=== PATIENT | male | born 1995 | race Caucasian/White ===

== ENCOUNTER → 2016-04-07 | Outpatient (CLI) | payer OTHER ==
[~2016-04-07] MED LIST: AZAT50TA17 PO; CRFL PO; FERR1TAB23 PO; MULT-506 PO; PRED10TA PO; VLC450 PO
[2016-04-07 17:40] LABS: BASO % 0.2 %; BASO ABS # 0.01 K/uL (0-0.2); EOS % 0.8 %; HEMATOCRIT 34.7 % (42-52); IG% 0.2 %; LYMPH ABS # 1.71 K/uL (1.2-3.4); MEAN CELL VOLUME 84.2 fL (80-100); MEAN CORPUSCULAR HEMOGLOBIN 25.5 pg (25-34); MEAN CORPUSCULAR HGB CONC 30.3 g/dl (32-36); MEAN PLATELET VOLUME 8.4 fL (7.4-10.4); MONO % 9.3 %; NEUT % 53.5 %; PLATELET COUNT 276 K/uL (130-400); RED BLOOD COUNT 4.12 M/uL (4.7-6.1); RETHE 24.8 PG (28.2-36.6); WHITE BLOOD COUNT 4.75 K/uL (4.8-10.8)
[2016-04-07 18:04] LABS: C-REACTIVE PROTEIN < 0.29 mg/dl (0-0.29); FERRITIN 5.8 ng/ml (8.0-388.0); TOTAL IRON BINDING CAPACITY 382 mcg/dl (250-450)
[2016-04-07 18:48] LABS: ANISOCYTOSIS PRESENT
[2016-04-08 23:05] LABS: COMPLETE YES
[2016-04-10 14:33] LABS: CMV DNA PCR QUANT SOURCE Whole Blood; CMV DNA QN REAL TIME PCR <200 IU/mL (<200)
== END | disposition home or self-care (01) ==
LOC: C.LABPVFM 15:41
PROVIDERS: ATTEND Hospitalist
DX: D50.9 Iron deficiency anemia, unspecified (principal)

== ENCOUNTER → 2017-03-09 | Outpatient (CLI) | payer OTHER ==
[~2017-03-09] MED LIST changes: -CRFL PO; -FERR1TAB23 PO; -MULT-506 PO; -PRED10TA PO; +RMCI IV; -VLC450 PO
== END | disposition home or self-care (01) ==
LOC: C.LAB 13:02
PROVIDERS: ATTEND Internal Medicine Gastroenterology
DX: K50.90 Crohn's disease, unspecified, without complications (principal)

== ENCOUNTER 2018-06-27 17:17 | Inpatient (IN) ==
[2018-06-27] MEDS ORDERED: LORazepam 2 MG/ML VIAL (IM USE) ONE (17:27)
[2018-06-27] MEDS ORDERED: LORazepam 2 MG/ML VIAL (IM USE) IM STA (17:28)
[2018-06-27] MEDS: HALOPERIDOL LACTATE 5 MG/ML 1 ML VIAL IM STA ×2 (17:29→17:43)
[2018-06-27] MEDS: HALOPERIDOL LACTATE 5 MG/ML 1 ML VIAL ONE ×2 (17:29→17:54)
[2018-06-27 18:57] LABS: Basophils # (auto) 0.02 K/uL (0-0.2); Basophils % (auto) 0.2 %; Eosinophils # (auto) 0.39 K/uL (0-0.5); Eosinophils % (auto) 3.9 %; Hematocrit (blood only) 48.1 % (42-52); Hemoglobin 17.6 g/dL (14.0-18.0); Immature Granulocytes # (auto) 0.02 K/uL (0.00-0.02); Immature Granulocytes % (auto) 0.2 %; Lymphocytes # (auto) 1.91 K/uL (1.2-3.4); Lymphocytes % (auto) 19.2 %; Mean Corpuscular Hemoglobin 31.6 pg (25-34); Mean Corpuscular Hgb Conc 36.6 g/dL (32-36); Mean Corpuscular Volume 86.4 fL (80-100); Mean Platelet Volume 10.5 fL (7.4-10.4); Monocytes # (auto) 0.87 K/uL (0.11-0.59); Monocytes % (auto) 8.7 %; Neutrophils # (auto) 6.76 K/uL (1.4-6.5); Neutrophils % (auto) 67.8 %; Platelet Count 190 K/uL (130-400); RDW Coefficient of Variation 12.4 % (11.5-14.5); RDW Standard Deviation 39.4 fL (36.4-46.3); Red Blood Count 5.57 M/uL (4.7-6.1); White Blood Count 9.97 K/uL (4.8-10.8)
[2018-06-27 19:19] LABS: Alanine Aminotransferase 59 U/L (12-78); Albumin Level 4.1 gm/dl (3.4-5.0); Aspartate Aminotransferase 39 U/L (15-37); BUN Creatinine Ratio 10.6 (10-20); Blood Urea Nitrogen 15 mg/dl (7-18); Carbon Dioxide 19 mmol/L (21-32); Chloride 108 mmol/L (98-107); Est GFR (African American) 80.7; Est GFR (Non-African American) 69.6; Glucose 104 mg/dl (70-99); Potassium 3.5 mmol/L (3.5-5.1); Sodium 140 mmol/L (136-145)
[2018-06-27 19:21] LABS: Acetaminophen < 2 ug/ml (10-30); Salicylate < 1.7 mg/dl (2.8-20)
[2018-06-27 19:27] LABS: Albumin Globulin Ratio 1.1 (0.9-2); Alkaline Phosphatase 82 U/L (45-117); Bilirubin,Total 1.3 mg/dl (0.2-1); Globulin 3.6 gm/dl (2.5-4.0); Thyroid Stimulating Hormone 0.816 uIu/ml (0.300-4.500); Total Protein 7.7 gm/dl (6.4-8.2)
--- OUTSIDE RECORDS SUMMARY | 2018-06-27 22:06 | External Medical Summary | Continuity of Care Document ---
:1995 Author Name Julius Correa, Provider Address Unavailable Unavailable , Care Team Providers Name Role Phone RikNPG Sunny, Provider Unavailable [email or web address] PA-C, [email or web address] FATOU Correa, JOSS Kelly Unavailable Unavailable Unavailable Unavailable Unavailable Problems Neutropenia (288.00) (D70.9) Leukopenia (288.50) (D72.819) Contact dermatitis (692.9) (L25.9) Pica (307.52) (F50.89) Abnormal weight gain (783.1) (R63.5) Arthritis (716.90) (M19.90) Crohn disease (555.9) (K50.90) Crohn's disease (555.9) (K50.90) Colitis, CMV (078.5) (A08.39) Iron deficiency anemia (280.9) (D50.9) Colitis (558.9) (K52.9) Anemia due to blood loss (280.0) (D50.0) Diarrhea (787.91) (R19.7) Attention disturbance (799.51) (R41.840) Asperger's disorder (299.80) (F84.5) Striae (701.3) (L90.6) Tobacco use (305.1) (Z72.0) Anemia (285.9) (D64.9) Nausea (787.02) (R11.0) Allergies and Adverse Reactions mesalamine (Allergy) Ondansetron HCl TABS (Allergy) Remicade (Allergy) No Known Food Allergies (Allergy) Medications Vitamin D TABS Refills: 0 Multivitamins TABS Refills: 0 Bactrim DS TABS Refills: 0 Remicade 100 MG Intravenous Solution Rec onstituted; Started during [facility] [place]. Repeat Remicade dosing on 03/08/2016 and then every 4 weeks thereafter. Refills: 0 Sucralfate 1 GM Oral Tablet; TAKE 1 TABL ET 4 TIMES DAILY, BEFORE MEALS AND AT BEDTIME. Refills: 0 Ergocalciferol 02011 UNIT Oral Capsule; TAKE 1 CAPSULE Weekl y Refills: 0 valGANciclovir HCl - 450 MG Oral Tablet; TAKE 900 MG Twice daily Take BID until CMV PCR labs negative x 2. Then take 1 per day for 1 to 3 months. Refills: 0 Juice Plus Fibre LIQD Refills: 0 predniSONE 10 MG Oral Tablet; TAKE 20 MG Twice daily until f/u with GI on 03/15/2016 Refills: 0 azaTHIOprine 50 MG Oral Tablet; TAKE 2 TABLETS DAILY. ZULEMA Stewart Start: 11-Feb-2009 Quantity: 60 Refills: 0 Ferrous Sulfate 325 (65 Fe) MG Oral Tablet; TAKE 1 TAB LET TWICE DAILY. ZULEMA Thomas Start: 13-Jan-2016 Quantity: 60 Refills: 0 Procedures Procedures not documented Immunizations Hepatitis B On: 1996 Hepatitis B On: 1996 IPV On: 1996 HIB On: 1996 DTaP On: 1996 IPV On: 1996 HIB On: 1996 DTaP On: 1996 Hepatitis B On: 1996 HIB On: 1996 DTaP On: 1996 HIB On: 12-Aug-1997 Varicella On: 12-Aug-1997 MMR On: 12-Aug-1997 IPV On: 31-Dec-1997 DTaP On: 31-Dec-1997 IPV On: 18-May-2001 DTaP On: 18-May-2001 MMR On: 18-May-2001 Tdap On: 26-Jun-2006 Varicella On: 29-Nov-2006 Influenza On: 29-Nov-2006 FluMist LIQD On: 26-Jan-2008 Meningo (Menactra) On: 26-Jun-2008 FluMist LIQD On: 11-Dec-2008 15:05 Lot #: [id number], [employer] Fluzone INJ On: 28-Dec-2010 Hepatitis A On: 13-Apr-2011 12:40 Lot #: [id number], [employer] HPV (Gardasil) On: 13-Apr-2011 12:40 Lot #: [id number], [employer] HPV (Gardasil) On: 09-Jun-2011 16:15 Lot #: [id number], [employer] Hepatitis A On: 11-Nov-2011 16:17 Lot #: [id number], [employer] HPV (Gardasil) On: 11-Nov-2011 16:17 Lot #: [id number], [employer] Influenza On: 11-Nov-2011 16:18 Lot #: [id number], [employer] PPD On: 21-Apr-2012 16:50 Lot #: [id number], [employer] Prevnar 13 Intramuscular Suspension On: 21-Apr-2012 16:50 Lot #: [id number], [employer] Influenza (Nasal) On: 21-Nov-2012 8:36 Lot #: [id number], [employer] Menactra Intramuscular Injectable On: 25-May-2013 10:06 Lot #: [id number], [employer] Pneumococcal polysaccharide vaccine, 23 valent On: 26-May-19 14 10:06 Lot #: [id number], [employer] Fluzone INJ On: 17-Jan-2014 16:43 Lot #: [id number], [employer] Fluzone INJ On: 09-Dec-2014 17:33 Lot #: [id number], [employer] Fluzone SUSP On: 06-Jan-2016 17:24 Lot #: [id number], [employer] Social History - Smoking Status Never smoker Plan of Treatment Planned Observations Planned Goals not documented Results No Known Results Results not documented
[2018-06-27 22:14] LABS: Appearance Urine Clear (Clear); Bilirubin Urine Negative (Negative); Blood Urine Negative (Negative); Color Urine Yellow; Glucose Urine UA Negative (Negative); Ketones Urine Negative (Negative); Leukocyte Esterase Urine Negative (Negative); Nitrite Urine Negative (Negative); Protein Urine Negative (Negative); Urobilinogen Urine Negative (Negative)
[2018-06-27 22:27] LABS: Amphetamines+Metham, Urine Neg (Neg); Barbiturates, Urine Neg (Neg); Benzodiazepine, Urine Neg (Neg); Cocaine, Urine Neg (Neg); MDMA (Ecstacy), Urine Neg (Neg); Methadone, Urine Neg (Neg); Opiate, Urine Neg (Neg); Phencyclidine, Urine Neg (Neg)
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
[2018-06-28 00:18] LABS: iSTAT Hemoglobin 14.6 g/dl (14.0-18.0); iSTAT Ionized Calcium 1.2 mmol/l (1.12-1.32); iSTAT Potassium 3.7 mEq/L (3.3-5.0)
[2018-06-28] MEDS ORDERED: MAGNESIUM HYDROXIDE SUSP 30 ML UDC PO PRN (04:05)
[2018-06-28] MEDS ORDERED: BISMUTH SUBSALICYLATE PER ML OMNICELL CHARGE PO PRN (04:05)
[2018-06-28] MEDS ORDERED: SODIUM CHLORIDE 0.65% NA SOLN 45 ML (OCEAN) PRN (04:05)
[2018-06-28] MEDS ORDERED: ACETAMINOPHEN 325 MG TAB PO PRN (04:05)
[2018-06-28] MEDS ORDERED: ALUMINUM/MAGNESIUM SUSP 30 ML UDC PO PRN (04:05)
[2018-06-28] MEDS ORDERED: HALOPERIDOL 5 MG TAB PO PRN (05:18)
[2018-06-28] MEDS ORDERED: HALOPERIDOL LACTATE 5 MG/ML 1 ML VIAL IM PRN (05:18)
[2018-06-28] MEDS ORDERED: LORazepam 1 MG TAB PO PRN (05:25)
[2018-06-28] MEDS ORDERED: LORazepam 2 MG/ML VIAL (IM USE) IM PRN (05:27)
--- NOTE | 2018-06-28 05:35 | Emergency Department Note ---
ED Visit Note ED Physician Sign Out Note: 23 yr old male with acute suicidal/homicidal ideation initially evaluated, medically cleared and chemically sedated by Dr Toro. 302 paperwork already signed. He is stable, discussing inpatient treatment with mental health. He was signed out to me pending disposition. Accepted to [address] [place] [address] and transferred there without issue. Chris Stapleton MD
--- NOTE | 2018-06-28 08:20 | History & Physical ---
Date of Service June 28, 2018 Impression / Recommendations (1) Homicidal ideation: 06/28 -patient admitted on a 302 involuntary commitment. Continue suicide and homicide checks. Gather information to help determine the need for continued treatment. -Patient admits to threatening to kill his mother and her dog after they had an argument 2 days ago. He denies intent to act on these thoughts currently. He does not endorse any symptoms consistent with a mental illness, and is not psychotic, manic, or depressed, but reports he was angry at his mother for refusing to hire an bankruptcy attorney to fight his criminal charges for selling drugs. -Reviewed recommendations with him, including that he participate in groups and programming, work on healthy ways to cope with anger, and have a meeting with his mother. He is refusing, and states he will not return to stay with his mother. -Mother is the petitioner, so will ask staff to contact her for collateral information. -Patient has been informed that threatening or aggressive behavior will not be tolerated here, and police will be contacted and charges can be processed if he engages in such behavior. He expressed understanding. Present on Admission?: Yes (2) Suicidal ideation: 06/28 -continue suicide checks. Patient reports feeling suicidal only when he is feeling upset about his criminal charges. It does not appear that this is related to a primary mood, thought, or anxiety disorder. Present on Admission?: Yes Risk Factors Assessment Male: Yes : Yes Do You Have Access To A Gun?: No Health Problems: Yes Mental Health Diagnoses: No Substance Use Disorders: Yes Previous Attempt: No Family History of Suicide: No Previous Psychiatric Hospitalization: No Hopelessness: No Smoker: No Protective Factors Assessment Denominational Beliefs: No : No Responsible for Young Children: No Employed: Yes Stable Relationships: No Good Rapport with Provider: No Psychiatric History Identifying Data SAI RYAN is a 23-year-old M who currently lives in [facility] with his mother, has a history of Crohn's disease and Asperger's, and was admitted on 06/28/18 04:05 on a 302 involuntary commitment for threats to kill his mother and her dog. Chief Complaint "I don't even know where I'm at... My mother called 302 because we got into a fight about the fact my one case got dropped". History of Present Illness Information obtained from the patient and the medical record. He was brought into the ER by police 06/27/2018 on a 302 warrant, after mother completed a petitioning statement: They had an argument on 06/26/2018, and then the patient threatened to kill her and her dog, and to chop his mother up into little pieces. He also stated he wished his mother's cancer would return and that she would have a slow and painful . He said he was not afraid to and could run his car into something. She said he had a machete and a hatchet in his car, and that he had been missing since the morning of 06/26/2018 and had blocked family members on his phone so no one could reach him. The police who brought him and confirmed that he had a machete in his car. He was uncooperative and agitated in the ER, attempted to leave, and pushed security, resulting in a code frankle. He received 5 mg Haldol and 2 mg Ativan IM, and was placed in restraints. He was also found to be smoking marijuana in the ER. He was tearful when evaluated by the physician, and stated he had a fight with his mother the day prior, and then left the house and blocked her on his phone. He was going to stay in his car until he had to go to work, but got a call from police stating they need to speak with him, who then brought him to the hospital. He did not want to come in the hospital, and said he did not need treatment. He expressed anger at the police, stating they arrested him after he was found to have 1/2 pound of marijuana, and said they lied to him and treated him unfairly. He said that he had 6 months of house arrest and is on probation. After he calmed down, he told ER staff that he was not going to kill his mother, and was "just really mad." He said he "might" harm his mother's dog. His drug screen was positive for marijuana, creatinine was slightly elevated at 1.42, anion gap increased to 13, total bilirubin increased 1.3, AST elevated at 39, and TSH was normal. On my assessment, the patient states he was brought into the hospital by police because he was angry at his mother for refusing to hire an bankruptcy attorney to continue to fight drug charges he received. He talks angrily and at length about being arrested by police with a large amount of marijuana and al, and says they confiscated his money, which he believes he should get back. He admits that he was selling drugs, but does not believe the police had the right to search him, saying everyone believes the police and no one believes him, and they called him a liar". He says his redevelopment manager "screwed me," and his mother did nothing about it, so he got mad at her. He freely admits to making all of the threats detailed in the petitioning statement, including threatening to kill his mother and his mother's dog, and saying he did not care if he . He states that he has had thoughts about being better off whenever he gets upset about his criminal charges, because "who would want to live in a world like that?" He admits to having weapons in his car (machete and hatchet) which he said were there "for self-defense." He denies intent to harm anyone else currently, and also denies thoughts to harm himself, depressed mood, changes in appetite and sleep, problems with energy, anhedonia, guilty feelings, and psychomotor retardation. He states that his mood was "fine" before the fight with his mother, and now is angry, as he does not want to be in the hospital. He denies any history of symptoms consistent with uli, psychosis, or anxiety. He is refusing to have a meeting with his mother, stating he does not want to talk to her, and when asked where he will go at discharge, says "wherever I want, may be in my car, may be somewhere else." He plans to return to work when discharged, and says he wants to leave now. When encouraged to take this opportunity to address the issues with his mother and try to come up with a good discharge plan, he refuses, stating he does not need to be here and just wants to leave. He says he is aware that it is a crime to threaten to harm others, and was informed that he is expected to be in behavioral control here, and that threats and aggression t owards others will not be tolerated. Past Psychiatric History Previous Psych History: Per records he has a history of Asperger's Outpatient Services: None Previous Psych Admissions: Denies Do You Have Access To A Gun?: No History of Previous Suicide Attempt: No Allergies Allergy/AdvReac Type Severity Reaction Status Date / Time infliximab [From Remicade] Allergy Intermediate THROAT Verified 06/27/18 18:04 SHERI GONZALEZ PRETREATED WITH ANTIHISTAMINES Home Medications Home Medications Medication Instructions Recorded Confirmed Type Medical Marijuana 1 dose INHALATION DIRECTED 06/27/18 06/27/18 History azathioprine [Imuran] 100 mg PO DAILY 06/27/18 06/27/18 History infliximab [Remicade] 1 dose IV [id number] 06/27/18 06/27/18 History multivitamin 1 tab PO DAILY 06/27/18 06/27/18 History Family History Family History of: Bipolar Family Mental Health History Comment: Aunt: Bipolar Alcohol History Hx of Alcohol Use Over the Past 12 Months: No AUDIT Total Score: 0 Smoking Use Have You Smoked or Used Tobacco Products in the Last 30 Days: No Smoking Status: Never smoker Substance History Hx of Prescription Med Misuse Over the Past 12 Months: No Hx of Over the Counter Med Misuse Over the Past 12 Months: No Hx of Inhalent Misuse Over the Past 12 Months: No Hx of Organic Substance Use Over the Past 12 Months: Yes ("Liquid marijuana daily") Hx of Illegal Substances/Street Drug Use Over Past 12 Months: No Problems as a Result of Past Substance Use: Arrested Problems as a Result of Past Substance Use Comments: "Arrested with 1/2 pound of marijuana" and a large amount of al Personal History Living Arrangements: Home Living Arrangements Comments: With mother in [place] 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) Marital Status: Single Beliefs That Will Affect Care: None Hx Legal Problems: Yes Patient History Medical History Anemia (Resolved) Crohn's colitis (Resolved) Headache (Resolved) Orthostasis (Resolved) Orthostatic hypotension (Acute) Surgical History No pertinent past surgical history Family History Other Family history non-contributory Social History Preferred Language: Bulgarian Communication Ability: Effective Integrated Circuits Inspector Required: No Beliefs That Will Affect Care: None Feels Safe at Home: Yes Smoking Status: Never smoker Review of Systems Review of Systems: All systems reviewed & are unremarkable except as noted in HPI & below Physical Exam Psychiatric: Orientation: alert; + uncooperative Apperance: + disheveled; + inappropriately groomed Extremely malodorous and unkempt. Eye Contact: + poor eye contact Motor Behavior: no abnormal motor movements Loud at times, angry tone. Affect: + irritable affect, + angry affect and + constricted affect Mood: + angry mood Thought Process: + perseveration (On anger about his criminal charges.) Thought Content: + cognitive distortions (Blaming others) Suicidal Thoughts: denies suicidal thoughts Homicidal Thoughts: denies homicidal thoughts Hallucinations: no auditory hallucinations and no visual hallucinations Cognition: recent memory grossly intact and language grossly intact Insight: + limited insight Judgement: + limited judgement Vital Signs (Past 24 Hours): Last Vital Signs Temp 36.8 C 06/28/18 06:22 Pulse 72 06/28/18 06:22 Resp 18 06/28/18 06:22 BP 112/62 06/28/18 06:22 Pulse Ox 98 06/28/18 05:03 Exam Statement: A physical exam was performed in the ER prior to admission to the unit by Dr. Tuttle. I accept that physical as correct/medical clearance for the inpatient physical exam. Results & Data Laboratory Results Laboratory Results - last 24 hr 06/27/18 06/27/18 06/27/18 18:21 18:21 18:21 WBC 9.97 RBC 5.57 Hgb 17.6 POC Hgb Hct 48.1 POC Hct MCV 86.4 MCH 31.6 MCHC 36.6 H RDW Std Deviation 39.4 RDW Coeff of Miguel 12.4 Plt Count 190 MPV 10.5 H Immature Gran % (Auto) 0.2 Neut % (Auto) 67.8 Lymph % (Auto) 19.2 Harding % (Auto) 8.7 Eos % (Auto) 3.9 Baso % (Auto) 0.2 Immature Gran # (Auto) 0.02 Neut # (Auto) 6.76 H Lymph # (Auto) 1.91 Harding # (Auto) 0.87 H Eos # (Auto) 0.39 Baso # (Auto) 0.02 POC Sodium Sodium 140 POC Potassium Potassium 3.5 POC Chloride Chloride 108 H Carbon Dioxide 19 L POC Total CO2 Anion Gap 13.0 H POC Anion Gap POC BUN BUN 15 Creatinine 1.42 H POC Creatinine Est Cr Clr Drug Dosing Not Reportable Est GFR ( Amer) 80.7 Est GFR (Non-Af Amer) 69.6 BUN/Creatinine Ratio 10.6 Glucose 104 H POC Glucose (other) Calcium 9.0 POC Ioniz Calcium Angélica Total Bilirubin 1.3 H AST 39 H ALT 59 Alkaline Phosphatase 82 Total Protein 7.7 Albumin 4.1 Globulin 3.6 Albumin/Globulin Ratio 1.1 TSH 0.816 Urine Color Urine Appearance Urine pH Ur Specific Murphy Urine Protein Urine Glucose (UA) Urine Ketones Urine Blood Urine Nitrite Urine Bilirubin Urine Urobilinogen Ur Leukocyte Esterase Salicylates < 1.7 L Urine Opiates Screen Ur Methadone, Qual Acetaminophen < 2 L Urine Barbiturates Ur Phencyclidine (PCP) U Amphetamin/Meth Scrn MDMA (Ecstasy) Screen U Benzodiazepines Scrn Ur Cocaine Metabolite U Marijuana (THC) Screen Ethyl Alcohol mg/dL 06/27/18 06/27/18 06/27/18 18:21 21:31 21:31 WBC RBC Hgb POC Hgb Hct POC Hct MCV MCH MCHC RDW Std Deviation RDW Coeff of Miguel Plt Count MPV Immature Gran % (Auto) Neut % (Auto) Lymph % (Auto) Harding % (Auto) Eos % (Auto) Baso % (Auto) Immature Gran # (Auto) Neut # (Auto) Lymph # (Auto) Harding # (Auto) Eos # (Auto) Baso # (Auto) POC Sodium Sodium POC Potassium Potassium POC Chloride Chloride Carbon Dioxide POC Total CO2 Anion Gap POC Anion Gap POC BUN BUN Creatinine POC Creatinine Est Cr Clr Drug Dosing Est GFR ( Amer) Est GFR (Non-Af Amer) BUN/Creatinine Ratio Glucose POC Glucose (other) Calcium POC Ioniz Calcium Angélica Total Bilirubin AST ALT Alkaline Phosphatase Total Protein Albumin Globulin Albumin/Globulin Ratio TSH Urine Color Yellow Urine Appearance Clear Urine pH 6.0 Ur Specific Murphy 1.010 Urine Protein Negative Urine Glucose (UA) Negative Urine Ketones Negative Urine Blood Negative Urine Nitrite Negative Urine Bilirubin Negative Urine Urobilinogen Negative Ur Leukocyte Esterase Negative Salicylates Urine Opiates Screen Neg Ur Methadone, Qual Neg Acetaminophen Urine Barbiturates Neg Ur Phencyclidine (PCP) Neg U Amphetamin/Meth Scrn Neg MDMA (Ecstasy) Screen Neg U Benzodiazepines Scrn Neg Ur Cocaine Metabolite Neg U Marijuana (THC) Screen Pos H Ethyl Alcohol mg/dL < 3.0 06/28/18 00:05 WBC RBC Hgb POC Hgb 14.6 Hct POC Hct 43 MCV MCH MCHC RDW Std Deviation RDW Coeff of Miguel Plt Count MPV Immature Gran % (Auto) Neut % (Auto) Lymph % (Auto) Harding % (Auto) Eos % (Auto) Baso % (Auto) Immature Gran # (Auto) Neut # (Auto) Lymph # (Auto) Harding # (Auto) Eos # (Auto) Baso # (Auto) POC Sodium 143 Sodium POC Potassium 3.7 Potassium POC Chloride 104 Chloride Carbon Dioxide POC Total CO2 23 L Anion Gap POC Anion Gap 20.0 POC BUN 14 BUN Creatinine POC Creatinine 1.0 Est Cr Clr Drug Dosing Est GFR ( Amer) Est GFR (Non-Af Amer) BUN/Creatinine Ratio Glucose POC Glucose (other) 91 Calcium POC Ioniz Calcium Angélica 1.20 Total Bilirubin AST ALT Alkaline Phosphatase Total Protein Albumin Globulin Albumin/Globulin Ratio TSH Urine Color Urine Appearance Urine pH Ur Specific Murphy Urine Protein Urine Glucose (UA) Urine Ketones Urine Blood Urine Nitrite Urine Bilirubin Urine Urobilinogen Ur Leukocyte Esterase Salicylates Urine Opiates Screen Ur Methadone, Qual Acetaminophen Urine Barbiturates Ur Phencyclidine (PCP) U Amphetamin/Meth Scrn MDMA (Ecstasy) Screen U Benzodiazepines Scrn Ur Cocaine Metabolite U Marijuana (THC) Screen Ethyl Alcohol mg/dL Current Inpatient Medications Current Inpatient Medications: Current Inpatient Medications Acetaminophen (Tylenol) 650 mg PO Q4H PRN PRN Reason: Headache or Minor Fever Stop: 07/28/18 04:04 Al Hydrox/Mg Hydrox/Simethicone (Maalox) 30 ml PO Q4H PRN PRN Reason: GI Upset Stop: 07/28/18 04:04 Bismuth Subsalicylate (Kaopectate) 15 ml PO PRN PRN PRN Reason: Loose Stool Stop: 07/28/18 04:04 Haloperidol (Haldol) 5 mg PO Q6 PRN PRN Reason: Agitation Stop: 07/28/18 05:59 Haloperidol Lactate (Haldol) 5 mg IM Q6 PRN PRN Reason: Agitation Stop: 07/28/18 05:17 Hydroxyzine HCl (Vistaril) 50 mg PO HSZ PRN PRN Reason: Insomnia Stop: 07/28/18 04:04 Hydroxyzine HCl (Vistaril) 25 mg PO Q4H PRN PRN Reason: Anxiety Stop: 07/28/18 04:04 Lorazepam (Ativan) 1 mg PO Q6 PRN PRN Reason: Anxiety Stop: 07/28/18 05:24 Lorazepam (Ativan) 2 mg IM Q6 PRN PRN Reason: Agitation Stop: 07/28/18 05:26 Magnesium Hydroxide (Milk Of Magnesia) 30 ml PO DAILY PRN PRN Reason: Heartburn Stop: 07/28/18 04:04 Sodium Chloride (Cooter Nasal) 1 - 2 sprays NA PRN PRN PRN Reason: Nasal Dryness/Congestion Stop: 07/28/18 04:04 CPT Code CPT Code Initial Hospital Care: 47341
--- NOTE | 2018-06-29 11:50 | Psychiatric Progress Note ---
Date of Service June 29, 2018 Impression / Recommendations Impression Patient continues to refuse a meeting with his mother, although he states he has no where else to live. Although he denies HI/SI, he continues to be very angry with his mother. Mother confirmed with social work that guns in the home have been secured; however, it is still unclear if patient's machete and other weapons were removed from his car. Current concerns also involve the fact that the patient's car is impounded and he has no housing arrangements. In order to decrease risk, given his threats to harm her, we are trying to confirm the weapons have been removed prior to considering discharge. The above information was discussed with the patient, who was hopeful for discharge today. He is understanding of steps necessary to ensure his safety at discharge, and was agreeable to completing his safety plan while these arrangements can be made. Given these recent stressors and turmoil with his mother, he remains at high risk of harm to others if discharged into the community without proper safety planning. (1) Homicidal ideation: 06/28 -patient admitted on a 302 involuntary commitment. Continue suicide and homicide checks. Gather information to help determine the need for continued treatment. -Patient admits to threatening to kill his mother and her dog after they had an argument 2 days ago. He denies intent to act on these thoughts currently. He does not endorse any symptoms consistent with a mental illness, and is not psychotic, manic, or depressed, but reports he was angry at his mother for refusing to hire an tax associate attorney to fight his criminal charges for selling drugs. -Reviewed recommendations with him, including that he participate in groups and programming, work on healthy ways to cope with anger, and have a meeting with his mother. He is refusing, and states he will not return to stay with his mother. -Mother is the petitioner, so will ask staff to contact her for collateral information. -Patient has been informed that threatening or aggressive behavior will not be tolerated here, and police will be contacted and charges can be processed if he engages in such behavior. He expressed understanding. 06/29 - Denies HI, but refuses ongoing contact with his mother at this time as he remains angry with her - Collateral from mother suggests vague reports of depression, she was informed that the patient is at increased risk of aggression moving forward. - Will attempt to arrange safe discharge after confirming patient does not have access to any of his many weapons (2) Suicidal ideation: 06/28 -continue suicide checks. Patient reports feeling suicidal only when he is feeling upset about his criminal charges. It does not appear that this is related to a primary mood, thought, or anxiety disorder. (3) Autism spectrum disorder: 06/29 - Mother reports patient was diagnosed with ASD as a child, but has not been in treatment for years. He has demonstrated perseveration on perceived grievances, including police for his drug arrest, and his mother for letting his dog out, as it was then hit by a car and killer. He is unwilling to consider medication, but would benefit from therapy, although currently refusing all outpatient treatment. Present on Admission?: Yes Risk Factors Assessment Male: Yes : Yes Do You Have Access To A Gun?: No Health Problems: Yes Mental Health Diagnoses: No Substance Use Disorders: Yes Previous Attempt: No Family History of Suicide: No Previous Psychiatric Hospitalization: No Hopelessness: No Smoker: No Protective Factors Assessment Confucianist Beliefs: No : No Responsible for Young Children: No Employed: Yes Stable Relationships: No Good Rapport with Provider: No Interval History Identifying Information SAI RYAN is a 23-year-old M who currently lives in [facility] with his mother, has a history of Crohn's disease and Asperger's, and was admitted on 06/28/18 04:05 on a 302 involuntary commitment after he threatened to kill his mother and her dog, and to kill himself. Chief Complaint "Ok. Am I leaving today?" Review of Systems Notes Constitutional: denied Cardiovascular: denied Respiratory: denied Gastrointestinal: denied Neurological: denied Psychiatric: denies symptoms other than stated above Total of at least 10 systems reviewed, pertinent positives as above and in HPI. Sleep Information Total Hours of Sleep: 9 Sleep Comments: pt admitted late to the [facility] @0508. pt on q-15 minute checks Meal Information Percent Meal Consumed - Breakfast: 0 Subjective Subjective Patient was seen & assessed and interval progress reviewed with Nursing. Staff report the patient has been participating in groups. Some collateral information was obtained from the mother yesterday, it was reported mother is concerned about him but that he is welcome to return home. Pt was seen today to assess progress since admission. Pt states he is "fine". Several changes in information were discussed with patient: pt refusing contact with his mother, his car being impounded, need to confirm if weapons have been secured, and discussion about discharge housing if not returning to his mother. Pt reports several friends have offered for him to stay with them, and was otherwise unders tanding of the safety concerns discussed. He remains unwilling to communicate with his mother at this time. Pt denies SI and other concerns today, but remains focused on discharge. Physical Exam Psychiatric Orientation: alert, oriented x 3 and cooperative (superficially) Apperance: + disheveled; + inappropriately groomed Eye Contact: + fair eye contact Motor Behavior: steady gait and station and no abnormal motor movements Speech: normal rate/rhythm/volume of speech Affect: + irritable affect (improving somewhat) and + constricted affect Mood: + irritable mood (specifically when discussing mother and ongoing safety concerns) Thought Process: goal directed thought process and clear/coherent thought process Thought Content: + cognitive distortions (Blaming others) Suicidal Thoughts: denies suicidal thoughts Homicidal Thoughts: denies homicidal thoughts Hallucinations: no auditory hallucinations and no visual hallucinations Cognition: recent memory grossly intact, attention grossly intact and language grossly intact Estimated Intelligence: consistent with education level Insight: + limited insight Judgement: + limited judgement Vital Signs (Past 24 Hours) Last Vital Signs Temp 36.4 C L 06/29/18 06:47 Pulse 98 H 06/29/18 06:48 Resp 18 06/29/18 06:47 BP 124/69 06/29/18 06:48 Pulse Ox 98 06/28/18 05:03 Results & Data Current Inpatient Medications Current Inpatient Medications: Current Inpatient Medications Acetaminophen (Tylenol) 650 mg PO Q4H PRN PRN Reason: Headache or Minor Fever Stop: 07/28/18 04:04 Al Hydrox/Mg Hydrox/Simethicone (Maalox) 30 ml PO Q4H PRN PRN Reason: GI Upset Stop: 07/28/18 04:04 Bismuth Subsalicylate (Kaopectate) 15 ml PO PRN PRN PRN Reason: Loose Stool Stop: 07/28/18 04:04 Haloperidol (Haldol) 5 mg PO Q6 PRN PRN Reason: Agitation Stop: 07/28/18 05:59 Haloperidol Lactate (Haldol) 5 mg IM Q6 PRN PRN Reason: Agitation Stop: 07/28/18 05:17 Hydroxyzine HCl (Vistaril) 50 mg PO HSZ PRN PRN Reason: Insomnia Stop: 07/28/18 04:04 Hydroxyzine HCl (Vistaril) 25 mg PO Q4H PRN PRN Reason: Anxiety Stop: 07/28/18 04:04 Lorazepam (Ativan) 1 mg PO Q6 PRN PRN Reason: Anxiety Stop: 07/28/18 05:24 Lorazepam (Ativan) 2 mg IM Q6 PRN PRN Reason: Agitation Stop: 07/28/18 05:26 Magnesium Hydroxide (Milk Of Magnesia) 30 ml PO DAILY PRN PRN Reason: Heartburn Stop: 07/28/18 04:04 Sodium Chloride ([place] Nasal) 1 - 2 sprays NA PRN PRN PRN Reason: Nasal Dryness/Congestion Stop: 07/28/18 04:04 Post Discharge Appointments Primary Care Physician Name Of Family Doctor: Santino Therapist Name of Therapist: Deandra Wood Strip Block Floor Installer Name of Wood Strip Block Floor Installer: Deandra Other #1: Name of Aftercare Appointment: Vernon BAZAN Phone Number of Aftercare Appointment: [phone] Date of Aftercare Appointment: 07/12/18 Time of Aftercare Appointment: 9am Aftercare Appointment Comment: [facility] [place] [id number] CPT Code CPT Code 72677
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
== END 2018-06-30 13:15 | disposition home or self-care (01) | DRG 884 ==
LOC: ED 17:17 → 3S 06-28 04:05

== ENCOUNTER 2020-01-01 07:49 | Inpatient (IN) ==
[2020-01-01] MEDS ORDERED: ONDANSETRON INJ 2 MG/ML 2 ML VIAL IV STA (08:21)
[2020-01-01] MEDS ORDERED: SODIUM CHLORIDE 0.9% 500 ML IV ONE (08:21)
--- NOTE | 2020-01-01 08:32 | Emergency Department Note ---
Impression & Plan Vomiting ED Provider Note INFORMANT: Patient ED PROVIDER(S): Sánchez Bateman MD CHIEF COMPLAINT: Vomiting PLAN: Disposition: Admitted Condition: Good MEDICAL DECISION MAKING: Patient presented back to the emergency department due to vomiting and intermittent abdominal pain. He has known inflammatory bowel disease. He was prescribed prednisone after symptomatic treatment yesterday in the ER. Work-up was consistent with IBD. Unfortunately he continued to have vomiting and intermittent pain. IV was established. The patient was hydrated. His symptoms were controlled with Zofran, Reglan, Benadryl, and Dilaudid. He was given IV Solu-Medrol. His CBC and chemistry panel were unremarkable. Acute distraction series revealed findings consistent with his IBD but no evidence of obstruction or perforation. [facility] gastroenterology was consulted. Hospital-based treatment was recommended. Consultation was made with the [facility] service. Patient was evaluated in the ER and admitted for further management. Triage Nursing notes reviewed and agree them. Prior medical records reviewed regarding visit yesterday. Vital Signs: reviewed and remarkable for no significant abnormalities Differential diagnosis: Etiologies such as IBD, gastroenteritis, food borne illness, infections, appendicitis, diverticulitis, GI bleed, biliary pathology, as well as others were entertained. Diagnostics interpreted by me: Cardiac Monitoring:Cardiac monitoring ordered by me: The patient was placed on continuous cardiac monitoring and observed. It revealed a normal sinus rhythm at 61 beats per minute without ectopy or evidence of dysrhythmia. Imaging studies: [place] abdominal series as noted above. No perforation or obstruction. Consultation(s): [facility] gastroenterology [facility] service HPI: The patient is a 24 year old male who presents to the Emergency Room with complaints of vomiting. This started again this morning and is persisting. The patient also notes the following associated symptoms, tenesmus, nausea, abdominal discomfort, bloody stool. The patient has found no relieving factors. Current pain is rated as 0/10. History of crohn's disease. Seen yesterday and work up consistent with IBD. Pt discharged prednisone. Unfortunately, he vomited his prednisone. Pt denies LOC, headache, fevers, chills, diaphoresis, visual changes, neck pain, chest pain, breathing difficulties, back pain, melena, urinary symptoms, numbness, weakness, lymphadenopathy, rash, or other complaints. ROS: See above HPI for pertinent positives & negatives. A total of 10 systems reviewed and were otherwise negative. PAST MEDICAL HISTORY:See Below, Crohn's PAST SURGICAL HISTORY:See Below, FAMILY HISTORY:See Below SOCIAL HISTORY:See Below, Denies ETOH HOME MEDICATIONS:See Below ALLERGIES:See Below VITALS:See Below PHYSICAL EXAMINATION: GENERAL: Awake, alert, uncomfortable-appearing, in no distress HENT: Normocephalic, atraumatic. Oropharynx unremarkable. EYES: Normal conjunctiva. Sclera non-icteric. NECK: Inspection normal. Non-tender. Supple. No nuchal rigidity. FROM. No masses. RESPIRATORY: Clear to auscultation. No wheezes. No rales. Normal respiratory effort. CARDIAC: Normal rate. Normal rhythm. No murmurs. No rubs. Extremities warm and well perfused. Pulses equal. No JVD. GI: Soft, non-distended. No tenderness to palpation. No rebound or guarding. No masses. RECTAL: Deferred. MUSCULOSKELETAL: Atraumatic. Chest examination reveals no tenderness. The back is symmetrical on inspection without obvious abnormality. There is no CVA tenderness to palpation. No joint edema. LOWER EXTREMITIES: Calves are equal size bilaterally and non-tender. No edema. No discoloration. NEURO: Normal sensorium. No sensory or motor deficits noted. SKIN: No rash or jaundice noted. ED COURSE: The patient was seen and examined with Dr. Eladio guzman, resident physician. We discussed the case and treatments ordered, reviewed the results, and determine the disposition. I have been directly involved with the management and disposition as well as independently evaluated the patient as documented in this note. Sánchez Bateman MD Past Med/Surg History Medical History (Updated 01/01/20 @ 08:26 by Sánchez Bateman MD) Anemia Crohn's colitis Headache Orthostasis Orthostatic hypotension Surgical History No pertinent past surgical history Family History Other Family history non-contributory Social History Smoking Status: Current some day smoker Tobacco Type: E-cigarettes / Vaping Preferred Language: Khmer Communication Ability: Effective Lure Maker Required: No Beliefs That Will Affect Care: None Feels Safe at Home: Yes Assistive Devices: None Allergies Allergies Allergy/AdvReac Type Severity Reaction Status Date / Time infliximab [From Remicade] Allergy Intermediate THROAT Verified 01/01/20 08:35 SWELLS Home Meds Home Medications Medication Instructions Recorded Confirmed Medical Marijuana 1 puff INHALATION UD 01/01/20 01/01/20 prednisone 40 mg PO QAM 01/01/20 01/01/20 Results & Data (ED) Vital Signs Vital Signs - 24 hr 01/01/20 07:52 01/01/20 09:09 01/01/20 10:54 Temperature 36.5 C Temperature Source Oral Pulse Rate 50 L Pulse Rate [Finger] 54 L 61 Respiratory Rate 16 16 16 Respiratory Effort / Characteristics Non-Labored Respiratory Depth Normal Respiratory Pattern Regular Blood Pressure 134/84 Blood Pressure [Right Arm] 150/82 H 133/83 Blood Pressure Mean 100 Blood Pressure Mean [Right Arm] 104 99 Blood Pressure Position Lying Pulse Oximetry 98 100 100 Oxygen Delivery Method Room Air Room Air Room Air Sepsis Recent Fever Within 48 Hours No Sepsis New/Unexplained Change in Mental Status No Sepsis Action Taken by Nursing No Action Required Laboratory Data Result diagrams: 01/01/20 08:15 01/01/20 08:15 Lab Results 01/01/20 01/01/20 Range/Units 08:15 08:15 WBC 7.42 (4.8-10.8) K/uL RBC 5.23 (4.7-6.1) M/uL Hgb 15.9 (14.0-18.0) g/dL Hct 46.3 (42-52) % MCV 88.5 (80-100) fL MCH 30.4 (25-34) pg MCHC 34.3 (32-36) g/dL RDW Std Deviation 40.1 (36.4-46.3) fL RDW Coeff of Miguel 12.5 (11.5-14.5) % Plt Count 288 (130-400) K/uL MPV 9.1 (7.4-10.4) fL Immature Gran % (Auto) 0.3 % Neut % (Auto) 59.0 % Lymph % (Auto) 24.1 % [place] % (Auto) 16.2 % Eos % (Auto) 0.3 % Baso % (Auto) 0.1 % Neut # (Auto) 4.38 (1.4-6.5) K/uL Lymph # (Auto) 1.79 (1.2-3.4) K/uL [place] # (Auto) 1.20 H (0.11-0.59) K/uL Eos # (Auto) 0.02 (0-0.5) K/uL Baso # (Auto) 0.01 (0-0.2) K/uL Immature Gran # (Auto) 0.02 (0.00-0.02) K/uL Sodium 141 (136-145) mmol/L Potassium 4.0 (3.5-5.1) mmol/L Chloride 106 (98-107) mmol/L Carbon Dioxide 29 (21-32) mmol/L Anion Gap 7.0 (3-11) BUN 7 (7-18) mg/dl Creatinine 1.11 (0.6-1.4) mg/dl Est Cr Clr Drug Dosing 110.2 ml/min Est GFR ( Amer) 107.9 Est GFR (Non-Af Amer) 93.1 BUN/Creatinine Ratio 6.3 L (10-20) Glucose 93 (70-99) mg/dl Calcium 9.5 (8.5-10.1) mg/dl Total Bilirubin 0.9 (0.2-1) mg/dl AST 14 L (15-37) U/L ALT 22 (12-78) U/L Alkaline Phosphatase 81 (45-117) U/L Total Protein 8.4 H (6.4-8.2) gm/dl Albumin 4.2 (3.4-5.0) gm/dl Globulin 4.2 H (2.5-4.0) gm/dl Albumin/Globulin Ratio 1.0 (0.9-2) Lipase 69 L (73-393) U/L Administered Medications Hydromorphone HCl (Hydromorphone Inj 0.5 Mg/0.5 Ml Syr) 0.5 mg IV Q15M PRN PRN Reason: Pain Stop: 01/15/20 08:44 Last Admin: 01/01/20 09:07 Dose: 0.5 mg Documented by: [id number] Discontinued Medications Diphenhydramine HCl (Diphenhydramine 50 Mg/Ml Vial) 25 mg IV NOW STA Stop: 01/01/20 08:37 Last Admin: 01/01/20 08:44 Dose: 25 mg Documented by: [id number] Sodium Chloride (Nss) 500 mls @ 999 mls/hr IV .Q31M ONE Stop: 01/01/20 08:51 Last Infusion: 01/01/20 09:00 Dose: 0 mls/hr Documented by: [id number] Admin: 01/01/20 08:28 Dose: 999 mls/hr Documented by: [id number] Sodium Chloride (Nss 1000ml) 1,000 mls @ 999 mls/hr IV .Q1H1M ONE Stop: 01/01/20 09:45 Last Admin: 01/01/20 09:07 Dose: 999 mls/hr Documented by: [id number] Methylprednisolone (Methylprednisolone 125 Mg/2 Ml Vial) 125 mg IV NOW STA Stop: 01/01/20 08:46 Last Admin: 01/01/20 09:07 Dose: 125 mg Documented by: [id number] Metoclopramide HCl (Metoclopramide Hcl Inj 5 Mg/Ml 2 Ml Vial) 10 mg IV NOW STA Stop: 01/01/20 08:37 Last Admin: 01/01/20 08:44 Dose: 10 mg Documented by: [id number] Ondansetron HCl (Ondansetron Inj 2 Mg/Ml 2 Ml Vial) 4 mg IV NOW STA Stop: 01/01/20 08:22 Last Admin: 01/01/20 08:28 Dose: 4 mg Documented by: [id number] Discharge Plan Visit Data Chief Complaint: Illness Stated Complaint: chrones flare up ED Provider: Sánchez Bateman Discharge Problem: Vomiting Forms Stand Alone Forms: [place] Prescriptions Prescriptions: No Action Medical Marijuana 1 puff inhalation UD RF: 0 prednisone 20 mg tablet 40 mg PO QAM RF: 0
[2020-01-01 08:36] LABS: Basophils # (auto) 0.01 K/uL (0-0.2); Basophils % (auto) 0.1 %; Eosinophils # (auto) 0.02 K/uL (0-0.5); Eosinophils % (auto) 0.3 %; Hematocrit (blood only) 46.3 % (42-52); Hemoglobin 15.9 g/dL (14.0-18.0); Immature Granulocytes # (auto) 0.02 K/uL (0.00-0.02); Immature Granulocytes % (auto) 0.3 %; Lymphocytes # (auto) 1.79 K/uL (1.2-3.4); Lymphocytes % (auto) 24.1 %; Mean Corpuscular Hemoglobin 30.4 pg (25-34); Mean Corpuscular Hgb Conc 34.3 g/dL (32-36); Mean Corpuscular Volume 88.5 fL (80-100); Mean Platelet Volume 9.1 fL (7.4-10.4); Monocytes % (auto) 16.2 %; Neutrophils # (auto) 4.38 K/uL (1.4-6.5); Platelet Count 288 K/uL (130-400); RDW Coefficient of Variation 12.5 % (11.5-14.5); RDW Standard Deviation 40.1 fL (36.4-46.3); Red Blood Count 5.23 M/uL (4.7-6.1); White Blood Count 7.42 K/uL (4.8-10.8)
[2020-01-01] MEDS ORDERED: METOCLOPRAMIDE HCL INJ 5 MG/ML 2 ML VIAL IV STA (08:36)
[2020-01-01] MEDS ORDERED: diphenhydrAMINE 50 MG/ML VIAL IV STA (08:36)
[2020-01-01] MEDS ORDERED: HYDROmorphone INJ 0.5 MG/0.5 ML SYR IV PRN (08:45)
[2020-01-01] MEDS ORDERED: methylPREDNISolone 125 MG/2 ML VIAL IV STA (08:45)
[2020-01-01] MEDS ORDERED: SODIUM CHLORIDE 0.9% 1000ML 1,000 ML IV ONE (08:45)
[2020-01-01 09:09] LABS: Albumin Level 4.2 gm/dl (3.4-5.0); BUN Creatinine Ratio 6.3 (10-20); Calcium 9.5 mg/dl (8.5-10.1); Creatinine Clr Calc Pharmacy 110.2 ml/min; Est GFR (African American) 107.9; Est GFR (Non-African American) 93.1
[2020-01-01 09:12] LABS: Bilirubin,Total 0.9 mg/dl (0.2-1); Globulin 4.2 gm/dl (2.5-4.0); Total Protein 8.4 gm/dl (6.4-8.2)
--- NOTE | 2020-01-01 09:20 | Communication Note ---
Date of Service: January 01, 2020 This patient was seen in concert with Dr. Bateman and we discussed and agreed upon the history, physical, assessment, and plan. See attending's note for details.
--- NOTE | 2020-01-01 10:01 | XRay Report ---
CHEST AND ABDOMEN 2 VIEWS HISTORY: Vomiting. Generalized abdominal pain. COMPARISON: Abdomen and pelvis CT 12/31/2019. Chest and abdominal series 02/03/2016. FINDINGS: The lungs are clear. The cardiomediastinal silhouette is within normal limits. There is no pneumoperitoneum or pneumatosis. Thumbprinting seen within the descending colon and sigmo id colon consistent with a colitis. This is better appreciated on the same day abdomen and pelvis CT. No evidence for bowel obstruction. No pathologic calcifications. IMPRESSION: 1. No acute process within the chest. 2. No evidence for bowel obstruction. 3. Redemonstration of the left-sided colitis. ACT 112: Negative or not required by law. Electronically signed by: Venu Perez M.D. 01/01/2020 9:59 AM
--- NOTE | 2020-01-01 11:24 | History & Physical Report ---
Date of Service January 01, 2020 Assessment & Plan (1) Bowel disease, inflammatory: Acute flair of crohn's disease. Patient will be admitted for IV steroids as he did not tolerate oral meds. He received 125 mg of IV methypredinoslone. will need 40 mg of prednisone (equivalent) daily for about a week. awaiting input from GI. (2) Vomiting: On zofran, due to problem 1. mildly improved. (3) Autism spectrum disorder: stable. will monitor. DVT: ambulate History of Present Illness Chief Complaint: flair up of crohn Primary Care Provider: Adrián De Jr, MD Patient is a 24 yo male with a longstanding diagnosis of crohn disease. He reports he has been having bright red blood in his stool for over a week. This is also accompanied by abdominal pain and/ nausea and vomiting. Patient reports he no longer has seen GI since Dr. Bedolla left. He states he came to the ER yesterday and was given prednisone however, at home he was not able to tolerate this and vomited it. This brought him back to the ER today. Patient will be admitted for iV steroids. Patient states that his moderate cramping generalized abd. pain has improved since he received the IV steroids. Allergies Allergy/AdvReac Type Severity Reaction Status Date / Time infliximab [From Remicade] Allergy Intermediate THROAT Verified 01/01/20 08:35 SWELLS Home Medications Home Medications Medication Instructions Recorded Confirmed Type Medical Marijuana 1 puff INHALATION UD 01/01/20 01/01/20 History prednisone 40 mg PO QAM 01/01/20 01/01/20 History Past Med/Surg History Medical History Anemia Crohn's colitis Headache Orthostasis Orthostatic hypotension Surgical History No pertinent past surgical history Family History Other Family history non-contributory Social History Smoking Status: Former smoker Tobacco Type: E-cigarettes / Vaping Second Hand Exposure: No; Do You Dip or Chew Tobacco: No; Hx Alcohol Use: No Hx Substance Use: Yes Last Used Substance: Hours (ago) Substance Use Type Other:: medical marijuana, has card Preferred Language: Kiswahili Communication Ability: Effective Photoresist Contact Printer Required: No Beliefs That Will Affect Care: None Current Living Situation: Parent and Family Current Living Situation Comment: mother and brother Other Information That Helps Us Care for You: No Feels Safe at Home: Yes Assistive Devices: Glasses Review of Systems Constitutional: + malaise; no fever, no sweats and no body aches Eyes: no diplopia and no decreased night vision Ear, Nose, Mouth, Throat: no ear trauma and no hyperacusis Respiratory: no change in sputum and no hemoptysis Cardiovascular: no chest pain with activity and no dyspnea at rest Gastrointestinal: + abdominal pain, + bloating, + nausea, + vomiting and + change in stools Genitourinary: no urinary frequency and no post-void dribbling Musculoskeletal: no radicular pain Integumentary: no rash Neurologic: no falls and no paralysis Psychiatric: no hopelessness Endocrine: no polydipsia Hematologic / Lymphatic: no coagulopathy Physical Exam Constitutional: WD/WN, vitals as above well developed Eyes: PERRL, conjunctivae normal, anicteric sclerae ENMT: external ear and nose normal, oropharynx normal Neck: trachea midline, no thyromegaly Respiratory: normal respiratory effort, lungs clear to auscultation Cardiovascular: RRR, no murmur, no edema Gastrointestinal (Abdomen): normal bowel sounds, soft, nontender, no hepatosplenomegaly Musculoskeletal: no cyanosis or clubbing, extremities motor strength 5/5 Skin: no rashes, warm and dry Neurologic: PERRL, EOMI, accommodation nl, no face palsy, no dysarthria Psychiatric: A+Ox3, euthymic affect Lymphatic: no cervical or axillary lymphadenopathy Results & Data Results & Data ([facility]) Vital Signs (Past 12 Hours) Vital Signs Temp Pulse Pulse Resp BP BP Pulse Ox 01/01/20 10:54 61 16 133/83 100 01/01/20 09:09 54 L 16 150/82 H 100 01/01/20 07:52 36.5 C 50 L 16 134/84 98 PG Care Time/CCT Total # of Minutes Spent Total Time Spent with Patient: Total time spent is greater than 50% in coordination of care (as documented) at patient's floor/unit and/or counseling patient: Coding Level of Care Code 41019 Initial Inpt Care Lvl 3 Diagnoses Bowel disease, inflammatory K52.9 Vomiting R11.10 Autism spectrum disorder F84.0 Time Spent (min) 55
[2020-01-01] MEDS: LACTATED RINGER'S 1,000 ML IV SCH ×2 (12:26→20:55)
--- NOTE | 2020-01-01 15:06 | Gastrointestinal Consultation ---
Date of Consultation January 01, 2020 Assessment & Plan (1) Bowel disease, inflammatory: (2) Abdominal pain: The patient has been untreated for his Crohn's disease for at least the last 1.5 years. He presented to ED with 4-5 days of abdominal pain, vomiting, and increased amount of blood in stools. Continue IVF, IV Solu-medrol, prn pain medication, nausea medication and maintain NPO. He will require outpatient follow-up which I will coordinate for colonoscopy and to establish treatment plan. Please refer to supervising physician addendum for further recommendations. History of Present Illness Attending Physician: Luis Gray History of Present Illness The patient is a pleasant 24-year-old male with a past medical history of Crohn's disease and autism spectrum disorder who presented to the emergency department today with complaints of vomiting and intermittent abdominal pain. Was evaluated in the emergency department on the day prior due to similar symptoms and discharged with prednisone. Unfortunately he continued to have vomiting and intermittent pain. Returned to ED for further evaluation. CT abdomen pelvis imaging demonstrated ahaustral appearance of the sigmoid colon with mild wall thickening of the transverse colon, descending colon and sigmoid colon with mild pericolonic infiltration consistent with his known inflammatory bowel disease. He was subsequently admitted for further management. Patient is known to the GI service. He was diagnosed with Crohn's disease at the age of 6. Per his mother, his crohn's disease was found throughout his digestive tract. Last colonoscopy available for review 07/14/[address] Acharya demonstrated inflammation in the rectum and in the recto-sigmoid colon secondary to Crohn's disease with colonic involvement. 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 He has unfortunately been lost to follow-up for the last 2 years. He was last seen in the office by Dr. Bedolla 11/21/2017. At that time, treatment included: prednisone, Imuran, Asacol, and Remicade. Reports that he has been off all medications including Remicade for the last 1.5 years. On exam/interview today, the patient reports he is comfortable at the present time. He reports relief of pain from pain medication administered prior to my arrival. He reports that over approximately last 4 to 5 days he has had persistent nausea with loss of appetite. Pain after eating and feeling as though he was unable to have a bowel movement. He reports increased gas and difficulty passing stools. He reports that he began having dry heaves, vomiting. He reports that he has had bloody stools for the last 4 to 5 months. He reports they are bright red and dark red at times. He has 6-8 bowel movements per day typically. He reports that he has been using medical marijuana for the last 2 years to help control abdominal discomfort. Mother is at bedside today and assists with history. Patient is tearful at times and reports that he feels as though he has not been listened to previously regarding his care. Reassurance was offered. Also note financial hardship related to previous remicade infusions. He does not smoke cigarettes. He vapes the medical marijuana. He denies use of other recreational drugs. He lives at home with his mother. He is not has no children. 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 Mother has history of ulcerative colitis and a carcinoid tumor of the ileum. Allergies Allergy/AdvReac Type Severity Reaction Status Date / Time infliximab [From Remicade] Allergy Intermediate THROAT Verified 01/01/20 08:35 SWELLS Home Medications Home Medications Medication Instructions Recorded Confirmed Type Medical Marijuana 1 puff INHALATION UD 01/01/20 01/01/20 History prednisone 40 mg PO QAM 01/01/20 01/01/20 History Patient History Medical History (Updated 01/01/20 @ 08:26 by Sánchez Bateman MD) Anemia Crohn's colitis Headache Orthostasis Orthostatic hypotension Surgical History No pertinent past surgical history Family History Other Family history non-contributory Social History Smoking Status: Former smoker Tobacco Type: E-cigarettes / Vaping Second Hand Exposure: No; Do You Dip or Chew Tobacco: No; Hx Alcohol Use: No Hx Substance Use: Yes Last Used Substance: Hours (ago) Substance Use Type Other:: medical marijuana, has card Preferred Language: Lao Communication Ability: Effective 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 Beliefs That Will Affect Care: None Current Living Situation: Parent and Family Current Living Situation Comment: mother and brother Other Information That Helps Us Care for You: No Feels Safe at Home: Yes Assistive Devices: Glasses Review of Systems Review of Systems: All systems reviewed & are unremarkable except as noted in Subjective Physical Exam Constitutional: WD/WN, vitals as above Eyes: no eyelid abnormality and no conjunctival abnormality wears corrective lenses ENMT: Ears: no external ear abnormality Nose: no external nose abnormality Neck: normal visual inspection and trachea midline Respiratory: normal respiratory effort, lungs clear to auscultation Cardiovascular: RRR, no murmur, no edema Gastrointestinal (Abdomen): Inspection/Auscultation: abdomen normal to inspection and normal bowel sounds; abdomen not distended Percussion/Palpation: + abdomen tender and abdomen soft; no guarding and abdomen not rigid Musculoskeletal: Extremities: extremities normal to inspection Skin: bilateral shoulders and upper arms with acne scarring and scabs Neurologic: PERRL, EOMI, accommodation nl, no face palsy, no dysarthria Psychiatric: Orientation: alert and oriented x 3 Results & Data ([facility]) Vital Signs (Past 12 Hours) Vital Signs Temp Pulse Pulse Resp BP BP BP 01/01/20 13:34 36.4 C L 51 L 16 99/60 L 01/01/20 12:30 49 L 17 01/01/20 12:28 49 L 18 114/69 01/01/20 12:24 01/01/20 10:54 61 16 133/83 01/01/20 10:52 133/83 01/01/20 09:09 54 L 16 150/82 H 01/01/20 07:52 36.5 C 50 L 16 134/84 Pulse Ox 01/01/20 13:34 96 01/01/20 12:30 97 01/01/20 12:28 97 01/01/20 12:24 99 01/01/20 10:54 100 01/01/20 10:52 01/01/20 09:09 100 01/01/20 07:52 98 Laboratory Results - last 24 hr 01/01/20 01/01/20 08:15 08:15 WBC 7.42 RBC 5.23 Hgb 15.9 Hct 46.3 MCV 88.5 MCH 30.4 MCHC 34.3 RDW Std Deviation 40.1 RDW Coeff of Miguel 12.5 Plt Count 288 MPV 9.1 Immature Gran % (Auto) 0.3 Neut % (Auto) 59.0 Lymph % (Auto) 24.1 [place] % (Auto) 16.2 Eos % (Auto) 0.3 Baso % (Auto) 0.1 Neut # (Auto) 4.38 Lymph # (Auto) 1.79 [place] # (Auto) 1.20 H Eos # (Auto) 0.02 Baso # (Auto) 0.01 Immature Gran # (Auto) 0.02 Sodium 141 Potassium 4.0 Chloride 106 Carbon Dioxide 29 Anion Gap 7.0 BUN 7 Creatinine 1.11 Est Cr Clr Drug Dosing 110.2 Est GFR ( Amer) 107.9 Est GFR (Non-Af Amer) 93.1 BUN/Creatinine Ratio 6.3 L Glucose 93 Calcium 9.5 Total Bilirubin 0.9 AST 14 L ALT 22 Alkaline Phosphatase 81 Total Protein 8.4 H Albumin 4.2 Globulin 4.2 H Albumin/Globulin Ratio 1.0 Lipase 69 L (1) Abdominal pain Abdominal location: unspecified location Qualified Code(s): R10.9 - Unspecified abdominal pain
[2020-01-01 16:28] LABS: Appearance Urine Clear (Clear); Bilirubin Urine Negative (Negative); Blood Urine Negative (Negative); Color Urine Yellow; Glucose Urine UA Negative (Negative); Ketones Urine 2+ (Negative); Leukocyte Esterase Urine Negative (Negative); Nitrite Urine Negative (Negative); Protein Urine Negative (Negative); Specific Gravity Urine 1.024 (1.000-1.030); Urobilinogen Urine Negative (Negative); pH Urine 6.5 (4.5-7.5)
--- NOTE | 2020-01-01 17:42 | Progress Notes ---
DATE: 01/01/2020 ADDENDUM Addendum to the consult note on the patient done by Kendra Vazquez. I interviewed the patient and examined him. I also reviewed his chart and labs. The patient has at least colonic Crohn's disease since age 6. He has had spotty care in the past and his insurance changed about a year and a half ago and at that time he stopped taking his Remicade infusions. He did have an adverse reaction to the Remicade at one point where his throat swelled up and he had difficulty breathing, which was treated with Benadryl. He has been off all medications for the last year and a half at least. For the last 4 months, he has been experiencing abdominal pain, occasional vomiting and rectal bleeding. He was in the ER yesterday and was discharged on prednisone 40 mg to be followed up as an outpatient, but came back today with worsening symptoms and was hospitalized and placed on IV Solu-Medrol, bowel rest and IV fluids. On exam, his abdomen is soft and nontender. I discussed the need for him to go back on a biologic and we discussed antitumor necrosis factor antibody medications Entyvio and Stelara. I think Stelara is the best choice for him and I ordered hepatitis B surface antigen and QuantiFERON in anticipation of getting Stelara infusion during his hospital stay followed by subQ injections every 2 months. I also ordered a vitamin D level today and we will get a bone density test because of his long-term steroid use. We will continue to follow the patient during his hospital stay.
[2020-01-01 17:55] LABS: Vitamin D, 25 Hydrox 44.6 ng/ml (30-100)
[2020-01-01 18:07] LABS: Hepatitis B Surface Antigen Neg (Neg)
[2020-01-01] MEDS ORDERED: MoRPHine SULFATE 2 MG/ML CARP IV ONE (19:46)
[2020-01-01] MEDS ORDERED: ONDANSETRON INJ 2 MG/ML 2 ML VIAL ONE (21:26)
[2020-01-02] MEDS: LACTATED RINGER'S 1,000 ML IV SCH ×3 (03:50→20:05)
[2020-01-02 06:08] LABS: Hematocrit (blood only) 38.9 % (42-52); Hemoglobin 13.4 g/dL (14.0-18.0); Mean Corpuscular Hemoglobin 30.6 pg (25-34); Mean Corpuscular Hgb Conc 34.4 g/dL (32-36); Mean Corpuscular Volume 88.8 fL (80-100); Mean Platelet Volume 9.1 fL (7.4-10.4); Platelet Count 206 K/uL (130-400); RDW Coefficient of Variation 12.4 % (11.5-14.5); RDW Standard Deviation 39.6 fL (36.4-46.3); Red Blood Count 4.38 M/uL (4.7-6.1); White Blood Count 5.22 K/uL (4.8-10.8)
[2020-01-02 06:39] LABS: Calcium 8.6 mg/dl (8.5-10.1); Creatinine Clr Calc Pharmacy 130.2 ml/min; Est GFR (African American) 131.9; Est GFR (Non-African American) 113.8; Potassium 3.9 mmol/L (3.5-5.1)
--- NOTE | 2020-01-02 08:46 | Gastroenterology Progress Note ---
Date of Service January 02, 2020 Assessment & Plan (1) Bowel disease, inflammatory: (2) Abdominal pain: The patient reports improvement this morning. Medicated x 1 through the night for abdominal pain and nausea. Denies complaints this morning. Continue IVF, IV Solu-medrol, prn pain medication, nausea medication. Will advance diet to clear liquids and see if patient tolerates. He will require outpatient follow-up which I will coordinate for colonoscopy and to establish treatment pl an. Please refer to supervising physician addendum for further recommendations. Admission and Anticipated Discharge Date Admission Date: January 01, 2020 Subjective Patient sitting upright in bed on his cellphone this morning. States he is feeling pretty well this morning. Does report medicated x1 through the night for pain and nausea. Denies current complaints. Denies vomiting. + flatus. + bowel movement last night, bright red blood in stool. Review of Systems Review of Systems: All systems reviewed & are unremarkable except as noted in Subjective Physical Exam Constitutional: WD/WN, vitals as above Eyes: no eyelid abnormality and no conjunctival abnormality ENMT: Ears: no external ear abnormality Nose: no external nose abnormality Neck: normal visual inspection and trachea midline Respiratory: normal respiratory effort, lungs clear to auscultation Cardiovascular: RRR, no murmur, no edema Gastrointestinal (Abdomen): Inspection/Auscultation: abdomen normal to inspection and normal bowel sounds; abdomen not distended Percussion/Palp ation: + abdomen tender and abdomen soft; no guarding and abdomen not rigid Musculoskeletal: Extremities: extremities normal to inspection Neurologic: PERRL, EOMI, accommodation nl, no face palsy, no dysarthria Psychiatric: Orientation: alert and oriented x 3 Results & Data ([facility]) Vital Signs (Past 12 Hours) Vital Signs Temp Pulse Resp BP Pulse Ox 01/02/20 08:01 51 L 110/62 01/02/20 07:49 36.5 C 42 L 14 89/44 L 100 01/01/20 23:56 37.1 C 54 L 14 107/48 L 96 Laboratory Results - last 24 hr 01/01/20 01/01/20 01/01/20 08:15 16:00 17:05 WBC RBC Hgb Hct MCV MCH MCHC RDW Std Deviation RDW Coeff of Miguel Plt Count MPV Sodium 141 Potassium 4.0 Chloride 106 Carbon Dioxide 29 Anion Gap 7.0 BUN 7 Creatinine 1.11 Est Cr Clr Drug Dosing 110.2 Est GFR ( Amer) 107.9 Est GFR (Non-Af Amer) 93.1 BUN/Creatinine Ratio 6.3 L Glucose 93 Fasting Glucose Calcium 9.5 Total Bilirubin 0.9 AST 14 L ALT 22 Alkaline Phosphatase 81 Total Protein 8.4 H Albumin 4.2 Globulin 4.2 H Albumin/Globulin Ratio 1.0 Lipase 69 L 25-OH Vitamin D Total 44.6 Urine Color Yellow Urine Appearance Clear Urine pH 6.5 Ur Specific [place] 1.024 Urine Protein Negative Urine Glucose (UA) Negative Urine Ketones 2+ H Urine Blood Negative Urine Nitrite Negative Urine Bilirubin Negative Urine Urobilinogen Negative Ur Leukocyte Esterase Negative Hep Bs Antigen Neg TB Test (QFT) Gold Plus TB Test (QFT) Nil TB Test Mitogen - Nil TB Test Ag - Nil 1 TB Test Ag - Nil 2 01/01/20 01/02/20 01/02/20 17:05 05:49 05:49 WBC 5.22 RBC 4.38 L Hgb 13.4 L Hct 38.9 L MCV 88.8 MCH 30.6 MCHC 34.4 RDW Std Deviation 39.6 RDW Coeff of Miguel 12.4 Plt Count 206 MPV 9.1 Sodium 141 Potassium 3.9 Chloride 109 H Carbon Dioxide 29 Anion Gap 3.0 BUN 10 Creatinine 0.94 Est Cr Clr Drug Dosing 130.2 Est GFR ( Amer) 131.9 Est GFR (Non-Af Amer) 113.8 BUN/Creatinine Ratio Glucose Fasting Glucose 88 Calcium 8.6 Total Bilirubin AST ALT Alkaline Phosphatase Total Protein Albumin Globulin Albumin/Globulin Ratio Lipase 25-OH Vitamin D Total Urine Color Urine Appearance Urine pH Ur Specific [place] Urine Protein Urine Glucose (UA) Urine Ketones Urine Blood Urine Nitrite Urine Bilirubin Urine Urobilinogen Ur Leukocyte Esterase Hep Bs Antigen TB Test (QFT) Gold Plus Pending TB Test (QFT) Nil Pending TB Test Mitogen - Nil Pending TB Test Ag - Nil 1 Pending TB Test Ag - Nil 2 Pending (1) Abdominal pain Abdominal location: unspecified location Qualified Code(s): R10.9 - Unspecified abdominal pain
[2020-01-02] MEDS: methylPREDNISolone 40 MG in SYRINGE 0 ML IV SCH (09:31)
--- NOTE | 2020-01-02 15:28 | Progress Notes ---
DATE: 01/02/2020 ADDENDUM Addendum to the note by Kendra Vazquez. I interviewed and examined the patient, reviewed the chart. The patient is feeling a little better today and tolerating clear liquids and wishes to advance his diet. His hepatitis B surface antigen has returned negative. His TB test is still pending. The vitamin D level is normal at 44.6. PHYSICAL EXAMINATION: ABDOMEN: Soft and nontender. MEDICATION: He continues on methylprednisolone IV 40 mg daily. IMPRESSION: The patient's Crohn's disease is improving. Advancing him to a soft diet today. Hopefully, we will get his tuberculosis test back soon and if so, begin his initial dose of IV Stelara in the hospital. If not, we will convert him to oral steroids and proceed as an outpatient.
[2020-01-02] MEDS: ONDANSETRON INJ 2 MG/ML 2 ML VIAL IV PRN (17:46)
[2020-01-02] MEDS: MoRPHine SULFATE 2 MG/ML CARP IV PRN (18:38)
[2020-01-02] MEDS ORDERED: ONDANSETRON INJ 2 MG/ML 2 ML VIAL IV STA (18:45)
[2020-01-02] MEDS: PROMETHAZINE HCL 12.5 MG in SODIUM CHLORIDE 0.9% 50 ML IV PRN (20:36)
--- NOTE | 2020-01-02 20:49 | Hospitalist Progress Note ---
Date of Service January 02, 2020 Assessment & Plan (1) Bowel disease, inflammatory: Acute flair of crohn's disease, confined to transverse/descending/sigmoid colon. TI and small bowel normal on admission CT. Continue IV solumedrol. Change diet back to clears due to vomiting this evening. Cont IVF. Cont IV anti-emetics, pain meds, etc. Appreciate [facility] GI input/recs. BMP am. (2) Vomiting: Refractory. Add phenergan prn to zofran prn. (3) Autism spectrum disorder: (4) Acne: derm referral at discharge (5) DVT prophylaxis: IBD - given its inflammatory state - is risk factor for VTE. thus, add lovenox 40mg daily in am. pt's mother updated at bedside. Admission and Anticipated Discharge Date Admission Date: January 01, 2020 Subjective patient eating dinner during my assessment. abd pain and nausea much better than in comparison to admission. passing flatus and stools are normal. no fever. mother at bedside. Amrik denies joint involvement from Crohn's. he does have severe acne of his upper back and upper arms b/l for months. many of his lesions drain clear fluid. about an hour after my visit the nursing staff reported that he had significant emesis following dinner. Review of Systems Constitutional: no fever and no chills Respiratory: no dyspnea Cardiovascular: no chest pain Physical Exam Constitutional: no acute distress and no altered mental status ENMT: external ear and nose normal, oropharynx normal Mouth: no oral mucosal abnormality (No ulcers) Respiratory: normal respiratory effort, lungs clear to auscultation Cardiovascular: Rate/Rhythm: regular rate and regular rhythm Heart Sounds: normal S1 and normal S2; no murmur Vessels: posterior tibial pulses present and dorsalis pedis pulses present Extremities: no edema Gastrointestinal (Abdomen): normal bowel sounds, soft, nontender, no hepatosplenomegaly Skin: papular and cystic type acne on upper back and upper portions of both arms; minimal face; none on chest Psychiatric: A+Ox3, euthymic affect Results & Data Results & Data ([facility]) Vital Signs (Past 12 Hours) Vital Signs Temp Pulse Resp BP Pulse Ox 01/02/20 15:44 36.9 C 52 L 16 125/74 96 Laboratory Results Laboratory Results - last 24 hr 01/02/20 01/02/20 05:49 05:49 WBC 5.22 RBC 4.38 L Hgb 13.4 L Hct 38.9 L MCV 88.8 MCH 30.6 MCHC 34.4 RDW Std Deviation 39.6 RDW Coeff of Miguel 12.4 Plt Count 206 MPV 9.1 Sodium 141 Potassium 3.9 Chloride 109 H Carbon Dioxide 29 Anion Gap 3.0 BUN 10 Creatinine 0.94 Est Cr Clr Drug Dosing 130.2 Est GFR ( Amer) 131.9 Est GFR (Non-Af Amer) 113.8 Fasting Glucose 88 Calcium 8.6 PG Care Time/CCT Total # of Minutes Spent Total Time Spent with Patient: Total time spent is greater than 50% in coordination of care (as documented) at patient's floor/unit and/or counseling patient: Coding Level of Care Code 62212 Subseq Hosp Care Lvl 2 Diagnoses Bowel disease, inflammatory K52.9 Vomiting R11.10 Autism spectrum disorder F84.0 Acne L70.9 DVT prophylaxis Z29.9
[2020-01-02] MEDS: D5NSS + 20MEQ KCL 20 MEQ/1,000 ML BAG IV SCH (22:11)
[2020-01-02] MEDS ORDERED: diphenhydrAMINE 50 MG/ML VIAL IV STA (22:29)
[2020-01-02] MEDS ORDERED: FAMOTIDINE 20 MG in SYRINGE 3 ML IV ONE (22:45)
[2020-01-03] MEDS: PROMETHAZINE HCL 12.5 MG in SODIUM CHLORIDE 0.9% 50 ML IV PRN (05:22)
[2020-01-03 07:56] LABS: BUN Creatinine Ratio 6.8 (10-20); Calcium 8.8 mg/dl (8.5-10.1); Creatinine Clr Calc Pharmacy 127.5 ml/min; Est GFR (African American) 128.6; Potassium 3.5 mmol/L (3.5-5.1)
[2020-01-03] MEDS: D5NSS + 20MEQ KCL 20 MEQ/1,000 ML BAG IV SCH ×2 (08:30→17:20)
[2020-01-03] MEDS: methylPREDNISolone 40 MG in SYRINGE 0 ML IV SCH (08:31)
[2020-01-03] MEDS: MoRPHine SULFATE 2 MG/ML CARP IV PRN ×3 (08:34→17:21)
[2020-01-03] MEDS: ONDANSETRON INJ 2 MG/ML 2 ML VIAL IV PRN ×2 (08:34→17:21)
--- NOTE | 2020-01-03 08:34 | Gastroenterology Progress Note ---
Date of Service January 03, 2020 Assessment & Plan (1) Bowel disease, inflammatory: (2) Abdominal pain: Patient reports he is more nauseated this morning. Even smell of broth has him nauseated. Nursing aware and will medicate. TB test results are pending. Plan is Stelara while inpatient if resulted prior to discharge. Continue IVF, IV Solu-medrol, prn pain medication, nausea medication. Please refer to supervising physician addendum for further recommendations. Admission and Anticipated Discharge Date Admission Date: January 01, 2020 Subjective Patient c/o significant nausea this morning. States even the smell of broth is making him sick. Nursing aware and will medicate. Had large emesis after eating toast last night. Denies abdominal pain. + flatus. + bowel movement last night, bright red blood in stool. Review of Systems Review of Systems: All systems reviewed & are unremarkable except as noted in Subjective Physical Exam Constitutional: WD/WN, vitals as above Eyes: no eyelid abnormality and no conjunctival abnormality ENMT: Ears: no external ear abnormality Nose: no external nose abnormality Neck: normal visual inspection and trachea midline Respiratory: normal respiratory effort, lungs clear to auscultation Cardiovascular: RRR, no murmur, no edema Gastrointestinal (Abdomen): Inspection/Auscultation: abdomen normal to insp ection and normal bowel sounds; abdomen not distended Percussion/Palpation: + abdomen tender and abdomen soft; no guarding and abdomen not rigid Musculoskeletal: Extremities: extremities normal to inspection Neurologic: PERRL, EOMI, accommodation nl, no face palsy, no dysarthria Psychiatric: Orientation: alert and oriented x 3 Results & Data ([facility]) Vital Signs (Past 12 Hours) Vital Signs Temp Pulse Resp BP Pulse Ox 01/03/20 07:33 36.9 C 46 L 16 156/85 H 97 01/02/20 23:20 36.9 C 56 L 14 138/85 99 Laboratory Results - last 24 hr 01/03/20 07:08 Sodium 142 Potassium 3.5 Chloride 108 H Carbon Dioxide 29 Anion Gap 5.0 BUN 7 Creatinine 0.96 Est Cr Clr Drug Dosing 127.5 Est GFR ( Amer) 128.6 Est GFR (Non-Af Amer) 111.0 BUN/Creatinine Ratio 6.8 L Glucose 111 H Calcium 8.8 Magnesium 2.0 (1) Abdominal pain Abdominal location: unspecified location Qualified Code(s): R10.9 - Unspecified abdominal pain
--- NOTE | 2020-01-03 16:00 | Progress Notes ---
DATE: 01/03/2020 ADDENDUM Addendum to progress note on the patient by Kendra Vazquez earlier today. I interviewed and examined the patient and reviewed the chart and labs. The patient vomited this morning on a soft diet. He received IV Zofran and morphine with some improvement in his symptoms. He is now back on a full liquid diet. The DEXA scan that was ordered is done at an outside facility and cannot be done while he is an inpatient at the hospital. His abdomen is soft and nontender. If he is not able to tolerate a bowel prep orally, then we will not be able to pursue a colonoscopy to assess the extent and activity of his disease. Depending on how he is tomorrow, we may consider doing a single contrast barium enema to get more information and make sure that there are no signs of obstruction or partial obstruction.
--- NOTE | 2020-01-03 19:58 | Hospitalist Progress Note ---
Date of Service January 03, 2020 Assessment & Plan (1) Bowel disease, inflammatory: Acute flair of crohn's disease, confined to transverse/descending/sigmoid colon . TI and small bowel normal on admission CT. Continue IV solumedrol. Change diet to full liquids since vomiting is better. Cont IVF. Cont IV anti-emetics, pain meds, etc. Appreciate [facility] GI input/recs - they are planning to start biological agent while here. Awaiting TB screen (interferon gold test). BMP am. (2) Vomiting: ongoing, intermittent. could have some element of gastritis. will add IV pepcid. (3) Autism spectrum disorder: no issues (4) Acne: derm referral at discharge (5) DVT prophylaxis: IBD - given its inflammatory state - is risk factor for VTE. add lovenox daily Admission and Anticipated Discharge Date Admission Date: January 01, 2020 Subjective patient had dry heaves overnight. these are resolved. he had nausea overnight - also improved this am. no abd pain this am. diet downgraded to clears - he states he doesn't like clears and basically didn't take any of it. he requested diet be advanced again. no new complaints. Review of Systems Constitutional: no fever Respiratory: no cough and no dyspnea Cardiovascular: no chest pain Gastrointestinal: + nausea, + vomiting and + blood in stools Physical Exam Constitutional: no acute distress and no altered mental status ENMT: external ear and nose normal, oropharynx normal Mouth: no oral mucosal abnormality (No ulcers) Respiratory: normal respiratory effort, lungs clear to auscultation Cardiovascular: Rate/Rhythm: regular rate and regular rhythm Heart Sounds: normal S1 and normal S2; no murmur Vessels: posterior tibial pulses present and dorsalis pedis pulses present Extremities: no edema Gastrointestinal (Abdomen): normal bowel sounds, soft, nontender, no hepatosplenomegaly Skin: acne b/l upper arms and upper back Psychiatric: A+Ox3, euthymic affect Results & Data Results & Data ([facility]) Vital Signs (Past 12 Hours) Vital Signs Temp Pulse Resp BP Pulse Ox 01/03/20 15:45 36.9 C 49 L 20 115/69 97 Laboratory Results Laboratory Results - last 24 hr 01/03/20 07:08 Sodium 142 Potassium 3.5 Chloride 108 H Carbon Dioxide 29 Anion Gap 5.0 BUN 7 Creatinine 0.96 Est Cr Clr Drug Dosing 127.5 Est GFR ( Amer) 128.6 Est GFR (Non-Af Amer) 111.0 BUN/Creatinine Ratio 6.8 L Glucose 111 H Calcium 8.8 Magnesium 2.0 PG Care Time/CCT Total # of Minutes Spent Total Time Spent with Patient: Total time spent is greater than 50% in coordination of care (as documented) at patient's floor/unit and/or counseling patient: Coding Level of Care Code 02367 Subseq Hosp Care Lvl 2 Diagnoses Bowel disease, inflammatory K52.9 Vomiting R11.10 Autism spectrum disorder F84.0 Acne L70.9 DVT prophylaxis Z29.9
[2020-01-04] MEDS: D5NSS + 20MEQ KCL 20 MEQ/1,000 ML BAG IV SCH ×3 (03:14→23:59)
[2020-01-04 07:11] LABS: BUN Creatinine Ratio 7.4 (10-20); Calcium 8.7 mg/dl (8.5-10.1); Creatinine Clr Calc Pharmacy 116.5 ml/min; Est GFR (African American) 115.4; Est GFR (Non-African American) 99.6; Ferritin 40.5 ng/ml (8-388); Potassium 3.8 mmol/L (3.5-5.1)
[2020-01-04] MEDS ORDERED: SOD PHOSPHATE/SOD BIPHOSPHATE ENEMA 132 ML BTL PR STA ×2 (07:37→08:06)
--- NOTE | 2020-01-04 08:26 | Gastroenterology Progress Note ---
Date of Service January 04, 2020 Assessment & Plan (1) Bowel disease, inflammatory: (2) Abdominal pain: Patient is doing well this morning. Reports abdominal pain, nausea, vomiting are controlled this morning. TB test results are pending. Hopeful to start Stelara while inpatient if resulted prior to discharge. Plan is flexible sigmoidoscopy today as barium enema cannot be performed. Patient aware and agreeable to flexible sigmoidoscopy. Please refer to supervising physician addendum for further recommendations. Admission and Anticipated Discharge Date Admission Date: January 01, 2020 Subjective Patient sitting upright in bed on his cellphone this morning. States he is feeling pretty well this morning. Denies current complaints. Denies vomiting. + flatus. + bowel movement last night, reports more stool than blood. Requesting to shower today. Reports tolerating liquids and soft foods. Review of Systems Review of Systems: All systems reviewed & are unremarkable except as noted in Subjective Physical Exam Constitutional: WD/WN, vitals as above Eyes: no eyelid abnormality and no conjunctival abnormality ENMT: Ears: no external ear abnormality Nose: no external nose abnormality Neck: normal visual inspection and trachea midline Respiratory: normal respiratory effort, lungs clear to auscultation Cardiovascular: RRR, no murmur, no edema Gastrointestinal (Abdomen): Inspection/Auscultation: abdomen normal to inspection and normal bowel sounds; abdomen not distended Percussion/Palpation: + abdomen tender and abdomen soft; no guarding and abdomen not rigid Musculoskeletal: Extremities: extremities normal to inspection Neurologic: PERRL, EOMI, accommodation nl, no face palsy, no dysarthria Psychiatric: Orientation: alert and oriented x 3 Results & Data ([facility]) Vital Signs (Past 12 Hours) Vital Signs Temp Pulse Resp BP Pulse Ox 01/04/20 07:47 36.8 C 42 L 18 121/70 99 01/03/20 23:25 36.9 C 59 L 14 101/55 L 93 Laboratory Results - last 24 hr 01/04/20 05:50 Sodium 144 Potassium 3.8 Chloride 112 H Carbon Dioxide 29 Anion Gap 3.0 BUN 8 Creatinine 1.05 Est Cr Clr Drug Dosing 116.5 Est GFR ( Amer) 115.4 Est GFR (Non-Af Amer) 99.6 BUN/Creatinine Ratio 7.4 L Glucose 88 Calcium 8.7 Iron Transferrin 199 L Transferrin % Sat Ferritin 40.5 Specimen Hemolysis (1) Abdominal pain Abdominal location: unspecified location Qualified Code(s): R10.9 - Unspecified abdominal pain
[2020-01-04 08:32] LABS: Hematocrit (blood only) 46.2 % (42-52); Mean Corpuscular Hemoglobin 30.5 pg (25-34); Mean Corpuscular Hgb Conc 34.6 g/dL (32-36); Mean Corpuscular Volume 88.2 fL (80-100); Mean Platelet Volume 8.9 fL (7.4-10.4); Platelet Count 254 K/uL (130-400); RDW Coefficient of Variation 12.7 % (11.5-14.5); RDW Standard Deviation 40.1 fL (36.4-46.3); Red Blood Count 5.24 M/uL (4.7-6.1); White Blood Count 9.53 K/uL (4.8-10.8)
[2020-01-04] MEDS: ENOXAPARIN INJ 40 MG/0.4 ML SYR SQ SCH (08:57)
[2020-01-04] MEDS: methylPREDNISolone 40 MG in SYRINGE 0 ML IV SCH (08:59)
[2020-01-04] MEDS: MoRPHine SULFATE 2 MG/ML CARP IV PRN ×3 (09:05→18:19)
[2020-01-04] MEDS: FAMOTIDINE 20 MG in SYRINGE 3 ML IV SCH ×2 (09:05→20:24)
[2020-01-04] MEDS: ONDANSETRON INJ 2 MG/ML 2 ML VIAL IV PRN ×2 (09:07→18:19)
[2020-01-04] MEDS: PROMETHAZINE HCL 12.5 MG in SODIUM CHLORIDE 0.9% 50 ML IV PRN (12:41)
[2020-01-04] MEDS ORDERED: LORazepam 0.5 MG/1 ML VIAL IV STA (12:42)
--- NOTE | 2020-01-04 12:54 | History & Physical Report ---
Date of Service January 04, 2020 Assessment & Plan Admission and Anticipated Discharge Date Admission Date: January 01, 2020 History of Present Illness Chief Complaint: Hx polyps Primary Care Provider: Adrián De Jr, MD for colonoscopy Allergies Allergy/AdvReac Type Severity Reaction Status Date / Time infliximab [From Remicade] Allergy Intermediate THROAT Verified 01/01/20 08:35 SWELLS Home Medications Home Medications Medication Instructions Recorded Confirmed Type Medical Marijuana 1 puff INHALATION UD 01/01/20 01/01/20 History prednisone 40 mg PO QAM 01/01/20 01/01/20 History Past Med/Surg History Medical History (Updated 01/03/20 @ 03:38 by Sergey Díaz) Anemia Crohn's colitis Headache Orthostasis Orthostatic hypotension Surgical History No pertinent past surgical history Family History Other Family history non-contributory Social History Smoking Status: Former smoker Tobacco Type: E-cigarettes / Vaping Second Hand Exposure: No; Do You Dip or Chew Tobacco: No; Hx Alcohol Use: No Hx Substance Use: Yes Last Used Substance: Hours (ago) Substance Use Type Other:: medical marijuana, has card Preferred Language: Frisian Communication Ability: Effective Lottery Clerk Required: No Beliefs That Will Affect Care: None Current Living Situation: Parent and Family Current Living Situation Comment: mother and brother Other Information That Helps Us Care for You: No Feels Safe at Home: Yes Assistive Devices: None Physical Exam Constitutional: + obese Respiratory: normal respiratory effort Cardiovascular: Sternotomy scar Gastrointestinal (Abdomen): Percussion/Palpation: abdomen soft Results & Data ([facility]) Vital Signs (Past 12 Hours) Vital Signs Temp Pulse Resp BP Pulse Ox 01/04/20 07:47 36.8 C 42 L 18 121/70 99
[2020-01-04] MEDS ORDERED: SODIUM CHLORIDE 0.9% 1000ML 1,000 ML IV SCH (13:00)
[2020-01-04] MEDS ORDERED: PROMETHAZINE HCL 25 MG in SODIUM CHLORIDE 0.9% 50 ML IV PRN (19:00)
[2020-01-04] MEDS ORDERED: PANTOprazole 40 MG in SYRINGE 0 ML IV ONE (19:30)
--- NOTE | 2020-01-04 22:46 | Hospitalist Progress Note ---
Date of Service January 04, 2020 Assessment & Plan (1) Bowel disease, inflammatory: Acute flair of crohn's disease, confined to transverse/descending/sigmoid colon . TI and small bowel normal on admission CT. Continue IV solumedrol 40mg daily. Attempts at flex sig today not successful (could not tolerate pre-flex sig prep). Cont full liquids. Cont IVF. Cont IV anti-emetics, pain meds, etc. Appreciate [facility] GI input/recs - they are planning to start Stalera while here once TB screen (interferon gold test) returns negative. BMP am. (2) Vomiting: ongoing, intermittent. could have some element of gastritis. refractory to IV pepcid. due to narcotics? ileus? other? if vomiting persists then repeat x-rays. add protonix 40mg x 1 now. (3) Autism spectrum disorder: no issues (4) Acne: derm referral at discharge (5) Iron deficiency: ferritin level only 40 even in the midst of considerable inflammation from Crohn's consider IV venofer while here (6) DVT prophylaxis: lovenox daily pt's mother updated at bedside Admission and Anticipated Discharge Date Admission Date: January 01, 2020 Subjective attempts made this am to give pre-flex sig enemas. these were not tolerated well. flex sig was canceled by [facility]. he has had dry heaves and vomiting throughout the day. he has had ongoing lower abd pain today requiring use of IV pain meds. during my visit his mother was at bedside. I asked her if Amrik had had EGD recently and she reported no (probably EGD as a child). he does belch frequently at home but no dx of GERD. Review of Systems Constitutional: no fever Respiratory: no dyspnea Cardiovascular: no chest pain Gastrointestinal: + abdominal pain, + nausea, + vomiting, + diarrhea/loose stools and + blood in stools (Occasional ) Physical Exam Physical Exam: multiple times the patient would sit up from a supine, recumbent position and have dry heaves. he said "I drank cranberry juice" (meaning this caused the dry heaves) Constitutional: no acute distress and no altered mental status ENMT: external ear and nose normal, oropharynx normal Mouth: no oral mucosal abnormality (No ulcers) Respiratory: normal respiratory effort, lungs clear to auscultation Cardiovascular: Rate/Rhythm: regular rate and regular rhythm Heart Sounds: normal S1 and normal S2; no murmur Vessels: posterior tibial pulses present and dorsalis pedis pulses present Extremities: no edema Gastrointestinal (Abdomen): normal bowel sounds, soft, nontender, no hepatosplenomegaly Psychiatric: A+Ox3, euthymic affect Results & Data Results & Data ([facility]) Vital Signs (Past 12 Hours) Vital Signs Temp Pulse Resp BP Pulse Ox 01/04/20 15:45 37.1 C 50 L 16 125/69 97 Laboratory Results Laboratory Results - last 24 hr 01/04/20 01/04/20 01/04/20 05:50 08:23 08:23 WBC 9.53 RBC 5.24 Hgb 16.0 Hct 46.2 MCV 88.2 MCH 30.5 MCHC 34.6 RDW Std Deviation 40.1 RDW Coeff of Miguel 12.7 Plt Count 254 MPV 8.9 Sodium 144 Potassium 3.8 Chloride 112 H Carbon Dioxide 29 Anion Gap 3.0 BUN 8 Creatinine 1.05 Est Cr Clr Drug Dosing 116.5 Est GFR ( Amer) 115.4 Est GFR (Non-Af Amer) 99.6 BUN/Creatinine Ratio 7.4 L Glucose 88 Calcium 8.7 Iron 42 Transferrin 199 L Transferrin % Sat Ferritin 40.5 Specimen Hemolysis Quantiferon gold - peding PG Care Time/CCT Total # of Minutes Spent Total Time Spent with Patient: Total time spent is greater than 50% in coordination of care (as documented) at patient's floor/unit and/or counseling patient: Coding Level of Care Code 92730 Subseq Hosp Care Lvl 2 Diagnoses Bowel disease, inflammatory K52.9 Vomiting R11.10 Autism spectrum disorder F84.0 Acne L70.9 Iron deficiency E61.1 DVT prophylaxis Z29.9
[2020-01-05] MEDS: ENOXAPARIN INJ 40 MG/0.4 ML SYR SQ SCH (07:46)
[2020-01-05] MEDS: methylPREDNISolone 40 MG in SYRINGE 0 ML IV SCH (07:46)
[2020-01-05 07:50] LABS: BUN Creatinine Ratio 6.8 (10-20); Creatinine Clr Calc Pharmacy 111.2 ml/min; Est GFR (African American) 109.1; Est GFR (Non-African American) 94.1; Potassium 3.2 mmol/L (3.5-5.1)
[2020-01-05] MEDS: FAMOTIDINE 20 MG in SYRINGE 3 ML IV SCH ×2 (07:53→20:38)
[2020-01-05] MEDS: D5NSS + 20MEQ KCL 20 MEQ/1,000 ML BAG IV SCH ×2 (09:05→19:25)
[2020-01-05] MEDS: POTASSIUM CHLORIDE / WTR 10 MEQ/100 ML PLCT IV SCH ×2 (10:33→11:54)
--- NOTE | 2020-01-05 13:34 | Progress Notes ---
DATE: 01/04/2020 Supplement to the progress note by Kendra Vazquez: The patient has been vomiting this morning and was unable to tolerate a Fleet Enema prep for his proposed sigmoidoscopy. He became quite agitated, and with his vomiting, the anesthesiologist would not sedate him in the endoscopy unit and would require sedation in the operating room, and given the circumstances, plan to cancel his sigmoidoscopy.
--- NOTE | 2020-01-05 16:06 | Gastroenterology Progress Note ---
Date of Service January 05, 2020 Assessment & Plan (1) Crohn's colitis: Overall doing well. continue current regimen. Patient feels that he can do a prep tomorrow. Plan for colonoscopy on Tuesday. Spoke with mother and explained the plan. Present on Admission?: Yes Admission and Anticipated Discharge Date Admission Date: January 01, 2020 Subjective Doing very well, has an appetite, kept crackers down. Like to try a low fiber diet. Physical Exam Physical Exam: NAD Gastrointestinal (Abdomen): Inspection/Auscultation: abdomen normal to inspection Percussion/Palpation: abdomen soft; abdomen nontender Psychiatric: Orientation: alert Apperance: appropriately groomed Eye Contact: good eye contact Speech: normal rate/rhythm/volume of speech Affect: no anxious affect Results & Data ([facility]) Vital Signs (Past 12 Hours) Vital Signs Temp Pulse Resp BP Pulse Ox 01/05/20 07:59 36.8 C 61 18 116/67 99
--- NOTE | 2020-01-05 22:41 | Hospitalist Progress Note ---
Date of Service January 05, 2020 Assessment & Plan (1) Bowel disease, inflammatory: Acute flair of crohn's disease, confined to transverse/descending/sigmoid colon . TI and small bowel normal on admission CT. Continue IV solumedrol 40mg daily. Attempts at flex sig yesterday unsuccessful (could not tolerate pre-flex sig prep). Rescheduled for TUESDAY. Cont regular diet as tolerated. Cont IVF but cut rate to 50cc/hr. Cont IV anti-emetics, pain meds, etc. Appreciate [facility] GI input/recs - they are planning to start Stalera while here once TB screen (interferon gold test) returns negative. BMP am. (2) Vomiting: ongoing, intermittent. could have some element of gastritis in addition to active Crohn's. improved with IV PPI, IV pepcid, and antiemetics. (3) Autism spectrum disorder: no issues (4) Acne: derm referral at discharge (5) Iron deficiency: ferritin level only 40 even in the midst of considerable inflammation from Crohn's consider IV venofer while here (6) Hypokalemia: KCL in fluids. 2 k-riders also given today. BMP/mag am. (7) DVT prophylaxis: lovenox daily Admission and Anticipated Discharge Date Admission Date: January 01, 2020 Subjective patient feeling MUCH better today. tolerating regular food. no further N/V. stools firming up. no abd pain today. Review of Systems Constitutional: no fever Physical Exam Constitutional: no acute distress and no altered mental status ENMT: external ear and nose normal, oropharynx normal Respiratory: normal respiratory effort, lungs clear to auscultation Cardiovascular: Rate/Rhythm: regular rate and regular rhythm Heart Sounds: normal S1 and normal S2; no murmur Vessels: posterior tibial pulses present and dorsalis pedis pulses present Extremities: no edema Gastrointestinal (Abdomen): normal bowel sounds, soft, nontender, no hepatosplenomegaly Psychiatric: A+Ox3, euthymic affect Results & Data Results & Data ([facility]) Vital Signs (Past 12 Hours) Vital Signs Temp Pulse Resp BP Pulse Ox 01/05/20 16:37 36.7 C 59 L 18 113/72 98 Laboratory Results Laboratory Results - last 24 hr 01/05/20 06:40 Sodium 141 Potassium 3.2 L D Chloride 108 H Carbon Dioxide 27 Anion Gap 6.0 BUN 8 Creatinine 1.10 Est Cr Clr Drug Dosing 111.2 Est GFR ( Amer) 109.1 Est GFR (Non-Af Amer) 94.1 BUN/Creatinine Ratio 6.8 L Glucose 80 Calcium 9.0 PG Care Time/CCT Total # of Minutes Spent Total Time Spent with Patient: Total time spent is greater than 50% in coordination of care (as documented) at patient's floor/unit and/or counseling patient: Coding Level of Care Code 95367 Subseq Hosp Care Lvl 2 Diagnoses Bowel disease, inflammatory K52.9 Vomiting R11.10 Autism spectrum disorder F84.0 Acne L70.9 Iron deficiency E61.1 Hypokalemia E87.6 DVT prophylaxis Z29.9
[2020-01-06] MEDS: MoRPHine SULFATE 2 MG/ML CARP IV PRN (07:57)
[2020-01-06] MEDS: methylPREDNISolone 40 MG in SYRINGE 0 ML IV SCH (07:58)
[2020-01-06] MEDS: ENOXAPARIN INJ 40 MG/0.4 ML SYR SQ SCH (07:58)
[2020-01-06] MEDS: FAMOTIDINE 20 MG in SYRINGE 3 ML IV SCH ×2 (07:58→21:27)
[2020-01-06] MEDS: ONDANSETRON INJ 2 MG/ML 2 ML VIAL IV PRN (08:05)
[2020-01-06] MEDS: D5NSS + 20MEQ KCL 20 MEQ/1,000 ML BAG IV SCH ×2 (08:06→18:30)
[2020-01-06 08:37] LABS: BUN Creatinine Ratio 6.5 (10-20); Calcium 8.6 mg/dl (8.5-10.1); Creatinine Clr Calc Pharmacy 118.8 ml/min; Est GFR (African American) 118.1; Est GFR (Non-African American) 101.9; Magnesium 2.1 mg/dl (1.8-2.4); Potassium 3.5 mmol/L (3.5-5.1)
--- NOTE | 2020-01-06 13:51 | Gastroenterology Progress Note ---
Date of Service January 06, 2020 Assessment & Plan (1) Bowel disease, inflammatory: continue current regimen. Additional suggestions after colonoscopy and test results for TB. Tendative plan to start Stelara. Admission and Anticipated Discharge Date Admission Date: January 01, 2020 Subjective Joy feels well though he did throw up a little this AM. Feels closer to baseline and ok with prepping for colon exam. Not feeling anxious. Physical Exam Gastrointestinal (Abdomen): Inspection/Auscultation: abdomen normal to inspection; abdomen not distended Percussion/Palpation: abdomen soft; abdomen nontender Results & Data ([facility]) Vital Signs (Past 12 Hours) Vital Signs Temp Pulse Resp BP Pulse Ox 01/06/20 08:20 36.8 C 59 L 18 139/84 100
[2020-01-06 16:02] LABS: Quantiferon Mitogen-NIL >10.00 IU/mL; Quantiferon NIL 0.02 IU/mL; Quantiferon TB Gold Plus NEGATIVE (NEGATIVE); Quantiferon TB2-NIL 0.01 IU/mL
[2020-01-06] MEDS: POLYETHYLENE (MIRALAX) 17 GM PACK PO SCH (18:31)
--- NOTE | 2020-01-06 22:49 | Hospitalist Progress Note ---
Date of Service January 06, 2020 Assessment & Plan (1) Bowel disease, inflammatory: Acute flair of crohn's disease, confined to transverse/descending/sigmoid colon. TI and small bowel normal on admission CT. Continues on IV solumedrol 40mg daily. Attempts at flex sig on Tuesday unsuccessful (could not tolerate pre-flex sig prep). Rescheduled for tomorrow. Performing miralax prep for colonoscopy tomorrow. Cont diet today; then NPO after MN. Cont IVF at 50cc/hr. Cont IV anti-emetics, pain meds, etc. Appreciate [facility] GI input/recs. Interferon gold test is negative. Stalera to be started - defer to GI the initiation date. (2) Vomiting: ongoing, intermittent. could have some element of gastritis in addition to active Crohn's. improved with IV PPI, IV pepcid, and antiemetics. cont IV PPI. (3) Autism spectrum disorder: no issues (4) Acne: derm referral at discharge (5) Iron deficiency: ferritin level only 40 even in the midst of considerable inflammation from Crohn's consider IV venofer while here (6) Hypokalemia: cont KCL in fluids. replaced and improved. BMP am. (7) DVT prophylaxis: lovenox daily Admission and Anticipated Discharge Date Admission Date: January 01, 2020 Subjective vomited after breakfast this am none since had minor blood per rectum this afternoon performing prep for endoscopy tomorrow no abd pain Review of Systems Constitutional: no fever and no fatigue Respiratory: no cough and no dyspnea Physical Exam Constitutional: no acute distress and no altered mental status ENMT: external ear and nose normal, oropharynx normal Mouth: no oral mucosal abnormality (No ulcers) Respiratory: normal respiratory effort, lungs clear to auscultation Cardiovascular: Rate/Rhythm: regular rate and regular rhythm Heart Sounds: normal S1 and normal S2; no murmur Vessels: posterior tibial pulses present and dorsalis pedis pulses present Extremities: no edema Gastrointestinal (Abdomen): normal bowel sounds, soft, nontender, no hepatosplenomegaly Psychiatric: A+Ox3, euthymic affect Results & Data Results & Data ([facility]) Vital Signs (Past 12 Hours) Vital Signs Temp Pulse Resp BP Pulse Ox 01/06/20 21:36 36.7 C 95 H 18 115/78 96 01/06/20 16:00 36.5 C 63 18 107/60 96 Laboratory Results Laboratory Results - last 24 hr 01/01/20 01/06/20 17:05 07:08 Sodium 143 Potassium 3.5 Chloride 107 Carbon Dioxide 31 Anion Gap 5.0 BUN 7 Creatinine 1.03 Est Cr Clr Drug Dosing 118.8 Est GFR ( Amer) 118.1 Est GFR (Non-Af Amer) 101.9 BUN/Creatinine Ratio 6.5 L Glucose 83 Calcium 8.6 Magnesium 2.1 TB Test (QFT) Gold Plus NEGATIVE TB Test (QFT) Nil 0.02 TB Test Mitogen - Nil >10.00 TB Test Ag - Nil 1 0.00 TB Test Ag - Nil 2 0.01 PG Care Time/CCT Total # of Minutes Spent Total Time Spent with Patient: Total time spent is greater than 50% in coordination of care (as documented) at patient's floor/unit and/or counseling patient: Coding Level of Care Code 15747 Subseq Hosp Care Lvl 1 Diagnoses Bowel disease, inflammatory K52.9 Vomiting R11.10 Autism spectrum disorder F84.0 Acne L70.9 Iron deficiency E61.1 Hypokalemia E87.6 DVT prophylaxis Z29.9
[2020-01-07] MEDS: POLYETHYLENE (MIRALAX) 17 GM PACK PO SCH (03:34)
[2020-01-07] MEDS: ONDANSETRON INJ 2 MG/ML 2 ML VIAL IV PRN (06:04)
[2020-01-07 07:47] LABS: Hematocrit (blood only) 45.8 % (42-52); Hemoglobin 15.9 g/dL (14.0-18.0); Mean Corpuscular Hemoglobin 30.1 pg (25-34); Mean Corpuscular Hgb Conc 34.7 g/dL (32-36); Mean Corpuscular Volume 86.7 fL (80-100); Platelet Count 249 K/uL (130-400); RDW Coefficient of Variation 12.7 % (11.5-14.5); Red Blood Count 5.28 M/uL (4.7-6.1); White Blood Count 10.36 K/uL (4.8-10.8)
[2020-01-07 08:15] LABS: BUN Creatinine Ratio 7.1 (10-20); Calcium 8.9 mg/dl (8.5-10.1); Creatinine Clr Calc Pharmacy 124.9 ml/min; Est GFR (African American) 125.4; Est GFR (Non-African American) 108.2; Potassium 3.4 mmol/L (3.5-5.1)
[2020-01-07] MEDS ORDERED: POTASSIUM CHLORIDE / WTR 10 MEQ/100 ML PLCT IV ONE (08:45)
[2020-01-07] MEDS: FAMOTIDINE 20 MG in SYRINGE 3 ML IV SCH ×2 (08:48→20:47)
[2020-01-07] MEDS: methylPREDNISolone 40 MG in SYRINGE 0 ML IV SCH ×2 (08:48→20:46)
[2020-01-07] MEDS: D5NSS + 20MEQ KCL 20 MEQ/1,000 ML BAG IV SCH ×2 (11:09→20:46)
--- NOTE | 2020-01-07 14:34 | History & Physical Report ---
Date of Service January 07, 2020 Assessment & Plan Admission and Anticipated Discharge Date Admission Date: January 01, 2020 History of Present Illness Chief Complaint: Abd pain, Crohn's Primary Care Provider: Adrián De Jr, MD For Colonoscopy Allergies Allergy/AdvReac Type Severity Reaction Status Date / Time infliximab [From Remicade] Allergy Intermediate THROAT Verified 01/01/20 08:35 SWELLS Home Medications Home Medications Medication Instructions Recorded Confirmed Type Medical Marijuana 1 puff INHALATION UD 01/01/20 01/01/20 History prednisone 40 mg PO QAM 01/01/20 01/01/20 History Past Med/Surg History Medical History (Updated 01/06/20 @ 10:33 by Sergey Díaz) Anemia Crohn's colitis Headache Orthostasis Orthostatic hypotension Surgical History No pertinent past surgical history Family History Other Family history non-contributory Social History Smoking Status: Former smoker Tobacco Type: E-cigarettes / Vaping Second Hand Exposure: No; Do You Dip or Chew Tobacco: No; Hx Alcohol Use: No Hx Substance Use: Yes Last Used Substance: Hours (ago) Substance Use Type Other:: medical marijuana, has card Preferred Language: Togolese Communication Ability: Effective Credit Operations Processor Required: No Beliefs That Will Affect Care: None marital status: Single Current Living Situation: Parent and Family Current Living Situation Comment: mother and brother Other Information That Helps Us Care for You: No Feels Safe at Home: Yes Assistive Devices: Glasses Physical Exam Constitutional: well developed and well nourished Respiratory: normal respiratory effort Cardiovascular: Rate/Rhythm: regular rate and regular rhythm Gastrointestinal (Abdomen): Percussion/Palpation: abdomen soft Psychiatric: Autism Results & Data ([facility]) Vital Signs (Past 12 Hours) Vital Signs Temp Pulse Resp BP Pulse Ox 01/07/20 07:31 36.6 C 68 18 106/67 98
[2020-01-07] MEDS ORDERED: SODIUM CHLORIDE 0.9% 1000ML 1,000 ML IV SCH (14:45)
--- NOTE | 2020-01-07 15:18 | Anesthesiology Consultation ---
Date of Service January 07, 2020 Assessment & Plan (1) Encounter for pre-operative examination: Chart Review Chart Review: Acceptable Risk for Surgery and Patient NOT seen in Pre Admission Testing Consults Requested none History Surgery Operation Date: 01/04/20 16:30 Proposed Procedures p Flexible Sigmoidoscopy Dr Alejandrina Tinoco Operation Date: 01/07/20 17:30 Proposed Procedures p Colonoscopy Dr Alejandrina Tinoco Height/Weight Height: 5 ft 11 in Weight: 86.4 kg Allergies Allergy/AdvReac Type Severity Reaction Status Date / Time infliximab [From Remicade] Allergy Intermediate THROAT Verified 01/01/20 08:35 SWELLS Medications Home Medications Medication Instructions Recorded Confirmed Last Taken Medical Marijuana 1 puff INHALATION UD 01/01/20 01/01/20 12/31/19 20:00 prednisone 40 mg PO QAM 01/01/20 01/01/20 01/01/20 07:00 Active Medications Generic Name Dose Route Start Last Admin Trade Name Freq PRN Reason Stop Dose Admin Enoxaparin Sodium 40 mg 01/04/20 09:00 01/06/20 07:58 Enoxaparin Inj 40 Mg/0.4 Ml Syr SQ 02/03/20 08:59 40 mg QAM MITCH Administration Methylprednisolone 40 mg/ 0.64 mls @ 1.5 mls/min 01/02/20 09:00 01/07/20 08:48 Syringe IV 02/01/20 08:59 1.5 mls/min DAILY MITCH Administration Potassium Chloride/Dextrose/Sod Cl 20 meq in 1,000 mls @ 100 mls/hr 01/02/20 21:00 01/07/20 11:09 D5nss + 20meq Kcl IV 02/01/20 20:59 100 mls/hr .Q10H MITCH Administration Famotidine 20 mg/ Syringe 5 mls @ 2.5 mls/min 01/04/20 09:00 01/07/20 08:48 IV 02/03/20 08:59 2.5 mls/min BID MITCH Administration Morphine Sulfate 2 mg 01/01/20 19:32 01/06/20 07:57 Morphine Sulfate 2 Mg/Ml Carp IV 01/15/20 19:31 2 mg Q4H PRN Administration Pain Ondansetron HCl 4 mg 01/01/20 21:20 01/07/20 06:04 Ondansetron Inj 2 Mg/Ml 2 Ml Vial IV 01/31/20 21:19 4 mg Q6H PRN Administration Nausea NPO Date Last Intake of Fluids: 01/07/20 Time Last Intake of Fluids: 08:45 Last Intake of Fluids Comment: Pt had sip of water Date Last Intake of Solids: 01/06/20 Time Last Intake of Solids: 18:00 Past Medical History Medical History (Updated 01/07/20 @ 15:19 by Trey Felipe MD) Anemia Crohn's colitis Headache Orthostasis Orthostatic hypotension Exercise / Class Metabolic Activity II 4-5 Yardwork/Stairs/Walk up hill Past Family History Family History Other Family history non-contributory Past Surgical History Surgical History No pertinent past surgical history colonoscopy Past Anesthesia History No Hx of Anesthesia Complications and No Family Hx of Anesthesia Complications History of PONV No Hx of PONV and No Hx of Motion Sickness Social History Smoking Status: Former smoker tobacco type: e-cigarettes Do You Dip or Chew Tobacco: No Hx Alcohol Use: No Hx Substance Use: Yes substance use type: marijuana Substance Use Type Other:: medical marijuana, has card Last Used Substance: Hours (ago) Physical Exam Vital Signs Last Vital Signs Temp 36.6 C 01/07/20 14:54 Pulse 91 H 01/07/20 14:54 Resp 18 01/07/20 14:54 BP 127/77 01/07/20 14:54 Pulse Ox 98 01/07/20 14:54 Testing Laboratory Results 01/07/20 07:20 01/07/20 07:20 Urine Color Yellow 01/01/20 16:00 Urine Appearance Clear (Clear) 01/01/20 16:00 Urine pH 6.5 (4.5-7.5) 01/01/20 16:00 Ur Specific [place] 1.024 (1.000-1.030) 01/01/20 16:00 Urine Protein Negative (Negative) 01/01/20 16:00 Urine Glucose (UA) Negative (Negative) 01/01/20 16:00 Urine Ketones 2+ (Negative) H 01/01/20 16:00 Urine Nitrite Negative (Negative) 01/01/20 16:00 Ur Leukocyte Esterase Negative (Negative) 01/01/20 16:00
[2020-01-07] MEDS ORDERED: MIDAZOLAM HCL 1 MG/ML 2ML VIAL ONE (15:43)
[2020-01-07] MEDS ORDERED: PROPOFOL IV EMULSION 10 MG/ML 20 ML VIAL IV ONE (15:57)
--- NOTE | 2020-01-07 16:00 | GI REPORT ---
Patient Name: Amrik Francis Procedure Date: 01/07/2020 3:26 PM Date of : 1995 Admit Type: Inpatient Age: 24 Gender: Male Attending MD: Alejandro Tinoco MD Procedure: Colonoscopy Providers: Alejandro Tinoco MD Referring MD: Keshav Danielle Indications: Chronic diarrhea, Suspected Crohn's disease of the colon Medicines: Midazolam 2 mg IV, Propofol total dose 350 mg IV Complications: No immediate complications. Estimated Blood Loss: Estimated blood loss was minimal. Procedure: Pre-Anesthesia Assessment: - Prior to the procedure, a History and Physical was performed, and patient medications, allergies and sensitivities were reviewed. The patient's tolerance of previous anesthesia was reviewed. - The risks and benefits of the procedure and the sedation options and risks were discussed with the patient. All questions were answered and informed consent was obtained. After I obtained informed consent, the scope was passed under direct vision. Throughout the procedure, the patient's blood pressure, pulse, and oxygen saturations were monitored continuously. The Colonoscope was introduced through the anus and advanced to the terminal ileum. The colonoscopy was performed without difficulty. The patient tolerated the procedure well. The quality of the bowel preparation was fair. Findings: The terminal ileum appeared normal. Inflammation characterized by erythema, friability, granularity and loss of vascularity was found in a continuous and circumferential pattern from the anus to the transverse colon. No sites were spared. This was severe, and when compared to previous examinations, the findings are new. Red blood was found in the sigmoid colon. Impression: - Preparation of the colon was fair. - The examined portion of the ileum was normal. - Colitis. Inflammation was found from the anus to the transverse colon. This was severe, new compared to previous examinations. - Blood in the sigmoid colon. - No specimens collected. Recommendation: - Return patient to [facility] for ongoing care. Alejandro Tinoco M.D. Alejandro Tinoco MD 01/07/2020 4:00:03 PM This report has been signed electronically. Note Initiated On: 01/07/2020 3:26 PM Number of Addenda: 0 I attest to the content of the Intraoperative Record and orders documented therein, exceptions below {[id number]}
--- NOTE | 2020-01-07 16:19 | Anesthesiology Progress Note ---
Date of Service January 07, 2020 Anesthesia Post Procedure Vital Signs Vital Signs: Temp Pulse Pulse Resp BP BP Pulse Ox 01/07/20 16:15 77 16 87/49 L 96 01/07/20 16:05 84 20 84/45 L 96 01/07/20 14:54 36.6 C 91 H 18 127/77 98 01/07/20 07:31 36.6 C 68 18 106/67 98 01/06/20 21:36 36.7 C 95 H 18 115/78 96 Pain Intensity Abdomen: Pain Intensity: 3 Transfer of Care Handoff Completed per policy Notes Mental Status: alert / awake / arousable and participated in evaluation Patient Amnestic to Procedure: Yes Nausea / Vomiting: adequately controlled Pain: adequately controlled Airway Patency, RR, SpO2: stable & adequate BP & HR: stable & adequate Hydration State: stable & adequate Anesthetic Complications: no major complications apparent and Pt Satisfied with anesthetic care
--- NOTE | 2020-01-07 16:45 | Hospitalist Progress Note ---
Date of Service January 07, 2020 Assessment & Plan (1) Bowel disease, inflammatory: Acute flair of crohn's disease TI and small bowel normal on admission CT. Continues on IV solumedrol 40mg daily. Colonoscopy 01/06 revealed severe colitis from anus to transverse colon with blood in the sigmoid colon Appreciate [facility] GI input/recs. Interferon gold test is negative. Stalera to be started - defer to GI the initiation date. Continue D5 NSS 20K at 100 ml/hr (2) Vomiting: Nausea, but no vomiting today could have some element of gastritis in addition to active Crohn's. improved with IV PPI, IV pepcid, and antiemetics. cont IV PPI. (3) Autism spectrum disorder: no issues (4) Acne: derm referral at discharge (5) Iron deficiency: ferritin level only 40 even in the midst of considerable inflammation from Crohn's consider IV venofer while here (6) Hypokalemia: cont KCL in fluids, will increase rate to 100 mls/hr for slightly low K today . replaced and improved. BMP am. (7) DVT prophylaxis: lovenox daily held for procedure and will continue to hold for GI bleeding SCDs Admission and Anticipated Discharge Date Admission Date: January 01, 2020 Subjective Mr. Francis was seen this morning, prior to his colonoscopy. He was unable to complete his prep due to nausea. He reports bloody stools toward the end. No abdominal pain ROS Constitutional: no chills, aches, sweats or fever Respiratory: no sob,cough, sputum, or wheezing Cardiac: no chest pain, palpitations, edema, orthopnea or lightheadedness GI: see HPI : no dysuria or hesitancy Extremities: no joint pain or weakness Skin: no rash All other systems reviewed and negative Physical Exam Physical Exam: General: no distress Eyes: normal inspection, PERLL Respiratory: chest non tender, clear to auscultation, normal breath sounds, no respiratory distress, no accessory muscle use Cardiac: regular rate and rhythm, no rub or gallop, no murmur, no edema, no jvd GI/: active bowel sounds, no abd pain or tenderness, soft, non distended Extremities: normal range of motion, normal strength, non tender Neuro/Psych: alert and oriented x 3, normal mood and affect Skin: normal color, dry, acne/scabbed lesions over shoulders and upper back Results & Data Results & Data ([facility]) Vital Signs (Past 12 Hours) Vital Signs Temp Pulse Pulse Resp BP Pulse Ox 01/07/20 16:33 60 16 98/54 L 97 01/07/20 16:22 64 16 97/52 L 97 01/07/20 16:15 77 16 87/49 L 96 01/07/20 16:05 84 20 84/45 L 96 01/07/20 14:54 36.6 C 91 H 18 127/77 98 01/07/20 07:31 36.6 C 68 18 106/67 98 PG Care Time/CCT Total # of Minutes Spent Total Time Spent with Patient: Total time spent is greater than 50% in coordination of care (as documented) at patient's floor/unit and/or counseling patient: Coding Level of Care Code 85279 Subseq Hosp Care Lvl 2 Diagnoses Bowel disease, inflammatory K52.9 Vomiting R11.10 Autism spectrum disorder F84.0 Acne L70.9 Iron deficiency E61.1 Hypokalemia E87.6 DVT prophylaxis Z29.9
--- NOTE | 2020-01-07 17:17 | Progress Notes ---
DATE: 01/07/2020 ADDENDUM I did have discussion with the pharmacist today and Sidneyla is not stopped and is non-formulary in her hospital and they said that they were not able to give it to an inpatient. Therefore, we will increase the Solu-Medrol to 40 mg twice a day and work on getting it authorized to be given as an outpatient as soon as we can get it authorized.
[2020-01-08] MEDS: D5NSS + 20MEQ KCL 20 MEQ/1,000 ML BAG IV SCH ×2 (07:27→19:02)
[2020-01-08 08:02] LABS: Hematocrit (blood only) 43.7 % (42-52); Mean Corpuscular Hemoglobin 30.2 pg (25-34); Mean Corpuscular Hgb Conc 34.3 g/dL (32-36); Mean Corpuscular Volume 87.9 fL (80-100); Mean Platelet Volume 9.6 fL (7.4-10.4); Platelet Count 286 K/uL (130-400); RDW Coefficient of Variation 12.8 % (11.5-14.5); RDW Standard Deviation 40.6 fL (36.4-46.3); Red Blood Count 4.97 M/uL (4.7-6.1); White Blood Count 10.27 K/uL (4.8-10.8)
[2020-01-08 08:36] LABS: BUN Creatinine Ratio 7.7 (10-20)
[2020-01-08] MEDS: methylPREDNISolone 40 MG in SYRINGE 0 ML IV SCH ×2 (08:36→20:26)
[2020-01-08] MEDS: FAMOTIDINE 20 MG in SYRINGE 3 ML IV SCH ×2 (08:36→20:27)
--- NOTE | 2020-01-08 16:44 | Progress Notes ---
DATE: 01/08/2020 SUBJECTIVE: The patient reports that he is tolerating a low fiber diet. His abdominal pain is diminished. He continues to take IV Solu-Medrol 40 mg twice a day. OBJECTIVE: VITAL SIGNS: Normal. He is afebrile. ABDOMEN: Soft and nontender. LABORATORY DATA: CBC shows a white count of 10.27, hemoglobin 15, platelets 286. IMPRESSION: The patient has fairly significant Crohn's colitis, which is responding to IV steroids. After discussing getting IV Stelara induction dose the pharmacy is not able to obtain this or deliver this as an inpatient as they will not get reimbursed for it. His hepatitis B and tuberculosis tests are negative. I plan on having the office to begin authorization as an outpatient and hopefully we can transition him to oral steroids at 40 mg twice a day prednisone tomorrow and if he tolerates that, continue this as an outpatient until at least he can get his IV induction dose of Stelara as an outpatient.
--- NOTE | 2020-01-08 17:18 | Hospitalist Progress Note ---
Date of Service January 08, 2020 Assessment & Plan (1) Bowel disease, inflammatory: Acute flair of crohn's disease TI and small bowel normal on admission CT. Colonoscopy 01/06 revealed severe colitis from anus to transverse colon with blood in the sigmoid colon Appreciate [facility] GI input/recs. Interferon gold test is negative. Stalera to be started outpatient. Can transition to po steroids tomorrow. DC fluids as taking po (2) Vomiting: Resolved could have some element of gastritis in addition to active Crohn's. improved with IV PPI, IV pepcid, and antiemetics. cont IV PPI. (3) Autism spectrum disorder: no issues (4) Acne: derm referral at discharge (5) Iron deficiency: ferritin level only 40 even in the midst of considerable inflammation from Crohn's Hgb is normal (6) Hypokalemia: Resolved BMP am. (7) DVT prophylaxis: lovenox daily held for procedure and will continue to hold for GI bleeding as [facility] Admission and Anticipated Discharge Date Admission Date: January 01, 2020 Subjective Feeling much better today. Stools slowing, no further nausea, tolerating diet ROS Constitutional: no chills, aches, sweats or fever Respiratory: no sob,cough, sputum, or wheezing Cardiac: no chest pain, palpitations, edema, orthopnea or lightheadedness GI: see HPI : no dysuria or hesitancy Extremities: no joint pain or weakness Skin: no rash All other systems reviewed and negative Physical Exam Physical Exam: General: no distress Eyes: normal inspection, PERLL Respiratory: chest non tender, clear to auscultation, normal breath sounds, no respiratory distress, no accessory muscle use Cardiac: regular rate and rhythm, no rub or gallop, no murmur, no edema, no jvd GI/: active bowel sounds, no abd pain or tenderness, soft, non distended Extremities: normal range of motion, normal strength, non tender Neuro/Psych: alert and oriented x 3, normal mood and affect Skin: normal color, dry Results & Data Results & Data ([facility]) Vital Signs (Past 12 Hours) Vital Signs Temp Pulse Resp BP Pulse Ox 01/08/20 16:12 36.6 C 64 18 121/70 97 01/08/20 08:20 36.9 C 71 18 108/64 100 PG Care Time/CCT Total # of Minutes Spent Total Time Spent with Patient: Total time spent is greater than 50% in coordination of care (as documented) at patient's floor/unit and/or counseling patient: Coding Level of Care Code 62855 Subseq Hosp Care Lvl 2 Diagnoses Bowel disease, inflammatory K52.9 Vomiting R11.10 Autism spectrum disorder F84.0 Acne L70.9 Iron deficiency E61.1 Hypokalemia E87.6 DVT prophylaxis Z29.9
[2020-01-09 06:10] LABS: Hematocrit (blood only) 44.9 % (42-52); Hemoglobin 15.6 g/dL (14.0-18.0); Mean Corpuscular Hemoglobin 30.1 pg (25-34); Mean Corpuscular Hgb Conc 34.7 g/dL (32-36); Mean Corpuscular Volume 86.7 fL (80-100); Mean Platelet Volume 9.3 fL (7.4-10.4); Platelet Count 275 K/uL (130-400); RDW Coefficient of Variation 12.6 % (11.5-14.5); RDW Standard Deviation 39.9 fL (36.4-46.3); Red Blood Count 5.18 M/uL (4.7-6.1); White Blood Count 12.81 K/uL (4.8-10.8)
[2020-01-09 06:29] LABS: BUN Creatinine Ratio 12.8 (10-20); Calcium 9.2 mg/dl (8.5-10.1); Creatinine Clr Calc Pharmacy 149.2 ml/min; Est GFR (African American) 144.5; Est GFR (Non-African American) 124.6
[2020-01-09] MEDS: FAMOTIDINE 20 MG in SYRINGE 3 ML IV SCH ×2 (08:46→20:32)
[2020-01-09] MEDS: predniSONE 20 MG TAB PO SCH ×2 (08:46→20:27)
--- NOTE | 2020-01-09 14:33 | Hospitalist Progress Note ---
Date of Service January 09, 2020 Assessment & Plan (1) Bowel disease, inflammatory: Acute flair of crohn's disease TI and small bowel normal on admission CT. Colonoscopy 01/06 revealed severe colitis from anus to transverse colon with blood in the sigmoid colon Continues to see blood in stools but hgb has been stable Appreciate [facility] GI input/recs. Interferon gold test is negative. Stalera to be started outpatient.Transitioned to po steroids today. If tolerated today, will dc tomorrow (2) Vomiting: Resolved could have some element of gastritis in addition to active Crohn's. improved with IV PPI, IV pepcid, and antiemetics. cont IV PPI. (3) Autism spectrum disorder: no issues (4) Acne: derm referral at discharge (5) Iron deficiency: ferritin level only 40 even in the midst of considerable inflammation from Crohn's Hgb is normal (6) Hypokalemia: Resolved BMP am. (7) DVT prophylaxis: no chemoprophylaxis due to GI bleeding SCDs Admission and Anticipated Discharge Date Admission Date: January 01, 2020 Subjective Mr. Francis is feeling better today. Some blood in stools, had three bowel m ovements this morning. Eating well, no nausea or vomiting. No abdominal pain ROS Constitutional: no chills, aches, sweats or fever Respiratory: no sob,cough, sputum, or wheezing Cardiac: no chest pain, palpitations, edema, orthopnea or lightheadedness GI: see HPI : no dysuria or hesitancy Extremities: no joint pain or weakness Skin: no rash All other systems reviewed and negative Physical Exam Physical Exam: General: no distress Eyes: normal inspection, PERLL Respiratory: chest non tender, clear to auscultation, normal breath sounds, no respiratory distress, no accessory muscle use Cardiac: regular rate and rhythm, no rub or gallop, no murmur, no edema, no jvd GI/: active bowel sounds, no abd pain or tenderness, soft, non distended Extremities: normal range of motion, normal strength, non tender Neuro/Psych: alert and oriented x 3, normal mood and affect Skin: normal color, dry Results & Data Results & Data ([facility]) Vital Signs (Past 12 Hours) Vital Signs Temp Pulse Resp BP Pulse Ox 01/09/20 07:56 36.7 C 46 L 16 135/79 100 PG Care Time/CCT Total # of Minutes Spent Total Time Spent with Patient: Total time spent is greater than 50% in coordination of care (as documented) at patient's floor/unit and/or counseling patient: Coding Level of Care Code 56130 Subseq Hosp Care Lvl 2 Diagnoses Bowel disease, inflammatory K52.9 Vomiting R11.10 Autism spectrum disorder F84.0 Acne L70.9 Iron deficiency E61.1 Hypokalemia E87.6 DVT prophylaxis Z29.9
--- NOTE | 2020-01-09 16:17 | Progress Notes ---
DATE: 01/09/2020 SUBJECTIVE: The patient has done well with his transition from IV to oral steroids. He continues to eat solid food without any nausea or vomiting. He still has bloody stools. He has had 3 so far today. Abdominal pain is decreasing. We are still waiting for authorization for his outpatient Stelara infusion. His hepatitis B surface antigen and tuberculosis blood tests were both negative. PHYSICAL EXAMINATION: GENERAL: The patient appears in no acute distress. VITAL SIGNS: Normal. He is afebrile. LABORATORIES: White count is 12.81, hemoglobin is 15.6, platelets are 275,000. IMPRESSION AND PLAN: The patient tolerated the transition to oral steroids. Hopefully, we will be able to discharge him tomorrow and as soon as his Stelara is authorized, to begin his infusion for induction as an outpatient.
[2020-01-10 06:38] LABS: Hematocrit (blood only) 46.5 % (42-52); Mean Corpuscular Hemoglobin 30.2 pg (25-34); Mean Corpuscular Hgb Conc 34.4 g/dL (32-36); Mean Corpuscular Volume 87.9 fL (80-100); Mean Platelet Volume 9.5 fL (7.4-10.4); Platelet Count 290 K/uL (130-400); RDW Coefficient of Variation 12.8 % (11.5-14.5); RDW Standard Deviation 40.9 fL (36.4-46.3); Red Blood Count 5.29 M/uL (4.7-6.1); White Blood Count 9.92 K/uL (4.8-10.8)
[2020-01-10 06:41] LABS: BUN Creatinine Ratio 12.5 (10-20)
[2020-01-10] MEDS: predniSONE 20 MG TAB PO SCH (08:06)
[2020-01-10] MEDS: FAMOTIDINE 20 MG in SYRINGE 3 ML IV SCH (08:08)
--- NOTE | 2020-01-10 08:33 | Gastroenterology Progress Note ---
Date of Service January 10, 2020 Assessment & Plan (1) Bowel disease, inflammatory: Patient is doing well on po steroids. Tolerating regular diet and fluids without difficulty. Awaiting insurance approval for outpatient Stelara. Plan is discharge home today with oral steroids. Outpatient GI follow-up scheduled and patient provided with appointment. Please refer to supervising physician addendum for further recommendations. Admission and Anticipated Discharge Date Admission Date: January 01, 2020 Subjective Patient awake, alert, sitting upright in bed on his cellphone. Denies complaints this morning including abdominal pain, nausea, or vomiting. Continues to have blood in stools. Reports significantly decreased quantity and frequency. Tolerating po regular diet without difficulty. Review of Systems Review of Systems: All systems reviewed & are unremarkable except as noted in Subjective Physical Exam Constitutional: WD/WN, vitals as above Eyes: no eyelid abnormality and no conjunctival abnormality ENMT: Ears: no external ear abnormality Nose: no external nose abnormality Neck: normal visual inspection and trachea midline Respiratory: normal respiratory effort, lungs clear to auscultation Cardiovascular: RRR, no murmur, no edema Gastrointestinal (Abdomen): Inspection/Auscultation: abdomen normal to inspection and normal bowel sounds; abdomen not distended Percussion/Palpation: abdomen soft; abdomen nontender, no guarding and abdomen not rigid Musculoskeletal: Extremities: extremities normal to inspection Neurologic: PERRL, EOMI, accommodation nl, no face palsy, no dysarthria Psychiatric: Orientation: alert and oriented x 3 Results & Data ([facility]) Vital Signs (Past 12 Hours) Vital Signs Temp Pulse Resp BP BP Pulse Ox 01/10/20 07:34 36.6 C 74 16 113/71 99 01/10/20 00:30 36.7 C 82 14 115/65 97 Laboratory Results - last 24 hr 01/10/20 01/10/20 05:48 05:48 WBC 9.92 RBC 5.29 Hgb 16.0 Hct 46.5 MCV 87.9 MCH 30.2 MCHC 34.4 RDW Std Deviation 40.9 RDW Coeff of Miguel 12.8 Plt Count 290 MPV 9.5 Sodium 138 Potassium 4.0 Chloride 106 Carbon Dioxide 27 Anion Gap 4.0 BUN 11 Creatinine 0.90 Est Cr Clr Drug Dosing 136.0 Est GFR ( Amer) 139.0 Est GFR (Non-Af Amer) 120.0 BUN/Creatinine Ratio 12.5 Glucose 108 H Calcium 9.0
--- NOTE | 2020-01-10 10:14 | Discharge Summary ---
Date of Service January 10, 2020 Admission HPI Per Admitting Provider Patient is a 24 yo male with a longstanding diagnosis of crohn disease. He reports he has been having bright red blood in his stool for over a week. This is also accompanied by abdominal pain and/ nausea and vomiting. Patient reports he no longer has seen GI since Dr. Bedolla left. He states he came to the ER yesterday and was given prednisone however, at home he was not able to tolerate this and vomited it. This brought him back to the ER today. Patient will be admitted for iV steroids. Patient states that his moderate cramping generalized abd. pain has improved since he received the IV steroids. Principal Diagnosis IBD Discharge Exam Constitutional WD/WN, vitals as above Respiratory normal respiratory effort, lungs clear to auscultation Cardiovascular RRR, no murmur, no edema Gastrointestinal (Abdomen) normal bowel sounds, soft, nontender, no hepatosplenomegaly Musculoskeletal no cyanosis or clubbing, extremities motor strength 5/5 Skin acne on bilateral shoulders Neurologic moves all extremities and awake Psychiatric A+Ox3, euthymic affect Discharge Data Allergies Allergy/AdvReac Type Severity Reaction Status Date / Time infliximab [From Remicade] Allergy Intermediate THROAT Verified 01/01/20 08:35 SWELLS Consultations 01/01/20 10:43 Consult Gastroenterology Routine 01/01/20 11:07 ED Decision to Admit Stat Procedures Performed Operation Date: 01/04/20 16:30 <No data on this case meets the specified criteria> Operation Date: 01/07/20 17:30 Actual Procedures p Colonoscopy - [facility] Course (1) Bowel disease, inflammatory: Acute flair of crohn's disease TI and small bowel normal on admission CT. Colonoscopy 01/06 revealed severe colitis from anus to transverse colon with blood in the sigmoid colon Continues to see blood in stools but hgb has been stable Appreciate [facility] GI input/recs. Interferon gold test is negative. Stalera to be started outpatient. Tolerating po steroids, will continue until follow up with GI (2) Vomiting: Resolved could have some element of gastritis in addition to active Crohn's. improved with IV PPI, IV pepcid, and antiemetics. cont IV PPI - will send home with po pantoprazole (3) Autism spectrum disorder: no issues (4) Acne: derm referral at discharge (5) Iron deficiency: ferritin level only 40 even in the midst of considerable inflammation from Crohn's Hgb is normal (6) Hypokalemia: Resolved (7) DVT prophylaxis: no chemoprophylaxis due to GI bleeding SCDs Total Time Total Time Spent Total Time Spent (In Minutes): greater than 30 minutes Discharge Plan Discharge Items Patient Disposition: Home - Self-Care Reason For Visit: INFLAMMATORY BOWEL DISEASE FLAIR Discharge Diagnosis: Inflammatory bowel disease flair Activity: Resume your previous activity Non-emergency contact: Primary Care Provider Call non-emergency contact if: you have any medication questions Follow-up/Referrals: Adrián De Jr, MD [Primary Care Provider] - Alejandro Tinoco [Physician] - (APPT IS ALREADY MADE FOR FOLLOW UP VISIT) Shaji Richey MD [Physician] - 01/28/20 10:00 am (Follow up at next available appointment PLEASE ARRIVE 10 MINUTES EARLY FOR APPT; PLEASE WEAR MASK AND BRING YOUR INSURANCE CARDS.) Diet: Regular Addtl Attending Provider Instructions: (1) Bowel disease, inflammatory: You will continue with steroids until seen by gastroenterology. I have prescribed pantoprazole to help protect your stomach while taking the steroids as you were experiencing some gastritis symptoms ealier in your stay. GI will contact you about your Stalera infusion. I will refer you to Dr. Richey from dermatology for acne. Pending Studies at Discharge: No Stand-Alone Forms: My [employer] Opioid Pain Management, Work/School Release (Inpt), Smoking Cessation Medications and DC Order Prescriptions: New prednisone 20 mg Tablet 40 mg PO BID Qty: 40 RF: 0 pantoprazole 40 mg tablet,delayed release (DR/EC) 40 mg PO DAILY Qty: 30 RF: 0 Continued Medical Marijuana 1 puff inhalation UD RF: 0 Discontinued prednisone 20 mg tablet 40 mg PO QAM RF: 0 Discharge Orders: Discharge Order (Routine); Ordered 01/10/20 Ordered By: Letha Quezada/Other Patient Handouts: What Is Crohn's Disease, Controlling Adult Acne Admission Data Admit Date/Time: 01/01/20 11:31 Attending Provider: Keshav Walker Admit Provider: Luis Gray Primary Care Provider: Adrián De Jr Other Providers: Alejandro Tinoco ; Luis Gray Other Interventions: Discharge Summary Assessment (RN) Last Done: 01/10/20 10:28 Supervising Physician Co-Signing Physician Notes Patient reviewed on the day of discharge. I agree with the discharge summary by Letha EDWARDS. I have reviewed the chart including labs, imaging and plans for discharge. Crohn's disease with acute flare patient responded to steroids, plan to discharge on Prednisone with taper will start Stelera as outpatient under direction of [facility] GI patient had CT as well as colonoscopy, found to have inflammation from anus to transverse colon with blood Hb has been stable Coding Level of Care Code D/C Day Management >30 mins Diagnoses Bowel disease, inflammatory K52.9 Vomiting R11.10 Autism spectrum disorder F84.0 Acne L70.9 Iron deficiency E61.1 Hypokalemia E87.6 DVT prophylaxis Z29.9
== END 2020-01-10 12:35 | disposition home or self-care (01) | DRG 386 ==
LOC: ED 07:49 → SUATTDRO 11:31 → 3W 11:31
DX: E61.1 Iron deficiency; K29.70 Gastritis, unspecified, without bleeding; L70.9 Acne, unspecified; Z79.899 Other long term (current) drug therapy; K50.911 Crohn's disease, unspecified, with rectal bleeding; Z53.09 Procedure and treatment not carried out because of other contraindication; E87.6 Hypokalemia; Z79.52 Long term (current) use of systemic steroids; Z88.8 Allergy status to other drugs, medicaments and biological substances; F84.0 Autistic disorder; Z87.891 Personal history of nicotine dependence

== ENCOUNTER 2020-02-11 16:34 | Inpatient (IN) ==
[2020-02-11] MEDS ORDERED: DROPERIDOL 5 MG/2 ML VIAL IV STA (18:12)
[2020-02-11] MEDS ORDERED: diphenhydrAMINE 50 MG/ML VIAL IV STA (18:14)
[2020-02-11] MEDS ORDERED: methylPREDNISolone 125 MG/2 ML VIAL IV STA (18:15)
[2020-02-11] MEDS ORDERED: PANTOprazole 80 MG in DEXTROSE 5% 100 ML IV STA (18:16)
[2020-02-11] MEDS ORDERED: MAGNESIUM SULFATE / D5W 1 GM/100 ML BAG IV ONE (18:16)
[2020-02-11 18:56] LABS: Basophils # (auto) 0.01 K/uL (0-0.2); Basophils % (auto) 0.1 %; Eosinophils # (auto) 0.02 K/uL (0-0.5); Eosinophils % (auto) 0.2 %; Hematocrit (blood only) 42.5 % (42-52); Hemoglobin 15.5 g/dL (14.0-18.0); Immature Granulocytes # (auto) 0.21 K/uL (0.00-0.02); Immature Granulocytes % (auto) 1.6 %; Lymphocytes # (auto) 1.21 K/uL (1.2-3.4); Lymphocytes % (auto) 9.4 %; Mean Corpuscular Hemoglobin 30.3 pg (25-34); Mean Corpuscular Hgb Conc 36.5 g/dL (32-36); Mean Platelet Volume 8.5 fL (7.4-10.4); Monocytes # (auto) 0.94 K/uL (0.11-0.59); Monocytes % (auto) 7.3 %; Neutrophils # (auto) 10.53 K/uL (1.4-6.5); Neutrophils % (auto) 81.4 %; Nucleated RBC # (auto) 0.02 K/uL (0-0); Nucleated RBC % (auto) 0.1 %; Platelet Count 334 K/uL (130-400); RDW Coefficient of Variation 12.4 % (11.5-14.5); RDW Standard Deviation 37.2 fL (36.4-46.3); Red Blood Count 5.12 M/uL (4.7-6.1); White Blood Count 12.92 K/uL (4.8-10.8)
[2020-02-11] MEDS: SODIUM CHLORIDE 0.9% 1000ML 1,000 ML IV SCH ×2 (19:09→19:43)
[2020-02-11 19:17] LABS: Alanine Aminotransferase 24 U/L (12-78); Albumin Level 3.5 gm/dl (3.4-5.0); Aspartate Aminotransferase 11 U/L (15-37); Blood Urea Nitrogen 15 mg/dl (7-18); Carbon Dioxide 30 mmol/L (21-32); Chloride 98 mmol/L (98-107); Est GFR (African American) 104.5; Est GFR (Non-African American) 90.1; Glucose 124 mg/dl (70-99); Lipase 272 U/L (73-393); Magnesium 2.3 mg/dl (1.8-2.4); Potassium 3.1 mmol/L (3.5-5.1); Sodium 136 mmol/L (136-145)
[2020-02-11 19:20] LABS: Albumin Globulin Ratio 1.3 (0.9-2); Alkaline Phosphatase 58 U/L (45-117); Bilirubin,Total 1.3 mg/dl (0.2-1); Globulin 2.7 gm/dl (2.5-4.0); Total Protein 6.2 gm/dl (6.4-8.2)
[2020-02-11] MEDS ORDERED: POTASSIUM CHLORIDE CRTAB 20 MEQ TABCR PO STA (19:30)
--- NOTE | 2020-02-11 19:51 | XRay Report ---
XR abdomen 2V w PA chest CLINICAL HISTORY: Pt c/o Crohn's disease ABDOMINAL PAIN COMPARISON STUDY: 02/02/2020 FINDINGS: Direct chest reveals no free air. There is no focal pulmonary consolidation. Erect and supi ne views the abdomen reveal no abnormally dilated loops of large or small bowel. There are no transit ion zones indicate bowel obstruction. There are no abnormal abdominal calcifications. IMPRESSION: No evidence of bowel obstruction. No evidence of free air. ACT 112: Negative or not required by law. Electronically signed by: Kofi Quintero M.D. 02/11/2020 7:49 PM
[2020-02-11] MEDS: POTASSIUM CHLORIDE / WTR 10 MEQ/100 ML PLCT IV SCH ×2 (20:35→21:37)
--- NOTE | 2020-02-11 21:26 | History & Physical Report ---
Date of Service February 11, 2020 Assessment & Plan (1) Crohn's disease: Patient is a 24-year-old male with a past medical history of orthostatic hypotension and Crohn's disease who presents for the third time in a little over a week for evaluation of ongoing bloody diarrhea, abdominal cramping, nausea. #Diarrhea, nausea, and hematochezia secondary to exacerbation of Crohn's disease Patient has longstanding history of Crohn's disease, previously went untreated f or a year and a half prior to his recent flare in early December. Since that time he describes intensification worsening of symptoms despite medical therapy. During his initial evaluation a colonoscopy was obtained revealing severe colitis from the anus to the transverse colon with blood in the sigmoid colon. He was managed with p.o. steroids as well as a Crohn's regimen, and scheduled to start Stelara as an outpatient. He had another flareup on 02/02 requiring care in the emergency department and yet another bout on 02/07 status post his first dose of Stelara. Given the patient's reoccurring symptoms, and his inability to gain control of his Crohn's disease the patient will be admitted for further evaluation and management. The ER physicians made Dr. Tinoco his personal GI aware, and is recommending consultation. Patient will be admitted n.p.o. on IV corticosteroids and IV Protonix. Patient was reporting a history of hematochezia, showed me a picture of his stool which demonstrated bright red blood indicating this is likely a lower GI or rectum issue furthermore his hemoglobin is stable. -Continue dicyclomine -Protonix 40 mg IV twice daily -Solu-Medrol 60 mg daily -Continue Carafate -Continue Senokot -Continue Stelara -hold Reglan per recent GI rec -As needed Zofran -Consult GI -N.p.o. pending GI consultation -Occult all stools, monitor for worsening of hematochezia #Electrolyte disturbances Replete electrolytes as indicated, on presentation potassium was 3.1, repleted with 50 M EQ's in the ED. follow-up a.m. BMP and replete as indicated -Follow-up a.m. BMP -Replete electrolytes as indicated #Acne -Continue using clindamycin phosphate cream FENa: N.p.o. pending GI evaluation, lactated Ringer's at 125 Code Status: Full code DVT PPX: SCDs, ambulation PT/OT: Not indicated Dispo: Venkat Mensah MD PGY 2, FCM This chart was completed utilizing [employer] voice recognition software. Grammatical errors, random word insertions, pronoun errors, and in complete sentences are an occasional consequence of the system. Any questions or concerns about the content, text, or information contained within the body of this dictation should be addressed directly to the physician for clarification. (2) Exacerbation of Crohn's disease: (3) Hematochezia: (4) Hypokalemia: (5) Vomiting: History of Present Illness Patient is a 24-year-old male with a past medical history of orthostatic hypotension and Crohn's disease who presents for the third time in a little over a week for evaluation of ongoing bloody diarrhea, abdominal cramping, nausea. Patient has a history of Crohn's disease which went untreated for over a year and a half into the beginning of December. At that time he had a flare which prompted hospitalization and to establish care of [facility]. He was started on Reglan, Senokot, pantoprazole, prednisone, and Carafate. He was seen in the emergency department approximately 2 weeks ago for similar complaint, followed up in the GI office on 02/06 and received his first dose of Stelara. Unfortunate the patient was still experiencing significant discomfort and represented to the emergency room on 02/07. He was given IV hydration and his potassium was repleted, and his stool was assessed demonstrating malena blood as well. Dr. Tinoco was alerted, and recommended discontinuing Reglan, starting Imodium at bedtime, and Zofran and dicyclomine for symptomatic relief as well as a low fiber diet. The patient was subsequently discharged. The following day without any identifiable trigger he began to become symptomatic again starting with hematochezia, progressing to pain with bowel movements, and eventually abdominal pain and cramping with associated nausea. The symptoms continued through the weekend up until the patient's presentation today. The patient reported the symptoms and an episode of malena bloody diarrhea prior to arrival. In the emergency department the patient is endorsing intermittent abdominal pain and cramping with some nausea, otherwise he is asymptomatic. He denies a recent history of shortness of breath, chest pressure, chest pain, significant weight loss, fever, chills, other concerning constitutional symptoms On presentation to the emergency department routine labs were performed, CBC demonstrated a white count of 12.92 with a neutrophil predominance, Chem-7 demonstrated hypokalemia of 3.1 and a slightly elevated glucose to 124, liver function studies were within normal limits, bilirubin was a touch elevated at 1.3. Covid antigen test is negative. Abdominal x-ray was negative and a stool smear was obtained. Given the patient's repeated presentation with similar complaints, significant pain and malaise he will be admitted for further evaluation management of his Crohn's flare. Primary Care Provider: NO PCP Allergies Allergy/AdvReac Type Severity Reaction Status Date / Time infliximab [From Remicade] Allergy Intermediate THROAT Verified 02/11/20 20:28 SWELLS Home Medications Medication Instructions Recorded Confirmed Type Medical Marijuana 1 puff INHALATION UD 01/01/20 02/11/20 History prednisone 20 mg tablet 60 mg PO DAILY tab 01/28/20 02/11/20 History sennosides [Senokot] 8.6 mg PO HS #30 tab 02/05/20 02/11/20 Rx sucralfate [Carafate] 1 g PO ACHS 02/05/20 02/11/20 History clindamycin phosphate 1 applic TOPICAL QAM 02/08/20 02/11/20 History dicyclomine 20 mg PO QID PRN #20 tab 02/08/20 02/11/20 Rx ondansetron 4 mg PO Q6H PRN #20 tab 02/08/20 02/11/20 Rx pantoprazole 40 mg PO QAM 02/08/20 02/11/20 History ustekinumab [Stelara] 0 mg SUBCUT UD 02/08/20 02/11/20 History metoclopramide HCl [Reglan] 10 mg PO Q6H 02/11/20 02/11/20 History Past Med/Surg History Medical History Anemia Crohn's colitis Headache Orthostasis Orthostatic hypotension Surgical History No pertinent past surgical history Family History Other Family history non-contributory Social History Smoking Status: Never smoker Tobacco Type: E-cigarettes / Vaping Second Hand Exposure: No; Hx Alcohol Use: No Hx Substance Use: Yes (patient has medical marijuana card.) Last Used Substance: Days (ago) Substance Use Type Other:: medical marijuana, has card Preferred Language: Upper Sorbian Communication Ability: Effective Program Proposals Coordinator Required: No Beliefs That Will Affect Care: None marital status: Single Current Living Situation: Family Current Living Situation Comment: lives with mother and two brothers. Other Information That Helps Us Care for You: No Feels Safe at Home: Yes Safety Concerns: Feels Safe At This Time Assistive Devices: Glasses Review of Systems Review of Systems: All systems reviewed & are unremarkable except as noted in HPI & below Physical Exam Physical Exam: General: In no acute distress HEENT: Normocephalic atraumatic Neck: Normal to visual inspection Cardiac: Regular rate and rhythm I did not appreciate any significant murmurs rubs or gallops, normal S1, normal S2, negative pedal edema, negative calf tenderness Respiratory: Symmetrical chest expansion bilaterally I did not appreciate significant wheezes, rales, rhonchi, no increased work of breathing GI: Soft, nontender, nondistended, hyperactive bowel sounds throughout all 4 quadrants MSK: Moves all extremities Neuro: Alert and oriented x4 Psych: Calm and cooperative with the interview Results & Data Results & Data ([facility]) Vital Signs (Past 12 Hours) Vital Signs Temp Pulse Pulse Resp BP BP Pulse Ox 02/11/20 20:30 84 23 127/74 99 02/11/20 20:00 92 H 20 122/79 97 02/11/20 19:46 105 H 18 131/84 99 02/11/20 19:15 98 02/11/20 18:45 120 H 18 124/87 100 02/11/20 18:44 119 H 18 124/87 97 02/11/20 16:39 36.6 C 150 H 18 144/101 H 100 Laboratory Results 02/11/20 02/11/20 02/11/20 Range/Units Unknown 18:52 18:52 WBC 12.92 H (4.8-10.8) K/uL RBC 5.12 (4.7-6.1) M/uL Hgb 15.5 (14.0-18.0) g/dL Hct 42.5 (42-52) % MCV 83.0 (80-100) fL MCH 30.3 (25-34) pg MCHC 36.5 H (32-36) g/dL RDW Std Deviation 37.2 (36.4-46.3) fL RDW Coeff of Miguel 12.4 (11.5-14.5) % Plt Count 334 (130-400) K/uL MPV 8.5 (7.4-10.4) fL Immature Gran % (Auto) 1.6 % Neut % (Auto) 81.4 % Lymph % (Auto) 9.4 % [place] % (Auto) 7.3 % Eos % (Auto) 0.2 % Baso % (Auto) 0.1 % Neut # (Auto) 10.53 H (1.4-6.5) K/uL Lymph # (Auto) 1.21 (1.2-3.4) K/uL [place] # (Auto) 0.94 H (0.11-0.59) K/uL Eos # (Auto) 0.02 (0-0.5) K/uL Baso # (Auto) 0.01 (0-0.2) K/uL Immature Gran # (Auto) 0.21 H (0.00-0.02) K/uL Absolute Nucleated RBC 0.02 H (0-0) K/uL Nucleated RBC % (auto) 0.1 % Sodium 136 (136-145) mmol/L Potassium 3.1 L (3.5-5.1) mmol/L Chloride 98 (98-107) mmol/L Carbon Dioxide 30 (21-32) mmol/L Anion Gap 7.0 (3-11) BUN 15 (7-18) mg/dl Creatinine 1.14 (0.6-1.4) mg/dl Est Cr Clr Drug Dosing Not Reportable Est GFR ( Amer) 104.5 Est GFR (Non-Af Amer) 90.1 BUN/Creatinine Ratio 13.0 (10-20) Glucose 124 H (70-99) mg/dl Calcium 9.0 (8.5-10.1) mg/dl Phosphorus 3.0 (2.5-4.9) mg/dl Magnesium 2.3 (1.8-2.4) mg/dl Total Bilirubin 1.3 H (0.2-1) mg/dl AST 11 L (15-37) U/L ALT 24 (12-78) U/L Alkaline Phosphatase 58 (45-117) U/L Total Protein 6.2 L (6.4-8.2) gm/dl Albumin 3.5 (3.4-5.0) gm/dl Globulin 2.7 (2.5-4.0) gm/dl Albumin/Globulin Ratio 1.3 (0.9-2) Lipase 272 (73-393) U/L SARS-CoV-2 Ag (Rapid) Pending Code Status & VTE Plan Code Status full VTE Prophylaxis Plan VTE Prophylaxis will be ordered: Yes Supervising Physician Co-Signing Physician Notes Patient seen and examined, chart reviewed, case discussed with Dr. Mensah and I agree with his assessment and plan as documented above. Briefly, patient is a 24yo male with history of Crohns, recenlty started on Stelara presenting with hematochezia, abdominal pain, suspected Crohns flare. Patient states he vomited some dark material - does not believe it was blood. On exam he is afebrile, HD stable, nontoxic in appearance HEENT - NC/AT, PERRL, MMM Heart - +S1/S2, regular, no m/r/g Lungs - CTA Abd - +BS, soft, NT/ND Ext - No edema Labs and images reviewed, significant for leukocytosis - WBC=12.92, normal H/H Assessment/Plan: Suspected Crohn's flare -Admit to medical -Solumedrol 60mg IV BID -Protonix 40mg IV BID -Continue Carafate -GI consultation appreciated -Remainder of plan as above Resident Activity Tracking Resident Involvement: Resident Care Provided Care Provided: Adult Hospital Medicine (1) Crohn's disease Digestive disease complication type: unspecified complication Gastrointestinal tract location: unspecified location Qualified Code(s): K50.919 - Crohn's disease, unspecified, with unspecified complications (2) Vomiting Nausea presence: unspecified Vomiting Intractability: unspecified Vomiting type: unspecified Qualified Code(s): R11.10 - Vomiting, unspecified
[2020-02-11] MEDS ORDERED: ACETAMINOPHEN 325 MG TAB PO PRN (21:35)
[2020-02-11] MEDS ORDERED: USTEKINUMAB 45 MG/0.5 ML SQ SCH (23:56)
[2020-02-11] MEDS: LACTATED RINGER'S 1,000 ML IV SCH (23:59)
--- NOTE | 2020-02-12 00:19 | Emergency Department Note ---
History of Present Illness General Chief complaint: Abdominal Pain Stated complaint: ABD PAIN, VOMITING Time Seen by Provider: 02/11/20 18:00 Source: patient, RN notes reviewed and old records reviewed Mode of arrival: ambulatory Limitations: no limitations History of Present Illness Provider complaint: Abd pain, hematemesis Onset (ago): week(s) 1 Location: abdomen Radiation: back Severity: moderate Pain Consistency: + intermittent Maximum Pain Intensity: 7 Current Pain Intensity: 7 Quality: + aching Relieved By: + immobilization Exacerbated By: + movement Associated symptoms: + nausea/vomiting; no chest pain, no fever/chills and no shortness of breath Treatments prior to arrival: none This is a 24-year-old male who has a history of Crohn's disease who comes emergency department complaining of vomiting blood. Patient feels he is having a Crohn's flare. The patient is demanding he be admitted to the hospital as he feels he is not getting the care he needs by continuously coming to the emergency department. He describes the pain as a burning sensation with radiation into the back. Pain is made worse with movement however immobilization makes the pain better. He was unable to keep his steroids down today without vomiting them up. He started a biologic on . Home Medications Medication Instructions Recorded Confirmed Type Medical Marijuana 1 puff INHALATION UD 01/01/20 02/11/20 History prednisone 20 mg tablet 60 mg PO DAILY tab 01/28/20 02/11/20 History sennosides [Senokot] 8.6 mg PO HS #30 tab 02/05/20 02/11/20 Rx sucralfate [Carafate] 1 g PO ACHS 02/05/20 02/11/20 History clindamycin phosphate 1 applic TOPICAL QAM 02/08/20 02/11/20 History dicyclomine 20 mg PO QID PRN #20 tab 02/08/20 02/11/20 Rx ondansetron 4 mg PO Q6H PRN #20 tab 02/08/20 02/11/20 Rx pantoprazole 40 mg PO QAM 02/08/20 02/11/20 History ustekinumab [Stelara] 0 mg SUBCUT UD 02/08/20 02/11/20 History metoclopramide HCl [Reglan] 10 mg PO Q6H 12/14/20 12/14/20 History Allergies Allergy/AdvReac Type Severity Reaction Status Date / Time infliximab [From Remicade] Allergy Intermediate THROAT Verified 02/11/20 20:28 SWELLS Past Med/Surg History Medical History (Updated 02/12/20 @ 00:18 by Pilo Salinas MD) Anemia Crohn's colitis Headache Orthostasis Orthostatic hypotension Surgical History No pertinent past surgical history Family History Other Family history non-contributory Social History Smoking Status: Never smoker Tobacco Type: E-cigarettes / Vaping Second Hand Exposure: No; Hx Alcohol Use: No Hx Substance Use: Yes Last Used Substance: Hours (ago) Substance Use Type Other:: medical marijuana, has card Preferred Language: Slovak Communication Ability: Effective Psychology Lecturer Required: No Beliefs That Will Affect Care: None marital status: Single Current Living Situation: Parent and Family Current Living Situation Comment: mother and brother Feels Safe at Home: Yes Assistive Devices: None Review of Systems A total of 10 systems reviewed and were otherwise negative Physical Exam Vital Signs Vital Signs - 24 hr 02/11/20 16:39 02/11/20 18:44 02/11/20 18:45 Temperature 36.6 C Temperature Source Temporal Artery Scan Pulse Rate 150 H 119 H Pulse Rate [Finger] 120 H Pulse Rate from SpO2 Sensor 119 H Respiratory Rate 18 18 18 Respiratory Effort / Characteristics Non-Labored Spontaneous Non-Labored Respiratory Depth Normal Normal Blood Pressure 144/101 H 124/87 Blood Pressure [Left Arm] 124/87 Blood Pressure Mean 115 99 Blood Pressure Mean [Left Arm] 99 Blood Pressure Position Sitting Pulse Oximetry 100 97 100 Oxygen Delivery Method Room Air Room Air Room Air Sepsis Recent Fever Within 48 Hours No Sepsis New/Unexplained Change in Mental Status No Sepsis Action Taken by Nursing No Action Required 02/11/20 19:15 02/11/20 19:46 02/11/20 20:00 Temperature Temperature Source Pulse Rate 105 H 92 H Pulse Rate [Finger] Pulse Rate from SpO2 Sensor 105 H 92 H Respiratory Rate 18 20 Respiratory Effort / Characteristics Respiratory Depth Blood Pressure 131/84 122/79 Blood Pressure [Left Arm] Blood Pressure Mean 93 92 Blood Pressure Mean [Left Arm] Blood Pressure Position Pulse Oximetry 98 99 97 Oxygen Delivery Method Room Air Room Air Room Air Sepsis Recent Fever Within 48 Hours Sepsis New/Unexplained Change in Mental Status Sepsis Action Taken by Nursing 02/11/20 20:30 02/11/20 21:00 02/11/20 21:30 Temperature Temperature Source Pulse Rate 84 91 H 95 H Pulse Rate [Finger] Pulse Rate from SpO2 Sensor 83 92 H 96 H Respiratory Rate 23 18 25 H Respiratory Effort / Characteristics Respiratory Depth Blood Pressure 127/74 134/67 131/78 Blood Pressure [Left Arm] Blood Pressure Mean 92 76 90 Blood Pressure Mean [Left Arm] Blood Pressure Position Pulse Oximetry 99 98 99 Oxygen Delivery Method Room Air Sepsis Recent Fever Within 48 Hours Sepsis New/Unexplained Change in Mental Status Sepsis Action Taken by Nursing 02/11/20 22:00 Temperature Temperature Source Pulse Rate 118 H Pulse Rate [Finger] Pulse Rate from SpO2 Sensor 116 H Respiratory Rate 24 Respiratory Effort / Characteristics Respiratory Depth Blood Pressure 140/88 Blood Pressure [Left Arm] Blood Pressure Mean 100 Blood Pressure Mean [Left Arm] Blood Pressure Position Pulse Oximetry 100 Oxygen Delivery Method Sepsis Recent Fever Within 48 Hours Sepsis New/Unexplained Change in Mental Status Sepsis Action Taken by Nursing VITAL SIGNS - Vital signs and nursing notes were reviewed. GENERAL - 24-year-old male appearing stated age who is in no acute distress. Communicates well with provider and answers questions appropriately. SKIN - Without rashes. HEAD - NC/AT. EYES - PERRL with EOMI bilaterally. Sclera anicteric. Palpebral conjunctiva pink and moist with no injection noted. EARS - No deformities of external structures noted on gross examination bilaterally. No pain elicited with palpation of the tragus bilaterally. External auditory canals without discharge or otorrhea. Tympanic membranes pearly frankel without retraction or bulging. No fluid or purulent material visualized behind the TM. Handle of malleus, umbo, cone of light, pars tensa/flaccid all easily visualized. NOSE - Midline and without cyanosis. No epistaxis or purulent drainage noted. Septum midline without deviation or septal hematoma noted. MOUTH/OROPHARYNX - Without perioral cyanosis. Buccal mucosa pink and moist and without leukoplakia. Tongue midline with equal elevation of palate bilaterally. No tonsillar hypertrophy, erythema, or exudates noted. dentition noted. NECK - Neck with FROM. Supple to palpation. lymphadenopathy noted. No nuchal rigidity. LUNGS - Chest wall symmetric without accessory muscle use, intercostals retractions, or central cyanosis. Normal vesicular breath sounds CTA B/L. No wheezes, rales, or rhonchi appreciated. CARDIAC - RRR with S1/S2. No murmur, rubs, or gallops appreciated. ABDOMEN - Abdominal contour without pulsations or visible masses. BS normoactive all four quadrants. No tenderness, palpable masses, hepatosplenomegaly, or ascites noted. EXTREMITIES - No clubbing or peripheral cyanosis. No pretibial edema present. +3/5 radial, posterior tibial, and dorsalis pedis pulses palpated throughout. +5/5 strength noted in UE/LE bilaterally. NEUROLOGIC - Cranial nerves II through XII grossly intact. Sensory intact to light touch throughout. Patellar reflexes +2/4. PSYCH - A&Ox3 and cooperates fully with examiner. Pt is very pleasant and interacts well with examiner. Course Administered Medications Lactated Ringer's (Lr) 1,000 mls @ 125 mls/hr IV .Q8H MITCH Stop: 03/12/20 21:44 Last Admin: 02/11/20 23:59 Dose: 125 mls/hr Documented by: [id number] Discontinued Medications Diphenhydramine HCl (Diphenhydramine 50 Mg/Ml Vial) 50 mg IV NOW STA Stop: 02/11/20 18:15 Last Admin: 02/11/20 19:09 Dose: 50 mg Documented by: [id number] Droperidol (Droperidol 5 Mg/2 Ml Vial) 1.25 mg IV ONE STA Stop: 02/11/20 18:13 Last Admin: 02/11/20 19:09 Dose: 1.25 mg Documented by: [id number] Sodium Chloride (Nss 1000ml) 1,000 mls @ 999 mls/hr IV .Q1H1M MITCH Stop: 02/11/20 20:15 Last Infusion: 02/11/20 20:48 Dose: 0 mls/hr Documented by: [id number] Admin: 02/11/20 19:43 Dose: 999 mls/hr Documented by: [id number] Infusion: 02/11/20 19:43 Dose: 999 mls/hr Documented by: [id number] Admin: 02/11/20 19:09 Dose: 999 mls/hr Documented by: [id number] Magnesium Sulfate/Dextrose (Magnesium Sulfate / D5w) 1 gm in 100 mls @ 50 mls/hr IV ONE ONE Stop: 02/11/20 20:15 Last Infusion: 02/11/20 21:42 Dose: 0 mls/hr Documented by: [id number] Admin: 02/11/20 19:42 Dose: 50 mls/hr Documented by: [id number] Pantoprazole Sodium 80 mg/ (Dextrose) 100 mls @ 400 mls/hr IV ONE STA Stop: 02/11/20 18:30 Last Infusion: 02/11/20 19:25 Dose: 0 mls/hr Documented by: [id number] Admin: 02/11/20 19:10 Dose: 400 mls/hr Documented by: [id number] Potassium Chloride (K Ar / Wtr) 10 meq in 100 mls @ 100 mls/hr IV Q1H MITCH Stop: 02/11/20 21:59 Last Infusion: 02/11/20 23:03 Dose: 0 mls/hr Documented by: [id number] Admin: 02/11/20 21:37 Dose: 100 mls/hr Documented by: [id number] Infusion: 02/11/20 21:35 Dose: 100 mls/hr Documented by: [id number] Admin: 02/11/20 20:35 Dose: 100 mls/hr Documented by: [id number] Methylprednisolone (Methylprednisolone 125 Mg/2 Ml Vial) 125 mg IV NOW STA Stop: 02/11/20 18:16 Last Admin: 02/11/20 19:09 Dose: 125 mg Documented by: [id number] Potassium Chloride (Potassium Chloride Crtab 20 Meq Tabcr) 40 meq PO NOW STA Stop: 02/11/20 19:31 Last Admin: 02/11/20 19:42 Dose: 40 meq Documented by: [id number] Medical Decision Making Differential Diagnosis Appendicitis, testicular torsion, infections, diverticulitis, UTI, obstruction, mesenteric ischemia, aortic pathology, inflammatory bowel disease, renal colic, PUD, pancreatitis, biliary pathology, hernia, volvulus, constipation, as well as other pathologies. Medical Records Attestation: I reviewed the patient's medical records. Home Medications Current Medication List: was personally reviewed by me Laboratory Data Attestation: I reviewed the patient's lab results. Result diagrams: 02/11/20 18:52 02/11/20 18:52 Lab Results 02/11/20 02/11/20 Range/Units 18:52 18:52 WBC 12.92 H (4.8-10.8) K/uL RBC 5.12 (4.7-6.1) M/uL Hgb 15.5 (14.0-18.0) g/dL Hct 42.5 (42-52) % MCV 83.0 (80-100) fL MCH 30.3 (25-34) pg MCHC 36.5 H (32-36) g/dL RDW Std Deviation 37.2 (36.4-46.3) fL RDW Coeff of Miguel 12.4 (11.5-14.5) % Plt Count 334 (130-400) K/uL MPV 8.5 (7.4-10.4) fL Immature Gran % (Auto) 1.6 % Neut % (Auto) 81.4 % Lymph % (Auto) 9.4 % [place] % (Auto) 7.3 % Eos % (Auto) 0.2 % Baso % (Auto) 0.1 % Neut # (Auto) 10.53 H (1.4-6.5) K/uL Lymph # (Auto) 1.21 (1.2-3.4) K/uL [place] # (Auto) 0.94 H (0.11-0.59) K/uL Eos # (Auto) 0.02 (0-0.5) K/uL Baso # (Auto) 0.01 (0-0.2) K/uL Immature Gran # (Auto) 0.21 H (0.00-0.02) K/uL Absolute Nucleated RBC 0.02 H (0-0) K/uL Nucleated RBC % (auto) 0.1 % Sodium 136 (136-145) mmol/L Potassium 3.1 L (3.5-5.1) mmol/L Chloride 98 (98-107) mmol/L Carbon Dioxide 30 (21-32) mmol/L Anion Gap 7.0 (3-11) BUN 15 (7-18) mg/dl Creatinine 1.14 (0.6-1.4) mg/dl Est Cr Clr Drug Dosing Not Reportable Est GFR ( Amer) 104.5 Est GFR (Non-Af Amer) 90.1 BUN/Creatinine Ratio 13.0 (10-20) Glucose 124 H (70-99) mg/dl Calcium 9.0 (8.5-10.1) mg/dl Phosphorus 3.0 (2.5-4.9) mg/dl Magnesium 2.3 (1.8-2.4) mg/dl Total Bilirubin 1.3 H (0.2-1) mg/dl AST 11 L (15-37) U/L ALT 24 (12-78) U/L Alkaline Phosphatase 58 (45-117) U/L Total Protein 6.2 L (6.4-8.2) gm/dl Albumin 3.5 (3.4-5.0) gm/dl Globulin 2.7 (2.5-4.0) gm/dl Albumin/Globulin Ratio 1.3 (0.9-2) Lipase 272 (73-393) U/L Imaging Data Radiologist's Impression: [facility], [phone] XRay Report Patient: SAI RYAN Date: 02/11/20MR#: [id number]: [address] ID:[id number]: [address]Birth Date: 1995[facility] Zip: [place], [place] [address]Rqg: 24Location: EDSex: MRoom/Bed:Att Phy:Diagnosis: ABD PAIN, VOMITINGPri Phy: PCP,NOService Date: 02/11/20Fa Phy:Interpreting Phy: Kofi Quintero MDAdmit Phy: Ordering Phy: Pilo Salinas MD cc: ~ XR abdomen 2V w PA chest CLINICAL HISTORY: Pt c/o Crohn's disease ABDOMINAL PAIN COMPARISON STUDY: 02/02/2020 FINDINGS: Direct chest reveals no free air. There is no focal pulmonary consolidation. Erect and supine views the abdomen reveal no abnormally dilated loops of large or small bowel. There are no transition zones indicate bowel obstruction. There are no abnormal abdominal calcifications. IMPRESSION: No evidence of bowel obstruction. No evidence of free air. ACT 112: Negative or not required by law. Electronically signed by: Kofi Quintero M.D. 02/11/2020 7:49 PM Dictated: 02/11/20 194[facility] Narrative Patient was seen and evaluated as above in room C8. Review was performed of nursing notes and vital signs. I did review pertinent previous visits and patient history. After obtaining a thorough history and physical examination the above work up was performed. This is a 24-year-old male who presents emergency department over concerns that he is having a Crohn's flare. Patient's potassium was found to be 3.1. He was given IV as well as oral potassium here in the emergency department. He was started on IV Solu-Medrol. He was given droperidol Benadryl magnesium. Repeat examination revealed improvement the patient's symptoms. I did discuss the case with gastroenterology who asked that the patient be admitted to the medicine service. While in the department, I personally reevaluated the patient several times and each time the patient was found to be resting comfortably. The patient was educated upon management, educated upon todays findings/results, educated upon i mportance of follow up from today's visit, educated upon symptoms in which to return, had questions answered prior to discharge, verbalized understanding, and was discharged home in good condition. An order was placed for continuous cardiac monitoring. The monitor shows a rate of 114 with Normal SInus rhythm. The patient was evaluated during a period of high volume and high acuity while the hospital was at overcapacity during the global COVID-19 pandemic, and that diagnosis was suspected/considered upon their initial presentation. Their evaluation, treatment and testing was consistent with current guidelines for patients who present with complaints or symptoms that may be related to COVID- 19. Impression & Plan Exacerbation of Crohn's disease, Hematochezia Discharge Plan Visit Data Chief Complaint: Abdominal Pain Stated Complaint: ABD PAIN, VOMITING ED Provider: Pilo Salinas Discharge Problem: Exacerbation of Crohn's disease, Hematochezia Patient Disposition: Admitted As Inpatient Discharge Instructions Interventions: ED Discharge Assessment Last Done: 02/11/20 23:39 Discharge Problem: Exacerbation of Crohn's disease Qualifiers: Digestive disease complication type: unspecified complication Qualified Code(s): K50.919 - Crohn's disease, unspecified, with unspecified complications
[2020-02-12] MEDS ORDERED: MEDICAL MARIJUANA INH SCH (00:30)
[2020-02-12] MEDS: PANTOprazole 40 MG in SYRINGE 0 ML IV SCH ×3 (01:34→20:00)
--- NOTE | 2020-02-12 04:51 | Billing Data ---
Date of Service February 11, 2020 Coding Level of Care Code 87518 Initial Inpt Care Lvl 2
[2020-02-12] MEDS: LACTATED RINGER'S 1,000 ML IV SCH ×2 (06:02→16:27)
[2020-02-12 06:10] LABS: Basophils # (auto) 0.01 K/uL (0-0.2); Basophils % (auto) 0.1 %; Hematocrit (blood only) 37.1 % (42-52); Hemoglobin 13.1 g/dL (14.0-18.0); Immature Granulocytes # (auto) 0.18 K/uL (0.00-0.02); Immature Granulocytes % (auto) 1.5 %; Mean Corpuscular Hemoglobin 30.1 pg (25-34); Mean Corpuscular Hgb Conc 35.3 g/dL (32-36); Mean Corpuscular Volume 85.3 fL (80-100); Mean Platelet Volume 8.4 fL (7.4-10.4); Monocytes % (auto) 6.7 %; Neutrophils # (auto) 9.82 K/uL (1.4-6.5); Neutrophils % (auto) 81.7 %; Platelet Count 289 K/uL (130-400); RDW Coefficient of Variation 12.6 % (11.5-14.5); RDW Standard Deviation 38.6 fL (36.4-46.3); Red Blood Count 4.35 M/uL (4.7-6.1); White Blood Count 12.01 K/uL (4.8-10.8)
[2020-02-12 06:48] LABS: Appearance Urine Clear (Clear); Bilirubin Urine Negative (Negative); Blood Urine Negative (Negative); Color Urine Yellow; Glucose Urine UA Negative (Negative); Ketones Urine Negative (Negative); Leukocyte Esterase Urine Negative (Negative); Nitrite Urine Negative (Negative); Protein Urine Negative (Negative); Specific Gravity Urine 1.015 (1.000-1.030); Urobilinogen Urine Negative (Negative); pH Urine 6.5 (4.5-7.5)
[2020-02-12 06:56] LABS: BUN Creatinine Ratio 13.2 (10-20); Calcium 8.6 mg/dl (8.5-10.1); Creatinine Clr Calc Pharmacy 124.9 ml/min; Est GFR (African American) 125.4; Est GFR (Non-African American) 108.2; Potassium 3.9 mmol/L (3.5-5.1)
[2020-02-12 06:58] LABS: Albumin Globulin Ratio 1.3 (0.9-2); Bilirubin,Total 1.1 mg/dl (0.2-1); Globulin 2.2 gm/dl (2.5-4.0); Total Protein 5.2 gm/dl (6.4-8.2)
[2020-02-12 07:07] LABS: Amphetamines+Metham, Urine Neg (Neg); Barbiturates, Urine Neg (Neg); Benzodiazepine, Urine Neg (Neg); Cocaine, Urine Neg (Neg); MDMA (Ecstacy), Urine Neg (Neg); Methadone, Urine Neg (Neg); Opiate, Urine Neg (Neg); Phencyclidine, Urine Neg (Neg)
[2020-02-12] MEDS: ONDANSETRON INJ 2 MG/ML 2 ML VIAL IV PRN ×2 (07:13→19:55)
[2020-02-12] MEDS ORDERED: INFLUENZA ADMINISTRATION CHARGE ONE (08:00)
[2020-02-12] MEDS ORDERED: INFLUENZA VIRUS QUAD VACCINE 0.5 ML SYR IM ONE (08:00)
--- NOTE | 2020-02-12 08:31 | Gastrointestinal Consultation ---
Date of Consultation February 12, 2020 Assessment & Plan (1) Crohn's disease: Nausea and vomiting: Keep NPO, continue IVF, zofran prn. Plan is EGD today with Dr. Cordova. Procedure and risks explained to patient which include but not limited to medication reaction, bleeding, perforation, aspiration, and missed lesions. Verbalizes understanding and is agreeable to proceed. Crohn's disease: Continue Solu-medrol. Received first dose of Stelara 02/07/2020. Patient is requesting narcotic pain medication. Will defer this to hospitalist service. Please refer to supervising physician addendum for further recommendations. Supervising Physician Co-Signing Physician Notes I have seen and examined the patient. I agree with note above by GRACE Acuna except as noted below. HPI Pt admit with n/v, wt loss, and diarrhea. Crohns disease. NO abd pain at present. PE Abdomen pos bs, soft, no guarding nor rebound A/P N/v---EGD today. Procedure and risks explained to patient which include but not limited to medication reaction, bleeding, perforation, aspiration, and missed lesions. diarrhea---could all be crohns but check C. diff to see if that is part of issue of difficulty treating and not just crohns crohns---had stelara last week. continue IV solumedrol History of Present Illness Attending Physician: Ana Koroma MD History of Present Illness The patient is a pleasant 24-year-old male with a past medical history of Crohn's disease and autism spectrum disorder who presented to the emergency department last night with complaints of vomiting, bloody stools, and abdominal pain. He has been evaluated three times in the last week by the ED for same complaints and was admitted for further management. Patient is known to the GI service. He was diagnosed with Crohn's disease at the age of 6. 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 He was unfortunately been lost to follow-up for the last 2 years. He was previously evaluated in the office by Dr. Bedolla 11/21/2017. At that time, treatment included: prednisone, Imuran, Asacol, and Remicade. Reports that he has been off all medications including Remicade for the last 1.5 years. Most recent admission 12/2019 to [facility] with similar symptoms to current. Colonoscopy 01/07/2020 demonstrated normal appearing terminal ileum; inflammation characterized by erythema, friability, granularity and loss of vascularity was found in a continuous and circumferential pattern from the anus to the transverse colon. No sites were spared. This was severe, and when compared to previous examinations, the findings are new. Red blood was found in the sigmoid colon. On exam/interview today, patient is sleeping and rouses easily to verbal stimuli. Reports 14-16 bloody stools per day over the last several weeks. He has had a noticeable weight loss. Admission weight today 77.4 kg compared to 86.1 kg about 6 weeks ago. This is an unintentional weight loss. He reports intermittent lower abdominal pain. Currently 03/09. Requesting an order for prn Dilaudid. He reports most recent bowel movements as "violently bloody". States he has been unable to keep foods down including yogurt and other soft foods. He denies any blood in emesis. States he is noting yellow bile. Zofran has been helpful for the nausea. Is taking prednisone 20mg TID. Reports he has not been taking dicyclomine. He received initial infusion of Stelara on 02/07/2020. He does not smoke cigarettes. He vapes the medical marijuana. He reports that he has been using medical marijuana for the last 2 years to help control abdominal discomfort. He denies use of other recreational drugs. He lives at home with his mother. He is not has no children. 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 Mother has history of ulcerative colitis and a carcinoid tumor of the ileum. Allergies Allergy/AdvReac Type Severity Reaction Status Date / Time infliximab [From Remicade] Allergy Intermediate THROAT Verified 02/12/20 12:43 SWELLS Home Medications Medication Instructions Recorded Confirmed Type Medical Marijuana 1 puff INHALATION UD 01/01/20 02/11/20 History prednisone 20 mg tablet 60 mg PO DAILY tab 01/28/20 02/11/20 History sennosides [Senokot] 8.6 mg PO HS #30 tab 02/05/20 02/11/20 Rx sucralfate [Carafate] 1 g PO ACHS 02/05/20 02/11/20 History clindamycin phosphate 1 applic TOPICAL QAM 02/08/20 02/11/20 History dicyclomine 20 mg PO QID PRN #20 tab 02/08/20 02/11/20 Rx ondansetron 4 mg PO Q6H PRN #20 tab 02/08/20 02/11/20 Rx pantoprazole 40 mg PO QAM 02/08/20 02/11/20 History ustekinumab [Stelara] 0 mg SUBCUT UD 02/08/20 02/11/20 History metoclopramide HCl [Reglan] 10 mg PO Q6H 02/11/20 02/11/20 History Patient History Medical History (Updated 02/12/20 @ 12:57 by Miguel Cordova) Anemia Crohn's colitis Headache Orthostasis Orthostatic hypotension Surgical History No pertinent past surgical history Family History Other Family history non-contributory Social History Smoking Status: Never smoker Tobacco Type: E-cigarettes / Vaping Second Hand Exposure: No; Hx Alcohol Use: No Hx Substance Use: Yes (patient has medical marijuana card.) Last Used Substance: Days (ago) Substance Use Type Other:: medical marijuana, has card Preferred Language: Angolan Communication Ability: Effective Supervisor Curing Room Required: No Beliefs That Will Affect Care: None marital status: Single Current Living Situation: Family Current Living Situation Comment: lives with mother and two brothers. Other Information That Helps Us Care for You: No Feels Safe at Home: Yes Safety Concerns: Feels Safe At This Time Assistive Devices: Glasses Review of Systems Review of Systems: All systems reviewed & are unremarkable except as noted in Subjective Physical Exam Constitutional: no acute distress Eyes: wears corrective lenses ENMT: Ears: no external ear abnormality Nose: no external nose abnormality Neck: normal visual inspection and trachea midline Respiratory: normal respiratory effort; no respiratory distress and no labored breathing Auscultation: lungs clear to auscultation bilaterally Cardiovascular: Rate/Rhythm: regular rate and regular rhythm Gastrointestinal (Abdomen): Inspection/Auscultation: abdomen normal to inspection and normal bowel sounds; abdomen not distended Percussion/Palpation: + abdomen tender and abdomen soft; no guarding and abdomen not rigid Musculoskeletal: Extremities: extremities normal to inspection Neurologic: PERRL, EOMI, accommodation nl, no face palsy, no dysarthria Psychiatric: Orientation: alert and oriented x 3 Lymphatic: + cervical lymphadenopathy Results & Data ([facility]) Vital Signs (Past 12 Hours) Vital Signs Temp Pulse Pulse Resp BP BP Pulse Ox 02/12/20 07:38 37.0 C 71 18 159/89 H 99 02/11/20 23:55 36.8 C 86 20 136/84 97 02/11/20 23:39 114 H 16 130/82 98 02/11/20 22:30 74 20 131/80 97 02/11/20 22:00 118 H 24 140/88 100 02/11/20 21:30 95 H 25 H 131/78 99 02/11/20 21:00 91 H 18 134/67 98 02/11/20 20:30 84 23 127/74 99 Laboratory Results - last 24 hr 02/11/20 02/11/20 02/11/20 18:52 18:52 Unknown WBC 12.92 H RBC 5.12 Hgb 15.5 Hct 42.5 MCV 83.0 MCH 30.3 MCHC 36.5 H RDW Std Deviation 37.2 RDW Coeff of Miguel 12.4 Plt Count 334 MPV 8.5 Immature Gran % (Auto) 1.6 Neut % (Auto) 81.4 Lymph % (Auto) 9.4 Grant % (Auto) 7.3 Eos % (Auto) 0.2 Baso % (Auto) 0.1 Neut # (Auto) 10.53 H Lymph # (Auto) 1.21 Grant # (Auto) 0.94 H Eos # (Auto) 0.02 Baso # (Auto) 0.01 Immature Gran # (Auto) 0.21 H Absolute Nucleated RBC 0.02 H Nucleated RBC % (auto) 0.1 Sodium 136 Potassium 3.1 L Chloride 98 Carbon Dioxide 30 Anion Gap 7.0 BUN 15 Creatinine 1.14 Est Cr Clr Drug Dosing Not Reportable Est GFR ( Amer) 104.5 Est GFR (Non-Af Amer) 90.1 BUN/Creatinine Ratio 13.0 Glucose 124 H Calcium 9.0 Phosphorus 3.0 Magnesium 2.3 Total Bilirubin 1.3 H AST 11 L ALT 24 Alkaline Phosphatase 58 Total Protein 6.2 L Albumin 3.5 Globulin 2.7 Albumin/Globulin Ratio 1.3 Lipase 272 Urine Color Urine Appearance Urine pH Ur Specific [place] Urine Protein Urine Glucose (UA) Urine Ketones Urine Blood Urine Nitrite Urine Bilirubin Urine Urobilinogen Ur Leukocyte Esterase Stool Occult Bld Scrn Urine Opiates Screen Ur Methadone, Qual Urine Barbiturates Ur Phencyclidine (PCP) U Amphetamin/Meth Scrn MDMA (Ecstasy) Screen U Benzodiazepines Scrn Ur Cocaine Metabolite U Marijuana (THC) Screen U Marijuana THC Carboxy Drug Screen Comment SARS-CoV-2 Ag (Rapid) Pending 02/12/20 02/12/20 02/12/20 02:30 05:59 05:59 WBC 12.01 H RBC 4.35 L Hgb 13.1 L Hct 37.1 L MCV 85.3 MCH 30.1 MCHC 35.3 RDW Std Deviation 38.6 RDW Coeff of Miguel 12.6 Plt Count 289 MPV 8.4 Immature Gran % (Auto) 1.5 Neut % (Auto) 81.7 Lymph % (Auto) 10.0 Grant % (Auto) 6.7 Eos % (Auto) 0.0 Baso % (Auto) 0.1 Neut # (Auto) 9.82 H Lymph # (Auto) 1.20 Grant # (Auto) 0.80 H Eos # (Auto) 0.00 Baso # (Auto) 0.01 Immature Gran # (Auto) 0.18 H Absolute Nucleated RBC Nucleated RBC % (auto) Sodium 139 Potassium 3.9 D Chloride 104 Carbon Dioxide 30 Anion Gap 5.0 BUN 13 Creatinine 0.98 Est Cr Clr Drug Dosing 124.9 Est GFR ( Amer) 125.4 Est GFR (Non-Af Amer) 108.2 BUN/Creatinine Ratio 13.2 Glucose 109 H Calcium 8.6 Phosphorus Magnesium Total Bilirubin 1.1 H AST 8 L ALT 21 Alkaline Phosphatase 51 Total Protein 5.2 L Albumin 3.0 L Globulin 2.2 L Albumin/Globulin Ratio 1.3 Lipase Urine Color Urine Appearance Urine pH Ur Specific [place] Urine Protein Urine Glucose (UA) Urine Ketones Urine Blood Urine Nitrite Urine Bilirubin Urine Urobilinogen Ur Leukocyte Esterase Stool Occult Bld Scrn Positive A Urine Opiates Screen Ur Methadone, Qual Urine Barbiturates Ur Phencyclidine (PCP) U Amphetamin/Meth Scrn MDMA (Ecstasy) Screen U Benzodiazepines Scrn Ur Cocaine Metabolite U Marijuana (THC) Screen U Marijuana THC Carboxy Drug Screen Comment SARS-CoV-2 Ag (Rapid) 02/12/20 02/12/20 02/12/20 06:10 06:10 06:10 WBC RBC Hgb Hct MCV MCH MCHC RDW Std Deviation RDW Coeff of Miguel Plt Count MPV Immature Gran % (Auto) Neut % (Auto) Lymph % (Auto) Grant % (Auto) Eos % (Auto) Baso % (Auto) Neut # (Auto) Lymph # (Auto) Grant # (Auto) Eos # (Auto) Baso # (Auto) Immature Gran # (Auto) Absolute Nucleated RBC Nucleated RBC % (auto) Sodium Potassium Chloride Carbon Dioxide Anion Gap BUN Creatinine Est Cr Clr Drug Dosing Est GFR ( Amer) Est GFR (Non-Af Amer) BUN/Creatinine Ratio Glucose Calcium Phosphorus Magnesium Total Bilirubin AST ALT Alkaline Phosphatase Total Protein Albumin Globulin Albumin/Globulin Ratio Lipase Urine Color Yellow Urine Appearance Clear Urine pH 6.5 Ur Specific [place] 1.015 Urine Protein Negative Urine Glucose (UA) Negative Urine Ketones Negative Urine Blood Negative Urine Nitrite Negative Urine Bilirubin Negative Urine Urobilinogen Negative Ur Leukocyte Esterase Negative Stool Occult Bld Scrn Urine Opiates Screen Neg Ur Methadone, Qual Neg Urine Barbiturates Neg Ur Phencyclidine (PCP) Neg U Amphetamin/Meth Scrn Neg MDMA (Ecstasy) Screen Neg U Benzodiazepines Scrn Neg Ur Cocaine Metabolite Neg U Marijuana (THC) Screen Pos H U Marijuana THC Carboxy Pending Drug Screen Comment Pending SARS-CoV-2 Ag (Rapid) (1) Crohn's disease Digestive disease complication type: unspecified complication Gastrointestinal tract location: unspecified location Qualified Code(s): K50.919 - Crohn's disease, unspecified, with unspecified complications
[2020-02-12] MEDS: SUCRALFATE 1 GM TAB PO SCH ×3 (08:56→16:58)
[2020-02-12] MEDS: methylPREDNISolone 60 MG in SYRINGE 0 ML IV SCH (08:57)
[2020-02-12] MEDS ORDERED: methylPREDNISolone 125 MG/2 ML VIAL IV SCH (09:00)
[2020-02-12 12:10] LABS: Ferritin 43.4 ng/ml (8-388)
--- NOTE | 2020-02-12 12:24 | Anesthesiology Consultation ---
Date of Service February 12, 2020 Covid 19 negative on 02/11/20. Assessment & Plan (1) Encounter for pre-operative examination: Chart Review Chart Review: Acceptable Risk for Surgery and Patient NOT seen in Pre Admission Testing Consults Requested none History Surgery Operation Date: 02/12/20 13:30 Proposed Procedures p Esophagogastroduodenoscopy Dr Cordova - Miguel Cordova Height/Weight Height: 5 ft 11 in Weight: 75.8 kg Allergies Allergy/AdvReac Type Severity Reaction Status Date / Time infliximab [From Remicade] Allergy Intermediate THROAT Verified 02/11/20 20:28 SWELLS Medications Home Medications Medication Instructions Recorded Confirmed Last Taken Medical Marijuana 1 puff INHALATION UD 01/01/20 02/11/20 12/31/19 20:00 prednisone 20 mg tablet 60 mg PO DAILY tab 01/28/20 02/11/20 02/08/20 07:00 20 mg sennosides [Senokot] 8.6 mg PO HS #30 tab 02/05/20 02/11/20 02/07/20 sucralfate [Carafate] 1 g PO ACHS 02/05/20 02/11/20 02/07/20 22:00 clindamycin phosphate 1 applic TOPICAL QAM 02/08/20 02/11/20 02/08/20 dicyclomine 20 mg PO QID PRN #20 tab 02/08/20 02/11/20 Unknown ondansetron 4 mg PO Q6H PRN #20 tab 02/08/20 02/11/20 Unknown pantoprazole 40 mg PO QAM 02/08/20 02/11/20 02/08/20 05:30 ustekinumab [Stelara] 0 mg SUBCUT UD 02/08/20 02/11/20 02/07/20 metoclopramide HCl [Reglan] 10 mg PO Q6H 02/11/20 02/11/20 Unknown Active Medications Generic Name Dose Route Start Last Admin Trade Name Freq PRN Reason Stop Dose Admin Lactated Ringer's 1,000 mls @ 125 mls/hr 02/11/20 21:45 02/12/20 06:02 Lr IV 03/12/20 21:44 125 mls/hr .Q8H MITCH Administration Pantoprazole Sodium 40 mg/ 10 mls @ 5 mls/min 02/11/20 23:56 02/12/20 08:57 Syringe IV 03/12/20 23:55 5 mls/min BID MITCH Administration Methylprednisolone 60 mg/ 0.96 mls @ 1.5 mls/min 02/12/20 09:00 02/12/20 08:57 Syringe IV 03/13/20 08:59 1.5 mls/min DAILY MITCH Administration Ondansetron HCl 4 mg 02/11/20 21:35 02/12/20 07:13 Ondansetron Inj 2 Mg/Ml 2 Ml Vial IV 03/12/20 21:34 4 mg Q6H PRN Administration Nausea Sucralfate 1 gm 02/12/20 07:30 02/12/20 08:56 Sucralfate 1 Gm Tab PO 03/13/20 07:29 Not Given ACHS MITCH Past Medical History Medical History (Updated 02/12/20 @ 12:25 by Venu Jc MD) Anemia Crohn's colitis Headache Orthostasis Orthostatic hypotension Past Family History Family History Other Family history non-contributory Past Surgical History Surgical History No pertinent past surgical history Social History Smoking Status: Never smoker tobacco type: e-cigarettes Hx Alcohol Use: No Hx Substance Use: Yes (patient has medical marijuana card.) substance use type: marijuana Substance Use Type Other:: medical marijuana, has card Last Used Substance: Days (ago) Physical Exam Vital Signs Last Vital Signs Temp 37.0 C 02/12/20 07:38 Pulse 71 02/12/20 07:38 Resp 18 02/12/20 07:38 BP 159/89 H 02/12/20 07:38 Pulse Ox 99 02/12/20 07:38 Testing Laboratory Results 02/12/20 05:59 02/12/20 05:59 Urine Color Yellow 02/12/20 06:10 Urine Appearance Clear (Clear) 02/12/20 06:10 Urine pH 6.5 (4.5-7.5) 02/12/20 06:10 Ur Specific [place] 1.015 (1.000-1.030) 02/12/20 06:10 Urine Protein Negative (Negative) 02/12/20 06:10 Urine Glucose (UA) Negative (Negative) 02/12/20 06:10 Urine Ketones Negative (Negative) 02/12/20 06:10 Urine Nitrite Negative (Negative) 02/12/20 06:10 Ur Leukocyte Esterase Negative (Negative) 02/12/20 06:10 02/11/20 16:48 WBC Smear - Final Stool Escherichia coli Shiga Toxins Test - Preliminary Stool Culture - Preliminary No Salmonella isolated to date, No Shigella isolated to date, No Campylobacter jejuni isolated to date. Electrocardiogram Date: 02/02/20 Findings: + SB @ (54) Chest X-Ray Date: 02/11/20 XR abdomen 2V w PA chest CLINICAL HISTORY: Pt c/o Crohn's disease ABDOMINAL PAIN COMPARISON STUDY: 02/02/2020 FINDINGS: Direct chest reveals no free air. There is no focal pulmonary consolidation. Erect and supine views the abdomen reveal no abnormally dilated loops of large or small bowel. There are no transition zones indicate bowel obstruction. There are no abnormal abdominal calcifications. IMPRESSION: No evidence of bowel obstruction. No evidence of free air. ACT 112: Negative or not required by law. Electronically signed by: Kofi Quintero M.D. 02/11/2020 7:49 PM Dictated: 02/11/201948Transcribed: 02/11/201948
--- NOTE | 2020-02-12 12:57 | History & Physical Report ---
Date of Service February 12, 2020 Assessment & Plan (1) Nausea & vomiting: N/V, wt loss and crohns disease. Plan EGD today. Procedure and risks explained to patient which include but not limited to medication reaction, bleeding, perforation, aspiration, and missed lesions. Admission and Anticipated Discharge Date Admission Date: February 11, 2020 History of Present Illness Primary Care Provider: NO PCP Pt with n/v for EGD today. Allergies Allergy/AdvReac Type Severity Reaction Status Date / Time infliximab [From Remicade] Allergy Intermediate THROAT Verified 02/12/20 12:43 [facility] Home Medications Medication Instructions Recorded Confirmed Type Medical Marijuana 1 puff INHALATION UD 01/01/20 02/11/20 History prednisone 20 mg tablet 60 mg PO DAILY tab 01/28/20 02/11/20 History sennosides [Senokot] 8.6 mg PO HS #30 tab 02/05/20 02/11/20 Rx sucralfate [Carafate] 1 g PO ACHS 02/05/20 02/11/20 History clindamycin phosphate 1 applic TOPICAL QAM 02/08/20 02/11/20 History dicyclomine 20 mg PO QID PRN #20 tab 02/08/20 02/11/20 Rx ondansetron 4 mg PO Q6H PRN #20 tab 02/08/20 02/11/20 Rx pantoprazole 40 mg PO QAM 02/08/20 02/11/20 History ustekinumab [Stelara] 0 mg SUBCUT UD 02/08/20 02/11/20 History metoclopramide HCl [Reglan] 10 mg PO Q6H 02/11/20 02/11/20 History Past Med/Surg History Medical History (Updated 02/12/20 @ 12:57 by Miguel Cordova) Anemia Crohn's colitis Headache Orthostasis Orthostatic hypotension Surgical History No pertinent past surgical history Family History Other Family history non-contributory Social History Smoking Status: Never smoker Tobacco Type: E-cigarettes / Vaping Second Hand Exposure: No; Hx Alcohol Use: No Hx Substance Use: Yes (patient has medical marijuana card.) Last Used Substance: Days (ago) Substance Use Type Other:: medical marijuana, has card Preferred Language: Upper Sorbian Communication Ability: Effective E Commerce Strategist Required: No Beliefs That Will Affect Care: None marital status: Single Current Living Situation: Family Current Living Situation Comment: lives with mother and two brothers. Other Information That Helps Us Care for You: No Feels Safe at Home: Yes Safety Concerns: Feels Safe At This Time Assistive Devices: Glasses Physical Exam Respiratory: normal respiratory effort, lungs clear to auscultation Cardiovascular: RRR, no murmur, no edema Gastrointestinal (Abdomen): normal bowel sounds, soft, nontender, no hepatosplenomegaly Results & Data ([facility]) Vital Signs (Past 12 Hours) Vital Signs Temp Pulse Resp BP Pulse Ox 02/12/20 07:38 37.0 C 71 18 159/89 H 99 Code Status & VTE Plan VTE Prophylaxis Plan VTE Prophylaxis will be ordered: Yes
[2020-02-12] MEDS ORDERED: ONDANSETRON INJ 2 MG/ML 2 ML VIAL ONE (13:13)
[2020-02-12] MEDS ORDERED: LIDOCAINE HCL 2% 2 ML VIAL/AMP(20MG/ML) INFIL ONE (13:13)
[2020-02-12] MEDS ORDERED: PROPOFOL IV EMULSION 10 MG/ML 20 ML VIAL IV ONE (13:13)
[2020-02-12] MEDS: CLINDAMYCIN SCH ×2 (13:20→16:26)
--- NOTE | 2020-02-12 13:22 | Post Operative Brief Note ---
Immediate Post Op Note v1 Date of Surgery February 12, 2020 Pre & Post Diagnosis Operation Date: 02/12/20 13:30 Pre-Op Diagnosis: Crohns Post-Op Diagnosis: duodenal erythema I identified the patient and participated in the time-out.: Yes Procedure Operation Date: 02/12/20 13:30 Actual Procedures p EGD Biopsy Cytology(Not Applicable) - Miguel Cordova Surgeon Miguel Cordova Curriculum Development Manager see formal report Estimated Blood Loss 1 Findings See Below EGD descending duodenal erythema scattered mild bx antrum normal biopsied remainder of exam normal. Advance diet.
--- NOTE | 2020-02-12 13:29 | GI REPORT ---
Patient Name: Armik Francis Procedure Date: 02/12/2020 12:57 PM Date of : 1995 Admit Type: Inpatient Age: 24 Gender: Male Attending MD: Miguel Cordova MD Procedure: Upper GI endoscopy Providers: Miguel Cordova MD Referring MD: Ana Koroma Indications: Nausea with vomiting, Weight loss Medicines: Monitored Anesthesia Care Complications: No immediate complications. Estimated blood loss: Minimal. Estimated Blood Loss: Estimated blood loss was minimal. Procedure: Pre-Anesthesia Assessment: - The risks and benefits of the procedure and the sedation options and risks were discussed with the patient. All questions were answered and informed consent was obtained. - Patient identification and proposed procedure were verified prior to the procedure by the physician, the nurse and the channel installer. The procedure was verified in the procedure room. After obtaining informed consent, the endoscope was passed under direct vision. Throughout the procedure, the patient's blood pressure, pulse, and oxygen saturations were monitored continuously. The Endoscope was introduced through the mouth, and advanced to the second part of duodenum. The upper GI endoscopy was accomplished without difficulty. The patient tolerated the procedure well. Procedure and risks explained to patient which include but not limited to medication reaction, bleeding, perforation, aspiration , and missed lesions. Judicious gas insufflation was used and gas removal done on the way out. The lumen was always visualized when advancing the scope. Prep was good. Washes and suctioning used as needed to get good visualization of the mucosa. Retroflexion to look at the fundus and cardia of the stomach and GE junction was done. Findings: The Z-line was regular and was found 43 cm from the incisors. The esophagus was normal. The gastric antrum was normal. Biopsies were taken with a cold forceps for Helicobacter pylori testing. Estimated blood loss was minimal. Patchy moderately erythematous mucosa was found in the second portion of the duodenum. Biopsies were taken with a cold forceps for histology. Estimated blood loss was minimal. The exam was otherwise without abnormality. Impression: - Z-line regular, 43 cm from the incisors. - Normal esophagus. - Normal antrum. Biopsied. - Erythematous duodenopathy. Biopsied. - The examination was otherwise normal. Recommendation: - Return patient to [facility] for ongoing care. - Await pathology. Advance diet. Miguel Cordova M.D. Miguel Cordova MD 02/12/2020 1:29:06 PM This report has been signed electronically. Note Initiated On: 02/12/2020 12:57 PM Number of Addenda: 0 I attest to the content of the Intraoperative Record and orders documented therein, exceptions below {[id number]}
--- NOTE | 2020-02-12 13:45 | Anesthesiology Progress Note ---
Date of Service February 12, 2020 Anesthesia Post Procedure Vital Signs Vital Signs: Temp Pulse Pulse Resp BP BP BP 02/12/20 13:36 97 H 16 136/90 02/12/20 13:24 120 H 16 132/82 02/12/20 12:47 37.4 C 82 18 135/83 02/12/20 07:38 37.0 C 71 18 159/89 H 02/11/20 23:55 36.8 C 86 20 136/84 02/11/20 23:39 114 H 16 130/82 02/11/20 22:30 74 20 131/80 02/11/20 22:00 118 H 24 140/88 02/11/20 21:30 95 H 25 H 131/78 02/11/20 21:00 91 H 18 134/67 02/11/20 20:30 84 23 127/74 02/11/20 20:00 92 H 20 122/79 02/11/20 19:46 105 H 18 131/84 02/11/20 19:15 02/11/20 18:45 120 H 18 124/87 02/11/20 18:44 119 H 18 124/87 02/11/20 16:39 36.6 C 150 H 18 144/101 H Pulse Ox 02/12/20 13:36 98 02/12/20 13:24 98 02/12/20 12:47 97 02/12/20 07:38 99 02/11/20 23:55 97 02/11/20 23:39 98 02/11/20 22:30 97 02/11/20 22:00 100 02/11/20 21:30 99 02/11/20 21:00 98 02/11/20 20:30 99 02/11/20 20:00 97 02/11/20 19:46 99 02/11/20 19:15 98 02/11/20 18:45 100 02/11/20 18:44 97 02/11/20 16:39 100 Pain Intensity Abdomen: Pain Intensity: 3 Transfer of Care Handoff Completed per policy Notes Mental Status: alert / awake / arousable Patient Amnestic to Procedure: Yes Nausea / Vomiting: adequately controlled Pain: adequately controlled Airway Patency, RR, SpO2: stable & adequate BP & HR: stable & adequate Hydration State: stable & adequate Anesthetic Complications: no major complications apparent and Pt Satisfied with anesthetic care
[2020-02-12] MEDS ORDERED: SUCRALFATE 1 GM/10 ML UDC PO SCH (17:00)
--- NOTE | 2020-02-12 18:05 | Hospitalist Progress Note ---
Date of Service February 12, 2020 Assessment & Plan (1) Crohn's disease: Amrik is a 24-year-old male with a notable history of Crohn's disease who presents today for evaluation of ongoing hematochezia, abdominal pain, and nausea for >1 week, most consistent with an exacerbation of his Crohn's disease. He has been hemodynamically stable since admission. Crohn's Disease - Exacerbation - Clinically, patient reports >1 week of abdominal pain, hematochezia, and nausea for >1 week, requiring 2 other visits to [facility] within the last ~8 days. - Notable leukocytosis to 12.01; Hgb stable at 13.1 (however, decreased from 15.5 yesterday afternoon) - Prior to his flare in early December, was untreated for nearly 1.5 years. Prior to this, was being treated with prednisone, Imuran, Asacol, and Remicade -- discontinued d/t financial restraints - Colonoscopy 01/07/20 demonstrated new, severe, and diffuse inflammation from anus to transverse colon with blood in the sigmoid - Medications to aid with flare and pain control: - Continue dicyclomine PRN - Protonix 40 mg IV twice daily - Solu-Medrol 60 mg daily - Continue Carafate (changed to suspension, as patient notes he tolerates this better) - Continue Senokot - As needed Zofran for nausea - Anticipate continuation of Stelara upon d/c, - GI following, appreciate recs: - Upper endoscopy performed 02/11 for N/V- demonstrated erythematous duodenum; await pathology - Advance diet PRN Diarrhea - Patient reports > 1 week of > 10 BMs - diarrhea, with blood, in consistency - While possibly d/t Crohn's, C. diff toxin ordered by GI for further evaluation given recent difficulty in controlling this -- await results - Encourage hydration -- fluids d/c'd for now, can certainly restart PRN - BMP qAM Hypokalemia: Resolved - Likely caused by GI losses in the setting of frequent BMs - K at 3.1 in the ER --> repleted --> this AM 3.9 - Replete PRN - BMP qAM Acne -Continue using clindamycin phosphate cream FEN: Progress diet as tolerated s/p procedure DVT PPX: SCDs, ambulation Dispo: MedSur Code Status: Full code (2) Exacerbation of Crohn's disease: (3) Hematochezia: (4) Hypokalemia: (5) Vomiting: Admission and Anticipated Discharge Date Admission Date: February 11, 2020 Supervising Physician Co-Signing Physician Notes Resident Physician Supervision Note: I independently interviewed and examined the patient and verified the franks history and physical, reviewed labs and image studies, discussed the case with the resident Dr. Hernandez and agree with the findings and care plan. Subjective Patient reports several episodes overnight where he will try to have a bowel movement, but unfortunately experiences bloody diarrhea alongside a severe burning pain that he rates as a 5-6/10. Otherwise, lying in bed, reports that he feels fine -- pain is minimal, if not absent, when still. We did review his history, and does note that he got his first round of Stelara approx. 1 week ago; this was his first maintenance medication treatment for quite some time (>1.5yr of no treatment). While he does endorse recent nausea and vomiting over the past week, none at the present. No vomiting. No abdominal pain. No fevers, chills, night sweats. No chest pain or shortness of breath. Review of Systems Review of Systems: as per HPI Physical Exam Constitutional: Tired-appearing 24-year-old male who is lying back in his hospital bed and freely conversive during our conversation. No conversational dyspnea. Compared to prior assessments, he does appear thinner. NAD. Respiratory: Good respiratory effort with symmetric expansion of the chest. Lungs CTAB without crackles or wheezes. Cardiovascular: Normal rate, regular rhythm. S1 and S2 present without m/r/g. Gastrointestinal (Abdomen): NABS. Abdomen is soft and nondistended. The abdomen is mildly, but diffusely TTP. No rebound or guarding. Results & Data Results & Data ([facility]) Vital Signs (Past 12 Hours) Vital Signs Temp Pulse Resp BP Pulse Ox 02/12/20 15:00 37 C 101 H 18 147/81 H 99 02/12/20 14:25 36.5 C 102 H 20 136/72 98 02/12/20 13:52 102 H 16 133/89 98 02/12/20 13:36 97 H 16 136/90 98 02/12/20 13:24 120 H 16 132/82 98 02/12/20 12:47 37.4 C 82 18 135/83 97 02/12/20 07:38 37.0 C 71 18 159/89 H 99 Resident Activity Tracking Resident Involvement: Resident Care Provided Care Provided: Adult Hospital Medicine (1) Crohn's disease Digestive disease complication type: unspecified complication Gastrointestinal tract location: unspecified location Qualified Code(s): K50.919 - Crohn's disease, unspecified, with unspecified complications (2) Exacerbation of Crohn's disease Digestive disease complication type: unspecified complication Qualified Code(s): K50.919 - Crohn's disease, unspecified, with unspecified complications (3) Vomiting Nausea presence: unspecified Vomiting Intractability: unspecified Vomiting type: unspecified Qualified Code(s): R11.10 - Vomiting, unspecified
[2020-02-12] MEDS: SUCRALFATE 1 GM/10 ML UDC PO SCH (20:00)
[2020-02-12] MEDS: SENNA 8.6 MG TAB PO SCH (20:17)
[2020-02-13] MEDS: HYDROmorphone INJ 0.5 MG/0.5 ML SYR IV PRN (00:25)
[2020-02-13] MEDS: CLINDAMYCIN SCH ×3 (00:29→16:08)
[2020-02-13 02:27] LABS: Cdiff Antigen Positive; Cdiff Toxin A+B Negative Cdiff Toxin (Negative)
[2020-02-13] MEDS ORDERED: SODIUM CHLORIDE 0.9% 500 ML IV SCH (02:30)
[2020-02-13 06:39] LABS: Basophils # (auto) 0.01 K/uL (0-0.2); Basophils % (auto) 0.1 %; Eosinophils # (auto) 0.05 K/uL (0-0.5); Eosinophils % (auto) 0.6 %; Hematocrit (blood only) 35.4 % (42-52); Hemoglobin 12.4 g/dL (14.0-18.0); Immature Granulocytes # (auto) 0.12 K/uL (0.00-0.02); Immature Granulocytes % (auto) 1.4 %; Lymphocytes # (auto) 1.48 K/uL (1.2-3.4); Lymphocytes % (auto) 16.7 %; Mean Corpuscular Hemoglobin 29.7 pg (25-34); Mean Corpuscular Volume 84.7 fL (80-100); Mean Platelet Volume 8.5 fL (7.4-10.4); Monocytes # (auto) 0.59 K/uL (0.11-0.59); Monocytes % (auto) 6.7 %; Neutrophils # (auto) 6.62 K/uL (1.4-6.5); Neutrophils % (auto) 74.5 %; Platelet Count 250 K/uL (130-400); RDW Coefficient of Variation 12.6 % (11.5-14.5); RDW Standard Deviation 38.3 fL (36.4-46.3); Red Blood Count 4.18 M/uL (4.7-6.1); White Blood Count 8.87 K/uL (4.8-10.8)
[2020-02-13 07:20] LABS: Albumin Globulin Ratio 1.3 (0.9-2); Albumin Level 2.9 gm/dl (3.4-5.0); Bilirubin,Total 1.1 mg/dl (0.2-1); Calcium 8.1 mg/dl (8.5-10.1); Creatinine Clr Calc Pharmacy 124.9 ml/min; Est GFR (African American) 125.4; Est GFR (Non-African American) 108.2; Globulin 2.3 gm/dl (2.5-4.0); Potassium 2.9 mmol/L (3.5-5.1); Total Protein 5.2 gm/dl (6.4-8.2)
[2020-02-13] MEDS: SUCRALFATE 1 GM/10 ML UDC PO SCH ×4 (07:50→21:26)
[2020-02-13] MEDS: methylPREDNISolone 60 MG in SYRINGE 0 ML IV SCH (07:51)
[2020-02-13] MEDS: PANTOprazole 40 MG in SYRINGE 0 ML IV SCH ×2 (07:51→21:26)
--- NOTE | 2020-02-13 09:33 | Gastroenterology Progress Note ---
Date of Service February 13, 2020 Assessment & Plan (1) Crohn's disease: (2) C. difficile diarrhea: Crohn's disease: Continue Solu-Medrol. Received first dose of Stelara 02/07/2020. Diet as tolerated, Zofran prn. Supportive measures. C. diff: Patient with positive C. diff gene, negative toxin. With severity of current symptoms, will treat with Vancomycin 125 mg po QID x 10 days. Please refer to supervising physician addendum for further recommendations. Admission and Anticipated Discharge Date Admission Date: February 11, 2020 Subjective Patient in the bathroom when initially went to evaluate patient. States he continues to experience 10+ bloody diarrhea stools. Has burning after bowel movement. Reports pain is controlled this morning. Rates 0/10. Denies nausea or vomiting. Ate regular breakfast this morning. States scrambled eggs felt "heavy" but otherwise no issues. IVF were stopped and then restarted yesterday. Patient states he does feel better with. Reports he required Dilaudid for pain yesterday after EGD. EGD demonstrated: Z-line regular, 43 cm from the incisors; Normal esophagus; Normal antrum. Biopsied; Erythematous duodenopathy. Biopsied; The examination was otherwise normal. Stool for c. diff was obtained and demonstrated positive c. diff gene, negative c. diff toxin. Patient is currently on c. diff isolation precautions. Review of Systems Review of Systems: All systems reviewed & are unremarkable except as noted in Subjective Physical Exam Constitutional: no acute distress ENMT: Ears: no external ear abnormality Nose: no external nose abnormality Neck: normal visual inspection and trachea midline Respiratory: normal respiratory effort; no respiratory distress and no labored breathing Auscultation: lungs clear to auscultation bilaterally Cardiovascular: Rate/Rhythm: regular rate and regular rhythm Gastrointestinal (Abdomen): Inspection/Auscultation: abdomen normal to inspection and normal bowel sounds; abdomen not distended Percussion/Palpation: + abdomen tender and abdomen soft; no guarding and abdomen not rigid Musculoskeletal: Extremities: extremities normal to inspection Neurologic: PERRL, EOMI, accommodation nl, no face palsy, no dysarthria Psychiatric: Orientation: alert and oriented x 3 Lymphatic: + cervical lymphadenopathy Results & Data ([facility]) Vital Signs (Past 12 Hours) Vital Signs Temp Pulse Resp BP Pulse Ox 02/13/20 07:59 37.2 C 97 H 20 124/74 96 02/12/20 23:13 36.7 C 108 H 18 132/79 97 Laboratory Results - last 24 hr 02/11/20 02/12/20 02/13/20 Unknown 05:59 00:32 WBC RBC Hgb Hct MCV MCH MCHC RDW Std Deviation RDW Coeff of Miguel Plt Count MPV Immature Gran % (Auto) Neut % (Auto) Lymph % (Auto) [place] % (Auto) Eos % (Auto) Baso % (Auto) Neut # (Auto) Lymph # (Auto) [place] # (Auto) Eos # (Auto) Baso # (Auto) Immature Gran # (Auto) Sodium Potassium Chloride Carbon Dioxide Anion Gap BUN Creatinine Est Cr Clr Drug Dosing Est GFR ( Amer) Est GFR (Non-Af Amer) BUN/Creatinine Ratio Glucose Calcium Iron 40 TIBC 236 L Transferrin 184 L Transferrin % Sat 15 L Ferritin 43.4 Total Bilirubin AST ALT Alkaline Phosphatase Total Protein Albumin Globulin Albumin/Globulin Ratio Stl C. diff Tox B Gene Positive Cdiff Gene H Stl C.difficile Tox A&B Negative Cdiff Toxin SARS-CoV-2 Ag (Rapid) Negative 02/13/20 02/13/20 05:46 05:46 WBC 8.87 RBC 4.18 L Hgb 12.4 L Hct 35.4 L MCV 84.7 MCH 29.7 MCHC 35.0 RDW Std Deviation 38.3 RDW Coeff of Miguel 12.6 Plt Count 250 MPV 8.5 Immature Gran % (Auto) 1.4 Neut % (Auto) 74.5 Lymph % (Auto) 16.7 [place] % (Auto) 6.7 Eos % (Auto) 0.6 Baso % (Auto) 0.1 Neut # (Auto) 6.62 H Lymph # (Auto) 1.48 [place] # (Auto) 0.59 Eos # (Auto) 0.05 Baso # (Auto) 0.01 Immature Gran # (Auto) 0.12 H Sodium 136 Potassium 2.9 L D Chloride 100 Carbon Dioxide 32 Anion Gap 4.0 BUN 12 Creatinine 0.98 Est Cr Clr Drug Dosing 124.9 Est GFR ( Amer) 125.4 Est GFR (Non-Af Amer) 108.2 BUN/Creatinine Ratio 12.0 Glucose 88 Calcium 8.1 L Iron TIBC Transferrin Transferrin % Sat Ferritin Total Bilirubin 1.1 H AST 10 L ALT 20 Alkaline Phosphatase 48 Total Protein 5.2 L Albumin 2.9 L Globulin 2.3 L Albumin/Globulin Ratio 1.3 Stl C. diff Tox B Gene Stl C.difficile Tox A&B SARS-CoV-2 Ag (Rapid) (1) Crohn's disease Digestive disease complication type: unspecified complication Gastrointestinal tract location: unspecified location Qualified Code(s): K50.919 - Crohn's disease, unspecified, with unspecified complications
[2020-02-13] MEDS: RASPBERRY SYRUP 5 ML UDP PO SCH ×2 (13:36→18:16)
[2020-02-13] MEDS: POTASSIUM CHLORIDE / WTR 10 MEQ/100 ML PLCT IV SCH ×4 (13:36→18:04)
[2020-02-13] MEDS: VANCOMYCIN HCL 125 MG/2.5ML SOLN PO SCH ×2 (13:37→18:16)
--- NOTE | 2020-02-13 13:55 | Progress Notes ---
DATE: 02/13/2020 Progress note with Kendra Vazquez: I reviewed the chart and examined the patient, interviewed him and reviewed the labs. The patient was found to have positive C. diff stool today and was started on p.o. vancomycin. This would certainly explain his diarrhea. He was scoped yesterday by Dr. Cordova for his nausea and vomiting and found to have some mild inflammation in the duodenum, but today he is tolerating solid food and has had no more nausea or vomiting. He continues to use the bathroom several times passing small amounts of stool and gas today. PHYSICAL EXAMINATION: VITAL SIGNS: Normal. He is afebrile. GENERAL: The patient is awake, alert. LABORATORY DATA: Shows a potassium of 3.1. The remainder is relatively normal. IMPRESSION: The patient is improving on IV fluids and p.o. vancomycin. Recommend that we continue his treatment, and as soon as he is able to tolerate solid food and not have profuse diarrhea, he should be able to be discharged. We will continue to follow the patient during his hospital stay.
--- NOTE | 2020-02-13 17:59 | Hospitalist Progress Note ---
Date of Service February 13, 2020 Assessment & Plan (1) Crohn's disease: Amrik is a 24-year-old male with a notable history of Crohn's disease who presents today for evaluation of ongoing hematochezia, abdominal pain, and nausea for >1 week, most consistent with an exacerbation of his Crohn's disease. He has been hemodynamically stable since admission. Crohn's Disease - Exacerbation - Clinically, patient reports >1 week of abdominal pain, hematochezia, and nausea, requiring 2 other visits to [facility] within the last ~8 days. - Prior to his flare in early December, was untreated for nearly 1.5 years. Prior to this, was being treated with prednisone, Imuran, Asacol, and Remicade -- discontinued d/t financial restraints - Leukocytosis downtrending to 8.9 this AM (from 12) / Hgb also down a little bit to 12.4 from 13.1 yesterday AM - Colonoscopy 01/07/20 demonstrated new, severe, and diffuse inflammation from anus to transverse colon with blood in the sigmoid - Medications to aid with flare and pain control: - Continue dicyclomine PRN - Protonix 40 mg IV twice daily - Solu-Medrol 60 mg daily - Continue Carafate (changed to suspension, as patient notes he tolerates this better) - Continue Senokot - As needed Zofran for nausea - Anticipate continuation of Stelara upon d/c alongside outpatient management - GI following, appreciate recs: - Upper endoscopy performed 02/11 for N/V- demonstrated erythematous duodenum; await pathology - See "diarrhea" below - Advance diet PRN - Anticipate d/c when able to tolerate PO intake + show significant improvement in diarrhea Diarrhea - Likely Multifactorial: C. diff + Crohn's - Patient reports > 1 week of > 10 BMs - diarrhea, with blood, in consistency - While possibly d/t Crohn's, testing for C. diff also demonstrated: C. diff gene (+), toxin (-) - Given severity/frequency of diarrhea and gene (+), proceed with vancomycin 125mg PO q6h x 10 days - Encourage hydration -- fluids d/c'd for now, can certainly restart PRN if concern for dehydration / hypokalemia - BMP qAM Hypokalemia - Likely caused by GI losses in the setting of frequent BMs - Did require repletion with IV KCl in the ER upon arrival - K returned at 2.9 this AM --> repleted with total of 40mEq KCl today - Given frequent nausea, should use caution considering oral KCl - Replete PRN, BMP qAM Acne -Continue using clindamycin phosphate cream FEN: Progress diet as tolerated s/p procedure DVT PPX: SCDs, ambulation Dispo: MedSur Code Status: Full code (2) Exacerbation of Crohn's disease: (3) Hematochezia: (4) Hypokalemia: (5) Vomiting: Admission and Anticipated Discharge Date Admission Date: February 11, 2020 Supervising Physician Co-Signing Physician Notes Resident Physician Supervision Note: I independently interviewed and examined the patient and verified the franks history and physical, reviewed labs and image studies, discussed the case with the resident Dr. Hernandez and agree with the findings and care plan. Subjective Seen at bedside this AM. Patient reports feeling OK. Pain is 0-1/10 upon our discussion, but he did note it spiking up throughout the evening yesterday with BMs. Last night, also reports that he tried to tolerate some pork/solid food, which didn't go well -- reported feeling nauseous. No emesis. Requested foods be softer and in smaller portion sizes. Still also noting some discomfort stomaching liquids, too -- says he gets a feeling of "heaviness" and mild pain when drinking any amounts of water. No chest pain, palpitations, SOB. No fevers, chills, or NS. Appetite OK this AM, has been able to get some eggs down. Review of Systems Review of Systems: as per HPI Physical Exam Constitutional: WD/WN, vitals as above + thin Eyes: + anicteric sclerae Respiratory: normal respiratory effort, lungs clear to auscultation Cardiovascular: RRR, no murmur, no edema Gastrointestinal (Abdomen): NABS. Abdomen is soft and nondistended. Mild, diffuse TTP on examination. No rebound or guarding. Psychiatric: A+Ox3, euthymic affect Results & Data Results & Data ([facility]) Vital Signs (Past 12 Hours) Vital Signs Temp Pulse Resp BP BP Pulse Ox 02/13/20 15:55 36.5 C 91 H 20 120/65 97 02/13/20 07:59 37.2 C 97 H 20 124/74 96 Resident Activity Tracking Resident Involvement: Resident Care Provided Care Provided: Adult Hospital Medicine (1) Crohn's disease Digestive disease complication type: unspecified complication Gastrointestinal tract location: unspecified location Qualified Code(s): K50.919 - Crohn's disease, unspecified, with unspecified complications (2) Exacerbation of Crohn's disease Digestive disease complication type: unspecified complication Qualified Code(s): K50.919 - Crohn's disease, unspecified, with unspecified complications (3) Vomiting Nausea presence: unspecified Vomiting Intractability: unspecified Vomiting type: unspecified Qualified Code(s): R11.10 - Vomiting, unspecified
[2020-02-13] MEDS: ONDANSETRON INJ 2 MG/ML 2 ML VIAL IV PRN (18:12)
[2020-02-13] MEDS: SENNA 8.6 MG TAB PO SCH (21:26)
[2020-02-14] MEDS: HYDROmorphone INJ 0.5 MG/0.5 ML SYR IV PRN (00:19)
[2020-02-14] MEDS: VANCOMYCIN HCL 125 MG/2.5ML SOLN PO SCH ×4 (00:25→17:58)
[2020-02-14] MEDS: RASPBERRY SYRUP 5 ML UDP PO SCH ×4 (00:25→17:58)
[2020-02-14] MEDS: CLINDAMYCIN SCH ×3 (00:30→16:14)
[2020-02-14 02:27] LABS: Marijuana Quant, GCMS Urine 345 ng/mL (<5)
[2020-02-14] MEDS: DICYCLOMINE HCL 20 MG TAB PO PRN ×2 (05:27→21:49)
[2020-02-14] MEDS: PANTOprazole 40 MG in SYRINGE 0 ML IV SCH (07:58)
[2020-02-14] MEDS: methylPREDNISolone 60 MG in SYRINGE 0 ML IV SCH (07:59)
[2020-02-14] MEDS: SUCRALFATE 1 GM/10 ML UDC PO SCH ×4 (07:59→20:59)
[2020-02-14 08:33] LABS: Basophils # (auto) 0.01 K/uL (0-0.2); Basophils % (auto) 0.1 %; Eosinophils # (auto) 0.05 K/uL (0-0.5); Eosinophils % (auto) 0.5 %; Immature Granulocytes # (auto) 0.08 K/uL (0.00-0.02); Immature Granulocytes % (auto) 0.9 %; Lymphocytes # (auto) 1.02 K/uL (1.2-3.4); Lymphocytes % (auto) 10.9 %; Mean Corpuscular Hemoglobin 29.7 pg (25-34); Mean Corpuscular Hgb Conc 35.1 g/dL (32-36); Mean Corpuscular Volume 84.7 fL (80-100); Mean Platelet Volume 8.5 fL (7.4-10.4); Monocytes # (auto) 0.53 K/uL (0.11-0.59); Monocytes % (auto) 5.7 %; Neutrophils # (auto) 7.68 K/uL (1.4-6.5); Neutrophils % (auto) 81.9 %; Platelet Count 236 K/uL (130-400); RDW Coefficient of Variation 12.8 % (11.5-14.5); RDW Standard Deviation 38.8 fL (36.4-46.3); Red Blood Count 4.37 M/uL (4.7-6.1); White Blood Count 9.37 K/uL (4.8-10.8)
[2020-02-14 09:08] LABS: BUN Creatinine Ratio 9.2 (10-20); Calcium 8.5 mg/dl (8.5-10.1); Creatinine Clr Calc Pharmacy 127.5 ml/min; Est GFR (African American) 128.6
[2020-02-14 09:13] LABS: Albumin Globulin Ratio 1.2 (0.9-2); Bilirubin,Total 1.2 mg/dl (0.2-1); Globulin 2.4 gm/dl (2.5-4.0); Total Protein 5.4 gm/dl (6.4-8.2)
--- NOTE | 2020-02-14 15:08 | Progress Notes ---
DATE: 02/14/2020 The patient states that his abdominal pain has decreased, although yesterday when he ate Ethiopian fries and Mandarin oranges, it got upset and he threw up once. His bowel movements have slowed down during the day, but last night he did have to get up several times to have bowel movements, which still contained a little bit of blood. The patient's vital signs are normal. He is afebrile. White count is normal. Hemoglobin is normal. His potassium is still a little bit low at 3.0 today, for which he is getting supplementary potassium IV. On exam, his abdomen is soft. There are no masses, tenderness, or hepatosplenomegaly. IMPRESSION: This is a day 2 of vancomycin for Clostridium difficile. He is also getting IV Solu-Medrol 60 mg a day. I would like to keep him on that at least for another 24-48 hours before switching him over to oral, also like to see his bowel movements slow down a little bit more from the Clostridium difficile.
--- NOTE | 2020-02-14 18:10 | Hospitalist Progress Note ---
Date of Service February 14, 2020 Assessment & Plan (1) Crohn's disease: Amrik is a 24-year-old male with a notable history of Crohn's disease who presents today for evaluation of ongoing hematochezia, abdominal pain, and nausea for >1 week, most consistent with an exacerbation of his Crohn's disease. He has been hemodynamically stable since admission. Crohn's Disease - Exacerbation - Clinically, patient reports >1 week of abdominal pain, hematochezia, and nausea, requiring 2 other visits to [facility] within the last ~8 days. - Prior to his flare in early December, was untreated for nearly 1.5 years. Prior to this, was being treated with prednisone, Imuran, Asacol, and Remicade -- discontinued d/t financial restraints - Colonoscopy 01/07/20 demonstrated new, severe, and diffuse inflammation from anus to transverse colon with blood in the sigmoid - Leukocytosis resolved since admission (12.01 --> ~8-9) - Hgb continues to be slightly low, but stable between 12- - Medications to aid with flare and pain control: - Solu-Medrol 60 mg daily - Continue dicyclomine PRN - Protonix 40 mg PO twice daily - Continue Carafate suspension - Continue Senokot - As needed Zofran for nausea - Anticipate continuation of Stelara upon d/c alongside outpatient management; will need regular GI follow-ups - GI following, appreciate recs: - Upper endoscopy performed 02/11 for N/V demonstrated erythematous duodenum - Pathology: "acute duodenitis with focal ulceration and mild architectural disarray" and "chronic inactive gastritis" (antrum biopsy) - Continue Solu-Medrol (+see below, Diarrhea) - Advance diet PRN - Anticipate d/c when able to tolerate PO intake + show significant improvement in diarrhea Diarrhea - Likely Multifactorial: C. diff + Crohn's - Patient reports >1 week of >10 BMs - diarrhea, with blood, in consistency - While possibly d/t Crohn's, testing for C. diff also demonstrated: C. diff gene (+), toxin (-) - Given severity/frequency of diarrhea, proceed with vancomycin 125mg PO q6h x 10 days -- patient tolerating well - Encourage PO hydration -- can consider adding fluids if concern for dehydration / hypokalemia - BMP qAM Hypokalemia - Likely caused by GI losses in the setting of frequent BMs - 02/13: K continues to be ~3 --> repleted with total of 40 mEq in NSS - Given frequent nausea, should use caution considering oral KCl - Replete PRN, BMP qAM Acne -Continue using clindamycin phosphate cream FEN: Tolerating PO intake well; while on repletion for K, NSS + KCl @ 100cc/hr DVT PPX: SCDs, ambulation Dispo: MedSur Code Status: Full code (2) Exacerbation of Crohn's disease: (3) Hematochezia: (4) Hypokalemia: (5) Vomiting: Admission and Anticipated Discharge Date Admission Date: February 11, 2020 Supervising Physician Co-Signing Physician Notes Resident Physician Supervision Note: I independently interviewed and examined the patient and verified the franks history and physical, reviewed labs and image studies, discussed the case with the resident Dr. Hernandez and agree with the findings and care plan. Subjective Feels OK overall this morning. Did still report getting up several times last night with bloody diarrhea and cramping; says this is typical for him to get more blood in the evening. He has been able to keep more solid foods down, and is happy with his progress with this. Still some intermittent nausea, but much reduced from prior. Liquids going OK. Denies any lightheadedness or dizziness. No shortness of breath. Does continue to experience significant burning pain with BMs. Review of Systems Review of Systems: as per HPI Physical Exam Constitutional: Tired-appearing 24-year-old male who is interactive and engaged in our conversation, making good eye contact. Fully alert and oriented. NAD. Respiratory: normal respiratory effort, lungs clear to auscultation Cardiovascular: RRR, no murmur, no edema Gastrointestinal (Abdomen): NABS. Abdomen is soft and nondistended. Mild diffuse TTP that is unchanged since yesterday's exam. Psychiatric: A+Ox3, euthymic affect Results & Data Results & Data ([facility]) Vital Signs (Past 12 Hours) Vital Signs Temp Pulse Resp BP Pulse Ox 02/14/20 15:29 36.9 C 102 H 20 127/77 99 02/14/20 07:49 36.9 C 109 H 18 133/91 97 Resident Activity Tracking Resident Involvement: Resident Care Provided Care Provided: Adult [facility] (1) Crohn's disease Digestive disease complication type: unspecified complication Gastrointestinal tract location: unspecified location Qualified Code(s): K50.919 - Crohn's disease, unspecified, with unspecified complications (2) Exacerbation of Crohn's disease Digestive disease complication type: unspecified complication Qualified Code(s): K50.919 - Crohn's disease, unspecified, with unspecified complications (3) Vomiting Nausea presence: unspecified Vomiting Intractability: unspecified Vomiting type: unspecified Qualified Code(s): R11.10 - Vomiting, unspecified
[2020-02-14] MEDS: ONDANSETRON INJ 2 MG/ML 2 ML VIAL IV PRN (19:02)
[2020-02-14] MEDS: POTASSIUM CHLORIDE / WTR 10 MEQ/100 ML PLCT IV SCH ×3 (19:23→23:51)
[2020-02-14] MEDS: PANTOprazole 40 MG TAB PO SCH (20:59)
[2020-02-15] MEDS: VANCOMYCIN HCL 125 MG/2.5ML SOLN PO SCH ×5 (01:12→23:38)
[2020-02-15] MEDS: RASPBERRY SYRUP 5 ML UDP PO SCH ×5 (01:12→23:39)
[2020-02-15] MEDS: CLINDAMYCIN SCH ×4 (01:36→23:59)
[2020-02-15] MEDS: POTASSIUM CHLORIDE / WTR 10 MEQ/100 ML PLCT IV SCH ×4 (01:52→16:50)
[2020-02-15] MEDS: DICYCLOMINE HCL 20 MG TAB PO PRN (03:01)
[2020-02-15 06:36] LABS: Basophils # (auto) 0.01 K/uL (0-0.2); Basophils % (auto) 0.1 %; Eosinophils # (auto) 0.12 K/uL (0-0.5); Eosinophils % (auto) 1.2 %; Hemoglobin 12.3 g/dL (14.0-18.0); Immature Granulocytes # (auto) 0.09 K/uL (0.00-0.02); Immature Granulocytes % (auto) 0.9 %; Lymphocytes # (auto) 1.61 K/uL (1.2-3.4); Lymphocytes % (auto) 15.8 %; Mean Corpuscular Hemoglobin 29.7 pg (25-34); Mean Corpuscular Hgb Conc 35.1 g/dL (32-36); Mean Corpuscular Volume 84.5 fL (80-100); Mean Platelet Volume 8.4 fL (7.4-10.4); Monocytes # (auto) 0.78 K/uL (0.11-0.59); Monocytes % (auto) 7.6 %; Neutrophils % (auto) 74.4 %; Platelet Count 239 K/uL (130-400); RDW Coefficient of Variation 12.9 % (11.5-14.5); RDW Standard Deviation 39.3 fL (36.4-46.3); Red Blood Count 4.14 M/uL (4.7-6.1); White Blood Count 10.21 K/uL (4.8-10.8)
[2020-02-15 07:08] LABS: Albumin Level 2.7 gm/dl (3.4-5.0); Calcium 8.1 mg/dl (8.5-10.1); Creatinine Clr Calc Pharmacy 151.1 ml/min; Est GFR (African American) 145.2; Est GFR (Non-African American) 125.3; Potassium 2.9 mmol/L (3.5-5.1)
[2020-02-15 07:11] LABS: Albumin Globulin Ratio 1.1 (0.9-2); Bilirubin,Total 1.1 mg/dl (0.2-1); Globulin 2.4 gm/dl (2.5-4.0); Total Protein 5.1 gm/dl (6.4-8.2)
[2020-02-15] MEDS: HYDROmorphone INJ 0.5 MG/0.5 ML SYR IV PRN (08:01)
[2020-02-15] MEDS: SUCRALFATE 1 GM/10 ML UDC PO SCH ×4 (08:01→22:07)
[2020-02-15] MEDS: PANTOprazole 40 MG TAB PO SCH ×2 (08:02→22:07)
[2020-02-15] MEDS: methylPREDNISolone 60 MG in SYRINGE 0 ML IV SCH (08:13)
--- NOTE | 2020-02-15 08:34 | Gastroenterology Progress Note ---
Date of Service February 15, 2020 Assessment & Plan (1) Crohn's disease: (2) C. difficile diarrhea: Crohn's disease: Continue Solu-Medrol 60mg IV with plan to transition to po hopefully tomorrow. Received first dose of Stelara 02/07/2020. Diet as tolerated, Zofran prn. Supportive measures. C. diff: Continue Vancomycin 125 mg po QID x 10 days, he is on day 3. Hypokalemia: K+ is 2.9 this morning likely from diarrhea. Start potassium chloride 40 meq daily. Please refer to supervising physician addendum for further recommendations. Admission and Anticipated Discharge Date Admission Date: February 11, 2020 Subjective Patient states he is trying to sleep this morning when entering room to evaluate him. States he has not been sleeping well at night because he is up several times with small diarrhea bowel movements. Still having some blood in stools but much improved from admission per his report. Denies abdominal pain this morning but reports he was medicated with Dilaudid through the night. He is asking for pain medications (oxy) when discharged to home. He reports he has been using Bentyl while inpatient and it has been somewhat helpful. He denies nausea or vomiting this morning. He has not eaten breakfast yet this morning. He expresses multiple concerns this morning about post-hospitalization care as he was evaluated in the ED three times prior to admission. Review of Systems Review of Systems: All systems reviewed & are unremarkable except as noted in Subjective Physical Exam Constitutional: no acute distress ENMT: Ears: no external ear abnormality Nose: no external nose abnormality Neck: normal visual inspection and trachea midline Respiratory: normal respiratory effort; no respiratory distress and no labored breathing Auscultation: lungs clear to auscultation bilaterally Cardiovascular: Rate/Rhythm: regular rate and regular rhythm Gastrointestinal (Abdomen): Inspection/Auscultation: abdomen normal to inspection and normal bowel sounds; abdomen not distended Percussion/Palpation: + abdomen tender and abdomen soft; no guarding and abdomen not rigid Musculoskeletal: Extremities: extremities normal to inspection Neurologic: PERRL, EOMI, accommodation nl, no face palsy, no dysarthria Psychiatric: Orientation: alert and oriented x 3 Lymphatic: + cervical lymphadenopathy Results & Data ([facility]) Vital Signs (Past 12 Hours) Vital Signs Temp Pulse Resp BP BP Pulse Ox 02/15/20 07:30 36.8 C 101 H 16 134/84 98 02/14/20 22:47 36.4 C L 97 H 20 117/75 98 Laboratory Results - last 24 hr 02/14/20 02/14/20 02/15/20 07:53 07:53 06:00 WBC 9.37 10.21 RBC 4.37 L 4.14 L Hgb 13.0 L 12.3 L Hct 37.0 L 35.0 L MCV 84.7 84.5 MCH 29.7 29.7 MCHC 35.1 35.1 RDW Std Deviation 38.8 39.3 RDW Coeff of Miguel 12.8 12.9 Plt Count 236 239 MPV 8.5 8.4 Immature Gran % (Auto) 0.9 0.9 Neut % (Auto) 81.9 74.4 Lymph % (Auto) 10.9 15.8 Leslie % (Auto) 5.7 7.6 Eos % (Auto) 0.5 1.2 Baso % (Auto) 0.1 0.1 Neut # (Auto) 7.68 H 7.60 H Lymph # (Auto) 1.02 L 1.61 Leslie # (Auto) 0.53 0.78 H Eos # (Auto) 0.05 0.12 Baso # (Auto) 0.01 0.01 Immature Gran # (Auto) 0.08 H 0.09 H Sodium 136 Potassium 3.0 L Chloride 99 Carbon Dioxide 32 Anion Gap 5.0 BUN 9 Creatinine 0.96 Est Cr Clr Drug Dosing 127.5 Est GFR ( Amer) 128.6 Est GFR (Non-Af Amer) 111.0 BUN/Creatinine Ratio 9.2 L Glucose 94 Calcium 8.5 Total Bilirubin 1.2 H AST 12 L ALT 19 Alkaline Phosphatase 53 Total Protein 5.4 L Albumin 3.0 L Globulin 2.4 L Albumin/Globulin Ratio 1.2 02/15/20 06:00 WBC RBC Hgb Hct MCV MCH MCHC RDW Std Deviation RDW Coeff of Miguel Plt Count MPV Immature Gran % (Auto) Neut % (Auto) Lymph % (Auto) Leslie % (Auto) Eos % (Auto) Baso % (Auto) Neut # (Auto) Lymph # (Auto) Leslie # (Auto) Eos # (Auto) Baso # (Auto) Immature Gran # (Auto) Sodium 137 Potassium 2.9 L Chloride 101 Carbon Dioxide 30 Anion Gap 6.0 BUN 7 Creatinine 0.81 Est Cr Clr Drug Dosing 151.1 Est GFR ( Amer) 145.2 Est GFR (Non-Af Amer) 125.3 BUN/Creatinine Ratio 9.0 L Glucose 92 Calcium 8.1 L Total Bilirubin 1.1 H AST 7 L ALT 18 Alkaline Phosphatase 49 Total Protein 5.1 L Albumin 2.7 L Globulin 2.4 L Albumin/Globulin Ratio 1.1 (1) Crohn's disease Digestive disease complication type: unspecified complication Gastrointestinal tract location: unspecified location Qualified Code(s): K50.919 - Crohn's disease, unspecified, with unspecified complications
[2020-02-15] MEDS: POTASSIUM CHLORIDE CRTAB 20 MEQ TABCR PO SCH (11:09)
--- NOTE | 2020-02-15 16:24 | Progress Notes ---
DATE: 02/15/2020 Supplement to the progress note today by Kendra Vazquez: I did not enter the room today to preserve PPE because the patient has C. diff. The patient by report is having fewer bowel movements. He has had no vomiting. He is on day 3 of vancomycin. His potassium is still low today at 2.9. I did review his chart and labs and in addition, his albumin is slightly low. IMPRESSION: The patient is improving on vancomycin for his Clostridium difficile. His Crohn's is being treated with the Stelara induction dose that he received as an outpatient as well as IV Solu-Medrol, which we will continue and hopefully convert to p.o. tomorrow. In the meantime, we have added 40 mEq of potassium orally and I have also ordered 2 doses of Boost per day to help improve his nutritional status and help supplement his potassium orally. Dr. Cordova will be covering in the weekend.
[2020-02-15 16:33] LABS: BUN Creatinine Ratio 8.8 (10-20); Est GFR (African American) 140.3; Est GFR (Non-African American) 121.1
--- NOTE | 2020-02-15 18:10 | Hospitalist Progress Note ---
Date of Service February 15, 2020 Assessment & Plan (1) Crohn's disease: Amrik is a 24-year-old male with a notable history of Crohn's disease who presents today for evaluation of ongoing hematochezia, abdominal pain, and nausea for >1 week on admission, subsequently found to be a C. diff carrier, and thus most consistent with an exacerbation of his Crohn's disease and possibly C. diff diarrhea. He has been hemodynamically stable since admission. Crohn's Disease - Exacerbation - Clinically, patient reports >1 week of abdominal pain, hematochezia, and nausea, requiring 2 other visits to [facility] within the last ~8 days. - Prior to his flare in early December, was untreated for nearly 1.5 years. Prior to this, was being treated with prednisone, Imuran, Asacol, and Remicade -- discontinued d/t financial restraints - Colonoscopy 01/07/20 demonstrated new, severe, and diffuse inflammation from anus to transverse colon with blood in the sigmoid - Leukocytosis resolved since admission (12.01 --> ~8-10) - Hgb continues to be slightly low, but stable between 12- - Medications to aid with flare and pain control: - Solu-Medrol 60 mg daily (see below) - Continue dicyclomine PRN - new to patient's regimen, says this is helping him greatly - Protonix 40 mg PO twice daily - Continue Carafate suspension - Continue Senokot - As needed Zofran for nausea - GI following, appreciate recs: - Upper endoscopy performed 02/11 for N/V demonstrated erythematous duodenum - Pathology: "acute duodenitis with focal ulceration and mild architectural disarray" and "chronic inactive gastritis" (antrum biopsy) - Continue Solu-Medrol (+see below, Diarrhea) --> anticipate transition to PO tomorrow (?budesonide vs. prednisone) - Anticipate continuation of Stelara upon d/c alongside outpatient management; will need regular GI follow-ups - Anticipate d/c when able to tolerate PO intake + show significant improvement in diarrhea - Await further GI input on increasing solumedrol to help with diarrhea. Diarrhea - Likely Multifactorial: C. diff + Crohn's - Patient reports >1 week of >10 BMs - diarrhea, with blood, in consistency upon admission - While possibly d/t Crohn's, testing for C. diff also demonstrated: C. diff gene (+), toxin (-) - Given severity/frequency of diarrhea, started on vancomycin 125mg PO q6h x 10 days -- patient tolerating well - Encourage PO hydration -- can consider adding fluids if concern for dehydration / hypokalemia - BMP qAM Hypokalemia - Likely caused by GI losses in the setting of frequent BMs - 02/14 PM: Recheck of K in afternoon is 4.0 s/p 40mEq IV - GI: KCl 40mEq PO qAM, given that BMs during night tend to cause decrease on review - BMP qAM Acne -Continue using clindamycin phosphate cream FEN: regular diet DVT PPX: SCDs, ambulation Dispo: MedSurg Code Status: Full code (2) Exacerbation of Crohn's disease: (3) Hematochezia: (4) Hypokalemia: (5) Vomiting: Admission and Anticipated Discharge Date Admission Date: February 11, 2020 Supervising Physician Co-Signing Physician Notes Resident Physician Supervision Note: I independently interviewed and examined the patient and verified the franks history and physical, reviewed labs and image studies, discussed the case with the resident Dr. Hernandez and agree with the findings and care plan. Subjective Feels well overall this AM. Continues to note that he's not sleeping well at night d/t frequent BMs, but does report that Dilaudid helps greatly. Also reports that the Bentyl has been helping him, too. Reports that intake of solids and liquids has gotten progressively better day-by-day, but still will occasionally get nauseous when he eats some foods. No chest pain, palpitations, shortness of breath. Review of Systems Review of Systems: as per HPI Physical Exam Constitutional: tired-appearing 24 year old gentleman who appears relaxed in his hospital bed, not in any acute distress. Respiratory: normal respiratory effort, lungs clear to auscultation Cardiovascular: RRR, no murmur, no edema Gastrointestinal (Abdomen): NABS. Abdomen is soft and nondistended. Continued mild TTP diffusely over the abdomen. Psychiatric: A+Ox3, euthymic affect Affect: + anxious affect Results & Data Results & Data ([facility]) Vital Signs (Past 12 Hours) Vital Signs Temp Pulse Pulse Resp BP Pulse Ox 02/15/20 15:23 36.6 C 85 20 128/78 97 02/15/20 08:00 61 02/15/20 07:30 36.8 C 101 H 16 134/84 98 Resident Activity Tracking Resident Involvement: Resident Care Provided Care Provided: Adult Hospital Medicine (1) Crohn's disease Digestive disease complication type: unspecified complication Gastrointestinal tract location: unspecified location Qualified Code(s): K50.919 - Crohn's disease, unspecified, with unspecified complications (2) Exacerbation of Crohn's disease Digestive disease complication type: unspecified complication Qualified Code(s): K50.919 - Crohn's disease, unspecified, with unspecified complications (3) Vomiting Nausea presence: unspecified Vomiting Intractability: unspecified Vomiting type: unspecified Qualified Code(s): R11.10 - Vomiting, unspecified
[2020-02-15] MEDS: CHOLESTYRAMINE LIGHT 4 GM PKT PO SCH (22:07)
[2020-02-16] MEDS: HYDROmorphone INJ 0.5 MG/0.5 ML SYR IV PRN (02:59)
[2020-02-16] MEDS: DICYCLOMINE HCL 20 MG TAB PO PRN ×2 (05:13→19:37)
[2020-02-16] MEDS: VANCOMYCIN HCL 125 MG/2.5ML SOLN PO SCH ×4 (05:13→23:30)
[2020-02-16] MEDS: RASPBERRY SYRUP 5 ML UDP PO SCH ×4 (05:13→23:30)
[2020-02-16 06:29] LABS: Basophils # (auto) 0.01 K/uL (0-0.2); Basophils % (auto) 0.1 %; Eosinophils # (auto) 0.07 K/uL (0-0.5); Eosinophils % (auto) 0.9 %; Hematocrit (blood only) 35.3 % (42-52); Hemoglobin 12.3 g/dL (14.0-18.0); Immature Granulocytes # (auto) 0.06 K/uL (0.00-0.02); Immature Granulocytes % (auto) 0.7 %; Lymphocytes # (auto) 1.55 K/uL (1.2-3.4); Lymphocytes % (auto) 19.1 %; Mean Corpuscular Hemoglobin 29.6 pg (25-34); Mean Corpuscular Hgb Conc 34.8 g/dL (32-36); Mean Corpuscular Volume 84.9 fL (80-100); Mean Platelet Volume 8.4 fL (7.4-10.4); Monocytes # (auto) 0.87 K/uL (0.11-0.59); Monocytes % (auto) 10.7 %; Neutrophils # (auto) 5.57 K/uL (1.4-6.5); Neutrophils % (auto) 68.5 %; Platelet Count 231 K/uL (130-400); RDW Coefficient of Variation 13.1 % (11.5-14.5); RDW Standard Deviation 39.3 fL (36.4-46.3); Red Blood Count 4.16 M/uL (4.7-6.1); White Blood Count 8.13 K/uL (4.8-10.8)
[2020-02-16 07:10] LABS: Albumin Globulin Ratio 1.2 (0.9-2); Albumin Level 2.8 gm/dl (3.4-5.0); BUN Creatinine Ratio 7.3 (10-20); Calcium 8.3 mg/dl (8.5-10.1); Creatinine Clr Calc Pharmacy 158.9 ml/min; Est GFR (African American) 148.2; Est GFR (Non-African American) 127.9; Globulin 2.3 gm/dl (2.5-4.0); Potassium 2.8 mmol/L (3.5-5.1); Total Protein 5.1 gm/dl (6.4-8.2)
[2020-02-16] MEDS: SUCRALFATE 1 GM/10 ML UDC PO SCH ×4 (08:20→21:59)
[2020-02-16] MEDS: methylPREDNISolone 60 MG in SYRINGE 0 ML IV SCH (08:20)
[2020-02-16] MEDS: PANTOprazole 40 MG TAB PO SCH ×2 (08:21→22:00)
[2020-02-16] MEDS: POTASSIUM CHLORIDE CRTAB 20 MEQ TABCR PO SCH (08:21)
[2020-02-16] MEDS: CLINDAMYCIN SCH ×3 (08:21→23:21)
[2020-02-16] MEDS: CHOLESTYRAMINE LIGHT 4 GM PKT PO SCH (10:16)
--- NOTE | 2020-02-16 14:33 | Gastroenterology Progress Note ---
Date of Service February 16, 2020 Assessment & Plan (1) C. difficile diarrhea: Crohns rectal bleeding abd pain Difficult to sort out his stools by history so disussed with patient and nurse regarding saving stools and recording number and volume. Stop Questran since he is refusing. Discussed that Cdiff and crohns give identical symptoms but will contrinue to treat both with po vanco and solumedrol. Admission and Anticipated Discharge Date Admission Date: February 11, 2020 Subjective cc diarrhea HPI Pt with abd pain with bms, diarrhea and rectal bleeding. He states on the one hand that stools are firming up but on the other that he had 10 bms overnight and lot of bleeding. He stats he has abd burning at night improved with bentyl and Dilaudid. He feels stools have more volume from solid diet. He states he drank 3 sips of questran and did not like it so refusing this. Review of Systems Respiratory: subjective shortness of breath when he has abd pain Cardiovascular: no chest pain Physical Exam Respiratory: normal respiratory effort, lungs clear to auscultation Cardiovascular: RRR, no murmur, no edema Gastrointestinal (Abdomen): normal bowel sounds, soft, nontender, no hepatosplenomegaly Neurologic: PERRL, EOMI, accommodation nl, no face palsy, no dysarthria Psychiatric: A+Ox3, euthymic affect Results & Data ([facility]) Vital Signs (Past 12 Hours) Vital Signs Temp Pulse Resp BP Pulse Ox 02/16/20 07:57 36.5 C 99 H 18 133/89 99
--- NOTE | 2020-02-16 14:55 | Hospitalist Progress Note ---
Date of Service February 16, 2020 Assessment & Plan (1) Crohn's disease: Amrik is a 24-year-old male with a notable history of Crohn's disease who presents today for evaluation of ongoing hematochezia, abdominal pain, and nausea for >1 week on admission, subsequently found to be a C. diff carrier, and thus most consistent with an exacerbation of his Crohn's disease and possibly C. diff diarrhea. He has been hemodynamically stable since admission. Crohn's Disease - Exacerbation - Clinically, patient reports >1 week of abdominal pain, hematochezia, and nausea, requiring 2 other visits to [facility] within the 8 days prior to admission - Prior to his flare in early December, was untreated for nearly 1.5 years. Prior to this, was being treated with prednisone, Imuran, Asacol, and Remicade -- discontinued d/t financial restraints - Colonoscopy 01/07/20 demonstrated new, severe, and diffuse inflammation from anus to transverse colon with blood in the sigmoid - Leukocytosis resolved since admission (12.01 --> ~8-10) - Hgb continues to be slightly low, but stable between - - Medications to aid with flare and pain control: - Solu-Medrol 60 mg daily (see below) - Continue dicyclomine PRN - new to patient's regimen, says this is helping him greatly - Protonix 40 mg PO twice daily - Continue Carafate suspension - Continue Senokot - As needed Zofran for nausea - GI following, appreciate recs: - Upper endoscopy performed 02/11 for N/V demonstrated erythematous duodenum - Pathology: "acute duodenitis with focal ulceration and mild architectural disarray" and "chronic inactive gastritis" (antrum biopsy) - Continue Solu-Medrol (+see below, Diarrhea) --> anticipate transition to PO steroid (budesonide vs. prednisone) prior to d/c - Anticipate continuation of Stelara upon d/c alongside outpatient management; will need regular GI follow-ups, already scheduled for week of 02/19 - Anticipate d/c when able to tolerate PO intake + show significant improvement in diarrhea Diarrhea - Likely Multifactorial: C. diff + Crohn's - Patient reports >1 week of >10 BMs - diarrhea, with blood, in consistency upon admissiond - 02/15: Attempted to quantify stool count, patient subjectively reports >14 in the preceding evening, but no official record; nursing to keep count of volume and count night of 02/15 - While possibly d/t Crohn's, testing for C. diff also demonstrated: C. diff gene (+), toxin (-) - Given severity/frequency of diarrhea, started on vancomycin 125mg PO q6h x 10 days -- continue until 02/22 - Encourage PO hydration -- can consider adding fluids if concern for dehydration / hypokalemia - Cholestyramine attempted, but discontinued by patient due to intolerance - BMP qAM Hypokalemia - Likely caused by GI losses in the setting of frequent BMs - Fluctuating between high 2s - 4.0 on day-by-day analysis - GI: KCl 40mEq PO qAM, given that BMs during night tend to cause decrease on review - Consider additional repletion as needed - BMP qAM Acne -Continue using clindamycin phosphate cream FEN: regular diet DVT PPX: SCDs, ambulation Dispo: MedSurg Code Status: Full code (2) Exacerbation of Crohn's disease: (3) Hematochezia: (4) Hypokalemia: (5) Vomiting: Admission and Anticipated Discharge Date Admission Date: February 11, 2020 Supervising Physician Co-Signing Physician Notes Resident Physician Supervision Note: I independently interviewed and examined the patient and verified the franks history and physical, reviewed labs and image studies, discussed the case with the resident Dr. Hernandez and agree with the findings and care plan. Subjective Patient reports having approximately 14 bowel movements last night, that were softer, "nicer", and looser than prior. Still associated with some blood and burning pain, aided by Dilaudid. Also does report approximately 2 solid bowel movements throughout yesterday, which he attributes to getting some meat and rice at lunch yesterday. Otherwise, reports minimal abdominal pain this morning. Looking forward to breakfast. No nausea, vomiting, chest pain, palpitations, or shortness of breath. He does note that he was able to get more sleep last night than prior, which he is really happy about. Does feel that he is getting better day by day, but still has some recovering to do before being back to his normal self. Review of Systems Review of Systems: As per HPI Physical Exam Constitutional: Well rested appearing 24-year-old female who is lying back in his hospital bed, getting ready for breakfast upon my entrance to the room. He is freely conversant in our conversation, alert and oriented. He is in no acute distress. Respiratory: Good respiratory effort with symmetric expansion of the chest. Lungs sounds are clear to auscultation bilaterally without any crackles or wheezes. Cardiovascular: NRRR. S1/S2 present without m/r/g Gastrointestinal (Abdomen): NABS. Abdomen is soft and nondistended, continues to be mild tender to palpation across all quadrants, unchanged since yesterday's examination. Results & Data Results & Data ([facility]) Vital Signs (Past 12 Hours) Vital Signs Temp Pulse Resp BP Pulse Ox 02/16/20 07:57 36.5 C 99 H 18 133/89 99 Resident Activity Tracking Resident Involvement: Resident Care Provided Care Provided: Adult Hospital Medicine (1) Crohn's disease Digestive disease complication type: unspecified complication Gastrointestinal tract location: unspecified location Qualified Code(s): K50.919 - Crohn's disease, unspecified, with unspecified complications (2) Exacerbation of Crohn's disease Digestive disease complication type: unspecified complication Qualified Code(s): K50.919 - Crohn's disease, unspecified, with unspecified complications (3) Vomiting Nausea presence: unspecified Vomiting Intractability: unspecified Vomiting type: unspecified Qualified Code(s): R11.10 - Vomiting, unspecified
[2020-02-17] MEDS: HYDROmorphone INJ 0.5 MG/0.5 ML SYR IV PRN (02:29)
[2020-02-17] MEDS: VANCOMYCIN HCL 125 MG/2.5ML SOLN PO SCH ×3 (06:41→17:53)
[2020-02-17] MEDS: RASPBERRY SYRUP 5 ML UDP PO SCH ×3 (06:41→17:53)
[2020-02-17 07:02] LABS: Basophils # (auto) 0.01 K/uL (0-0.2); Basophils % (auto) 0.1 %; Eosinophils # (auto) 0.08 K/uL (0-0.5); Eosinophils % (auto) 0.8 %; Hematocrit (blood only) 35.8 % (42-52); Hemoglobin 12.5 g/dL (14.0-18.0); Immature Granulocytes # (auto) 0.12 K/uL (0.00-0.02); Immature Granulocytes % (auto) 1.2 %; Lymphocytes # (auto) 1.91 K/uL (1.2-3.4); Lymphocytes % (auto) 18.9 %; Mean Corpuscular Hemoglobin 29.5 pg (25-34); Mean Corpuscular Hgb Conc 34.9 g/dL (32-36); Mean Corpuscular Volume 84.4 fL (80-100); Mean Platelet Volume 8.6 fL (7.4-10.4); Monocytes # (auto) 1.09 K/uL (0.11-0.59); Monocytes % (auto) 10.8 %; Neutrophils # (auto) 6.87 K/uL (1.4-6.5); Neutrophils % (auto) 68.2 %; Platelet Count 267 K/uL (130-400); RDW Coefficient of Variation 13.4 % (11.5-14.5); RDW Standard Deviation 40.4 fL (36.4-46.3); Red Blood Count 4.24 M/uL (4.7-6.1); White Blood Count 10.08 K/uL (4.8-10.8)
[2020-02-17] MEDS: POTASSIUM CHLORIDE CRTAB 20 MEQ TABCR PO SCH (07:27)
[2020-02-17] MEDS: SUCRALFATE 1 GM/10 ML UDC PO SCH ×4 (07:27→20:18)
[2020-02-17] MEDS: DICYCLOMINE HCL 20 MG TAB PO PRN (07:27)
[2020-02-17] MEDS: PANTOprazole 40 MG TAB PO SCH ×2 (07:27→20:19)
[2020-02-17] MEDS: CLINDAMYCIN SCH ×2 (07:28→15:01)
[2020-02-17 07:31] LABS: Albumin Level 2.8 gm/dl (3.4-5.0); BUN Creatinine Ratio 7.3 (10-20); Calcium 8.4 mg/dl (8.5-10.1); Creatinine Clr Calc Pharmacy 149.2 ml/min; Est GFR (African American) 144.5; Est GFR (Non-African American) 124.6; Potassium 2.9 mmol/L (3.5-5.1)
[2020-02-17 07:33] LABS: Albumin Globulin Ratio 1.1 (0.9-2); Globulin 2.6 gm/dl (2.5-4.0); Total Protein 5.4 gm/dl (6.4-8.2)
[2020-02-17] MEDS: methylPREDNISolone 60 MG in SYRINGE 0 ML IV SCH (08:33)
[2020-02-17] MEDS: ONDANSETRON INJ 2 MG/ML 2 ML VIAL IV PRN (09:14)
--- NOTE | 2020-02-17 10:59 | Hospitalist Progress Note ---
Date of Service February 17, 2020 Assessment & Plan (1) Crohn's disease: Amrik is a 24-year-old male with a notable history of Crohn's disease who presents today for evaluation of ongoing hematochezia, abdominal pain, and nausea for >1 week on admission, subsequently found to be a C. diff carrier, and thus most consistent with an exacerbation of his Crohn's disease and possibly C. diff diarrhea. He has been hemodynamically stable since admission. Crohn's Disease - Exacerbation - Clinically, patient reports >1 week of abdominal pain, hematochezia, and nausea, requiring 2 other visits to [facility] within the 8 days prior to admission - Prior to his flare in early December, was untreated for nearly 1.5 years. Prior to this, was being treated with prednisone, Imuran, Asacol, and Remicade -- discontinued d/t financial restraints - Colonoscopy 01/07/20 demonstrated new, severe, and diffuse inflammation from anus to transverse colon with blood in the sigmoid - Leukocytosis resolved since admission (12.01 --> ~8-10) - Hgb stable between 12- - Medications to aid with flare and pain control: - Solumedrol changed to 30mg IV BID, as above - Continue dicyclomine PRN - new to patient's regimen, says this is helping him greatly - Protonix 40 mg PO twice daily - Continue Carafate suspension - Continue Senokot - As needed Zofran for nausea - Added Trazodone 50mg PO QHS to aid with sleep overnight - reports sleep is helpful with GI symptoms. - GI following, appreciate recs: - Upper endoscopy performed 02/11 for N/V demonstrated erythematous duodenum - Pathology: "acute duodenitis with focal ulceration and mild architectural disarray" and "chronic inactive gastritis" (antrum biopsy) - Continue Solu-Medrol ---> anticipate transition to PO steroid (budesonide vs. prednisone) prior to d/c - Strict monitoring of every BM to monitor for improvement in Crohn's flare - Patient reports more bloody BMs overnight than during the day, with associated abdominal pain. -Will change Solu-Medrol to 30 mg IV BID, and will give 20 mg IV tonight, to aid with nocturnal flares - spoke with GI today (Dr. Cordova) who agrees with the plan - Anticipate continuation of Stelara upon d/c alongside outpatient management; will need regular GI follow-ups, already scheduled for week of 02/19 - Anticipate d/c when able to tolerate PO intake + show significant improvement in diarrhea Diarrhea - Likely Multifactorial: C. diff + Crohn's - Patient reports >1 week of >10 BMs - diarrhea, with blood, in consistency upon admissiond - 02/15: Attempted to quantify stool count, patient subjectively reports >14 in the preceding evening, but no official record; nursing to keep count of volume and count night of 02/15 - While possibly d/t Crohn's, testing for C. diff also demonstrated: C. diff gene (+), toxin (-) - Given severity/frequency of diarrhea, started on vancomycin 125mg PO q6h x 10 days -- continue until 02/22 - Encourage PO hydration -- can consider adding fluids if concern for dehydration / hypokalemia - Cholestyramine attempted, but discontinued by patient due to intolerance - BMP qAM Hypokalemia - Likely caused by GI losses in the setting of frequent BMs - Fluctuating between high 2s - 4.0 on day-by-day analysis - GI: KCl 40mEq PO qAM, given that BMs during night tend to cause decrease on review - Consider additional repletion as needed - BMP qAM Acne -Continue using clindamycin phosphate cream FEN: regular diet DVT PPX: SCDs, ambulation Dispo: MedSur Code Status: Full code (2) Exacerbation of Crohn's disease: (3) Hematochezia: (4) Hypokalemia: (5) Vomiting: Admission and Anticipated Discharge Date Admission Date: February 11, 2020 Supervising Physician Co-Signing Physician Notes Resident Physician Supervision Note: I independently interviewed and examined the patient and verified the franks history and physical, reviewed labs and image studies, discussed the case with the resident Dr. Styles and agree with the findings and care plan. Subjective Patient reports more than 10 small bloody BMs overnight, which has been relatively stable for the last several nights. He reports "inflammation" that is not well-controlled at night and would like to be on more steroids for this. The patient reports that his pain is improved and was well-controlled with Dilaudid 0.25mg x1 overnight. Denies fever/chills, chest pain, SOB, cough, N/V. Review of Systems Review of Systems: Pertinent positives and negatives mentioned in HPI Physical Exam Constitutional: WD/WN, vitals as above Respiratory: normal respiratory effort, lungs clear to auscultation Cardiovascular: RRR, no murmur, no edema Gastrointestinal (Abdomen): normal bowel sounds, soft, nontender, no hepatosplenomegaly Musculoskeletal: no cyanosis or clubbing, extremities motor strength 5/5 Skin: no rashes, warm and dry Psychiatric: A+Ox3, euthymic affect Results & Data Results & Data ([facility]) Vital Signs (Past 12 Hours) Vital Signs Temp Pulse Resp BP Pulse Ox 02/17/20 07:38 36.9 C 18 131/95 97 02/17/20 03:20 37.1 C 100 H 18 132/87 97 Resident Activity Tracking Resident Involvement: Resident Care Provided Care Provided: Adult Hospital Medicine (1) Crohn's disease Digestive disease complication type: unspecified complication Gastrointestinal tract location: unspecified location Qualified Code(s): K50.919 - Crohn's disease, unspecified, with unspecified complications (2) Exacerbation of Crohn's disease Digestive disease complication type: unspecified complication Qualified Code(s): K50.919 - Crohn's disease, unspecified, with unspecified complications (3) Vomiting Nausea presence: unspecified Vomiting Intractability: unspecified Vomiting type: unspecified Qualified Code(s): R11.10 - Vomiting, unspecified
--- NOTE | 2020-02-17 14:36 | Gastroenterology Progress Note ---
Date of Service February 17, 2020 Assessment & Plan (1) C. difficile diarrhea: Crohns rectal bleeding abd pain Seems like he is improved vs admission but on day to day basis is unclear. I wrote an order regarding keeping track of stool volume and frequency and spoke with nurse about it to observe stools directly and have patient save them. The frequency and volume of stool is important to help objectify the clinical response. Continue Solumedrol IV and vanco po. Admission and Anticipated Discharge Date Admission Date: February 11, 2020 Subjective CC diarrhea HPI Pt states he continue to have frequent stools. Only one stool recorded in i/o yesterday and one today. He states sometimes stools formed and sometimes liquid. Still seeing blood in stools. Per nursing eating all of his solid trays. Review of Systems Respiratory: no dyspnea Cardiovascular: no chest pain Physical Exam Constitutional: WD/WN, vitals as above Respiratory: normal respiratory effort, lungs clear to auscultation Cardiovascular: RRR, no murmur, no edema Gastrointestinal (Abdomen): normal bowel sounds, soft, nontender, no hepatosplenomegaly Neurologic: PERRL, EOMI, accommodation nl, no face palsy, no dysarthria Psychiatric: A+Ox3, euthymic affect Results & Data ([facility]) Vital Signs (Past 12 Hours) Vital Signs Temp Pulse Resp BP Pulse Ox 02/17/20 07:38 36.9 C 18 131/95 97 02/17/20 03:20 37.1 C 100 H 18 132/87 97
[2020-02-17] MEDS ORDERED: methylPREDNISolone 20 MG in SYRINGE 0 ML IV ONE (20:00)
[2020-02-17] MEDS: traZODone HCL 50 MG TAB PO SCH (20:27)
[2020-02-18] MEDS: VANCOMYCIN HCL 125 MG/2.5ML SOLN PO SCH ×6 (00:18→23:43)
[2020-02-18] MEDS: RASPBERRY SYRUP 5 ML UDP PO SCH ×6 (00:19→23:43)
[2020-02-18] MEDS: CLINDAMYCIN SCH ×4 (00:19→23:43)
[2020-02-18] MEDS: DICYCLOMINE HCL 20 MG TAB PO PRN (03:02)
[2020-02-18] MEDS ORDERED: RASPBERRY SYRUP 5 ML UDP PO ONE (05:59)
[2020-02-18] MEDS: SUCRALFATE 1 GM/10 ML UDC PO SCH ×4 (08:16→20:33)
[2020-02-18] MEDS: PANTOprazole 40 MG TAB PO SCH ×2 (08:17→21:47)
[2020-02-18] MEDS: methylPREDNISolone 30 MG in SYRINGE 0 ML IV SCH ×2 (08:17→20:33)
[2020-02-18] MEDS: POTASSIUM CHLORIDE CRTAB 20 MEQ TABCR PO SCH (08:17)
[2020-02-18 09:23] LABS: Basophils # (auto) 0.02 K/uL (0-0.2); Basophils % (auto) 0.2 %; Eosinophils # (auto) 0.03 K/uL (0-0.5); Eosinophils % (auto) 0.3 %; Hematocrit (blood only) 35.3 % (42-52); Hemoglobin 12.3 g/dL (14.0-18.0); Immature Granulocytes # (auto) 0.15 K/uL (0.00-0.02); Immature Granulocytes % (auto) 1.3 %; Lymphocytes # (auto) 1.79 K/uL (1.2-3.4); Lymphocytes % (auto) 15.8 %; Mean Corpuscular Hemoglobin 29.7 pg (25-34); Mean Corpuscular Hgb Conc 34.8 g/dL (32-36); Mean Corpuscular Volume 85.3 fL (80-100); Mean Platelet Volume 8.5 fL (7.4-10.4); Monocytes # (auto) 1.29 K/uL (0.11-0.59); Monocytes % (auto) 11.4 %; Neutrophils # (auto) 8.08 K/uL (1.4-6.5); Platelet Count 275 K/uL (130-400); RDW Coefficient of Variation 13.5 % (11.5-14.5); RDW Standard Deviation 41.4 fL (36.4-46.3); Red Blood Count 4.14 M/uL (4.7-6.1); White Blood Count 11.36 K/uL (4.8-10.8)
[2020-02-18 09:49] LABS: Albumin Level 2.8 gm/dl (3.4-5.0); BUN Creatinine Ratio 7.8 (10-20); Calcium 8.7 mg/dl (8.5-10.1); Creatinine Clr Calc Pharmacy 142.3 ml/min; Est GFR (African American) 141.7; Est GFR (Non-African American) 122.2; Potassium 3.3 mmol/L (3.5-5.1)
[2020-02-18 09:51] LABS: Bilirubin,Total 0.8 mg/dl (0.2-1); Globulin 2.7 gm/dl (2.5-4.0); Total Protein 5.5 gm/dl (6.4-8.2)
--- NOTE | 2020-02-18 10:00 | Gastroenterology Progress Note ---
Date of Service February 18, 2020 Assessment & Plan (1) C. difficile diarrhea: Crohn's disease: Continue solu-medrol and supportive measures. Diarrhea and rectal bleeding: Nursing reports continued increased frequency of stools ranging from formed to liquid with noted blood. Plan is flex s igmoidoscopy today. Keep NPO. Fleets enema x 2 one hour prior to procedure. Please refer to supervising physician addendum for further recommendations. (2) Crohn's disease: Admission and Anticipated Discharge Date Admission Date: February 11, 2020 Supervising Physician Co-Signing Physician Notes I have seen and examined the patient. I agree with note above by GRACE Acuna except as noted below. HPI Pt with ongoing diarrhea and bleeding. PE Abdomen pos bs, soft, no guarding nor rebound A/P diarrhea rectal bleeding crohns FS/COLONOSCOPY today. Recommended enema but patient refused. Try to ascertain extent of disease and Cdiff vs crohns. Procedure and risks explained to patient which include but not limited to medication reaction, bleeding, perforation, aspiration, and missed lesions. Subjective Patient awake and alert this morning. States he continue to have frequent stools. Reports 10 yesterday. Reports he is still seeing blood. Reports abdominal pain at night relieved with dilaudid. States he feels steroids BID help with frequency of stools at night. Per nursing eating all of his solid trays. Npo presently anticipating procedure today. Nursing reports 6 bowel mov ements in about a 12 hour period ranging from formed "pebble" to loose/liquid with blood noted. Quantity small to moderate. Review of Systems Review of Systems: All systems reviewed & are unremarkable except as noted in Subjective Physical Exam Constitutional: no acute distress ENMT: Ears: no external ear abnormality Nose: no external nose abnormality Neck: normal visual inspection and trachea midline Respiratory: normal respiratory effort; no respiratory distress and no labored breathing Auscultation: lungs clear to auscultation bilaterally Cardiovascular: Rate/Rhythm: regular rate and regular rhythm Gastrointestinal (Abdomen): Inspection/Auscultation: abdomen normal to inspection and normal bowel sounds; abdomen not distended Percussion/Palpation: + abdomen tender and abdomen soft; no guarding and abdomen not rigid Musculoskeletal: Extremities: extremities normal to inspection Neurologic: PERRL, EOMI, accommodation nl, no face palsy, no dysarthria Psychiatric: Orientation: alert and oriented x 3 Lymphatic: + cervical lymphadenopathy Results & Data ([facility]) Vital Signs (Past 12 Hours) Vital Signs Temp Pulse Resp BP BP Pulse Ox 02/18/20 07:33 36.8 C 100 H 19 136/85 97 02/18/20 05:04 36.8 C 111 H 20 144/84 H 100 02/17/20 23:00 36.6 C 90 20 131/81 97 Laboratory Results - last 24 hr 02/18/20 02/18/20 09:02 09:02 WBC 11.36 H RBC 4.14 L Hgb 12.3 L Hct 35.3 L MCV 85.3 MCH 29.7 MCHC 34.8 RDW Std Deviation 41.4 RDW Coeff of Miguel 13.5 Plt Count 275 MPV 8.5 Immature Gran % (Auto) 1.3 Neut % (Auto) 71.0 Lymph % (Auto) 15.8 Coke % (Auto) 11.4 Eos % (Auto) 0.3 Baso % (Auto) 0.2 Neut # (Auto) 8.08 H Lymph # (Auto) 1.79 Coke # (Auto) 1.29 H Eos # (Auto) 0.03 Baso # (Auto) 0.02 Immature Gran # (Auto) 0.15 H Sodium 137 Potassium 3.3 L Chloride 101 Carbon Dioxide 30 Anion Gap 6.0 BUN 7 Creatinine 0.86 Est Cr Clr Drug Dosing 142.3 Est GFR ( Amer) 141.7 Est GFR (Non-Af Amer) 122.2 BUN/Creatinine Ratio 7.8 L Glucose 97 Calcium 8.7 Total Bilirubin 0.8 AST 13 L ALT 22 Alkaline Phosphatase 53 Total Protein 5.5 L Albumin 2.8 L Globulin 2.7 Albumin/Globulin Ratio 1.0 (1) Crohn's disease Digestive disease complication type: unspecified complication Gastrointestinal tract location: unspecified location Qualified Code(s): K50.919 - Crohn's disease, unspecified, with unspecified complications
[2020-02-18] MEDS ORDERED: SOD PHOSPHATE/SOD BIPHOSPHATE ENEMA 132 ML BTL PR STA ×2 (10:02→10:57)
--- NOTE | 2020-02-18 13:11 | Anesthesiology Consultation ---
Date of Service February 18, 2020 Assessment & Plan Chart Review Chart Review: Acceptable Risk for Surgery and Patient NOT seen in Pre Admission Testing Consults Requested none ASA ASA2 Proposed Anesthesia Anesthesia Type: MAC History Surgery Operation Date: 02/12/20 13:30 Proposed Procedures p Esophagogastroduodenoscopy Dr Art Cordova Operation Date: 02/18/20 16:00 Proposed Procedures p Flexible Sigmoidoscopy Dr Art Cordova Height/Weight Height: 5 ft 11 in Weight: 75.8 kg Allergies Allergy/AdvReac Type Severity Reaction Status Date / Time infliximab [From Remicade] Allergy Intermediate THROAT Verified 02/12/20 12:43 SWELLS Medications Home Medications Medication Instructions Recorded Confirmed Last Taken Medical Marijuana 1 puff INHALATION UD 01/01/20 02/11/20 12/31/19 20:00 prednisone 20 mg tablet 60 mg PO DAILY tab 01/28/20 02/11/20 02/08/20 07:00 20 mg sennosides [Senokot] 8.6 mg PO HS #30 tab 02/05/20 02/11/20 02/07/20 sucralfate [Carafate] 1 g PO ACHS 02/05/20 02/11/20 02/07/20 22:00 clindamycin phosphate 1 applic TOPICAL QAM 02/08/20 02/11/20 02/08/20 dicyclomine 20 mg PO QID PRN #20 tab 02/08/20 02/11/20 Unknown ondansetron 4 mg PO Q6H PRN #20 tab 02/08/20 02/11/20 Unknown pantoprazole 40 mg PO QAM 02/08/20 02/11/20 02/08/20 05:30 ustekinumab [Stelara] 0 mg SUBCUT UD 02/08/20 02/11/20 02/07/20 metoclopramide HCl [Reglan] 10 mg PO Q6H 02/11/20 02/11/20 Unknown Active Medications Generic Name Dose Route Start Last Admin Trade Name Freq PRN Reason Stop Dose Admin Dicyclomine HCl 20 mg 02/11/20 23:56 02/18/20 03:02 Dicyclomine Hcl 20 Mg Tab PO 03/12/20 23:55 20 mg QID PRN Administration abdominal distention Hydromorphone HCl 0.25 mg 02/12/20 19:26 02/17/20 02:29 Hydromorphone Inj 0.5 Mg/0.5 Ml Syr IV 02/26/20 19:25 0.25 mg Q6H PRN Administration Pain Methylprednisolone 30 mg/ 0.48 mls @ 1.5 mls/min 02/18/20 09:00 02/18/20 08:17 Syringe IV 03/19/20 08:59 1.5 mls/min BID MITCH Administration Miscellaneous 1 ea 02/12/20 08:00 02/18/20 07:16 Clindamycin Lotion~Order Awaiting Action N/A 03/13/20 07:59 Not Given QS MITCH Ondansetron HCl 4 mg 02/11/20 21:35 02/17/20 09:14 Ondansetron Inj 2 Mg/Ml 2 Ml Vial IV 03/12/20 21:34 4 mg Q6H PRN Administration Nausea Pantoprazole Sodium 40 mg 02/14/20 21:00 02/18/20 08:17 Pantoprazole 40 Mg Tab PO 03/15/20 20:59 40 mg BID MITCH Administration Potassium Chloride 40 meq 02/15/20 09:30 02/18/20 08:17 Potassium Chloride Crtab 20 Meq Tabcr PO 03/16/20 09:29 Not Given QAM MITCH Raspberry 5 ml 02/13/20 12:00 02/18/20 12:52 Raspberry Syrup 5 Ml Udp PO 02/27/20 11:59 Not Given Q6 MITCH Sucralfate 1 gm 02/12/20 21:00 02/18/20 12:52 Sucralfate 1 Gm/10 Ml Udc PO 03/13/20 20:59 Not Given ACHS MITCH Trazodone HCl 50 mg 02/17/20 21:00 02/17/20 20:27 Trazodone Hcl 50 Mg Tab PO 03/18/20 20:59 50 mg HS MITCH Administration Vancomycin HCl 125 mg 02/13/20 12:00 02/18/20 12:52 Vancomycin Hcl 125 Mg/2.5ml Soln PO 02/23/20 11:59 Not Given Q6 MITCH NPO Date Last Intake of Fluids: 02/18/20 Time Last Intake of Fluids: 08:16 Last Intake of Fluids Comment: Few sips of water with am meds Date Last Intake of Solids: 02/17/20 Time Last Intake of Solids: 19:00 Past Medical History Medical History Anemia Crohn's colitis Headache Orthostasis Orthostatic hypotension Exercise / Class Metabolic Activity II 4-5 Yardwork/Stairs/Walk up hill Past Family History Family History Other Family history non-contributory Past Surgical History Surgical History No pertinent past surgical history Past Anesthesia History No Hx of Anesthesia Complications and No Family Hx of Anesthesia Complications History of PONV No Hx of PONV and No Hx of Motion Sickness Social History Smoking Status: Never smoker tobacco type: e-cigarettes Hx Alcohol Use: No Hx Substance Use: Yes (patient has medical marijuana card.) substance use type: marijuana Substance Use Type Other:: medical marijuana, has card Last Used Substance: Days (ago) Physical Exam Vital Signs Last Vital Signs Temp 36.8 C 02/18/20 07:33 Pulse 100 H 02/18/20 07:33 Resp 19 02/18/20 07:33 BP 136/85 02/18/20 07:33 Pulse Ox 97 02/18/20 07:33 Testing Laboratory Results 02/18/20 09:02 02/18/20 09:02 Urine Color Yellow 02/12/20 06:10 Urine Appearance Clear (Clear) 02/12/20 06:10 Urine pH 6.5 (4.5-7.5) 02/12/20 06:10 Ur Specific Julian 1.015 (1.000-1.030) 02/12/20 06:10 Urine Protein Negative (Negative) 02/12/20 06:10 Urine Glucose (UA) Negative (Negative) 02/12/20 06:10 Urine Ketones Negative (Negative) 02/12/20 06:10 Urine Nitrite Negative (Negative) 02/12/20 06:10 Ur Leukocyte Esterase Negative (Negative) 02/12/20 06:10 02/11/20 16:48 WBC Smear - Final Stool Escherichia coli Shiga Toxins Test - Final Stool Culture - Final No Salmonella isolated, No Shigella isolated, No Campylobacter jejuni isolated. Electrocardiogram Date: 02/02/20 Findings: + SB @ (at 54) Chest X-Ray Date: 02/11/20 Findings: + NAD
[2020-02-18] MEDS ORDERED: ePHEDrine sulfate 50 MG/ML AMP IV PRN (13:22)
[2020-02-18] MEDS ORDERED: ATROPINE SULFATE 0.1 MG/ML 10ML SYR IV PRN (13:22)
[2020-02-18 13:29] LABS: Influenza A virus by PCR Negative (Neg); Influenza B virus by PCR Negative (Neg); RSV by PCR Negative (Neg); SARS CoV2 RNA(COVID-19) InHosp NEGATIVE (Negative)
--- NOTE | 2020-02-18 13:57 | History & Physical Report ---
Date of Service February 18, 2020 Assessment & Plan (1) Crohn's disease: Pt with ongoing diarrhea and rectal bleeding. Planning FS/colonoscopy to determine extent of disease and if disease present to see if can differentiate Cdiff vs crohns. Procedure and risks explained to patient which include but not limited to medication reaction, bleeding, perforation, aspiration, and missed lesions. Digestive disease complication type: unspecified complication Gastrointestinal tract location: unspecified location Qualified Code(s): K50.919 - Crohn's disease, unspecified, with unspecified complications Admission and Anticipated Discharge Date Admission Date: February 11, 2020 History of Present Illness Primary Care Provider: NO PCP Diarrhea and rectal bleeding. For Colonscopy today. Allergies Allergy/AdvReac Type Severity Reaction Status Date / Time infliximab [From Remicade] Allergy Intermediate THROAT Verified 02/12/20 12:43 SWELLS Home Medications Medication Instructions Recorded Confirmed Type Medical Marijuana 1 puff INHALATION UD 01/01/20 02/11/20 History prednisone 20 mg tablet 60 mg PO DAILY tab 01/28/20 02/11/20 History sennosides [Senokot] 8.6 mg PO HS #30 tab 02/05/20 02/11/20 Rx sucralfate [Carafate] 1 g PO ACHS 02/05/20 02/11/20 History clindamycin phosphate 1 applic TOPICAL QAM 02/08/20 02/11/20 History dicyclomine 20 mg PO QID PRN #20 tab 02/08/20 02/11/20 Rx ondansetron 4 mg PO Q6H PRN #20 tab 02/08/20 02/11/20 Rx pantoprazole 40 mg PO QAM 02/08/20 02/11/20 History ustekinumab [Stelara] 0 mg SUBCUT UD 02/08/20 02/11/20 History metoclopramide HCl [Reglan] 10 mg PO Q6H 02/11/20 02/11/20 History Past Med/Surg History Medical History Anemia Crohn's colitis Headache Orthostasis Orthostatic hypotension Surgical History No pertinent past surgical history Family History Other Family history non-contributory Social History Smoking Status: Never smoker Tobacco Type: E-cigarettes / Vaping Second Hand Exposure: No; Hx Alcohol Use: No Hx Substance Use: Yes (patient has medical marijuana card.) Last Used S ubstance: Days (ago) Substance Use Type Other:: medical marijuana, has card Preferred Language: Belarusian Communication Ability: Effective Sales/Marketing Required: No Beliefs That Will Affect Care: None marital status: Single Current Living Situation: Family Current Living Situation Comment: lives with mother and two brothers. Feels Safe at Home: Yes Assistive Devices: Glasses Physical Exam Respiratory: normal respiratory effort, lungs clear to auscultation Cardiovascular: RRR, no murmur, no edema Gastrointestinal (Abdomen): normal bowel sounds, soft, nontender, no hepatosplenomegaly Results & Data ([facility]) Vital Signs (Past 12 Hours) Vital Signs Temp Pulse Resp BP BP Pulse Ox 02/18/20 13:17 36.8 C 93 H 16 132/86 98 02/18/20 07:33 36.8 C 100 H 19 136/85 97 02/18/20 05:04 36.8 C 111 H 20 144/84 H 100 Code Status & VTE Plan VTE Prophylaxis Plan VTE Prophylaxis will be ordered: Yes
[2020-02-18] MEDS ORDERED: PROPOFOL IV EMULSION 10 MG/ML 20 ML VIAL IV ONE (14:20)
--- NOTE | 2020-02-18 14:20 | Anesthesiology Progress Note ---
Date of Service February 18, 2020 Anesthesia Post Procedure Vital Signs Vital Signs: Temp Pulse Resp BP BP Pulse Ox 02/18/20 13:17 36.8 C 93 H 16 132/86 98 02/18/20 07:33 36.8 C 100 H 19 136/85 97 02/18/20 05:04 36.8 C 111 H 20 144/84 H 100 02/17/20 23:00 36.6 C 90 20 131/81 97 02/17/20 15:30 36.6 C 96 H 18 112/74 96 Pain Intensity Abdomen: Pain Intensity: 8 Transfer of Care Handoff Completed per policy Notes Mental Status: alert / awake / arousable Patient Amnestic to Procedure: Yes Nausea / Vomiting: adequately controlled Pain: adequately controlled Airway Patency, RR, SpO2: stable & adequate BP & HR: stable & adequate Hydration State: stable & adequate Anesthetic Complications: no major complications apparent
--- NOTE | 2020-02-18 14:22 | Post Operative Brief Note ---
Immediate Post Op Note v1 Date of Surgery February 18, 2020 Pre & Post Diagnosis Operation Date: 02/18/20 16:00 Pre-Op Diagnosis: CHRONS Post-Op Diagnosis: Sigmoid ulceration History of crohn's, r/o CMV I identified the patient and participated in the time-out.: Yes Procedure Operation Date: 02/18/20 16:00 Actual Procedures p Flexible Sigmoidoscopy Biopsy - Miguel Cordova Surgeon Miguel Cordova Animated Cartoons Painter see formal report Estimated Blood Loss 1 Findings See Below COLO to 35 cm stopped secondary to severity of disease. Severe inflammation with ulcers from anal verge to 35 cm. Sigmoid bx done to evaluate for CMV.
--- NOTE | 2020-02-18 14:31 | GI REPORT ---
Patient Name: Amrik Francis Procedure Date: 02/18/2020 1:52 PM Date of : 1995 Admit Type: Inpatient Age: 24 Gender: Male Attending MD: Miguel Cordova MD Procedure: Flexible Sigmoidoscopy Providers: Miguel Cordova MD Referring MD: Ana Koroma Indications: Rectal hemorrhage, Diarrhea, Crohns disease, Cdifficile colitis Medicines: Propofol per Anesthesia Complications: No immediate complications. Estimated blood loss: Minimal. Estimated Blood Loss: Estimated blood loss was minimal. Procedure: Pre-Anesthesia Assessment: - The risks and benefits of the procedure and the sedation options and risks were discussed with the patient. All questions were answered and informed consent was obtained. - Patient identification and proposed procedure were verified prior to the procedure by the physician, the nurse and the clinical quality assurance specialist. The procedure was verified in the procedure room. After obtaining informed consent, the endoscope was passed under direct vision. Throughout the procedure, the patient's blood pressure, pulse, and oxygen saturations were monitored continuously. The scope was introduced through the anus and advanced to the sigmoid colon at 35 cm. Exam stopped secondary to severity of inflammation. The flexible sigmoidoscopy was accomplished without difficulty. The patient tolerated the procedure well. Procedure and risks explained to patient which include but not limited to med reaction, bleeding, perforation, aspiration and missed lesions. Judicious gas insufflation and gas removal done on the way out. The lumen always well visualized when advancing the scope. Washes and suctioning used as needed for good visuzlization of mucosa. Prep was good. Retroflexion not done in the rectum secondary to severity of disease. Findings: Inflammation characterized by congestion (edema), erythema, friability, granularity, loss of vascularity, pseudopolyps and deep ulcerations was found in a continuous and circumferential pattern from the anus to the sigmoid colon at 35 cm where exam stopped.. No sites were spared. This was severe. Biopsies were taken with a cold forceps for histology from sigmoid colon to rule out CMV. Estimated blood loss was minimal. The exam was otherwise without abnormality. Impression: - Left-sided colitis. Inflammation was found from the anus to the sigmoid colon. This was severe. Biopsied. - The examination was otherwise normal. Recommendation: - Return patient to [facility] for ongoing care. Miguel Cordova M.D. Miguel Cordova MD 02/18/2020 2:30:31 PM This report has been signed electronically. Note Initiated On: 02/18/2020 1:52 PM Number of Addenda: 0 I attest to the content of the Intraoperative Record and orders documented therein, exceptions below {[id number]}
--- NOTE | 2020-02-18 20:09 | Hospitalist Progress Note ---
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 diff diarrhea. He has been hemodynamically stable since admission. Crohn's Disease - Exacerbation - Clinically, patient reports >1 week of abdominal pain, hematochezia, and nausea, requiring 2 other visits to [facility] within the 8 days prior to admission - Prior to his flare in early December, was untreated for nearly 1.5 years. Prior to this, was being treated with prednisone, Imuran, Asacol, and Remicade -- discontinued d/t financial restraints - Colonoscopy 01/07/20 demonstrated new, severe, and diffuse inflammation from anus to transverse colon with blood in the sigmoid (see results of sigmoidoscopy 02/17 below) - With mild leukocytosis at 11.36 on 02/17 (admission was 12+) ; continue to monitor, on steroids and C. diff treatment - Hgb continues to be slightly low, but stable between - - Patient reports more bloody BMs overnight than during the day, with associated abdominal pain - Medications to aid with flare and pain control: - Solu Medrol changed to 30mg IV BID -- patient reports significant relief when he does receive 30 mg dose at night - Continue dicyclomine PRN - new to patient's regimen, says this is helping him greatly - Protonix 40 mg PO twice daily - Continue Carafate suspension - Continue Senokot - As needed Zofran for nausea - Trazodone 50mg PO qHS to aid with sleep overnight - GI following, appreciate recs: - Upper endoscopy performed 02/11 for N/V demonstrated erythematous duodenum - Pathology: "acute duodenitis with focal ulceration and mild architectural disarray" and "chronic inactive gastritis" (antrum biopsy) - Continue Solu-Medrol (+see below, Diarrhea) --> anticipate transition to PO steroid (budesonide vs. prednisone) prior to d/c - Sigmoidoscopy performed 02/17 demonstrated significant and severe left- sided colitis - Dietary following, appreciate recs: - 12/21: Given severe colitis, recommended initiating low-fiber diet, as this has been found to be effective in Crohn's flare ; initiated - Anticipate continuation of Stelara upon d/c alongside outpatient management; will need regular GI follow-ups, already scheduled for week of 02/19 - Anticipate d/c when able to tolerate PO intake + show significant improvement in diarrhea - CBC qAM Diarrhea - Likely Multifactorial: C. diff + Crohn's - Patient reports >1 week of >10 BMs - diarrhea, with blood, in consistency upon admission - While possibly d/t Crohn's, testing for C. diff also demonstrated: C. diff gene (+), toxin (-) - Given severity/frequency of diarrhea, started on vancomycin 125mg PO q6h x 10 days -- continue until 02/22 - Encourage PO hydration -- can consider adding fluids if concern for dehydration / hypokalemia - Cholestyramine attempted, but discontinued by patient due to intolerance - Subjectively, patient is reporting improvement -- but still frequent BMs, especially at night. Attempt to quantify with strict stool counts with volumes. - BMP qAM Hypokalemia - Likely caused by GI losses in the setting of frequent BMs - Fluctuating between high 2s - 4.0 on day-by-day analysis - GI: KCl 40mEq PO qAM, given that BMs during night tend to cause decrease on review - Consider additional repletion as needed - BMP qAM Acne -Continue using clindamycin phosphate cream FEN: regular diet DVT PPX: SCDs, ambulation Dispo: MedSur Code Status: Full code (2) Exacerbation of Crohn's disease: (3) Hematochezia: (4) Hypokalemia: (5) Vomiting: Admission and Anticipated Discharge Date Admission Date: February 11, 2020 Supervising Physician Co-Signing Physician Notes Resident Physician Supervision Note: I independently interviewed and examined the patient and verified the franks histor y and physical, reviewed labs and image studies, discussed the case with the resident Dr. Hernandez and agree with the findings and care plan. Subjective No acute changes overnight. At the bedside this morning, patient reports feeling "80% back to where he wants to be". Still says that he is having frequent bowel movements at night, sometimes associated with blood. He thinks he had approximately 5-7 last night. He also reports that the nighttime steroids helped him significantly. Reports a good appetite this morning. No nausea or vomiting. No chest pain, palpitations, or shortness of breath. Eager to proceed with a flex sig today. Review of Systems Review of Systems: As per HPI Physical Exam Constitutional: Tired appearing 24-year-old male who is lying back in his hospital bed, looking at the window upon my arrival. He is fully alert and oriented throughout her discussion and makes good eye contact. No acute distress. Eyes: No scleral icterus, no conjunctival injection. Respiratory: Good respiratory effort with symmetric expansion of the chest. Lungs are clear to auscultation bilaterally without crackles or wheezes. Cardiovascular: Normal rate and regular rhythm. S1 and S2 are present without murmurs rubs or gallops. Gastrointestinal (Abdomen): Normal active bowel sounds. Abdomen is soft and nondistended. Continues to be somewhat tender to palpation across all quadrants, unchanged from previous exam. No rebound or guarding. Results & Data Results & Data ([facility]) Vital Signs (Past 12 Hours) Vital Signs Temp Pulse Resp BP BP Pulse Ox 02/18/20 17:45 36.7 C 95 H 16 133/86 96 02/18/20 16:18 36.8 C 82 16 146/84 H 100 02/18/20 15:38 37.2 C 88 16 144/88 H 98 02/18/20 14:48 80 16 141/89 H 95 02/18/20 14:33 73 16 104/63 97 02/18/20 14:18 99 H 16 120/81 100 02/18/20 13:17 36.8 C 93 H 16 132/86 98 Resident Activity Tracking Resident Involvement: Resident Care Provided Care Provided: Adult Hospital Medicine (1) Crohn's disease Digestive disease complication type: unspecified complication Gastrointestinal tract location: unspecified location Qualified Code(s): K50.919 - Crohn's disease, unspecified, with unspecified complications (2) Exacerbation of Crohn's disease Digestive disease complication type: unspecified complication Qualified Code(s): K50.919 - Crohn's disease, unspecified, with unspecified complications (3) Vomiting Nausea presence: unspecified Vomiting Intractability: unspecified Vomiting type: unspecified Qualified Code(s): R11.10 - Vomiting, unspecified
[2020-02-18] MEDS: traZODone HCL 50 MG TAB PO SCH (21:47)
[2020-02-19] MEDS: RASPBERRY SYRUP 5 ML UDP PO SCH ×4 (05:54→23:34)
[2020-02-19] MEDS: VANCOMYCIN HCL 125 MG/2.5ML SOLN PO SCH ×4 (05:54→23:34)
[2020-02-19] MEDS: DICYCLOMINE HCL 20 MG TAB PO PRN (05:54)
[2020-02-19] MEDS: SUCRALFATE 1 GM/10 ML UDC PO SCH ×4 (07:32→20:40)
[2020-02-19] MEDS: CLINDAMYCIN SCH ×3 (07:43→23:34)
--- NOTE | 2020-02-19 08:14 | Hospitalist Progress Note ---
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 diff diarrhea. He has been hemodynamically stable since admission. Crohn's Disease - Exacerbation - Clinically, patient reports >1 week of abdominal pain, hematochezia, and nausea, requiring 2 other visits to [facility] within the 8 days prior to admission - Prior to his flare in early December, was untreated for nearly 1.5 years. Prior to this, was being treated with prednisone, Imuran, Asacol, and Remicade -- discontinued d/t financial restraints - Colonoscopy 01/07/20 demonstrated new, severe, and diffuse inflammation from anus to transverse colon with blood in the sigmoid (see results of sigmoidoscopy 02/17 below) - With mild leukocytosis at 11.36 on 02/17 (admission was 12+) ; continue to monitor, on steroids and C. diff treatment - Hgb continues to be slightly low, but stable between - - Patient reports more bloody BMs overnight than during the day, with associated abdominal pain - Medications to aid with flare and pain control: - Solu Medrol changed to 30mg IV BID -- patient reports significant relief when he does receive 30 mg dose at night - Continue dicyclomine PRN - new to patient's regimen, says this is helping him greatly - Protonix 40 mg PO twice daily - Continue Carafate suspension - Continue Senokot - As needed Zofran for nausea - Trazodone 50mg PO qHS to aid with sleep overnight -- patient reports this is helping him greatly, continue as prescribed (consider as outpatient too) - GI following, appreciate recs: - Upper endoscopy performed 02/11 for N/V demonstrated erythematous duodenum - Pathology: "acute duodenitis with focal ulceration and mild architectural disarray" and "chronic inactive gastritis" (antrum biopsy) - Continue Solu-Medrol (+see below, Diarrhea) --> anticipate transition to PO steroid (budesonide vs. prednisone) prior to d/c - Sigmoidoscopy performed 02/17 demonstrated significant and severe left- sided colitis. - Awaiting pathology results, r/o CMV - Dietary following, appreciate recs: - 02/18: Discussed recommendations from RD regarding low fiber diet in individual's with Crohn's flare. After discussion, he would not like dietary restrictions. He is aware that the diet change may help and will attempt to select foods that are low-diet through a regular diet. Recommended continued conversations with RD to aid with food planning / selections - Anticipate continuation of Stelara upon d/c alongside outpatient management; will need regular GI follow-ups, already scheduled for week of 02/19 - Anticipate d/c when able to tolerate PO intake + show significant improvement in diarrhea - CBC qAM Diarrhea - Likely Multifactorial: C. diff + Crohn's - Patient reports >1 week of >10 BMs - diarrhea, with blood, in consistency upon admission - While possibly d/t Crohn's, testing for C. diff also demonstrated: C. diff gene (+), toxin (-) - Given severity/frequency of diarrhea, started on vancomycin 125mg PO q6h x 10 days -- continue until 02/22 - Encourage PO hydration -- can consider adding fluids if concern for dehydration / hypokalemia - Cholestyramine attempted, but discontinued by patient due to intolerance - Subjectively, patient is reporting improvement -- but still frequent BMs, especially at night. Patient working with nursing to quantify stool count and volume. - 02/17 - 02/18 (PM-AM): Total of 4 recorded BMs throughout afternoon and into the night. - BMP qAM Hypokalemia - Likely caused by GI losses in the setting of frequent BMs - Fluctuating between high 2s - 4.0 on day-by-day analysis - GI: KCl 40mEq PO qAM, given that BMs during night tend to cause decrease on review - Consider additional repletion versus discontinuation of KCl PO as needed - BMP qAM Acne -Continue using clindamycin phosphate cream FEN: regular diet (with lactose limitation); continue working with RD, as above. Appreciate recommendations. DVT PPX: SCDs, ambulation Dispo: MedSurg Code Status: Full code (2) Exacerbation of Crohn's disease: (3) Hematochezia: (4) Hypokalemia: (5) Vomiting: Admission and Anticipated Discharge Date Admission Date: February 11, 2020 Supervising Physician Co-Signing Physician Notes Resident Physician Supervision Note: I independently interviewed and examined the patient and verified the franks history and physical, reviewed labs and image studies, discussed the case with the resident Dr. Hernandez and agree with the findings and care plan. Subjective No acute events overnight. At the bedside this morning, patient reports feeling well overall. Did say that he learned of the sigmoidoscopy results demonstrating inflammation and did attempt to rule out CMV. He has been working with the nursing staff on his 4 to count and measure stool output in the volume. On review of records this morning, he does demonstrate that he had approximately 4 bowel movements from 1545 to 07 35 this morning. Says that they continued to be intermixed with loose and formed stool. Mild blood continues. This morning, he does report that he would not like any dietary restrictions. He reports that he knows the foods that work best for him in his system. Does endorse a good appetite this morning, looking forward to breakfast. No nausea or vomiting. No abdominal pain since yesterday. No chest pain, palpitations, shortness of breath, no fevers or chills overnight. Review of Systems Review of Systems: As per HPI Physical Exam Constitutional: Patient just returning from the bathroom upon my arrival. Throughout our conversation he is alert and oriented, fully conversive and making good eye contact. No acute distress. Eyes: No scleral icterus. No conjunctival injection. Respiratory: Good respiratory effort with symmetric expansion of the chest. Lungs are clear to auscultation bilaterally without crackles or wheezes. Cardiovascular: Normal rate and regular rhythm. S1 and S2 are present without murmurs rubs or gallops. Gastrointestinal (Abdomen): Normoactive bowel sounds. Abdomen is soft, nontender, nondistended to palpation. Compared to previous exams, patient did not note any tenderness today, but at the same time as not prompted. No rebound or guarding. Results & Data Results & Data ([facility]) Vital Signs (Past 12 Hours) Vital Signs Temp Pulse Resp BP BP Pulse Ox 02/19/20 07:10 36.6 C 96 H 18 148/88 H 98 02/19/20 03:04 36.6 C 95 H 16 126/76 96 02/18/20 23:01 36.8 C 117 H 16 115/72 97 02/18/20 20:19 36.7 C 105 H 17 154/83 H 99 (1) Crohn's disease Digestive disease complication type: unspecified complication Gastrointestinal tract location: unspecified location Qualified Code(s): K50.919 - Crohn's disease, unspecified, with unspecified complications (2) Exacerbation of Crohn's disease Digestive disease complication type: unspecified complication Qualified Code(s): K50.919 - Crohn's disease, unspecified, with unspecified complications (3) Vomiting Nausea presence: unspecified Vomiting Intractability: unspecified Vomiting type: unspecified Qualified Code(s): R11.10 - Vomiting, unspecified
[2020-02-19] MEDS: methylPREDNISolone 30 MG in SYRINGE 0 ML IV SCH (08:18)
[2020-02-19] MEDS: PANTOprazole 40 MG TAB PO SCH ×2 (08:18→20:40)
[2020-02-19] MEDS: POTASSIUM CHLORIDE CRTAB 20 MEQ TABCR PO SCH (08:22)
[2020-02-19 08:40] LABS: Basophils # (auto) 0.01 K/uL (0-0.2); Basophils % (auto) 0.1 %; Eosinophils # (auto) 0.02 K/uL (0-0.5); Eosinophils % (auto) 0.2 %; Hemoglobin 12.5 g/dL (14.0-18.0); Immature Granulocytes # (auto) 0.14 K/uL (0.00-0.02); Immature Granulocytes % (auto) 1.2 %; Mean Corpuscular Hemoglobin 30.2 pg (25-34); Mean Corpuscular Hgb Conc 35.7 g/dL (32-36); Mean Corpuscular Volume 84.5 fL (80-100); Mean Platelet Volume 8.5 fL (7.4-10.4); Monocytes # (auto) 1.46 K/uL (0.11-0.59); Monocytes % (auto) 12.4 %; Neutrophils # (auto) 8.12 K/uL (1.4-6.5); Neutrophils % (auto) 69.1 %; Platelet Count 302 K/uL (130-400); RDW Coefficient of Variation 13.4 % (11.5-14.5); RDW Standard Deviation 40.7 fL (36.4-46.3); Red Blood Count 4.14 M/uL (4.7-6.1); White Blood Count 11.75 K/uL (4.8-10.8)
[2020-02-19 09:07] LABS: Albumin Level 2.8 gm/dl (3.4-5.0); BUN Creatinine Ratio 10.7 (10-20); Calcium 8.9 mg/dl (8.5-10.1); Est GFR (African American) 145.9; Est GFR (Non-African American) 125.9; Potassium 3.1 mmol/L (3.5-5.1)
[2020-02-19 09:10] LABS: Bilirubin,Total 0.9 mg/dl (0.2-1); Globulin 2.8 gm/dl (2.5-4.0); Total Protein 5.6 gm/dl (6.4-8.2)
--- NOTE | 2020-02-19 10:28 | Gastroenterology Progress Note ---
Date of Service February 19, 2020 Assessment & Plan (1) C. difficile diarrhea: Crohn's disease: Discontinue Solu-Medrol BID and transition to po prednisone 40 mg q am and continue supportive measures. Flex sig demonstrated left-sided colitis. Inflammation was found from the anus to the sigmoid colon. This was severe. Biopsied. CMV pending. Diarrhea and rectal bleeding: Nursing reports continued frequent stools ranging from loose to formed with noted blood. Complete vancomycin. Please refer to supervising physician addendum for further recommendations. (2) Crohn's disease: Admission and Anticipated Discharge Date Admission Date: February 11, 2020 Subjective Patient awake and alert this morning. Eating breakfast. Unhappy that diet was changed to lactose free low fiber. Demanding diet returned to regular. Reports frequency of stools has been less. Estimates 8 yesterday. Decreased blood in stool. Reports consistency of pudding mostly. Some solid stool. Has not required Dilaudid the last two nights. Did use bentyl this morning with good relief of pain. States he feels steroids BID help with frequency of stools at night. Flexible sigmoidoscopy performed by Dr. Cordova 02/18/2020 demonstrated inflammation characterized by congestion (edema), erythema, friability, granularity, loss of vascularity, pseudopolyps and deep ulcerations was found in a continuous and circumferential pattern from the anus to the sigmoid colon at 35 cm where exam stopped. No sites were spared. This was severe. Biopsies were taken with a cold forceps for histology from sigmoid colon to rule out CMV. Estimated blood loss was minimal. The exam was otherwise without abnormality. Review of Systems Review of Systems: All systems reviewed & are unremarkable except as noted in Subjective Physical Exam Constitutional: no acute distress ENMT: Ears: no external ear abnormality Nose: no external nose abnormality Neck: normal visual inspection and trachea midline Respiratory: normal respiratory effort; no respiratory distress and no labored breathing Auscultation: lungs clear to auscultation bilaterally Cardiovascular: Rate/Rhythm: regular rate and regular rhythm Gastrointestinal (Abdomen): Inspection/Auscultation: abdomen normal to inspection and normal bowel sounds; abdomen not distended Percussion/Palpation: + abdomen tender and abdomen soft; no guarding and abdomen not rigid Musculoskeletal: Extremities: extremities normal to inspection Neurologic: PERRL, EOMI, accommodation nl, no face palsy, no dysarthria Psychiatric: Orientation: alert and oriented x 3 Results & Data ([facility]) Vital Signs (Past 12 Hours) Vital Signs Temp Pulse Resp BP BP Pulse Ox 02/19/20 07:10 36.6 C 96 H 18 148/88 H 98 02/19/20 03:04 36.6 C 95 H 16 126/76 96 02/18/20 23:01 36.8 C 117 H 16 115/72 97 Abnormal lab results 02/19/20 02/19/20 Range/Units 08:07 08:07 WBC 11.75 H (4.8-10.8) K/uL RBC 4.14 L (4.7-6.1) M/uL Hgb 12.5 L (14.0-18.0) g/dL Hct 35.0 L (42-52) % Neut # (Auto) 8.12 H (1.4-6.5) K/uL [place] # (Auto) 1.46 H (0.11-0.59) K/uL Immature Gran # (Auto) 0.14 H (0.00-0.02) K/uL Potassium 3.1 L (3.5-5.1) mmol/L AST 12 L (15-37) U/L Total Protein 5.6 L (6.4-8.2) gm/dl Albumin 2.8 L (3.4-5.0) gm/dl (1) Crohn's disease Digestive disease complication type: unspecified complication Gastrointestinal tract location: unspecified location Qualified Code(s): K5 0.919 - Crohn's disease, unspecified, with unspecified complications
[2020-02-19] MEDS: traZODone HCL 50 MG TAB PO SCH ×3 (22:13→23:24)
[2020-02-19] MEDS: ONDANSETRON INJ 2 MG/ML 2 ML VIAL IV PRN (23:06)
[2020-02-20] MEDS ORDERED: INFLUENZA ADMINISTRATION CHARGE ONE (01:45)
[2020-02-20] MEDS: HYDROmorphone INJ 0.5 MG/0.5 ML SYR IV PRN ×2 (01:57→08:39)
[2020-02-20] MEDS: DICYCLOMINE HCL 20 MG TAB PO PRN (02:58)
[2020-02-20] MEDS: RASPBERRY SYRUP 5 ML UDP PO SCH ×3 (06:26→18:03)
[2020-02-20] MEDS: VANCOMYCIN HCL 125 MG/2.5ML SOLN PO SCH ×3 (06:26→18:03)
[2020-02-20 07:17] LABS: Basophils # (auto) 0.01 K/uL (0-0.2); Basophils % (auto) 0.1 %; Eosinophils # (auto) 0.08 K/uL (0-0.5); Eosinophils % (auto) 0.7 %; Hematocrit (blood only) 35.3 % (42-52); Hemoglobin 12.4 g/dL (14.0-18.0); Immature Granulocytes # (auto) 0.11 K/uL (0.00-0.02); Lymphocytes # (auto) 1.71 K/uL (1.2-3.4); Mean Corpuscular Hemoglobin 29.8 pg (25-34); Mean Corpuscular Hgb Conc 35.1 g/dL (32-36); Mean Corpuscular Volume 84.9 fL (80-100); Mean Platelet Volume 8.2 fL (7.4-10.4); Monocytes # (auto) 0.74 K/uL (0.11-0.59); Monocytes % (auto) 6.5 %; Neutrophils # (auto) 8.74 K/uL (1.4-6.5); Neutrophils % (auto) 76.7 %; Platelet Count 275 K/uL (130-400); RDW Coefficient of Variation 13.4 % (11.5-14.5); Red Blood Count 4.16 M/uL (4.7-6.1); White Blood Count 11.39 K/uL (4.8-10.8)
[2020-02-20 07:50] LABS: Albumin Level 2.6 gm/dl (3.4-5.0); Bilirubin,Total 0.8 mg/dl (0.2-1); Calcium 8.3 mg/dl (8.5-10.1); Creatinine Clr Calc Pharmacy 147.4 ml/min; Est GFR (African American) 143.7; Globulin 2.7 gm/dl (2.5-4.0); Potassium 2.6 mmol/L (3.5-5.1); Total Protein 5.3 gm/dl (6.4-8.2)
[2020-02-20] MEDS: SUCRALFATE 1 GM/10 ML UDC PO SCH ×4 (07:50→20:00)
[2020-02-20] MEDS: PANTOprazole 40 MG TAB PO SCH ×2 (08:42→20:51)
[2020-02-20] MEDS: predniSONE 20 MG TAB PO SCH ×2 (08:42→10:11)
[2020-02-20] MEDS: POTASSIUM CHLORIDE CRTAB 20 MEQ TABCR PO SCH ×3 (08:42→12:14)
--- NOTE | 2020-02-20 10:43 | Gastroenterology Progress Note ---
Date of Service February 20, 2020 Assessment & Plan (1) C. difficile diarrhea: Crohn's disease: Kr[place]a initial infusion 02/07/2020. Currently on po prednisone 40 mg q am. Continue supportive measures. Flex sig demonstrated left-sided colitis. Inflammation was found from the anus to the sigmoid colon. This was severe. Biopsied. 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 Would recommend medical transfer to [facility] and consult ID and GI. Diarrhea and rectal bleeding: Nursing reports continued frequent stools ranging from loose to formed with noted blood. Complete vancomycin for + c.diff. Please refer to supervising physician addendum for further recommendations. (2) Crohn's disease: Admission and Anticipated Discharge Date Admission Date: February 11, 2020 Subjective Patient declined evaluation this morning. Spoke to nursing. Eating breakfast. Reports frequency of stools increased. Continued blood in stool. Reports consistency of pudding mostly. Some solid stool. Required Dilaudid the last night. Upset that IV steroids BID were changed to po prednisone as he felt the IV helped with frequency of stools at night. Flexible sigmoidoscopy performed by Dr. Cordova 02/18/2020 demonstrated inflammation characterized by congestion (edema), erythema, friability, granularity, loss of vascularity, pseudopolyps and deep ulcerations was found in a continuous and circumferential pattern from the anus to the sigmoid colon at 35 cm where exam stopped. No sites were spared. This was severe. Biopsies were taken with a cold forceps for histology from sigmoid colon to rule out CMV. Estimated blood loss was minimal. The exam was otherwise without abnormality. 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 Then decrease to Valganciclovir to once a week for another 1-3 months with improved symptoms negative titers for two consecutive weeks. Results & Data ([facility]) Vital Signs (Past 12 Hours) Vital Signs Temp Pulse Resp BP BP Pulse Ox 02/20/20 08:51 37.2 C 120 H 18 132/83 94 02/19/20 23:49 36.8 C 96 H 16 128/85 96 Abnormal Lab Results 02/20/20 02/20/20 06:50 06:50 WBC 11.39 H RBC 4.16 L Hgb 12.4 L Hct 35.3 L MCV 84.9 MCH 29.8 MCHC 35.1 RDW Std Deviation 41.0 RDW Coeff of Miguel 13.4 Plt Count 275 MPV 8.2 Immature Gran % (Auto) 1.0 Neut % (Auto) 76.7 Lymph % (Auto) 15.0 [place] % (Auto) 6.5 Eos % (Auto) 0.7 Baso % (Auto) 0.1 Neut # (Auto) 8.74 H Lymph # (Auto) 1.71 [place] # (Auto) 0.74 H Eos # (Auto) 0.08 Baso # (Auto) 0.01 Immature Gran # (Auto) 0.11 H Sodium 139 Potassium 2.6 L D Chloride 102 Carbon Dioxide 29 Anion Gap 8.0 BUN 8 Creatinine 0.83 Est Cr Clr Drug Dosing 147.4 Est GFR ( Amer) 143.7 Est GFR (Non-Af Amer) 124.0 BUN/Creatinine Ratio 10.0 Glucose 105 H Calcium 8.3 L Total Bilirubin 0.8 AST 13 L ALT 30 Alkaline Phosphatase 56 Total Protein 5.3 L Albumin 2.6 L Globulin 2.7 Albumin/Globulin Ratio 1.0 (1) Crohn's disease Digestive disease complication type: unspecified complication Gastrointestinal tract location: unspecified location Qualified Code(s): K50.919 - Crohn's disease, unspecified, with unspecified complications
--- NOTE | 2020-02-20 18:01 | Hospitalist Progress Note ---
Date of Service February 20, 2020 Assessment & Plan (1) Exacerbation of Crohn's disease: Amrik is a 24-year-old male with a notable history of Crohn's disease who presents today for evaluation of ongoing hematochezia, abdominal pain, and nausea for >1 week on admission, continuing despite >2 weeks of steroids, consistent with a refractory Crohn's exacerbation. 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 Hemodynamically stable. Crohn's Flare, Refractory to Treatment - Exacerbation - Clinically, patient reports >1 week of abdominal pain, hematochezia, and nausea, requiring 2 other visits to [facility] within the 8 days prior to admission - Prior to his flare in early December, was untreated for nearly 1.5 years. Prior to this, was being treated with prednisone, Imuran, Asacol, and Remicade -- discontinued d/t financial restraints - Colonoscopy 01/07/20 demonstrated new, severe, and diffuse inflammation from anus to transverse colon with blood in the sigmoid (see results of sigmoidoscopy 02/17 below) - With mild leukocytosis at 11.36 on 02/17 (admission was 12+) ; continue to monitor, on steroids and C. diff treatment - Hgb continues to be slightly low, but stable between - - Patient reports more bloody BMs overnight than during the day, with associated abdominal pain -- does seem to resolve with PM steroids - Medications to aid with flare and pain control: - Prednisone 40mg PO daily (transitioned from Solu Medrol 60mg IV daily -- will receive one-time 15mg dose evening of 02/19 as above) - Continue dicyclomine PRN - new to patient's regimen, says this is helping him greatly - Protonix 40 mg PO twice daily - Continue Carafate suspension - Continue Senokot - As needed Zofran for nausea - Trazodone 50mg PO qHS to aid with sleep overnight -- patient reports this is helping him greatly, continue as prescribed (consider as outpatient too) - GI following, appreciate recs: - Upper endoscopy performed 02/11 for N/V demonstrated erythematous duodenum - Pathology: "acute duodenitis with focal ulceration and mild architectural disarray" and "chronic inactive gastritis" (antrum biopsy) - Continue Solu-Medrol (+see below, Diarrhea) --> anticipate transition to PO steroid (budesonide vs. prednisone) prior to d/c - Sigmoidoscopy performed 02/17 demonstrated significant and severe left- sided colitis. 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 After discussion, he would not like dietary restrictions. He is aware that the diet change may help and will attempt to select foods that are low-diet through a regular diet. 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 on 02/19 PM - Renal function stable throughout stay - Transfer to [facility] for ID and further GI/colorectal management -- awaiting bed, transfer approved. Diarrhea - Likely Multifactorial: C. diff + Crohn's + Contribution from CMV - Patient reports >1 week of >10 BMs - diarrhea, with blood, in consistency upon admission - While possibly d/t Crohn's, testing for C. diff also demonstrated: C. diff gene (+), toxin (-) - Given severity/frequency of diarrhea, started on vancomycin 125mg PO q6h x 10 days -- continue until 02/22 - Encourage PO hydration -- can consider adding fluids if concern for dehydration / hypokalemia - Cholestyramine attempted, but discontinued by patient due to intolerance - Subjectively, patient is reporting improvement -- but still frequent BMs, especially at night. Patient working with nursing to quantify stool count and volume. - 02/17 - 02/18 (PM-AM): Total of 4 recorded BMs throughout afternoon and into the night. - BMP qAM Hypokalemia - Likely caused by GI losses in the setting of frequent BMs - Fluctuating between high 2s - 4.0 on day-by-day analysis - GI: KCl 40mEq PO qAM, given that BMs during night tend to cause decrease on review - Consider additional repletion versus discontinuation of KCl PO as needed - BMP qAM Acne -Continue using clindamycin phosphate cream FEN: regular diet (with lactose limitation); continue working with RD, as above. Appreciate recommendations. DVT PPX: SCDs, ambulation Dispo: MedSurg Code Status: Full code (2) Hematochezia: (3) Hypokalemia: (4) Vomiting: Admission and Anticipated Discharge Date Admission Date: February 11, 2020 Supervising Physician Co-Signing Physician Notes I personally examined the patient and verified all franks points of history and exam, discussed case, and agree with decision making with Dr Hernandez feeling about the same vitals noted nad heent nc at mmm breathing unlabored no accessory muscles good effort skin no rashes no pallor or icterus crohn's flare - (+) CMV. start antivirals. transfer to facility with in house ID coverage for assist. otherwise as above Subjective Patient reports significantly more bowel movements last night consisting of loose stools intermixed with blood. He attributes this to the change of schedule with his steroids as well as its administration method, i.e. IV to p.o. This morning, him in the eye discussed the pathogenesis and immune response of Crohn's, and the role of steroids in his treatment. We also discussed the role of IV steroids as well as p.o. steroids. In this discussion, we also touched on CMV and increased risk he is at given his Crohn's disease as well as frequent use of steroids as a management tool, which are appropriate. Questions and concerns were addressed. Overall, he notes that his appetite has been okay. He is looking forward to finishing his breakfast. Denies any nausea or vomiting. Says that this is improved greatly since prior. Overall, he says that he is about 70 to 75% back to where he wants to be. He has been extremely helpful in providing insight, and recommendations, as well as participating in treatment. We further discussed that his pathology for CMV returned positive. After discussing later on with his team, we decided that it would be most appropriate to transfer to [facility] or [place] for continuation of care, as these tertiary care facilities have in-house infectious disease specialist as well as GI/colorectal/continued hospitalist care. He is amenable to transfer. Review of Systems Review of Systems: As per HPI Physical Exam Constitutional: Somewhat tired but well-appearing 24-year-old gentleman who is lying back in his hospital bed, awake upon my arrival. He is finished about 75% of his breakfast. He is freely conversive, alert, and oriented throughout her discussion, in no acute distress. Respiratory: Good respiratory effort with symmetric expansion of the chest. Lungs are clear to auscultation bilaterally without any crackles or wheezes. No conversational dyspnea. Cardiovascular: Normal rate and regular rhythm. S1 and S2 are present without murmurs rubs or gallops. Gastrointestinal (Abdomen): Normoactive bowel sounds. Abdomen is soft, nontender, nondistended to palpation. No rebound or guarding. Results & Data Results & Data ([facility]) Vital Signs (Past 12 Hours) Vital Signs Temp Pulse Resp BP Pulse Ox 02/20/20 15:05 37.2 C 114 H 18 108/73 97 02/20/20 08:51 37.2 C 120 H 18 132/83 94 Resident Activity Tracking Resident Involvement: Resident Care Provided Care Provided: Adult Hospital Medicine (1) Exacerbation of Crohn's disease Digestive disease complication type: unspecified complication Qualified Code(s): K50.919 - Crohn's disease, unspecified, with unspecified complications (2) Vomiting Nausea presence: unspecified Vomiting Intractability: unspecified Vomiting type: unspecified Qualified Code(s): R11.10 - Vomiting, unspecified
--- NOTE | 2020-02-20 18:17 | Billing Data ---
Date of Service February 20, 2020 Coding Level of Care Code 80555 Subseq Hosp Care Lvl 3
[2020-02-20] MEDS ORDERED: valACYclovir HCL 500 MG TABLET PO ONE ×2 (19:29→19:45)
--- NOTE | 2020-02-20 19:44 | Discharge Summary ---
Date of Service February 20, 2020 Admission HPI Per Admitting Provider Patient is a 24-year-old male with a past medical history of orthostatic hypotension and Crohn's disease who presents for the third time in a little over a week for evaluation of ongoing bloody diarrhea, abdominal cramping, nausea. Patient has a history of Crohn's disease which went untreated for over a year and a half into the beginning of December. At that time he had a flare which prompted hospitalization and to establish care of [facility]. He was started on Reglan, Senokot, pantoprazole, prednisone, and Carafate. He was seen in the emergency department approximately 2 weeks ago for similar complaint, followed up in the GI office on 02/06 and received his first dose of Stelara. Unfortunate the patient was still experiencing significant discomfort and represented to the emergency room on 02/07. He was given IV hydration and his potassium was repleted, and his stool was assessed demonstrating malena blood as well. Dr. Tinoco was alerted, and recommended discontinuing Reglan, starting Imodium at bedtime, and Zofran and dicyclomine for symptomatic relief as well as a low fiber diet. The patient was subsequently discharged. The following day without any identifiable trigger he began to become symptomatic again starting with hematochezia, progressing to pain with bowel movements, and eventually abdominal pain and cramping with associated nausea. The symptoms continued through the weekend up until the patient's presentation today. The patient reported the symptoms and an episode of malena bloody diarrhea prior to arrival. In the emergency department the patient is endorsing intermittent abdominal pain and cramping with some nausea, otherwise he is asymptomatic. He denies a recent history of shortness of breath, chest pressure, chest pain, significant weight loss, fever, chills, other concerning constitutional symptoms On presentation to the emergency department routine labs were performed, CBC demonstrated a white count of 12.92 with a neutrophil predominance, Chem-7 demon strated hypokalemia of 3.1 and a slightly elevated glucose to 124, liver function studies were within normal limits, bilirubin was a touch elevated at 1.3. Covid antigen test is negative. Abdominal x-ray was negative and a stool smear was obtained. Given the patient's repeated presentation with similar complaints, significant pain and malaise he will be admitted for further evaluation management of his Crohn's flare. Primary Care Provider: NO PCP Admission Exam Per Admitting Provider General: In no acute distress HEENT: Normocephalic atraumatic Neck: Normal to visual inspection Cardiac: Regular rate and rhythm I did not appreciate any significant murmurs rubs or gallops, normal S1, normal S2, negative pedal edema, negative calf tenderness Respiratory: Symmetrical chest expansion bilaterally I did not appreciate significant wheezes, rales, rhonchi, no increased work of breathing GI: Soft, nontender, nondistended, hyperactive bowel sounds throughout all 4 quadrants MSK: Moves all extremities Neuro: Alert and oriented x4 Psych: Calm and cooperative with the interview Principal Diagnosis refractory Crohn's colitis C. 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 He is finished about 75% of his breakfast. He is freely conversive, alert, and oriented throughout her discussion, in no acute distress. Respiratory: Good respiratory effort with symmetric expansion of the chest. Lungs are clear to auscultation bilaterally without any crackles or wheezes. No conversational dyspnea. Cardiovascular: Normal rate and regular rhythm. S1 and S2 are present without murmurs rubs or gallops. Gastrointestinal (Abdomen): Normoactive bowel sounds. Abdomen is soft, nontender, nondistended to palpation. No rebound or guarding. Discharge Data Allergies Allergy/AdvReac Type Severity Reaction Status Date / Time infliximab [From Remicade] Allergy Intermediate THROAT Verified 02/12/20 12:43 SWELLS Consultations 02/11/20 20:12 ED Decision to Admit Stat 02/11/20 21:35 Consult Gastroenterology Routine Procedures Performed Operation Date: 02/12/20 13:30 Actual Procedures p EGD Biopsy Cytology(Not Applicable) - Miguel Cordova Operation Date: 02/18/20 16:00 Actual Procedures p Flexible Sigmoidoscopy Biopsy - Miguel Cordova [facility] Course (1) Exacerbation of Crohn's disease: Amrik is a 24-year-old male with a notable history of Crohn's disease who presents today for evaluation of ongoing hematochezia, abdominal pain, and nausea for >1 week on admission, continuing despite >2 weeks of steroids, consistent with a refractory Crohn's exacerbation. 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 Hemodynamically stable. Crohn's Flare, Refractory to Treatment - Exacerbation - Clinically, patient reports >1 week of abdominal pain, hematochezia, and nausea, requiring 2 other visits to [facility] within the 8 days prior to admission - Prior to his flare in early December, was untreated for nearly 1.5 years. Prior to this, was being treated with prednisone, Imuran, Asacol, and Remicade -- discontinued d/t financial restraints - Colonoscopy 01/07/20 demonstrated new, severe, and diffuse inflammation from anus to transverse colon with blood in the sigmoid (see results of sigmoidoscopy 02/17 below) - With mild leukocytosis at 11.36 on 02/17 (admission was 12+) ; continue to monitor, on steroids and C. diff treatment - Hgb continues to be slightly low, but stable between 12-13 throughout admission - Patient reports more bloody BMs overnight than during the day, with associated abdominal pain -- does seem to do better with PM steroids - Medications to aid with flare and pain control: - Prednisone 40mg PO daily (transitioned from Solu Medrol 60mg IV daily -- will receive one-time 15mg dose evening of 02/19 as above) - Continue dicyclomine PRN - new to patient's regimen, says this is helping him greatly - Protonix 40 mg PO twice daily - Continue Carafate suspension (patient does not tolerate tablets well d/t nausea) - Continue Senokot - As needed Zofran for nausea - Trazodone 50mg PO qHS to aid with sleep overnight -- patient reports this is helping him greatly, continue as prescribed (consider as outpatient too) - GI following, appreciate recs: - Upper endoscopy performed 02/11 for N/V demonstrated erythematous duodenum - Pathology: "acute duodenitis with focal ulceration and mild architectural disarray" and "chronic inactive gastritis" (antrum biopsy) - Continue steroids (+ see Diarrhea below) - Sigmoidoscopy performed 02/17 demonstrated significant and severe left- sided colitis. 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 After discussion, he would not like dietary restrictions. He is aware that the diet change may help and will attempt to select foods that are low-diet through a regular diet. 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 Was going to bridge with [facility], however, transport became available in interim. A[place] [facility] [place] - Renal function stable throughout stay - [place] [facility] [place] and further GI/colorectal management Diarrhea - Likely Multifactorial: C. diff + Crohn's + Contribution from CMV - Patient reports >1 week of >10 BMs - diarrhea, with blood, in consistency upon admission - While possibly d/t Crohn's, testing for C. diff also demonstrated: C. diff gene (+), toxin (-) - Given severity/frequency of diarrhea, started on vancomycin 125mg PO q6h x 10 days -- continue until 02/22 - Encourage PO hydration -- can consider adding fluids if concern for dehydration / hypokalemia - Cholestyramine attempted, but discontinued by patient due to intolerance - Subjectively, patient is reporting improvement -- but still frequent BMs, especially at night. Patient working with nursing to quantify stool count and volume. - BMP qAM Hypokalemia - Patient frequently becomes returns hypokalemic on AM labs d/t nocturnal BMs - Likely caused by GI losses in the setting of frequent BMs - Fluctuating between high 2s - 4.0 on day-by-day analysis - GI: KCl 40mEq PO qAM, given that BMs during night tend to cause decrease on review - Consider additional repletion versus discontinuation of KCl PO as needed - BMP qAM Acne -Continue using clindamycin phosphate cream FEN: Regular. RD following. DVT PPX: SCDs, ambulation Dispo: MedSurg -- [place] [facility] [place] [place] bed [place] for in-house ID services + GI + colorectal Code Status: Full code (2) Hematochezia: (3) Hypokalemia: (4) Vomiting: Total Time Total Time Spent Total Time Spent (In Minutes): 9 nights Total Time Includes: Examination of the Patient, Discharge Planning, Medication Reconciliation, Communication With Other Providers and Other Discharge Plan Discharge Items Patient Disposition: Home - Self-Care Reason For Visit: CROHNS Discharge Diagnosis: refractory Crohn's disease C. 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 Please arrive 15 minutes prior to your appt time. It is important that you keeo this appt. If this time does not fit your schedule please call [phone] to reschedule. ) Jaydon Lim DO [Physician] - 02/19/20 1:30 pm (You have an appt with Dr. Lim on Sunday 02/18 at 130. The are asking that you arrive at 1pm, you will meet with a nurse at 115 for a new patient appt. It is important that you keep this appt, please call [phone] if this time does not work for you. [address] [place] [id number]) Diet: Regular Addtl Attending Provider Instructions: You were seen at [facility] from 02/11 - 02/19 for evaluation of frequent diarrhea intermixed with blood, abdominal pain, and nausea that had been progressively worsening >1 week. Upon your admission to the hospital, you underwent several tests to evaluate the cause of these symptoms, and received medications to alleviate discomfort. You underwent an upper GI scope ("EGD") as well as regular blood tests, which demonstrated mild inflammation within a part of your small intestine, alongside laboratory evidence of mild inflammation and [id number] electrolytes caused by frequent diarrhea and vomiting. You also had stool testing, which did suggest contribution that a bacteria called C. difficile may be contributory towards your diarrhea. Later in your hospital stay, you also underwent imaging of your colon with a scope, which demonstrated severe inflammation alongside a pathology result that returned positive for a virus called CMV. You received IV and, eventually, oral steroids to help reduce this inflammation, regular electrolyte repletion via IV fluids, pain control, and oral antibiotics to aid with your symptoms and findings. Thankfully, your symptoms did become more controlled throughout your stay. You also received treatment for your C. difficile infection, with vancomycin. Because of the CMV alongside these other two problems, we wanted to ensure you had ready access to an infectious disease team that could closely collaborate with GI and the hospital team to ensure you improved moving forward. As such, we spoke with [facility], who agreed to continue your care in [place]. You will require regular follow-ups in the outpatient setting upon your discharge to help further control your symptoms and control your Crohn's disease and pain management. If you experience sudden worsening of your symptoms, or lightheadedness, dizziness, shortness of breath, chest pain, fevers with chills, or other concerning symptoms, please report to the ER for immediate evaluation or call 911. ------- Amrik is a 24-year-old male with a notable history of Crohn's disease who presents today for evaluation of ongoing hematochezia, abdominal pain, and nausea for >1 week on admission, continuing despite >2 weeks of steroids, consistent with a refractory Crohn's exacerbation. 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 Hemodynamically stable. Crohn's Flare, Refractory to Treatment - Exacerbation - Clinically, patient reports >1 week of abdominal pain, hematochezia, and nausea, requiring 2 other visits to [facility] within the 8 days prior to admission - Prior to his flare in early December, was untreated for nearly 1.5 years. Prior to this, was being treated with prednisone, Imuran, Asacol, and Remicade -- discontinued d/t financial restraints - Colonoscopy 01/07/20 demonstrated new, severe, and diffuse inflammation from anus to transverse colon with blood in the sigmoid (see results of sigmoidoscopy 02/17 below) - With mild leukocytosis at 11.36 on 02/17 (admission was 12+) ; continue to monitor, on steroids and C. diff treatment - Hgb continues to be slightly low, but stable between 12- throughout admission - Patient reports more bloody BMs overnight than during the day, with associated abdominal pain -- does seem to resolve with PM steroids - Medications to aid with flare and pain control: - Prednisone 40mg PO daily (transitioned from Solu Medrol 60mg IV daily -- will receive one-time 15mg dose evening of 02/19 as above) - Continue dicyclomine PRN - new to patient's regimen, says this is helping him greatly - Protonix 40 mg PO twice daily - Continue Carafate suspension - Continue Senokot - As needed Zofran for nausea - Trazodone 50mg PO qHS to aid with sleep overnight -- patient reports this is helping him greatly, continue as prescribed (consider as outpatient too) - GI following, appreciate recs: - Upper endoscopy performed 02/11 for N/V demonstrated erythematous duodenum - Pathology: "acute duodenitis with focal ulceration and mild architectural disarray" and "chronic inactive gastritis" (antrum biopsy) - Continue steroids (+ see Diarrhea below) - Sigmoidoscopy performed 02/17 demonstrated significant and severe left- sided colitis. 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 After discussion, he would not like dietary restrictions. He is aware that the diet change may help and will attempt to select foods that are low-diet through a regular diet. 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 Was going to bridge with [facility], however, transport became available in interim. Await transfer. - Renal function stable throughout stay - [place] [facility] [place] and further GI/colorectal management -- awaiting bed, transfer approved. Diarrhea - Likely Multifactorial: C. diff + Crohn's + Contribution from CMV - Patient reports >1 week of >10 BMs - diarrhea, with blood, in consistency upon admission - While possibly d/t Crohn's, testing for C. diff also demonstrated: C. diff gene (+), toxin (-) - Given severity/frequency of diarrhea, started on vancomycin 125mg PO q6h x 10 days -- continue until 02/22 - Encourage PO hydration -- can consider adding fluids if concern for dehydration / hypokalemia - Cholestyramine attempted, but discontinued by patient due to intolerance - Subjectively, patient is reporting improvement -- but still frequent BMs, especially at night. Patient working with nursing to quantify stool count and volume. - BMP qAM Hypokalemia - Likely caused by GI losses in the setting of frequent BMs - Fluctuating between high 2s - 4.0 on day-by-day analysis - GI: KCl 40mEq PO qAM, given that BMs during night tend to cause decrease on review - Consider additional repletion versus discontinuation of KCl PO as needed - BMP qAM Acne -Continue using clindamycin phosphate cream FEN: Regular. RD following. DVT PPX: SCDs, ambulation Dispo: MedSurg -- anticipate [place] [facility] [place] [place] for in-house ID services + GI + colorectal Code Status: Full code Pending Studies at Discharge: No Stand-Alone Forms: [employer], Smoking Cessation Medications and DC Order Prescriptions: Continued sucralfate [Carafate] 1 gram Tablet 1 g PO ACHS RF: 0 sennosides [Senokot] 8.6 mg tablet 8.6 mg PO HS Qty: 30 RF: 0 Stelara 45 mg/0.5 mL Solution 0 mg SUBCUT UD RF: 0 pantoprazole 40 mg tablet,delayed release (DR/EC) 40 mg PO QAM RF: 0 clindamycin phosphate 1 % lotion 1 applic topical QAM RF: 0 ondansetron 4 mg tablet,disintegrating 4 mg PO Q6H PRN (Reason: nausea and vomiting) Qty: 20 RF: 0 dicyclomine 20 mg tablet 20 mg PO QID PRN (Reason: abdominal distention) Qty: 20 RF: 0 Discontinued prednisone 20 mg tablet 60 mg PO DAILY RF: 0 Medical Marijuana 1 puff inhalation UD RF: 0 metoclopramide HCl [Reglan] 10 mg tablet 10 mg PO Q6H RF: 0 Discharge Orders: Discharge Order (Routine); Ordered 02/20/20 Ordered By: Eladio Hernandez Admission Data Admit Date/Time: 02/11/20 22:21 Attending Provider: Eladio Lundy Admit Provider: Colby Mensah I. Primary Care Provider: PCP,NO Other Providers: Janelle Mensah ; Kendra Vazquez ; Miguel Cordova ; Alejandro Tinoco ; Arun Bedolla ; Jatinder Han ; Ana Koroma Other Interventions: Discharge Summary Assessment (RN) Last Done: 02/20/20 21:49 Supervising Physician Co-Signing Physician Notes I personally examined the patient and verified all franks points of history and exam, discussed case, and agree with decision making with Dr Hernandez feeling about the same vitals noted nad heent nc at mmm breathing unlabored no accessory muscles good effort skin no rashes no pallor or icterus crohn's flare - (+) CMV. start antivirals. transfer to facility with in house ID coverage for assist. otherwise as above Resident Activity Tracking Resident Involvement: Resident Care Provided Care Provided: Adult Hospital Medicine
[2020-02-20] MEDS ORDERED: methylPREDNISolone 15 MG in SYRINGE 0 ML IV ONE (20:00)
[2020-02-20] MEDS: traZODone HCL 50 MG TAB PO SCH (20:51)
--- NOTE | 2020-02-21 16:44 | Billing Data ---
Date of Service February 20, 2020 Coding Level of Care Code D/C Day Management <30 mins Comment use short discharge, disregard the follow up code, thanks
== END 2020-02-20 21:50 | disposition home or self-care (01) | DRG 386 ==
LOC: ED 16:34 → SUATTDRO 22:21 → 2N 22:21 → 3W 02-18 04:58

== ENCOUNTER 2021-07-25 06:34 | Inpatient (IN) ==
[2021-07-25] MEDS ORDERED: ONDANSETRON INJ 2 MG/ML 2 ML VIAL IV STA (06:42)
[2021-07-25] MEDS ORDERED: SODIUM CHLORIDE 0.9% 1000ML 1,000 ML IV ONE (06:42)
[2021-07-25 07:20] LABS: Basophils # (auto) 0.04 K/uL (0-0.2); Basophils % (auto) 0.6 %; Eosinophils # (auto) 0.22 K/uL (0-0.5); Eosinophils % (auto) 3.1 %; Hematocrit (blood only) 41.5 % (42-52); Hemoglobin 13.6 g/dL (14.0-18.0); Immature Granulocytes # (auto) 0.02 K/uL (0.00-0.02); Immature Granulocytes % (auto) 0.3 %; Lymphocytes # (auto) 1.61 K/uL (1.2-3.4); Lymphocytes % (auto) 22.6 %; Mean Corpuscular Hemoglobin 25.6 pg (25-34); Mean Corpuscular Hgb Conc 32.8 g/dL (32-36); Mean Platelet Volume 8.8 fL (7.4-10.4); Monocytes % (auto) 14.1 %; Neutrophils # (auto) 4.22 K/uL (1.4-6.5); Neutrophils % (auto) 59.3 %; Platelet Count 251 K/uL (130-400); RDW Standard Deviation 39.5 fL (36.4-46.3); Red Blood Count 5.32 M/uL (4.7-6.1); White Blood Count 7.11 K/uL (4.8-10.8)
--- NOTE | 2021-07-25 07:32 | Emergency Department Note ---
History of Present Illness General Chief complaint: Vomiting Stated complaint: VOMITING Time Seen by Provider: 07/25/21 06:42 History of Present Illness Provider Complaint: + nausea, + vomiting and + diarrhea Onset (ago): day(s) 4 Description of Vomiting: no bilious, no bloody or no coffee grounds Associated Abdominal Pain: Yes Location of pain: + diffuse Severity: mild Maximum Pain Intensity: 2 Current Pain Intensity: 2 Quality: + cramping, + aching and + dull Pain Consistency: + intermittent Relieved By: + none Exacerbated By: + vomiting Context: + smoking and + marijuana use; no sick contacts, no alcohol abuse, no trauma or no CO exposure Associated symptoms: no chest pain, no fever/chills, no headaches, no rash, no dysuria, no shortness of breath, no decreased urine output or no altered mental status Treatments prior to arrival: + other (compazine not helping) Home Medications Medication Instructions Recorded Confirmed Type ustekinumab 45 mg/0.5 mL 45 mg SUBCUT Q8WK 02/08/20 07/25/21 History subcutaneous solution (Stelara) multivitamin with minerals-folic 2 tab PO QAM 05/18/20 07/25/21 History acid 200 mcg chewable tablet (Multivitamin Gummies) ondansetron HCl 4 mg tablet 4 mg PO Q6H PRN 07/22/21 07/25/21 History prochlorperazine maleate 5 mg 5 mg PO Q8H PRN #20 tab 07/24/21 07/25/21 Rx tablet (Compazine) budesonide 9 mg capsule,extended 9 mg PO QAM 07/25/21 07/25/21 History release Allergies Allergy/AdvReac Type Severity Reaction Status Date / Time infliximab [From Remicade] Allergy Severe THROAT Verified 07/25/21 07:50 SWELLS Past Med/Surg History Medical History Anemia Crohn's colitis History of COVID-19 diagnosed @ [facility] 01/2020--fatigue--resolved Medical marijuana use Orthostasis Orthostatic hypotension Surgical History History of colonoscopy History of esophagogastroduodenoscopy (EGD) History of sigmoidoscopy (~01/2020) History of surgery on wrist bilt wrists History of wisdom tooth extraction Family History Other Family history non-contributory No family history of adverse response to anesthesia Social History Smoking Status: Current every day smoker Tobacco Type: E-cigarettes / Vaping Second Hand Exposure: No; Hx Alcohol Use: No Hx Substance Use: Yes (patient has medical marijuana card.) Last Used Substance: Days (ago) Substance Use Type Other:: medical marijuana, has card Preferred Language: Moroccan Communication Ability: Effective Human Resource Professional Required: No Beliefs That Will Affect Care: None marital status: Single Current Living Situation: Parent and Family Current Living Situation Comment: lives with mother and 1 brother Feels Safe at Home: Yes Assistive Devices: Glasses Review of Systems A total of 10 systems reviewed and were otherwise negative Physical Exam Vital Signs: Vital Signs - 24 hr 07/25/21 06:37 07/25/21 07:13 07/25/21 08:34 Temperature 36.9 C Temperature Source Temporal Artery Sc an Pulse Rate 69 Pulse Rate [Right Finger] 62 Pulse Rhythm [Righ t Finger] Regular Pulse Strength [Ri ght Finger] Normal Respiratory Rate 18 18 Respiratory Effort / Characteristics Non-Labored Sponta neous Non-Labored Sponta neous Respiratory Depth Normal Normal Respiratory Patter n Regular Blood Pressure 121/77 Blood Pressure [Ri ght Arm] 117/71 Blood Pressure Nadia n 91 Blood Pressure Nadia n [Right Arm] 86 Blood Pressure Pos ition Sitting Pulse Oximetry 98 100 Oxygen Delivery Me thod Room Air Room Air Room Air Sepsis Recent Feve r Within 48 Hours No Sepsis New/Unexpla ined Change in Men favio Status No Sepsis Action Take n by Nursing No Action Required Physical Exam: Physical Exam GENERAL: He is oriented to person, place, and time. He appears well-developed and well-nourished. He does not appear distressed. HENT: Exam performed. - Head: Normocephalic and atraumatic. - Right Ear: External ear normal. No mastoid tenderness. - Left Ear: External ear normal. No mastoid tenderness. - Mouth/Throat: The oropharynx is clear and moist. No trismus in the jaw. No dental abscesses or uvula swelling. No oropharyngeal exudate or tonsillar abscesses. EYES: Conjunctivae and EOM are normal. Pupils are equal, round, and reactive to light. Right eye exhibits no discharge. Left eye exhibits no discharge. No scleral icterus. NECK: Normal range of motion. Neck supple. No JVD present. No spinous process tenderness present. No carotid bruit present. No rigidity. No tracheal deviation and normal range of motion present. No Brudzinski's sign and no Kernig's sign noted. CV: Normal rate, regular rhythm, normal heart sounds and intact distal pulses. There is no peripheral edema. Palpable radial pulses bue. PULM/CHEST: Effort normal and breath sounds normal. No respiratory distress. No stridor. He has no wheezes. He has no rales. - Chest Wall: He exhibits no tenderness. ABD: The abdomen is soft. Bowel sounds are normal. He has no distension. No mass is present. There is no tenderness. There is no rebound, no guarding, no Austin's sign and no tenderness at McBurney's point. Rovsig negative. MUSC/SKEL: Normal range of motion. There is no peripheral edema, tenderness or deformity. LYMPH: No cervical adenopathy. NEURO: He is alert and oriented to person, place, and time. He has normal strength. No cranial nerve deficit or sensory deficit. Coordination and gait normal. GCS eye subscore is 4. GCS verbal subscore is 5. GCS motor subscore is 6. Cerebellar tests wnl. SKIN: Skin is warm and dry. He is not diaphoretic. PSYCH: He has a normal mood and affect. Behavior is normal. Judgment and thought content normal. Course Course 0642: The patient was evaluated in room C4. A complete history and physical exam was performed Cardiac monitoring: An order was placed for continuous cardiac monitoring. The monitor shows a rate of 70 with sinus rhythm EMR reviewed. This is the patient's third visit to the emergency department last 3 days for the same nausea vomiting and diarrhea. Patient has CT scan of the abdomen done on July 22, 2021 which showed colitis. 0941: Vital signs stable. Labs and imaging within normal limits. Patient is required multiple doses of antiemetics in the emergency department. Given the patient's third visit in the last 3 days [facility]. Administered Medications Discontinued Medications Diphenhydramine HCl (Diphenhydramine 50 Mg/Ml Vial) 25 mg IV NOW STA Stop: 07/25/21 07:51 Last Admin: 07/25/21 08:06 Dose: 25 mg Documented by: [id number] Sodium Chloride (Nss 1000ml) 1,000 mls @ 999 mls/hr IV .Q1H1M ONE Stop: 07/25/21 07:42 Last Admin: 07/25/21 07:13 Dose: 999 mls/hr Documented by: [id number] Metoclopramide HCl (Metoclopramide Hcl Inj 5 Mg/Ml 2 Ml Vial) 5 mg IV ONE ONE Stop: 07/25/21 07:51 Last Admin: 07/25/21 08:06 Dose: 5 mg Documented by: [id number] Ondansetron HCl (Ondansetron Inj 2 Mg/Ml 2 Ml Vial) 4 mg IV NOW STA Stop: 07/25/21 06:43 Last Admin: 07/25/21 07:13 Dose: 4 mg Documented by: [id number] Medical Decision Making Laboratory Data Result diagrams: 07/25/21 07:09 07/25/21 07:09 Lab Results 07/25/21 07/25/21 07/25/21 Range/Units 07:09 07:09 07:17 WBC 7.11 (4.8-10.8) K/uL RBC 5.32 (4.7-6.1) M/uL Hgb 13.6 L (14.0-18.0) g/dL Hct 41.5 L (42-52) % MCV 78.0 L (80-100) fL MCH 25.6 (25-34) pg MCHC 32.8 (32-36) g/dL RDW Std Deviation 39.5 (36.4-46.3) fL RDW Coeff of Miguel 14.0 (11.5-14.5) % Plt Count 251 (130-400) K/uL MPV 8.8 (7.4-10.4) fL Immature Gran % (Auto) 0.3 % Neut % (Auto) 59.3 % Lymph % (Auto) 22.6 % Todd % (Auto) 14.1 % Eos % (Auto) 3.1 % Baso % (Auto) 0.6 % Neut # (Auto) 4.22 (1.4-6.5) K/uL Lymph # (Auto) 1.61 (1.2-3.4) K/uL Todd # (Auto) 1.00 H (0.11-0.59) K/uL Eos # (Auto) 0.22 (0-0.5) K/uL Baso # (Auto) 0.04 (0-0.2) K/uL Immature Gran # (Auto) 0.02 (0.00-0.02) K/uL Sodium 140 (136-145) mmol/L Potassium 3.5 (3.5-5.1) mmol/L Chloride 106 (98-107) mmol/L Carbon Dioxide 27 (21-32) mmol/L Anion Gap 7 (3-11) BUN 5 L (6-23) mg/dl Creatinine 0.88 (0.6-1.4) mg/dl Est Cr Clr Drug Dosing 135.6 ml/min Est GFR ( Amer) 138.4 ml/min Est GFR (Non-Af Amer) 119.4 ml/min BUN/Creatinine Ratio 5.7 L (10-20) Glucose 95 (70-99(Fasting)) mg/dl Calcium 9.2 (8.5-10.1) mg/dl Total Bilirubin 0.8 (0.2-1.0) mg/dl Direct Bilirubin 0.2 (0-0.2) mg/dl AST 17 (13-39) U/L ALT 13 (7-52) U/L Alkaline Phosphatase 61 (34-104) U/L Total Protein 6.8 (6.0-8.3) gm/dl Albumin 4.3 (3.4-5.0) gm/dl Lipase 19 (11-82) U/L SARS-CoV-2, RNA, NAAT NEGATIVE (NEGATIVE) Imaging Data Radiologist's Impression: Chest/Abdomen X-ray 07/25/21 06:42 CHEST AND ABDOMEN 2 VIEWS HISTORY: vomiting COMPARISON: Chest and abdominal series 02/11/2020. FINDINGS: The lungs are clear. The cardiomediastinal silhouette is within normal limits. There is no pneumoperitoneum or pneumatosis. The bowel gas pattern is unremarkable. No evidence for bowel obstruction. No pathologic calcifications. IMPRESSION: No acute cardiopulmonary process. No evidence for bowel obstruction. ACT 112: Negative or not required by law. Electronically signed by: Venu Perez M.D. 07/25/2021 8:53 AM [facility] Narrative 0642: The patient was evaluated in room C4. A complete history and physical exam was performed Cardiac monitoring: An order was placed for continuous cardiac monitoring. The monitor shows a rate of 70 with sinus rhythm EMR reviewed. This is the patient's third visit to the emergency department last 3 days for the same nausea vomiting and diarrhea. Patient has CT scan of the abdomen done on July 22, 2021 which showed colitis. 0941: Vital signs stable. Labs and imaging within normal limits. Patient is required multiple doses of antiemetics in the emergency department. Given the patient's third visit in the last 3 days patient would be admitted to the [facility] hospitalist team Dr. Spivey notified. Impression & Plan Intractable nausea and vomiting Discharge Plan Visit Data Chief Complaint: Vomiting Stated Complaint: VOMITING ED Provider: Chavez Huston Discharge Problem: Intractable nausea and vomiting Patient Disposition: Being Evaluated by Hospitalist Forms Stand Alone Forms: My [facility] Prescriptions Prescriptions: No Action Stelara 45 mg/0.5 mL Solution 45 mg SUBCUT Q8WK RF: 0 prochlorperazine maleate [Compazine] 5 mg tablet 5 mg PO Q8H PRN (Reason: nausea and vomiting) Qty: 20 RF: 0 budesonide 9 mg capsule, extended release 9 mg PO QAM RF: 0 Multivitamin Gummies 200 mcg Tablet,Chewable 2 tab PO QAM RF: 0 ondansetron HCl [Zofran] 4 mg Tablet 4 mg PO Q6H PRN (Reason: Nausea) RF: 0 Referrals Referrals: Jaydon Lim DO [Primary Care Provider] -
[2021-07-25 07:44] LABS: Albumin Level 4.3 gm/dl (3.4-5.0); BUN Creatinine Ratio 5.7 (10-20); Bilirubin Direct 0.2 mg/dl (0-0.2); Bilirubin,Total 0.8 mg/dl (0.2-1.0); Calcium 9.2 mg/dl (8.5-10.1); Creatinine Clr Calc Pharmacy 135.6 ml/min; Est GFR (African American) 138.4 ml/min; Est GFR (Non-African American) 119.4 ml/min; Potassium 3.5 mmol/L (3.5-5.1); Total Protein 6.8 gm/dl (6.0-8.3)
[2021-07-25] MEDS ORDERED: METOCLOPRAMIDE HCL INJ 5 MG/ML 2 ML VIAL IV ONE (07:50)
[2021-07-25] MEDS ORDERED: diphenhydrAMINE 50 MG/ML VIAL IV STA (07:50)
--- NOTE | 2021-07-25 08:54 | XRay Report ---
CHEST AND ABDOMEN 2 VIEWS HISTORY: vomiting COMPARISON: Chest and abdominal series 02/11/2020. FINDINGS: The lungs are clear. The cardiomediastinal silhouette is within normal limits. There is no pneumoperitoneum or pneumatosis. The bowel gas pattern is unremarkable. No evidence for b owel obstruction. No pathologic calcifications. IMPRESSION: No acute cardiopulmonary process. No evidence for bowel obstruction. ACT 112: Negative or not required by law. Electronically signed by: Venu Perez M.D. 07/25/2021 8:53 AM
--- NOTE | 2021-07-25 09:59 | History & Physical Report ---
Date of Service July 25, 2021 Assessment & Plan (1) Intractable nausea and vomiting: Plan: Attending: Dr. Díaz Impression: 26-year-old male with history of Crohn's disease since a child. Most recently seen in the emergency department for intractable nausea and vomiting and given Compazine. Patient also reports having Zofran at home. Patient states that the oral medications not helping and that at this time he continues with intractable nausea and vomiting. Labs look okay. No evidence of acute dehydration. Patient does report some hematochezia. No anemia at this time. Patient has no significant abdominal pain. He does have chronic staph infection of both arms and his back which he states is treated by dermatology at [facility]. No pruritus. No fever or chills. This time will treat the patient empirically with IV fluids using normal saline with 20 mEq of potassium chloride at 125 mL/h No leukocytosis but we will check a procalcitonin Afebrile Will order diet as tolerated Patient is as obvious. Hopeful discharge tomorrow. (2) Crohn's colitis: Plan: Patient follows with [facility] and most recently was seen by GRACE Acuna Patient has CT abdomen pelvis completed on 07/22/2021 which showed possible inflammation but no blockage and no significant edema of the bowel. Patient nontender to palpation. Bowel sounds are in all 4 quadrants. Patient does have some hematochezia per his report Will Hemoccult all stools. Send stool for C. difficile. Send stool for culture/PCR evaluation. Avoid steroids at this time. Patient reports that he gets injections every 8 weeks with Stelara. He states he was treated within the last few weeks. Check an ESR (3) Hypokalemia: Plan: Patient with history of hypokalemia. Current potassium level is 3.5 Not on any oral supplements at home Will place the patient on normal saline with 20 mg of potassium chloride at 125 mL an hour and follow labs (4) Anemia: Plan: Iron deficiency Outpatient treatment per GI Hemoglobin 13.6 Hemoccult all stools (5) GERD (gastroesophageal reflux disease): Plan: Currently not in an H2 anthony or PPI at home Will start famotidine daily with first dose now and then every morning We will also order Maalox as needed (6) Orthostatic hypotension: Plan: Blood pressure currently systolically at 117 No lightheadedness or dizziness at this time IV fluids Vital signs per protocol (7) Tobacco abuse: Plan: Patient reports vaping Discussed need for complete abstention especially Crohn's disease (8) DVT prophylaxis: Plan: Hold chemical prophylaxis at this time due to report of melena/hematochezia BOBY bradshaw SCDs Please refer to Dr. Díaz's addendum for further recommendations. History of Present Illness Chief Complaint: Intractable nausea and vomiting, Crohn's flare Primary Care Provider: Jaydon Lim DO Attending: Dr. Díaz This is a 26-year-old male with a past medical history including Crohn's disease since a child, GERD, hypokalemia, tobacco abuse, marijuana abuse, history of suicidal ideation, history of homicidal ideation, autism spectrum disorder, acne, chronic staph infection of arms and back since 2019, anemia, hematochezia, orthostasis, orthostatic hypotension. Patient presents with intractable nausea and vomiting. He has a history of Crohn's disease since childhood. He was last seen in the emergency department on 22 Jul 2021. He was discharged home on Compazine for his nausea and vomiting. He reports that his nausea vomiting gotten worse and now he has some bloody stool. Patient has no abdominal pain. He has no fever. He has no sweats. He has no chills. Patient states that he follows with the [facility] for both his Crohn's disease as well as his chronic staph infection. This time he states that his staph infection is not any worse than usual. He was scheduled to follow-up with dermatology in April but never called for the appointment. Patient denies any pruritus at this point. Patient's hemoglobin and hematocrit are stable. Patient has no leukocytosis. He has no fever. He is hemodynamically stable with a systolic pressure of 117. He has no acute complaints other than nausea and vomiting and some bloody stool. Patient admits to vaping. He states he has not vape for a couple of weeks since he has not been feeling well. He also admits to regular marijuana use. Allergies Allergy/AdvReac Type Severity Reaction Status Date / Time infliximab [From Remicade] Allergy Severe THROAT Verified 07/25/21 07:50 SWELLS Home Medications Medication Instructions Recorded Confirmed Type ustekinumab 45 mg/0.5 mL 45 mg SUBCUT Q8WK 02/08/20 07/25/21 History subcutaneous solution (Stelara) multivitamin with minerals-folic 2 tab PO QAM 05/18/20 07/25/21 History acid 200 mcg chewable tablet (Multivitamin Gummies) ondansetron HCl 4 mg tablet 4 mg PO Q6H PRN 07/22/21 07/25/21 History prochlorperazine maleate 5 mg 5 mg PO Q8H PRN #20 tab 07/24/21 07/25/21 Rx tablet (Compazine) budesonide 9 mg capsule,extended 9 mg PO QAM 07/25/21 07/25/21 History release Past Med/Surg History Medical History (Updated 07/27/21 @ 23:53 by Derek Donovan PA-C) Anemia Crohn's colitis History of COVID-19 diagnosed @ [facility] 01/2020--fatigue--resolved Medical marijuana use Orthostasis Orthostatic hypotension Tobacco abuse Surgical History History of colonoscopy History of esophagogastroduodenoscopy (EGD) History of sigmoidoscopy (~01/2020) History of surgery on wrist bilt wrists History of wisdom tooth extraction Family History Other Family history non-contributory No family history of adverse response to anesthesia Social History Smoking Status: Current every day smoker Tobacco Type: E-cigarettes / Vaping Second Hand Exposure: No; Do You Dip or Chew Tobacco: No; Tobacco Cessation Education Requested by Patient: No Hx Alcohol Use: No Hx Substance Use: Yes Last Used Substance: Hours (ago) Last Used Substance Other:: 48 hours ago Substance Use Type Other:: medical marijuana, has card Preferred Language: Chinese Communication Ability: Effective 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 Pleasant. Talkative EYES: No icterus, gaze conjugate. Pupils equal round and reactive to light NOSE: No evidence of epistaxis MOUTH: No lesions or candidiasis. Tongue is midline. NECK: Supple LUNGS: CTA B/L, no wheezes, rales or rhonchi. Good inspirational effort HEART: Regular, rate controlled. No appreciation of ectopy ABDOMEN: Soft, NT, ND, BS Present EXTREMITIES: No LE edema, pedal pulses intact and equal bilaterally. Patient has healing rash on both arms and on his back. There is no oozing. Area on the right shoulder appears to be like impetigo. No pruritus. No pain with palpation. NEURO: A&OX3 Results & Data Results & Data ([facility]) Vital Signs (Past 12 Hours) Vital Signs Temp Pulse Pulse Resp BP BP Pulse Ox 07/25/21 08:34 62 18 117/71 100 07/25/21 06:37 36.9 C 69 18 121/77 98 Critical Care Results & Data Vital Signs (Past 12 Hours) Vital Signs Temp Pulse Pulse Resp BP BP Pulse Ox 07/25/21 08:34 62 18 117/71 100 07/25/21 06:37 36.9 C 69 18 121/77 98 Lab & Micro Results (Past 24 Hours) RBC 5.15 M/uL (4.7-6.1) 07/30/21 WBC 11.78 K/uL (4.8-10.8) H 07/30/21 Hgb 13.6 g/dL (14.0-18.0) L 07/30/21 Hct 40.7 % (42-52) L 07/30/21 MCV 79.0 fL (80-100) L 07/30/21 MCH 26.4 pg (25-34) 07/30/21 MCHC 33.4 g/dL (32-36) 07/30/21 RDW Standard Deviation 39.9 fL (36.4-46.3) 07/30/21 RDW Coefficient of Variation 14.0 % (11.5-14.5) 07/30/21 Plt Count 316 K/uL (130-400) 07/30/21 MPV 8.9 fL (7.4-10.4) 07/30/21 Neutrophils (%) (Auto) 59.5 % 07/30/21 Lymphocytes (%) (Auto) 25.4 % 07/30/21 Monocytes # (Auto) 1.63 K/uL (0.11-0.59) H 07/30/21 Eosinophils # (Auto) 0.05 K/uL (0-0.5) 07/30/21 Immature Granulocyte % (Auto) 0.8 % 07/30/21 Neutrophils # (Auto) 7.00 K/uL (1.4-6.5) H 07/30/21 Lymphocytes # (Auto) 2.99 K/uL (1.2-3.4) 07/30/21 Monocytes # (Auto) 1.63 K/uL (0.11-0.59) H 07/30/21 Eosinophils # (Auto) 0.05 K/uL (0-0.5) 07/30/21 Basophils # (Auto) 0.01 K/uL (0-0.2) 07/30/21 Immature Granulocyte # (Auto) 0.10 K/uL (0.00-0.02) H 07/30/21 Na 138 mmol/L (136-145) 07/30/21 K 3.7 mmol/L (3.5-5.1) 07/30/21 Cl 104 mmol/L (98-107) 07/30/21 CO2 29 mmol/L (21-32) 07/30/21 Anion Gap 5 (3-11) 07/30/21 BUN 13 mg/dl (6-23) 07/30/21 Creatinine 0.86 mg/dl (0.6-1.4) 07/30/21 Estimated GFR ( Amer) 139.7 ml/min 07/30/21 Estimated GFR (Non-Af Amer) 120.5 ml/min 07/30/21 BUN/Creatinine Ratio 15.1 (10-20) 07/30/21 Glu 86 mg/dl (70-99(Fasting)) 07/30/21 Ca 9.2 mg/dl (8.5-10.1) 07/30/21 Total Bilirubin 0.9 mg/dl (0.2-1.0) 07/30/21 AST 9 U/L (13-39) L 07/30/21 ALT 9 U/L (7-52) 07/30/21 Alkaline Phosphatase 51 U/L (34-104) 07/30/21 TP 6.3 gm/dl (6.0-8.3) 07/30/21 Albumin 4.0 gm/dl (3.4-5.0) 07/30/21 Globulin 2.3 gm/dl (2.5-4.0) L 07/30/21 Albumin/Globulin Ratio 1.7 (0.9-2) 07/30/21 Calcium Level 9.2 mg/dl (8.5-10.1) 07/30/21 07:25 07/30/21 Diagnostic Findings (Past 24 Hours) Chest/Abdomen X-ray 07/25/21 06:42 CHEST AND ABDOMEN 2 VIEWS HISTORY: vomiting COMPARISON: Chest and abdominal series 02/11/2020. FINDINGS: The lungs are clear. The cardiomediastinal silhouette is within normal limits. There is no pneumoperitoneum or pneumatosis. The bowel gas pattern is unremarkable. No evidence for bowel obstruction. No pathologic calcifications. IMPRESSION: No acute cardiopulmonary process. No evidence for bowel obstruction. ACT 112: Negative or not required by law. Electronically signed by: Venu Perez M.D. 07/25/2021 8:53 AM RT Ventilator Mngmt (Last Documented) Ventilator Ordered Settings Respiratory Rate 18 07/25/21 08:34 Ventilator - PT Measurements Respiratory Rate 18 COVID-19 Results Results COVID-19 Adm Lab Results: RBC 5.15 M/uL (4.7-6.1) 07/30/21 WBC 11.78 K/uL (4.8-10.8) H 07/30/21 Hgb 13.6 g/dL (14.0-18.0) L 07/30/21 Hct 40.7 % (42-52) L 07/30/21 Plt Count 316 K/uL (130-400) 07/30/21 Neutrophils (%) (Auto) 59.5 % 07/30/21 Lymphocytes (%) (Auto) 25.4 % 07/30/21 Monocytes # (Auto) 1.63 K/uL (0.11-0.59) H 07/30/21 Eosinophils # (Auto) 0.05 K/uL (0-0.5) 07/30/21 Immature Granulocyte % (Auto) 0.8 % 07/30/21 Neutrophils # (Auto) 7.00 K/uL (1.4-6.5) H 07/30/21 Lymphocytes # (Auto) 2.99 K/uL (1.2-3.4) 07/30/21 Monocytes # (Auto) 1.63 K/uL (0.11-0.59) H 07/30/21 Eosinophils # (Auto) 0.05 K/uL (0-0.5) 07/30/21 Basophils # (Auto) 0.01 K/uL (0-0.2) 07/30/21 Immature Granulocyte # (Auto) 0.10 K/uL (0.00-0.02) H 07/30/21 Na 138 mmol/L (136-145) 07/30/21 K 3.7 mmol/L (3.5-5.1) 07/30/21 Cl 104 mmol/L (98-107) 07/30/21 CO2 29 mmol/L (21-32) 07/30/21 Anion Gap 5 (3-11) 07/30/21 BUN 13 mg/dl (6-23) 07/30/21 Creatinine 0.86 mg/dl (0.6-1.4) 07/30/21 BUN/Creatinine Ratio 15.1 (10-20) 07/30/21 Glucose Level 86 mg/dl (70-99(Fasting)) 07/30/21 Ca 9.2 mg/dl (8.5-10.1) 07/30/21 Total Bilirubin 0.9 mg/dl (0.2-1.0) 07/30/21 AST/SGOT 9 U/L (13-39) L 07/30/21 ALT/SGPT 9 U/L (7-52) 07/30/21 Alkaline Phosphatase 51 U/L (34-104) 07/30/21 Total Protein 6.3 gm/dl (6.0-8.3) 07/30/21 Albumin 4.0 gm/dl (3.4-5.0) 07/30/21 Globulin 2.3 gm/dl (2.5-4.0) L 07/30/21 Albumin/Globulin Ratio 1.7 (0.9-2) 07/30/21 Code Status & VTE Plan Code Status Full resuscitation: Level I VTE Prophylaxis Plan VTE Prophylaxis will be ordered: Yes Supervising Physician Co-Signing Physician Notes Attending Attestation & Admit Note: Pt seen/examined, chart reviewed, care plan d/w HENRY Donovan. I agree w/ the franks components of his admission documentation. 26yo male with h/o Crohn's disease, chronic medical THC use, and GERD presenting with intractable nausea/emesis along with bloody stools. Latter is mild. He reports using medical THC daily - typically vapes it - but last used it several days ago. No anti-emetic is controlling his symptoms at this time. He only took 1 dose of recently prescribed entocort (advised by [facility]) due to recent CT a/p findings showing mild distal colitis. PMH/PSH/allergies/meds/sochx/famhx - reviewed VSS gen - NAD mouth - MM pasty heart - RRR, s1 s2, no murmur lungs - CTA b/l abd - soft NT ND BS+; no HSM; no peritoneal signs ext - no edema, pulses 2+ b/l labs reviewed recent CT abd/pelvis 07/22 - "Thickening, increased vascularity, and prominent regional lymph nodes about the sigmoid colon. Findings may represent infectious/inflammatory colitis." A/P: 1. intractable nausea/emesis - may be 2nd to cannabis hyperemesis syndrome. Other possibilities - esophagitis/gastritis, Crohn's, or a non-GI tract issue. Favor former. H2 anthony and/or PPI, anti-emetics, clear liquid diet, IV fluids. Consider marinol. 2. Crohn's disease - continue entocort. If symptoms remain refractory then formal [facility] consult. Sergey Díaz MD PG Care Time/CCT Total # of Minutes Spent Total Time Spent with Patient: Total time spent is greater than 50% in coordination of care (as documented) at patient's floor/unit and/or counseling patient: 45 minutes Coding Level of Care Code 38423 Initial Inpt Care Lvl 2 Diagnoses GERD (gastroesophageal reflux disease) K21.9 Esophagitis presence: esophagitis presence not specified Intractable nausea and vomiting R11.2 Hypokalemia E87.6 Crohn's colitis K50.10 Orthostatic hypotension I95.1 Anemia D64.9 Tobacco abuse Z72.0 DVT prophylaxis Z29.9 Time Spent (min) 45 (1) GERD (gastroesophageal reflux disease) Esophagitis presence: esophagitis presence not specified Qualified Code(s): K21.9 - Gastro-esophageal reflux disease without esophagitis
[2021-07-25] MEDS ORDERED: ALUMINUM/MAGNESIUM SUSP 30 ML UDC PO PRN (12:28)
[2021-07-25] MEDS ORDERED: MAGNESIUM HYDROXIDE SUSP 30 ML UDC PO PRN (12:28)
[2021-07-25] MEDS ORDERED: FAMOTIDINE 40 MG TABLET PO SCH (12:28)
[2021-07-25] MEDS ORDERED: ACETAMINOPHEN 325 MG TAB PO PRN (12:28)
[2021-07-25] MEDS ORDERED: PROCHLORPERAZINE MALEATE 5 MG TAB PO PRN (12:28)
[2021-07-25] MEDS ORDERED: ONDANSETRON 4 MG OD TAB PO PRN (12:41)
[2021-07-25] MEDS: NSS + 20MEQ KCL 20 MEQ/1,000 ML BAG IV SCH ×2 (13:41→21:27)
[2021-07-25] MEDS ORDERED: PROMETHAZINE HCL 12.5 MG in SODIUM CHLORIDE 0.9% 50 ML IV STA (13:49)
[2021-07-25] MEDS: FAMOTIDINE 20 MG in SYRINGE 3 ML IV SCH (14:48)
[2021-07-25] MEDS: BUDESONIDE EC 3 MG CAP PO SCH ×2 (14:56→16:35)
[2021-07-25] MEDS ORDERED: METOCLOPRAMIDE HCL INJ 5 MG/ML 2 ML VIAL IV PRN (18:57)
[2021-07-26 00:34] LABS: Adenovirus F 40/41 PCR Not Detected (NotDetected); Astrovirus PCR Not Detected (NotDetected); Campylobacter PCR Not Detected (NotDetected); Clostridium diff Toxin A/B PCR Not Detected (NotDetected); Cryptosporidium PCR Not Detected (NotDetected); Cyclospora cayetanensis PCR Not Detected (NotDetected); Entamoeba histolytica PCR Not Detected (NotDetected); Enteroaggregative E.coli(EAEC) Not Detected (NotDetected); Enteropathogenic E.coli (EPEC) Not Detected (NotDetected); Enterotoxigenic E.coli (ETEC) Not Detected (NotDetected); Giardia lamblia PCR Not Detected (NotDetected); Norovirus GI/GII PCR Not Detected (NotDetected); Plesiomonas shigelloides PCR Not Detected (NotDetected); Rotavirus A PCR Not Detected (NotDetected); Salmonella PCR Not Detected (NotDetected); Sapovirus PCR Not Detected (NotDetected); Shiga-like Toxin E.coli (STEC) Not Detected (NotDetected); Shigella/Enteroinvasive E.coli Not Detected (NotDetected); Vibrio cholerae PCR Not Detected (NotDetected); Vibrio species PCR Not Detected (NotDetected); Yersinia enterocolitica PCR Not Detected (NotDetected)
[2021-07-26] MEDS: FAMOTIDINE 20 MG in SYRINGE 3 ML IV SCH ×2 (01:33→13:14)
[2021-07-26] MEDS: NSS + 20MEQ KCL 20 MEQ/1,000 ML BAG IV SCH ×3 (05:07→20:55)
[2021-07-26] MEDS: ONDANSETRON INJ 2 MG/ML 2 ML VIAL IV PRN (05:14)
[2021-07-26] MEDS: BUDESONIDE EC 3 MG CAP PO SCH ×2 (08:55→09:00)
[2021-07-26] MEDS: MULTIVITAMIN TAB PO SCH (08:58)
[2021-07-26 09:05] LABS: Basophils # (auto) 0.05 K/uL (0-0.2); Basophils % (auto) 0.7 %; Eosinophils # (auto) 0.19 K/uL (0-0.5); Eosinophils % (auto) 2.7 %; Hematocrit (blood only) 38.7 % (42-52); Hemoglobin 12.9 g/dL (14.0-18.0); Immature Granulocytes # (auto) 0.01 K/uL (0.00-0.02); Immature Granulocytes % (auto) 0.1 %; Lymphocytes # (auto) 2.15 K/uL (1.2-3.4); Lymphocytes % (auto) 30.1 %; Mean Corpuscular Hemoglobin 26.4 pg (25-34); Mean Corpuscular Hgb Conc 33.3 g/dL (32-36); Mean Corpuscular Volume 79.1 fL (80-100); Mean Platelet Volume 8.6 fL (7.4-10.4); Monocytes # (auto) 0.99 K/uL (0.11-0.59); Monocytes % (auto) 13.8 %; Neutrophils # (auto) 3.76 K/uL (1.4-6.5); Neutrophils % (auto) 52.6 %; Platelet Count 220 K/uL (130-400); RDW Coefficient of Variation 13.9 % (11.5-14.5); RDW Standard Deviation 39.9 fL (36.4-46.3); Red Blood Count 4.89 M/uL (4.7-6.1); White Blood Count 7.15 K/uL (4.8-10.8)
[2021-07-26 09:27] LABS: BUN Creatinine Ratio 5.4 (10-20); Calcium 8.9 mg/dl (8.5-10.1); Creatinine Clr Calc Pharmacy 128.3 ml/min; Est GFR (African American) 131.8 ml/min; Est GFR (Non-African American) 113.7 ml/min; Potassium 3.7 mmol/L (3.5-5.1)
--- NOTE | 2021-07-26 10:45 | Hospitalist Progress Note ---
Date of Service July 26, 2021 Assessment & Plan (1) Intractable nausea and vomiting: Plan: Attending: Dr. Díaz Impression: 26-year-old male with history of Crohn's disease since a child. Most recently seen in the emergency department for intractable nausea and vomiting and given Compazine. Patient also reports having Zofran at home. Patient states that the oral medications not helping and that at this time he continues with intractable nausea and vomiting. Labs look okay. No evidence of acute dehydration. Patient does report some hematochezia. No anemia at this time. Patient has no significant abdominal pain. He does have chronic staph infection of both arms and his back which he states is treated by dermatology at [facility]. No pruritus. No fever or chills. This time will treat the patient empirically with IV fluids using normal saline with 20 mEq of potassium chloride at 125 mL/h No leukocytosis. Procalcitonin is negative Afebrile Patient tolerating diet per nursing but patient reports nausea and vomiting Will order diet as tolerated (2) Crohn's colitis: Plan: Patient follows with [facility] and most recently was seen by GRACE Acuna Patient has CT abdomen pelvis completed on 07/22/2021 which showed possible inflammation but no blockage and no significant edema of the bowel. Patient nontender to palpation. Bowel sounds are in all 4 quadrants. Patient does have some hematochezia per his report and stool is positive for occult blood. Hemoglobin stable Avoided steroids on admission. Patient reports that he gets injections every 8 weeks with Stelara. He states he was treated within the last few weeks. ESR is only 7 Patient states that he is not ready for discharge. We will consult [facility] Continue supportive care (3) Hypokalemia: Plan: Patient with history of hypokalemia. Current potassium level is 3.5 -improved to 3.7 Not on any oral supplements at home Continue normal saline with 20 mg of potassium chloride at 125 mL an hour and follow labs (4) Anemia: Plan: Iron deficiency Outpatient treatment per GI Hemoglobin stable Hemoccult all stools (5) GERD (gastroesophageal reflux disease): Plan: Currently not in an H2 anthony or PPI at home Started famotidine daily with first dose now and then every morning We will also order Maalox as needed (6) Orthostatic hypotension: Plan: Blood pressure currently stable No lightheadedness or dizziness at this time Continue IV fluids Vital signs per protocol (7) Tobacco abuse: Plan: Patient reports vaping Discussed need for complete abstention especially Crohn's disease (8) DVT prophylaxis: Plan: Hold chemical prophylaxis at this time due to report of melena/hematochezia BOBY bradshaw SCDs Admission and Anticipated Discharge Date Admission Date: July 25, 2021 Supervising Physician Co-Signing Physician Notes Attending Attestation - Chart reviewed, care plan d/w PA Derek Donovan. I agree w/ the franks components of his documentation. Await [facility] consultation & recs for ongoing GI symptoms. Sergey Díaz MD Subjective Attending: Dr. Díaz Patient not ready for D/C. Continues with nausea and vomiting. Requesting to be seen by GI team. Does not feel comfortable going home if he will have to return again. Refusing oral meds Tolerating meals. Nursing reports that nausea and vomiting is improved. Complains of chills and sweats. Abdominal pain from severe dry heaves Review of Systems Review of Systems: A total of 10 systems was reviewed and is negative other than as listed in the HPI Physical Exam Physical Exam: GENERAL : No acute distress EYES: No icterus, gaze conjugate NOSE: No evidence of epistaxis MOUTH: No lesions or candidiasis NECK: Supple LUNGS: CTA B/L, no wheezes, rales or rhonchi HEART: Regular, rate controlled ABDOMEN: Soft, minimal tenderness with palpation. No rebound tenderness. Bowel sounds present. EXTREMITIES: No LE edema, pedal pulses intact NEURO: A&OX3 Results & Data Results & Data ([facility]) Vital Signs (Past 12 Hours) Vital Signs Temp Pulse Resp BP Pulse Ox 07/26/21 08:11 36.9 C 43 L 16 124/71 100 Critical Care Results & Data Vital Signs (Past 12 Hours) Vital Signs Temp Pulse Resp BP Pulse Ox 07/26/21 15:05 37.1 C 54 L 16 110/66 99 Lab & Micro Results (Past 24 Hours) No Data to Display No Data to Display No Data to Display I & O Totals 24 Hours 07/25/21 07/26/21 07/27/21 06:59 06:59 06:59 Intake Total 3679.666 / 3679.666 3283.333 / 3283.333 Output Total 900 / 900 806 / 806 Balance 2779.666 / 2779.666 2477.333 / 2477.333 Cumulative 07/25/21 06:34 thru 07/26/21 22:00 Intake Total 6962.999 Output Total 1706 Balance 5256.999 RT Ventilator Mngmt (Last Documented) Ventilator Ordered Settings Respiratory Rate 16 07/26/21 15:05 Ventilator - PT Measurements Respiratory Rate 16 PG Care Time/CCT Total # of Minutes Spent Total Time Spent with Patient: Total time spent is greater than 50% in coordination of care (as documented) at patient's floor/unit and/or counseling patient: Coding Level of Care Code 38655 Subseq Hosp Care Lvl 2 Diagnoses Intractable nausea and vomiting R11.2 Crohn's colitis K50.10 Hypokalemia E87.6 Anemia D64.9 GERD (gastroesophageal reflux disease) K21.9 Esophagitis presence: esophagitis presence not specified Orthostatic hypotension I95.1 Tobacco abuse Z72.0 DVT prophylaxis Z29.9 (1) GERD (gastroesophageal reflux disease) Esophagitis presence: esophagitis presence not specified Qualified Code(s): K21.9 - Gastro-esophageal reflux disease without esophagitis
[2021-07-26] MEDS: MUPIROCIN 2% OINT 22 GM TUBE EXT SCH (11:52)
--- NOTE | 2021-07-26 16:59 | Gastrointestinal Consultation ---
Date of Consultation July 26, 2021 Assessment & Plan (1) Nausea & vomiting: n/v crohns diarrhea with bleeding Will treat as crohns flare (increased stooling and with blood) with IV solu- medrol (ordered) Stop Budesonide (ordered) . Continue IV Pepcid for GERD. Evaluate tomorrow for increase in diet. Clear liquids overnight. IMiguel MD have spent 33 minutes of discrete time performing the activities of this visit which include but are not limited to review of the medical record, obtaining a history, physical exam, and entering information in the electronic record. History of Present Illness Reason for Consultation: crohns Attending Physician: Sergey Díaz History of Present Illness cc n/v, diarrhea HPI Pt with chronic crohsns disease managed by [facility] as outpt. He is on Stelara. Pt recently developed diarrhea with 8-10 bms with blood in it versus 3-4 without blood daily when he feels good. Also associated N/V. He has abd pain when vomiting. Came to ER 07/[address] showed sigmoid thickening. Budesonide 9 mg daily added but he took first dose yesterday. He has recurrent n/v and admitted. CXR/KUB today neg. WBC nl, ESR nl, stool heme positive.The stool PCR profile 07/24/2021 is negative. He vapes nicotine and medical marijuana. Allergies Allergy/AdvReac Type Severity Reaction Status Date / Time infliximab [From Remicade] Allergy Severe THROAT Verified 07/25/21 07:50 SWELLS Home Medications Medication Instructions Recorded Confirmed Type ustekinumab 45 mg/0.5 mL 45 mg SUBCUT Q8WK 02/08/20 07/25/21 History subcutaneous solution (Stelara) multivitamin with minerals-folic 2 tab PO QAM 05/18/20 07/25/21 History acid 200 mcg chewable tablet (Multivitamin Gummies) ondansetron HCl 4 mg tablet 4 mg PO Q6H PRN 07/22/21 07/25/21 History prochlorperazine maleate 5 mg 5 mg PO Q8H PRN #20 tab 07/24/21 07/25/21 Rx tablet (Compazine) budesonide 9 mg capsule,extended 9 mg PO QAM 07/25/21 07/25/21 History release Patient History Medical History (Updated 07/25/21 @ 10:07 by Derek Donovan PA-C) Anemia Crohn's colitis History of COVID-19 diagnosed @ [facility] 01/2020--fatigue--resolved Medical marijuana use Orthostasis Orthostatic hypotension Tobacco abuse Surgical History History of colonoscopy History of esophagogastroduodenoscopy (EGD) History of sigmoidoscopy (~01/2020) History of surgery on wrist bilt wrists History of wisdom tooth extraction Family History Other Family history non-contributory No family history of adverse response to anesthesia Social History Smoking Status: Current every day smoker Tobacco Type: E-cigarettes / Vaping Second Hand Exposure: No; Do You Dip or Chew Tobacco: No; Tobacco Cessation Education Requested by Patient: No Hx Alcohol Use: No Hx Substance Use: Yes Last Used Substance: Hours (ago) Last Used Substance Other:: 48 hours ago Substance Use Type Other:: medical marijuana, has card Preferred Language: Persian Communication Ability: Effective Teaching Fellow Required: No Beliefs That Will Affect Care: None marital status: Single Current Living Situation: Family Current Living Situation Comment: lives with mother and 1 brother Other Information That Helps Us Care for You: No Feels Safe at Home: Yes Assistive Devices: Glasses Review of Systems Review of Systems: All systems reviewed & are unremarkable except as noted in HPI & below Physical Exam Constitutional: WD/WN, vitals as above Eyes: PERRL, conjunctivae normal, anicteric sclerae ENMT: Ears: no hearing impairment Nose: no external nose abnormality Neck: normal visual inspection and trachea midline Respiratory: normal respiratory effort, lungs clear to auscultation Cardiovascular: RRR, no murmur, no edema Gastrointestinal (Abdomen): normal bowel sounds, soft, nontender, no hepatosplenomegaly Skin: normal turgor Neurologic: PERRL, EOMI, accommodation nl, no face palsy, no dysarthria Psychiatric: A+Ox3, euthymic affect Results & Data ([facility]) Vital Signs (Past 12 Hours) Vital Signs Temp Pulse Resp BP BP Pulse Ox 07/26/21 15:05 37.1 C 54 L 16 110/66 99 07/26/21 08:11 36.9 C 43 L 16 124/71 100 (1) Nausea & vomiting Vomiting type: unspecified Qualified Code(s): R11.2 - Nausea with vomiting, unspecified
[2021-07-26] MEDS: methylPREDNISolone 40 MG in SYRINGE 0 ML IV SCH ×2 (17:48→20:56)
[2021-07-27] MEDS: FAMOTIDINE 20 MG in SYRINGE 3 ML IV SCH ×2 (01:05→13:15)
[2021-07-27] MEDS: methylPREDNISolone 40 MG in SYRINGE 0 ML IV SCH ×3 (04:54→22:37)
[2021-07-27] MEDS: NSS + 20MEQ KCL 20 MEQ/1,000 ML BAG IV SCH ×3 (04:54→20:16)
[2021-07-27 07:03] LABS: Basophils # (auto) 0.01 K/uL (0-0.2); Basophils % (auto) 0.1 %; Hemoglobin 12.5 g/dL (14.0-18.0); Immature Granulocytes # (auto) 0.04 K/uL (0.00-0.02); Immature Granulocytes % (auto) 0.6 %; Lymphocytes # (auto) 0.97 K/uL (1.2-3.4); Lymphocytes % (auto) 14.1 %; Mean Corpuscular Hemoglobin 25.4 pg (25-34); Mean Corpuscular Hgb Conc 32.9 g/dL (32-36); Mean Corpuscular Volume 77.1 fL (80-100); Mean Platelet Volume 8.9 fL (7.4-10.4); Monocytes # (auto) 0.38 K/uL (0.11-0.59); Monocytes % (auto) 5.5 %; Neutrophils # (auto) 5.49 K/uL (1.4-6.5); Neutrophils % (auto) 79.7 %; Platelet Count 282 K/uL (130-400); RDW Coefficient of Variation 13.8 % (11.5-14.5); RDW Standard Deviation 38.9 fL (36.4-46.3); Red Blood Count 4.93 M/uL (4.7-6.1); White Blood Count 6.89 K/uL (4.8-10.8)
[2021-07-27 07:25] LABS: Anion Gap 6 (3-11); Blood Urea Nitrogen 5 mg/dl (6-23); Calcium 9.1 mg/dl (8.5-10.1); Carbon Dioxide 25 mmol/L (21-32); Chloride 107 mmol/L (98-107); Est GFR (African American) > 150.0 ml/min; Est GFR (Non-African American) 130.4 ml/min; Glucose 115 mg/dl (70-99(Fasting)); Potassium 4.3 mmol/L (3.5-5.1); Sodium 138 mmol/L (136-145)
[2021-07-27] MEDS: MULTIVITAMIN TAB PO SCH (07:31)
[2021-07-27] MEDS: MUPIROCIN 2% OINT 22 GM TUBE EXT SCH (08:57)
--- NOTE | 2021-07-27 14:11 | Gastroenterology Progress Note ---
Date of Service July 27, 2021 Assessment & Plan (1) Nausea & vomiting: Plan: n/v resolved crohns diarrhea with bleeding Will treat as crohns flare (increased stooling and with blood) with IV solu- medrol. Stopped Budesonide . Continue IV Pepcid for GERD. Increase go low fiber diet and monitor stool output. IMiguel MD have spent 10 minutes of discrete time performing the activities of this visit which include but are not limited to review of the medical record, obtaining a history, physical exam, and entering information in the electronic record. Admission and Anticipated Discharge Date Admission Date: July 26, 2021 Subjective cc f/u n/v, diarrhea HPI Pt denies n/v. Tolerating clear liquid diet. Wants to upgrade diet. Stools no formed to them and seeing blood. Physical Exam Gastrointestinal (Abdomen): normal bowel sounds, soft, nontender, no hepatosplenomegaly Results & Data ([facility]) Vital Signs (Past 12 Hours) Vital Signs Temp Pulse Resp BP Pulse Ox 07/27/21 07:51 36.7 C 58 L 16 122/71 100 (1) Nausea & vomiting Vomiting type: unspecified Qualified Code(s): R11.2 - Nausea with vomiting, unspecified
--- NOTE | 2021-07-27 15:19 | Hospitalist Progress Note ---
Date of Service July 27, 2021 Assessment & Plan (1) Intractable nausea and vomiting: Plan: Attending: Dr. Díaz Impression: 26-year-old male with history of Crohn's disease since a child. Most recently seen in the emergency department for intractable nausea and vomiting and given Compazine. Patient also reports having Zofran at home. Patient states that the oral medications not helping and that at this time he continues with intractable nausea and vomiting. Labs look okay. No evidence of acute dehydration. Patient does report some hematochezia. No anemia at this time. Patient has no significant abdominal pain. He does have chronic staph infection of both arms and his back which he states is treated by dermatology at [place]. No pruritus. No fever or chills. Continue to treat the patient empirically with IV fluids using normal saline w ith 20 mEq of potassium chloride at 125 mL/h. Patient reports that this significantly improved his nausea No leukocytosis. Procalcitonin is negative Afebrile Patient tolerating diet per nursing but patient reports nausea and vomiting with crackers Continue diet as tolerated. Encourage oral intake of fluids Patient seen by GI. Appreciate Dr. Cordova's input. (2) Crohn's colitis: Plan: Patient follows with [facility] and most recently was seen by GRACE Acuna Patient has CT abdomen pelvis completed on 07/22/2021 which showed possible inflammation but no blockage and no significant edema of the bowel. Patient nontender to palpation. Bowel sounds are in all 4 quadrants. Patient does have some hematochezia per his report and stool is positive for occult blood. Hemoglobin stable Patient seen by Dr. Cordova of gastroenterology. Started on IV Solu-Medrol. Budesonide stopped. Recommending low fiber diet and continue to monitor stool output Patient reports that he gets injections every 8 weeks with Stelara. He states he was treated within the last few weeks. ESR is only 7 Patient states that he does not feel ready for discharge. Continue supportive care (3) Hypokalemia: Plan: Patient with history of hypokalemia. Current potassium level is 3.5 -improved to 3.7 and now 4.3 today Not on any oral supplements at home Will discontinue potassium supplement and fluids as patient does not have any further significant vomiting. (4) Anemia: Plan: Iron deficiency Outpatient treatment per GI Hemoglobin stable Hemoccult all stools (5) GERD (gastroesophageal reflux disease): Plan: Currently not in an H2 anthony or PPI at home Continue famotidine daily every morning We will also order Maalox as needed (6) Orthostatic hypotension: Plan: Blood pressure currently stable No lightheadedness or dizziness at this time Continue IV fluids Vital signs per protocol (7) Tobacco abuse: Plan: Patient reports vaping Discussed need for complete abstention especially Crohn's disease (8) Agitation: Plan: Patient very agitated with me today. This was unprovoked. Patient does have history of autism Recognized immediately the patient was agitated and avoided any confrontation Patient was cooperative with physical examination Due to change in psyche during my visit, I asked Dr. Díaz to visit patient colin veronica in the day. (9) DVT prophylaxis: Plan: Hold chemical prophylaxis at this time due to report of melena/hematochezia BOBY bradshaw SCDs Admission and Anticipated Discharge Date Admission Date: July 26, 2021 Supervising Physician Co-Signing Physician Notes Attending Attestation - Chart reviewed, care plan d/w HENRY Donovan. I agree w/ the franks components of his documentation. Appreciate [facility] consultation & recs for Crohn's - to start on solumedrol in [place] of entocort. Sergey Díaz MD Subjective Attending: Dr. Díaz Patient seen and examined in room 378. He was quite agitated today. I asked if he felt ready to go and he indicated that he needs IV medications and IV fluids. He stated that as soon as the IV fluids are stopped he immediately feels nauseous and as though he cannot eat. I explained that this most likely was not related to stopping the IV fluids and patient got extremely agitated and postured in the bed and was clearly angry. At that time, I stopped discussion about IV therapy and examined the patient. His fists were clenched throughout the examination. I explained that we will continue with IV fluids at this time and see how he did with food. We also discussed Dr. Cordova's visit from gastroenterology and I explained that we would follow Dr. Cordova's recommendations at this time. Patient denies any fever, chills, sweats, rigors. He did state that he gets nauseous with eating crackers and stated that he had vomiting which filled the emesis bag. I discussed this with nursing and it was relayed to me that he had a very small amount of sputum in the bag and that they did not observe any vomit. Emesis bag on bedside table was empty and clear. I asked the patient to be sure to collect any vomit so we could check composition with the lab if needed. Review of Systems Review of Systems: A total of 10 systems was reviewed and is negative other than as listed in the HPI Physical Exam Physical Exam: GENERAL : Patient appeared agitated as soon as I enter the room. He did not seem to be in any acute distress. No respiratory distress. No evidence of diaphoresis EYES: No icterus, gaze conjugate NOSE: No evidence of epistaxis MOUTH: No lesions or candidiasis. Mucosa moist. NECK: Supple LUNGS: CTA B/L, no wheezes, rales or rhonchi. Good inspirational effort HEART: Regular, rate was in the 90s ABDOMEN: Soft, NT, ND, BS Present. No tenderness with palpation. No rebound tenderness EXTREMITIES: No LE edema, pedal pulses intact NEURO: A&OX3 Results & Data Results & Data ([facility]) Vital Signs (Past 12 Hours) Vital Signs Temp Pulse Resp BP Pulse Ox 07/27/21 07:51 36.7 C 58 L 16 122/71 100 Critical Care Results & Data Vital Signs (Past 12 Hours) Vital Signs Temp Pulse Resp BP Pulse Ox 07/27/21 15:57 36.8 C 50 L 16 152/84 H 99 Lab & Micro Results (Past 24 Hours) No Data to Display No Data to Display No Data to Display I & O Totals 24 Hours 07/26/21 07/27/21 07/28/21 06:59 06:59 06:59 Intake Total 3679.666 / 3679.666 5081.250 / 5081.250 3459.583 / 3459.583 Output Total 900 / 900 3306 / 3306 3150 / 3150 Balance 2779.666 / 2779.666 1775.250 / 1775.250 309.583 / 309.583 Cumulative 07/25/21 06:34 thru 07/27/21 20:16 Intake Total 78895.499 Output Total 7356 Balance 4864.499 RT Ventilator Mngmt (Last Documented) Ventilator Ordered Settings Respiratory Rate 16 07/27/21 15:57 Ventilator - PT Measurements Respiratory Rate 16 PG Care Time/CCT Total # of Minutes Spent Total Time Spent with Patient: Total time spent is greater than 50% in coordination of care (as documented) at patient's floor/unit and/or counseling patient: Coding Level of Care Code 34815 Subseq Hosp Care Lvl 2 Diagnoses Intractable nausea and vomiting R11.2 Crohn's colitis K50.10 Hypokalemia E87.6 Anemia D64.9 GERD (gastroesophageal reflux disease) K21.9 Esophagitis presence: esophagitis presence not specified Orthostatic hypotension I95.1 Tobacco abuse Z72.0 DVT prophylaxis Z29.9 Agitation R45.1 (1) GERD (gastroesophageal reflux disease) Esophagitis presence: esophagitis presence not specified Qualified Code(s): K21.9 - Gastro-esophageal reflux disease without esophagitis
[2021-07-27] MEDS: ONDANSETRON INJ 2 MG/ML 2 ML VIAL IV PRN (15:28)
[2021-07-27] MEDS ORDERED: PROCHLORPERAZINE 5 MG in SYRINGE 4 ML IV ONE (20:45)
[2021-07-28] MEDS: SODIUM CHLORIDE 0.9% 1000ML 1,000 ML IV SCH ×2 (00:51→13:01)
[2021-07-28] MEDS: FAMOTIDINE 20 MG in SYRINGE 3 ML IV SCH ×2 (01:52→13:01)
[2021-07-28] MEDS: methylPREDNISolone 40 MG in SYRINGE 0 ML IV SCH ×3 (05:52→22:10)
[2021-07-28 06:18] LABS: Basophils # (auto) 0.01 K/uL (0-0.2); Basophils % (auto) 0.1 %; Hematocrit (blood only) 39.1 % (42-52); Hemoglobin 13.3 g/dL (14.0-18.0); Immature Granulocytes # (auto) 0.05 K/uL (0.00-0.02); Immature Granulocytes % (auto) 0.5 %; Lymphocytes % (auto) 13.6 %; Mean Corpuscular Hemoglobin 26.5 pg (25-34); Mean Corpuscular Volume 77.9 fL (80-100); Mean Platelet Volume 8.8 fL (7.4-10.4); Monocytes # (auto) 0.83 K/uL (0.11-0.59); Monocytes % (auto) 7.5 %; Neutrophils # (auto) 8.63 K/uL (1.4-6.5); Neutrophils % (auto) 78.3 %; Platelet Count 327 K/uL (130-400); RDW Standard Deviation 39.6 fL (36.4-46.3); Red Blood Count 5.02 M/uL (4.7-6.1); White Blood Count 11.02 K/uL (4.8-10.8)
[2021-07-28 06:40] LABS: Albumin Globulin Ratio 1.9 (0.9-2); Albumin Level 4.3 gm/dl (3.4-5.0); BUN Creatinine Ratio 10.2 (10-20); Calcium 9.3 mg/dl (8.5-10.1); Creatinine Clr Calc Pharmacy 135.6 ml/min; Est GFR (African American) 138.4 ml/min; Est GFR (Non-African American) 119.4 ml/min; Globulin 2.3 gm/dl (2.5-4.0); Total Protein 6.6 gm/dl (6.0-8.3)
[2021-07-28] MEDS: MULTIVITAMIN TAB PO SCH (07:35)
[2021-07-28] MEDS: MUPIROCIN 2% OINT 22 GM TUBE EXT SCH (07:36)
--- NOTE | 2021-07-28 08:30 | Hospitalist Progress Note ---
Date of Service July 28, 2021 Assessment & Plan (1) Intractable nausea and vomiting: Plan: 26-year-old male with history of Crohn's disease since a child, age 6, involving the colon. Previously on imuran, asacol, remicade, now on stelara Multiple ER visits for similar n/v, given Compazine but reports unable to keep it down and only feeling better in ER/hooked up to IV and then once sent home is unable to keep up with oral intake. No significant abdominal pain. *does have chronic staph infection b/l arm/back which he states is chronic and tx w/ derm at [facility]. not itchy and using a special shampoo with hydrogen peroxide shampoos. 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 Messaged GI, also regarding his family history of gastric/colon cancer. They will also arrange EGD outpatient with c-scope (2) Crohn's colitis: Plan: Patient follows with [facility] and most recently was seen by GRACE Acuna Patient has CT abdomen pelvis completed on 07/22/2021 which showed possible inflammation but no blockage and no significant edema of the bowel. Patient nontender to palpation. Bowel sounds are in all 4 quadrants. Patient does have some hematochezia per his report and stool is positive for occult blood. Hemoglobin stable Stool PCR study negative Patient seen by Dr. Cordova of gastroenterology. Started on IV Solu-Medrol. Budesonide stopped. Recommending low fiber diet and continue to monitor stool output Patient reports that he gets injections every 8 weeks with Stelara. He states he was treated within the last few weeks. ESR is only 7 Patient states that he does not feel ready for discharge. Continue supportive care (3) Hypokalemia: Plan: Patient with history of hypokalemia. Current potassium level is 3.5 -improved to 3.7 and now 4.3 today Not on any oral supplements at home Will discontinue potassium supplement and fluids as patient does not have any further significant vomiting. (4) Anemia: Plan: Hx ITA, outpatient tx per GI reported MCV <80 Will check Iron panel with am labs/consideration for replacement while inpatient if needed, but hgb low normal Hemoccult + GI on consult, IV steroids as above Monitor CBC (5) GERD (gastroesophageal reflux disease): Plan: Currently not in an H2 anthony or PPI at home Continue famotidine daily every morning We will also order Maalox as needed (6) Orthostatic hypotension: Plan: Blood pressure currently stable 110/62 No lightheadedness or dizziness at this time Continue IV fluids for now, reduced rate. possible d/c later today if keeping up with PO Monitor (7) Tobacco abuse: Plan: Patient reports vaping MMJ Discussed need for complete abstention especially Crohn's disease (8) Agitation: Plan: Prior agitation on 07/27 with prior provider, unprovoked Hx autism Patient told me today he felt being pushed out the door too early, not listened to, and complaints not addressed 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 Calm/cooperative with me 07/28 (9) DVT prophylaxis: Plan: Hold chemical prophylaxis at this time due to report of melena/hematochezia BOBY bradshaw SCDs Plan: continued inpatient stay/monitoring remains on IV steroids for chrons flare Admission and Anticipated Discharge Date Admission Date: July 26, 2021 Supervising Physician Co-Signing Physician Notes HENRY Supervision Note: I did not personally see or examine the patient today, but I verified all franks points of HENRY Jha's assessment and plan with the following exceptions/additions: None Subjective Patient is 26yo male with PMhx significant for chrons, diagnosed per patient at age ~6. First year of "school" mostly in and out of hospital. Had been having symptoms of crohns flare and placed on IV solu-medrol which he states he thinks is helping. Concerns about inflammation in lower colon as he states it wouldn't explain is n/v. Disussed will monitor response to treatment, could have had viral illness (which he states hes had many) causing n/v and subsequent gastritis. He notes he has taken carafate in the past after steroids for irritation that is caused but not needing currently. Eating/drinking ok, tolerating low fiber diet. States had a smaller loose/more formed BM this morning, some yellow/brown but no malena bleeding. He has hx of c-scope in past year but thinks GI planning for repeat later this year. Denies any recent upper endoscopy but may have been done when he was younger. No family history of crohns/colitis, however he notes he does have family history of colon and gastric cancers. Has b/l upper extremity chronic staph infection. States had been left too long and had been much worse in the past. Using shampoos with hydrogen peroxide to keep clean and thinks the steroids also helping. Very anxious about being discharged too early as he has had three trips to the ER within a week period and reports feels better after hooked up to the IV then can't tolerate PO at home. Bharati CHIRINOS ordered and tolerating. He notes significant distress with prior medical provider who he states asked everyday "feeling better?ready to go? " and he felt like he was not being listened to. Nursing aware and to have service excellence contacted. Review of Systems Review of Systems: All systems reviewed & are unremarkable except as noted in HPI & below Physical Exam Physical Exam: GENERAL: WD/WN male, sitting up in bed, NAD HEENT: head normocephalic, facial hair, mmm, trachea midline without deviation Resp: CTAB, no w/c/r, on room air CV: bradycardic, regular rhythm, no m/r/g, no edema/calf tenderness GI: +BS (hypoactive), non-tender, no guarding/rebound : no stone MSK/Neuro: moves all extremities, follows commands, no focal deficit Psych: AOx3, cooperative, anxious about discharge too soon and not being listened to Skin: bilateral upper extremity rash with scabbing (reported chronic and improved from baseline), non-tender Results & Data Results & Data ([facility]) Vital Signs (Past 12 Hours) Vital Signs Temp Pulse Resp BP Pulse Ox 07/28/21 07:31 36.8 C 54 L 18 110/62 99 07/27/21 22:35 36.8 C 97 H 16 106/67 98 Laboratory Results 07/28/21 07/28/21 Range/Units 05:55 05:55 WBC 11.02 H (4.8-10.8) K/uL RBC 5.02 (4.7-6.1) M/uL Hgb 13.3 L (14.0-18.0) g/dL Hct 39.1 L (42-52) % MCV 77.9 L (80-100) fL MCH 26.5 (25-34) pg MCHC 34.0 (32-36) g/dL RDW Std Deviation 39.6 (36.4-46.3) fL RDW Coeff of Miguel 14.0 (11.5-14.5) % Plt Count 327 (130-400) K/uL MPV 8.8 (7.4-10.4) fL Immature Gran % (Auto) 0.5 % Neut % (Auto) 78.3 % Lymph % (Auto) 13.6 % [place] % (Auto) 7.5 % Eos % (Auto) 0.0 % Baso % (Auto) 0.1 % Neut # (Auto) 8.63 H (1.4-6.5) K/uL Lymph # (Auto) 1.50 (1.2-3.4) K/uL [place] # (Auto) 0.83 H (0.11-0.59) K/uL Eos # (Auto) 0.00 (0-0.5) K/uL Baso # (Auto) 0.01 (0-0.2) K/uL Immature Gran # (Auto) 0.05 H (0.00-0.02) K/uL Sodium 139 (136-145) mmol/L Potassium 4.0 (3.5-5.1) mmol/L Chloride 104 (98-107) mmol/L Carbon Dioxide 27 (21-32) mmol/L Anion Gap 8 (3-11) BUN 9 (6-23) mg/dl Creatinine 0.88 (0.6-1.4) mg/dl Est Cr Clr Drug Dosing 135.6 ml/min Est GFR ( Amer) 138.4 ml/min Est GFR (Non-Af Amer) 119.4 ml/min BUN/Creatinine Ratio 10.2 (10-20) Glucose 111 H (70-99(Fasting)) mg/dl Calcium 9.3 (8.5-10.1) mg/dl Total Bilirubin 1.0 (0.2-1.0) mg/dl AST 11 L (13-39) U/L ALT 10 (7-52) U/L Alkaline Phosphatase 53 (34-104) U/L Total Protein 6.6 (6.0-8.3) gm/dl Albumin 4.3 (3.4-5.0) gm/dl Globulin 2.3 L (2.5-4.0) gm/dl Albumin/Globulin Ratio 1.9 (0.9-2) PG Care Time/CCT Total # of Minutes Spent Total Time Spent with Patient: Total time spent is greater than 50% in coordination of care (as documented) at patient's floor/unit and/or counseling patient: Coding Level of Care Code 32797 Subseq Hosp Care Lvl 3 Diagnoses Intractable nausea and vomiting R11.2 Crohn's colitis K50.10 Hypokalemia E87.6 Anemia D64.9 GERD (gastroesophageal reflux disease) K21.9 Esophagitis presence: esophagitis presence not specified Orthostatic hypotension I95.1 Tobacco abuse Z72.0 Agitation R45.1 DVT prophylaxis Z29.9 (1) GERD (gastroesophageal reflux disease) Esophagitis presence: esophagitis presence not specified Qualified Code(s): K21.9 - Gastro-esophageal reflux disease without esophagitis
--- NOTE | 2021-07-28 08:33 | Gastroenterology Progress Note ---
Date of Service July 28, 2021 Assessment & Plan (1) Nausea & vomiting: Plan: Nausea and vomiting: Denies any nausea or vomiting this morning. He does state that he had nausea and vomiting following solid foods yesterday but had eaten fish and thought this might of been a bad decision. Plan is to continue supportive care measures. Crohn's disease: Patient has had increased bowel movement frequency, change in consistency of stool, and intermittent blood. Denies any melena or hematochezia this morning. Stools continue to not be formed. Continue IV Solu-Medrol. Continue low fiber diet as tolerated and monitor stool output. Patient is very concerned that he will be discharged too quickly from the hospital. Patient needs to be closer to his baseline prior to discharge (decrease in frequency of stools/diarrhea, bloody stools, n/v, tolerating po solid diet). GERD: Continue IV Pepcid Case reviewed with Dr. Cordova. Please refer to supervising physician addendum for further recommendations. I have spent 15 minutes of discrete time performing the activities of this visit which include but are not limited to review of the medical record, obtaining a history, physical exam, and entering information in the electronic record. (2) Exacerbation of Crohn's disease: Admission and Anticipated Discharge Date Admission Date: July 26, 2021 Supervising Physician Co-Signing Physician Notes I have seen and examined the patient. I agree with note above by GRACE Acuna except as noted below. HPI Pt denies abd pain. Did not tolerate fish last night but solid food today ok. Stools firming up some. WBC elevated today likely from steroids. PE Abdomen pos bs soft, no guarding nor rebound. A/P n/v improved crohns flare--improving. If continues to improve consider swithc to oral steroids tomorrow 60 mg once daily. Will make recommendation once seen on rounds in am. gerd continue acid suppressiion As the supervising physician, I , Miguel Cordova MD have spent 10 minutes of discrete time performing the activities of this visit which include but not limited to review of the medical records, obtaining a history, physical exam and entering information in the electronic record. GRACE Acuna has reported spending 15 minutes of discrete time with the activities of this visit. Subjective Patient is a pleasant 26-year-old male who presented after several emergency department visits for nausea, vomiting, bloody diarrhea. Initially symptoms began about 2 weeks ago. He is on Stelara as an outpatient. Last dose was around 07/17/2021. Had stool testing as an outpatient that was negative. Reports significant nausea and vomiting as an outpatient with blood in stool. Thinks he has lost weight as well - 5kg weight loss since 03/03/2021. Denies any current nausea or vomiting. He reports that so far solids have been going okay. He did have fish last evening and did feel significantly ill afterwards. Denies any current nausea or vomiting or abdominal pain. Reports a bowel movement through the night which was "liquid mush". Denies any blood in stool. Most recent colonoscopy: 02/03/2021: Colonoscopy notes are reviewed performed due to history of Crohn's disease which demonstrated normal-appearing terminal ileum. Diffuse pseudopolyps found from the sigmoid to cecum. No inflammation noted in the entire colon. Regional surveillance biopsies were obtained. Exam was otherwise without abnormality. Repeat colonoscopy for 2 years and surveillance is recommended. Pathology results demonstrated cecum, ascending, transverse, splenic flexure, descending, sigmoid, rectum biopsies with benign colonic mucosa without pathologic change, no active colitis, and fragments of hyperplastic polyp with polypectomy. Review of Systems Review of Systems: All systems reviewed & are unremarkable except as noted in Subjective Physical Exam Gastrointestinal (Abdomen): normal bowel sounds, soft, nontender, no hepatosplenomegaly Psychiatric: Mood: + anxious mood Results & Data ([facility]) Vital Signs (Past 12 Hours) Vital Signs Temp Pulse Resp BP Pulse Ox 07/28/21 07:31 36.8 C 54 L 18 110/62 99 07/27/21 22:35 36.8 C 97 H 16 106/67 98 Laboratory Results Laboratory Results - last 24 hr 07/28/21 07/28/21 05:55 05:55 WBC 11.02 H RBC 5.02 Hgb 13.3 L Hct 39.1 L MCV 77.9 L MCH 26.5 MCHC 34.0 RDW Std Deviation 39.6 RDW Coeff of Miguel 14.0 Plt Count 327 MPV 8.8 Immature Gran % (Auto) 0.5 Neut % (Auto) 78.3 Lymph % (Auto) 13.6 [place] % (Auto) 7.5 Eos % (Auto) 0.0 Baso % (Auto) 0.1 Neut # (Auto) 8.63 H Lymph # (Auto) 1.50 [place] # (Auto) 0.83 H Eos # (Auto) 0.00 Baso # (Auto) 0.01 Immature Gran # (Auto) 0.05 H Sodium 139 Potassium 4.0 Chloride 104 Carbon Dioxide 27 Anion Gap 8 BUN 9 Creatinine 0.88 Est Cr Clr Drug Dosing 135.6 Est GFR ( Amer) 138.4 Est GFR (Non-Af Amer) 119.4 BUN/Creatinine Ratio 10.2 Glucose 111 H Calcium 9.3 Total Bilirubin 1.0 AST 11 L ALT 10 Alkaline Phosphatase 53 Total Protein 6.6 Albumin 4.3 Globulin 2.3 L Albumin/Globulin Ratio 1.9 (1) Nausea & vomiting Vomiting type: unspecified Qualified Code(s): R11.2 - Nausea with vomiting, unspecified
[2021-07-28] MEDS: ONDANSETRON 4 MG OD TAB PO PRN (09:49)
[2021-07-29] MEDS: SODIUM CHLORIDE 0.9% 1000ML 1,000 ML IV SCH (00:02)
[2021-07-29] MEDS: FAMOTIDINE 20 MG in SYRINGE 3 ML IV SCH ×2 (02:21→13:30)
[2021-07-29] MEDS: methylPREDNISolone 40 MG in SYRINGE 0 ML IV SCH (05:36)
[2021-07-29 06:51] LABS: Hematocrit (blood only) 40.4 % (42-52); Hemoglobin 13.4 g/dL (14.0-18.0); Immature Granulocytes # (auto) 0.05 K/uL (0.00-0.02); Immature Granulocytes % (auto) 0.4 %; Lymphocytes # (auto) 1.75 K/uL (1.2-3.4); Lymphocytes % (auto) 13.8 %; Mean Corpuscular Hemoglobin 25.6 pg (25-34); Mean Corpuscular Hgb Conc 33.2 g/dL (32-36); Mean Corpuscular Volume 77.1 fL (80-100); Mean Platelet Volume 8.8 fL (7.4-10.4); Monocytes # (auto) 1.11 K/uL (0.11-0.59); Monocytes % (auto) 8.7 %; Neutrophils # (auto) 9.79 K/uL (1.4-6.5); Neutrophils % (auto) 77.1 %; Platelet Count 336 K/uL (130-400); RDW Coefficient of Variation 14.1 % (11.5-14.5); RDW Standard Deviation 39.8 fL (36.4-46.3); Red Blood Count 5.24 M/uL (4.7-6.1)
[2021-07-29 07:07] LABS: Iron 28 mcg/dl (35-175); Total Iron Binding Cap Calc 369 mcg/dl (250-450); Transferrin (FE) Percent Satur 8 % (20-50); Unsaturated Iron Binding Cap 341 mcg/dl (155-355)
[2021-07-29 07:09] LABS: Albumin Globulin Ratio 1.8 (0.9-2); Albumin Level 4.2 gm/dl (3.4-5.0); BUN Creatinine Ratio 13.6 (10-20); Calcium 9.3 mg/dl (8.5-10.1); Creatinine Clr Calc Pharmacy 147.3 ml/min; Est GFR (African American) 143.2 ml/min; Est GFR (Non-African American) 123.5 ml/min; Globulin 2.4 gm/dl (2.5-4.0); Potassium 3.9 mmol/L (3.5-5.1); Total Protein 6.6 gm/dl (6.0-8.3)
[2021-07-29 07:27] LABS: Ferritin 5.1 ng/ml (8-388)
[2021-07-29] MEDS: MUPIROCIN 2% OINT 22 GM TUBE EXT SCH (08:18)
[2021-07-29] MEDS: MULTIVITAMIN TAB PO SCH (08:19)
--- NOTE | 2021-07-29 08:39 | Gastroenterology Progress Note ---
Date of Service July 29, 2021 Assessment & Plan (1) Nausea & vomiting: Plan: Nausea and vomiting: Denies any nausea or vomiting this morning. Tolerating solid low fiber diet well. Continue supportive care measures. Crohn's disease: Patient presented with symptoms concerning for flare including increased bowel movement frequency, change in consistency of stool, and intermittent blood. Denies any melena or hematochezia this morning. Decrease stool frequency overnight and reports some form to stool. Continue solid low fiber diet as tolerated and monitor stool output. Would consider trial of oral prednisone 60 mg daily while inpatient to ensure he will tolerate at discharge. Would keep 24 hours after starting oral prednisone to ensure he remains stable. Okay to start oral Carafate BID due to concerns by patient that prednisone will exacerbate n/v. GERD: Continue acid suppression ITA: history of Crohn's disease, management per hospitalist service Case reviewed with Dr. Cordova. Please refer to supervising physician addendum for further recommendations. I have spent 10 minutes of discrete time performing the activities of this visit which include but are not limited to review of the medical record, obtaining a history, physical exam, and entering information in the electronic record. (2) Exacerbation of Crohn's disease: Admission and Anticipated Discharge Date Admission Date: July 26, 2021 Supervising Physician Co-Signing Physician Notes I have seen and examined the patient. I agree with note above by GRACE Acuna except as noted below. HPI No abd pain. Tolerating diet. Diarrhea has improved. He has been switched to oral steroids. PE Abdomen pos bs, soft, no guarding nor rebound A/P crohns flare---if remains stable overnight then could be DCed tomorrow on oral prednisone. As the supervising physician, I , Miguel Cordova MD have spent minutes of discrete time performing the activities of this visit which include but not limited to review of the medical records, obtaining a history, physical exam and entering information in the electronic record. GRACE Acuna has reported spending 10 minutes of discrete time with the activities of this visit. Subjective The patient is awake alert and oriented this morning. He is to be in better spirits. States he is feeling somewhat better. Denies any significant abdominal pain. No nausea or vomiting. Reports 1 bowel movement through the night last night that had some form to it but he describes it consistency as "[place]". Denies any blood in stool. He is tolerating solid low fiber diet. Discussed discontinuing IVs and IV Solu-Medrol and he is hoping this can be accomplished after lunch today. He states if he is placed on prednisone he wants something to "coat his stomach like Carafate". Review of Systems Review of Systems: All systems reviewed & are unremarkable except as noted in Subjective Physical Exam Gastrointestinal (Abdomen): normal bowel sounds, soft, nontender, no hepatosplenomegaly Results & Data ([facility]) Vital Signs (Past 12 Hours) Vital Signs Temp Pulse Resp BP Pulse Ox 07/29/21 07:31 36.7 C 58 L 14 115/64 98 07/28/21 21:55 36.9 C 50 L 16 124/66 98 Laboratory Results Laboratory Results - last 24 hr 07/29/21 07/29/21 07/29/21 06:29 06:29 06:29 WBC 12.70 H RBC 5.24 Hgb 13.4 L Hct 40.4 L MCV 77.1 L MCH 25.6 MCHC 33.2 RDW Std Deviation 39.8 RDW Coeff of Miguel 14.1 Plt Count 336 MPV 8.8 Immature Gran % (Auto) 0.4 Neut % (Auto) 77.1 Lymph % (Auto) 13.8 Lyman % (Auto) 8.7 Eos % (Auto) 0.0 Baso % (Auto) 0.0 Neut # (Auto) 9.79 H Lymph # (Auto) 1.75 Lyman # (Auto) 1.11 H Eos # (Auto) 0.00 Baso # (Auto) 0.00 Immature Gran # (Auto) 0.05 H Sodium 138 Potassium 3.9 Chloride 104 Carbon Dioxide 28 Anion Gap 6 BUN 11 Creatinine 0.81 Est Cr Clr Drug Dosing 147.3 Est GFR ( Amer) 143.2 Est GFR (Non-Af Amer) 123.5 BUN/Creatinine Ratio 13.6 Glucose 116 H Calcium 9.3 Iron 28 L TIBC 369 Unsaturated IBC 341 Transferrin % Sat 8 L Ferritin 5.1 L Total Bilirubin 1.0 AST 10 L ALT 11 Alkaline Phosphatase 54 Total Protein 6.6 Albumin 4.2 Globulin 2.4 L Albumin/Globulin Ratio 1.8 (1) Nausea & vomiting Vomiting type: unspecified Qualified Code(s): R11.2 - Nausea with vomiting, unspecified
--- NOTE | 2021-07-29 09:18 | Hospitalist Progress Note ---
Date of Service July 29, 2021 Assessment & Plan (1) Intractable nausea and vomiting: Plan: 26-year-old male with history of Crohn's disease since a child, age 6, involving the colon. Previously on imuran, asacol, remicade, now on stelara Multiple ER visits for similar n/v, given Compazine but reports unable to keep it down and only feeling better in ER/hooked up to IV and then once sent home is unable to keep up with oral intake. No significant abdominal pain. *does have chronic staph infection b/l arm/back which he states is chronic and tx w/ derm at [facility]. not itchy and using a special shampoo with hydrogen peroxide shampoos. 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 Messaged GI, also regarding his family history of gastric/colon cancer. They will also arrange EGD outpatient with c-scope Monitor overnight on PO prednisone but per GI want to monitor 24 hours and then d/c tomorrow if remains stable (2) Crohn's colitis: Plan: Patient follows with [facility] and most recently was seen by GRACE Acuna. On Sterla injections Q8 wks Patient has CT abdomen pelvis completed on 07/22/2021 which showed possible inflammation but no blockage and no significant edema of the bowel. Patient nontender to palpation. Bowel sounds are in all 4 quadrants. Patient does have some hematochezia per his report and stool is positive for occult blood. Hemoglobin stable Stool PCR study negative ESR [address] Cordova of gastroenterology. Started on IV Solu-Medrol. Budesonide stopped. Low fiber diet F/u GI (3) Hypokalemia: Plan: Patient with history of hypokalemia. Current potassium level is 3.5 -improved to 3.7 and now 4.3 today Not on any oral supplements at home K 3.7 and IVF discontinued (4) Anemia: Plan: Hx ITA, outpatient tx per GI reported MCV <80 Will check Iron panel with am labs/consideration for replacement while inpatient if needed, but hgb low normal Iron low28, trans % 8L Ordered venofer 200mg for today, repeat for tomorrow States doesn't take PO and would throw away if prescribed Discussed can have outpatient IV transfusions with GI Hemoccult + GI on consult, IV steroids as above now transitioned to PO CBC in AM (5) GERD (gastroesophageal reflux disease): Plan: Currently not in an H2 anthony or PPI at home -- would continue at d/c on prednisone vs PPI maalox prn (6) Orthostatic hypotension: Plan: Blood pressure currently stable No lightheadedness or dizziness at this time D/c IVF Monitor (7) Tobacco abuse: Plan: Patient reports vaping medical marijuana Discussed need for complete abstention especially Crohn's disease (8) Agitation: Plan: Prior agitation on 07/27 with prior provider, unprovoked Hx autism Patient told me today he felt being pushed out the door too early, not listened to, and complaints not addressed 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 Will need continued reassurance (9) DVT prophylaxis: Plan: Hold chemical prophylaxis at this time due to report of melena/hematochezia BOBY bradshaw, SCDs, ambulation Plan: transitioned to PO steroids, monitor overnight per GI and likely d/c tomorrow Admission and Anticipated Discharge Date Admission Date: July 26, 2021 Supervising Physician Co-Signing Physician Notes PA Supervision Note: I did not personally see or examine the patient today, but I verified all franks points of HENRY Jha's assessment and plan with the following exceptions/additions: None Subjective Patient evaluated this morning. Ate first real whole breakfast and improvement in bowels. No abdominal pain. Discussed with GI provider Kendra who confirmed with Dr Cordova that we will transition to prednisone 60mg today and see how he tolerates. As discussed prior, with prednisone he does have some issues and will start carafate to prevent these. Discussed low iron -- patient states he does not believe any oral iron supplementation ever works for anyone and notes his prior PCP Dr De states it didn't either with research. Discussed will given IV while inpatient and his PCP can set up additional IV doses or GI whichever is easier for him. He states he has a PCP in [facility] that he was randomly assigned and that he has never met them. Will ensure he has an appointment at discharge and discussed routine follow up care with PCP and not just GI alone given his history. Review of Systems Review of Systems: All systems reviewed & are unremarkable except as noted in HPI & below Physical Exam Physical Exam: GENERAL: WD/WN male, sitting up in bed, NAD HEENT: head normocephalic, mmm, trachea midline without deviation Resp: CTAB, no w/c/r, on room air CV: bradycardic, regular rhythm, no m/r/g, no edema/calf tenderness GI: +BS , non-tender, no guarding/rebound : no stone MSK/Neuro: moves all extremities, follows commands, no focal deficit Psych: AOx3, cooperative, anxious about discharge too soon Skin: bilateral upper extremity rash with scabbing (reported chronic and i mproved from baseline), non-tender Results & Data Results & Data ([facility]) Vital Signs (Past 12 Hours) Vital Signs Temp Pulse Resp BP Pulse Ox 07/29/21 07:31 36.7 C 58 L 14 115/64 98 07/28/21 21:55 36.9 C 50 L 16 124/66 98 Laboratory Results 07/29/21 07/29/21 07/29/21 Range/Units 06:29 06:29 06:29 WBC 12.70 H (4.8-10.8) K/uL RBC 5.24 (4.7-6.1) M/uL Hgb 13.4 L (14.0-18.0) g/dL Hct 40.4 L (42-52) % MCV 77.1 L (80-100) fL MCH 25.6 (25-34) pg MCHC 33.2 (32-36) g/dL RDW Std Deviation 39.8 (36.4-46.3) fL RDW Coeff of Miguel 14.1 (11.5-14.5) % Plt Count 336 (130-400) K/uL MPV 8.8 (7.4-10.4) fL Immature Gran % (Auto) 0.4 % Neut % (Auto) 77.1 % Lymph % (Auto) 13.8 % Forrest % (Auto) 8.7 % Eos % (Auto) 0.0 % Baso % (Auto) 0.0 % Neut # (Auto) 9.79 H (1.4-6.5) K/uL Lymph # (Auto) 1.75 (1.2-3.4) K/uL Forrest # (Auto) 1.11 H (0.11-0.59) K/uL Eos # (Auto) 0.00 (0-0.5) K/uL Baso # (Auto) 0.00 (0-0.2) K/uL Immature Gran # (Auto) 0.05 H (0.00-0.02) K/uL Sodium 138 (136-145) mmol/L Potassium 3.9 (3.5-5.1) mmol/L Chloride 104 (98-107) mmol/L Carbon Dioxide 28 (21-32) mmol/L Anion Gap 6 (3-11) BUN 11 (6-23) mg/dl Creatinine 0.81 (0.6-1.4) mg/dl Est Cr Clr Drug Dosing 147.3 ml/min Est GFR ( Amer) 143.2 ml/min Est GFR (Non-Af Amer) 123.5 ml/min BUN/Creatinine Ratio 13.6 (10-20) Glucose 116 H (70-99(Fasting)) mg/dl Calcium 9.3 (8.5-10.1) mg/dl Iron 28 L (35-175) mcg/dl TIBC 369 (250-450) mcg/dl Unsaturated IBC 341 (155-355) mcg/dl Transferrin % Sat 8 L (20-50) % Ferritin 5.1 L (8-388) ng/ml Total Bilirubin 1.0 (0.2-1.0) mg/dl AST 10 L (13-39) U/L ALT 11 (7-52) U/L Alkaline Phosphatase 54 (34-104) U/L Total Protein 6.6 (6.0-8.3) gm/dl Albumin 4.2 (3.4-5.0) gm/dl Globulin 2.4 L (2.5-4.0) gm/dl Albumin/Globulin Ratio 1.8 (0.9-2) PG Care Time/CCT Total # of Minutes Spent Total Time Spent with Patient: Total time spent is greater than 50% in coordination of care (as documented) at patient's floor/unit and/or counseling patient: Coding Level of Care Code 27101 Subseq Hosp Care Lvl 3 Diagnoses Intractable nausea and vomiting R11.2 Crohn's colitis K50.10 Hypokalemia E87.6 Anemia D64.9 GERD (gastroesophageal reflux disease) K21.9 Esophagitis presence: esophagitis presence not specified Orthostatic hypotension I95.1 Tobacco abuse Z72.0 Agitation R45.1 DVT prophylaxis Z29.9 (1) GERD (gastroesophageal reflux disease) Esophagitis presence: esophagitis presence not specified Qualified Code(s): K21.9 - Gastro-esophageal reflux disease without esophagitis
[2021-07-29] MEDS ORDERED: IRON SUCROSE 200 MG in 0.9 % SODIUM CHLORIDE 100 ML IV ONE (09:30)
[2021-07-29] MEDS: SUCRALFATE 1 GM/10 ML UDC PO SCH ×2 (11:14→20:08)
[2021-07-29] MEDS: predniSONE 20 MG TAB PO SCH (11:14)
[2021-07-29] MEDS: ONDANSETRON 4 MG OD TAB PO PRN (19:50)
[2021-07-30] MEDS: FAMOTIDINE 20 MG in SYRINGE 3 ML IV SCH ×2 (01:40→13:47)
[2021-07-30 07:58] LABS: Basophils # (auto) 0.01 K/uL (0-0.2); Basophils % (auto) 0.1 %; Eosinophils # (auto) 0.05 K/uL (0-0.5); Eosinophils % (auto) 0.4 %; Hematocrit (blood only) 40.7 % (42-52); Hemoglobin 13.6 g/dL (14.0-18.0); Immature Granulocytes % (auto) 0.8 %; Lymphocytes # (auto) 2.99 K/uL (1.2-3.4); Lymphocytes % (auto) 25.4 %; Mean Corpuscular Hemoglobin 26.4 pg (25-34); Mean Corpuscular Hgb Conc 33.4 g/dL (32-36); Mean Platelet Volume 8.9 fL (7.4-10.4); Monocytes # (auto) 1.63 K/uL (0.11-0.59); Monocytes % (auto) 13.8 %; Neutrophils % (auto) 59.5 %; Platelet Count 316 K/uL (130-400); RDW Standard Deviation 39.9 fL (36.4-46.3); Red Blood Count 5.15 M/uL (4.7-6.1); White Blood Count 11.78 K/uL (4.8-10.8)
--- NOTE | 2021-07-30 08:15 | Hospitalist Progress Note ---
Date of Service July 30, 2021 Assessment & Plan (1) Intractable nausea and vomiting: Plan: 26-year-old male with history of Crohn's disease since a child, age 6, involving the colon. Previously on imuran, asacol, remicade, now on stelara [place] Multiple ER visits for similar n/v, given Compazine but reports unable to keep it down and only feeling better in ER/hooked up to IV and then once sent home is unable to keep up with oral intake. No significant abdominal pain. *does have chronic staph infection b/l arm/back which he states is chronic and tx w/ derm at [facility]. not itchy and using a special shampoo with hydrogen peroxide shampoos. GI on consult, Dr Cordova -Started on IV solumedrol 07/27 by for Chrons flare, suspect WBC elevation 2nd to steroids (afebrile) Switched to Prednisone 60mg daily 07/29, per GI monitoring BMs given blood reported last evening Continue carafate BID after discussion about issues with prednisone in the past Advanced diet to low fiber, tolerating ODT zofran -- states unable to take regular PO -- send rx at discharge Continue pepcid for GI prophylaxis Improvement and having more formed stools--> blood on TP but none in bowel reported however patient uncomfortable with discharge today Per discussion with GI, patient likely to remain inpatient until tomorrow morning and hopefully discharge Jan 2020 per OP GI note, 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 Messaged GI, also regarding his family history of gastric/colon cancer. They will also arrange EGD outpatient with c-scope (2) Crohn's colitis: Plan: Patient follows with [facility] and most recently was seen by GRACE Acuna. On Sterla injections Q8 wks Patient has CT abdomen pelvis completed on 07/22/2021 which showed possible inflammation but no blockage and no significant edema of the bowel. Stool PCR study negative ESR [address] Cordova of gastroenterology. Started on IV Solu-Medrol. Budesonide stopped. Now on prednisone and continue with carafate and pepcid at discharge Continue low fiber diet F/u GI outpatient for egd/c-scope (3) Hypokalemia: Plan: remains stable off IVF (4) Anemia: Plan: Hx ITA, outpatient tx per GI reported MCV <80 hemoccult + Will check Iron panel with am labs/consideration for replacement while inpatient if needed, but hgb low normal Iron low28, trans % 8L Ordered venofer 200mg 07/29, 300mg 07/30 Patient requesting saline with tomorrow injection due to pain with infusion Unable to take PO states and would throw away if prescribed Discussed can have outpatient IV transfusions with GI -- they said they will arrange hgb improved monitor bleeding (5) GERD (gastroesophageal reflux disease): Plan: Currently not in an H2 anthony or PPI at home -- would continue at d/c on prednisone vs PPI maalox prn (6) Orthostatic hypotension: Plan: Blood pressure currently stable No lightheadedness or dizziness at this time D/c IVF Monitor (7) Tobacco abuse: Plan: Patient reports vaping medical marijuana Discussed need for complete abstention especially Crohn's disease (8) Agitation: Plan: Prior agitation on 07/27 with prior provider, unprovoked Hx autism Patient told me today he felt being pushed out the door too early, not listened to, and complaints not addressed 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 Calm/cooperative with me 07/28 but is more anxious about discharging too soon again today 07/29 &07/30, but states thinks he would be ready by tomorrow morning Continued reassurance provided (9) DVT prophylaxis: Plan: Hold chemical prophylaxis at this time due to report of melena/hematochezia BOBY bradshaw, SCDs, ambulation Plan: hopeful discharge tomorrow morning Admission and Anticipated Discharge Date Admission Date: July 26, 2021 Supervising Physician Co-Signing Physician Notes See discharge summary supervision note from same DOS Subjective patient evaluated this afternoon had formed more solid bm last evening but noted some blood when wiping. noted had another BM here just around lunch and no further blood discussed discharge, he is not comfortable and states having BMs taking a lot out of him as far as general energy level concerned discussed iron infusion, he state he had some discomfort when infusing and feels muscles are slightly tense. no erythema/edema and pulses palpable. He states he need additional IV fluids to be running when gets iron like yesterday. When inquired, he states that's how they do it outpatient as well. Dr Raines to see this afternoon as Dr Cordova off today. No fever/chills, chest pain. Did have some nausea but cautious with what he's eating. Tolerating low fiber and lemon pepper cod without issue. Would consider discharge in AM. Review of Systems Review of Systems: All systems reviewed & are unremarkable except as noted in HPI & below Physical Exam Physical Exam: GENERAL: WD/WN male, sitting up in bed, NAD HEENT: head normocephalic, mmm, trachea midline without deviation Resp: CTAB, no w/c/r, on room air CV: bradycardic, regular rhythm, no m/r/g, no edema/calf tenderness GI: +BS , non-tender, no guarding/rebound : no stone MSK/Neuro: moves all extremities, follows commands, no focal deficit Psych: AOx3, cooperative, anxious about discharge too soon Skin: bilateral upper extremity rash with scabbing (reported chronic and improved from baseline), non-tender Results & Data Results & Data ([facility]) Vital Signs (Past 12 Hours) Vital Signs Temp Pulse Resp BP BP Pulse Ox 07/30/21 07:32 37.0 C 61 14 113/63 99 07/29/21 22:32 36.8 C 50 L 16 129/77 99 Laboratory Results 07/30/21 07/30/21 Range/Units 07:25 07:25 WBC 11.78 H (4.8-10.8) K/uL RBC 5.15 (4.7-6.1) M/uL Hgb 13.6 L (14.0-18.0) g/dL Hct 40.7 L (42-52) % MCV 79.0 L (80-100) fL MCH 26.4 (25-34) pg MCHC 33.4 (32-36) g/dL RDW Std Deviation 39.9 (36.4-46.3) fL RDW Coeff of Miguel 14.0 (11.5-14.5) % Plt Count 316 (130-400) K/uL MPV 8.9 (7.4-10.4) fL Immature Gran % (Auto) 0.8 % Neut % (Auto) 59.5 % Lymph % (Auto) 25.4 % Glascock % (Auto) 13.8 % Eos % (Auto) 0.4 % Baso % (Auto) 0.1 % Neut # (Auto) 7.00 H (1.4-6.5) K/uL Lymph # (Auto) 2.99 (1.2-3.4) K/uL Glascock # (Auto) 1.63 H (0.11-0.59) K/uL Eos # (Auto) 0.05 (0-0.5) K/uL Baso # (Auto) 0.01 (0-0.2) K/uL Immature Gran # (Auto) 0.10 H (0.00-0.02) K/uL Sodium 138 (136-145) mmol/L Potassium 3.7 (3.5-5.1) mmol/L Chloride 104 (98-107) mmol/L Carbon Dioxide 29 (21-32) mmol/L Anion Gap 5 (3-11) BUN 13 (6-23) mg/dl Creatinine 0.86 (0.6-1.4) mg/dl Est Cr Clr Drug Dosing 138.7 ml/min Est GFR ( Amer) 139.7 ml/min Est GFR (Non-Af Amer) 120.5 ml/min BUN/Creatinine Ratio 15.1 (10-20) Glucose 86 (70-99(Fasting)) mg/dl Calcium 9.2 (8.5-10.1) mg/dl Total Bilirubin 0.9 (0.2-1.0) mg/dl AST 9 L (13-39) U/L ALT 9 (7-52) U/L Alkaline Phosphatase 51 (34-104) U/L Total Protein 6.3 (6.0-8.3) gm/dl Albumin 4.0 (3.4-5.0) gm/dl Globulin 2.3 L (2.5-4.0) gm/dl Albumin/Globulin Ratio 1.7 (0.9-2) PG Care Time/CCT Total # of Minutes Spent Total Time Spent with Patient: Total time spent is greater than 50% in coordination of care (as documented) at patient's floor/unit and/or counseling patient: Coding Level of Care Code 93754 Subseq Hosp Care Lvl 2 Diagnoses Intractable nausea and vomiting R11.2 Crohn's colitis K50.10 Hypokalemia E87.6 Anemia D64.9 GERD (gastroesophageal reflux disease) K21.9 Esophagitis presence: esophagitis presence not specified Orthostatic hypotension I95.1 Tobacco abuse Z72.0 Agitation R45.1 DVT prophylaxis Z29.9 (1) GERD (gastroesophageal reflux disease) Esophagitis presence: esophagitis presence not specified Qualified Code(s): K21.9 - Gastro-esophageal reflux disease without esophagitis
[2021-07-30 08:24] LABS: Albumin Globulin Ratio 1.7 (0.9-2); BUN Creatinine Ratio 15.1 (10-20); Bilirubin,Total 0.9 mg/dl (0.2-1.0); Calcium 9.2 mg/dl (8.5-10.1); Creatinine Clr Calc Pharmacy 138.7 ml/min; Est GFR (African American) 139.7 ml/min; Est GFR (Non-African American) 120.5 ml/min; Globulin 2.3 gm/dl (2.5-4.0); Potassium 3.7 mmol/L (3.5-5.1); Total Protein 6.3 gm/dl (6.0-8.3)
[2021-07-30] MEDS: SUCRALFATE 1 GM/10 ML UDC PO SCH (08:25)
[2021-07-30] MEDS: MULTIVITAMIN TAB PO SCH (08:25)
[2021-07-30] MEDS: predniSONE 20 MG TAB PO SCH (08:25)
[2021-07-30] MEDS: MUPIROCIN 2% OINT 22 GM TUBE EXT SCH (08:25)
--- NOTE | 2021-07-30 08:26 | Gastroenterology Progress Note ---
Date of Service July 30, 2021 Assessment & Plan (1) Nausea & vomiting: Plan: Nausea and vomiting: Denies any nausea or vomiting this morning. Tolerating solid low fiber diet well. Continue supportive care measures. Crohn's disease: Patient presented with symptoms concerning for flare including increased bowel movement frequency, change in consistency of stool, and intermittent blood. Denies any melena or hematochezia this morning. Bowel movement x 2 last night, formed and hard to pass per patient. Small amount of blood discharge rectally after flatus. Continue to monitor. Continue solid low fiber diet as tolerated and monitor stool output. Continue oral prednisone 60 mg daily. Started oral Carafate BID due to concerns by patient that prednisone will exacerbate n/v. Discharge likely today or tomorrow - Dr. Raines will reevaluate patient this afternoon when rounding. GERD: Continue acid suppression ITA: history of Crohn's disease, management per hospitalist service Case reviewed with Dr. Raines. Please refer to supervising physician addendum for further recommendations. I have spent 15 minutes of discrete time performing the activities of this visit which include but are not limited to review of the medical record, obtaining a history, physical exam, and entering information in the electronic record. (2) Exacerbation of Crohn's disease: Admission and Anticipated Discharge Date Admission Date: July 26, 2021 Supervising Physician Co-Signing Physician Notes I interviewed and examined the patient and reviewed the medical record, with the following observations: Subjective: Over the past 24 hours, he denies any nausea, vomiting, abdominal pain, rectal bleeding, diarrhea, and he has been tolerating his diet and liquids without any difficulty Physical Examination: He has hyperactive abnormal bowel sounds, but the remainder of the abdominal examination is entirely normal, no distension, soft without any tenderness, guarding, rebound, palpable induration or masses Chart Review: No additional findings I agree with the assessment as outlined in this consultation, with the following observations: The only finding of disease activity is hyperactive bowel sounds at this time I agree with the plan of care as outlined in this consultation, with the following changes and/or additions: Recommend discharge to outpatient follow up on oral prednisone As the supervising physician, I have spent 20 minutes of discrete time performing the activities of this consultation which include, but are not limited to, review of the medical record, obtaining a history, physical examination, and entering information into the electronic record. GRACE Acuna, has reported spending 15 minutes of discrete time with the activities of the consultation. Subjective The patient is awake alert and oriented this morning. He states he feels a bit this morning. He had a bowel movement x2 last night which was solid and formed and noted no melena or hematochezia. However this morning he passed some flatus and noted some bloody discharge around his anus. He states the blood was just some liquid around his anus. He states it was not a large quantity of blood. Denies any abdominal pain. He is tolerating solid low fiber diet well. Review of Systems Review of Systems: All systems reviewed & are unremarkable except as noted in Subjective Physical Exam Gastrointestinal (Abdomen): normal bowel sounds, soft, nontender, no hepatosplenomegaly Results & Data ([facility]) Vital Signs (Past 12 Hours) Vital Signs Temp Pulse Resp BP BP Pulse Ox 07/30/21 07:32 37.0 C 61 14 113/63 99 07/29/21 22:32 36.8 C 50 L 16 129/77 99 Laboratory Results Laboratory Results - last 24 hr 07/30/21 07/30/21 07:25 07:25 WBC 11.78 H RBC 5.15 Hgb 13.6 L Hct 40.7 L MCV 79.0 L MCH 26.4 MCHC 33.4 RDW Std Deviation 39.9 RDW Coeff of Miguel 14.0 Plt Count 316 MPV 8.9 Immature Gran % (Auto) 0.8 Neut % (Auto) 59.5 Lymph % (Auto) 25.4 [place] % (Auto) 13.8 Eos % (Auto) 0.4 Baso % (Auto) 0.1 Neut # (Auto) 7.00 H Lymph # (Auto) 2.99 [place] # (Auto) 1.63 H Eos # (Auto) 0.05 Baso # (Auto) 0.01 Immature Gran # (Auto) 0.10 H Sodium 138 Potassium 3.7 Chloride 104 Carbon Dioxide 29 Anion Gap 5 BUN 13 Creatinine 0.86 Est Cr Clr Drug Dosing 138.7 Est GFR ( Amer) 139.7 Est GFR (Non-Af Amer) 120.5 BUN/Creatinine Ratio 15.1 Glucose 86 Calcium 9.2 Total Bilirubin 0.9 AST 9 L ALT 9 Alkaline Phosphatase 51 Total Protein 6.3 Albumin 4.0 Globulin 2.3 L Albumin/Globulin Ratio 1.7 (1) Nausea & vomiting Vomiting type: unspecified Qualified Code(s): R11.2 - Nausea with vomiting, unspecified
[2021-07-30] MEDS ORDERED: IRON SUCROSE 300 MG in SODIUM CHLORIDE 0.9% 250 ML IV ONE (08:30)
[2021-07-30] MEDS: ONDANSETRON 4 MG OD TAB PO PRN (10:33)
--- NOTE | 2021-07-30 18:30 | Discharge Summary ---
Date of Service July 30, 2021 Admission HPI Per Admitting Provider Attending: Dr. Díaz This is a 26-year-old male with a past medical history including Crohn's disease since a child, GERD, hypokalemia, tobacco abuse, marijuana abuse, history of suicidal ideation, history of homicidal ideation, autism spectrum disorder, acne, chronic staph infection of arms and back since 2019, anemia, hematochezia, orthostasis, orthostatic hypotension. Patient presents with intractable nausea and vomiting. He has a history of Crohn's disease since childhood. He was last seen in the emergency department on 22 Jul 2021. He was discharged home on Compazine for his nausea and vomiting . He reports that his nausea vomiting gotten worse and now he has some bloody stool. Patient has no abdominal pain. He has no fever. He has no sweats. He has no chills. Patient states that he follows with the [facility] for both his Crohn's disease as well as his chronic staph infection. This time he states that his staph infection is not any worse than usual. He was scheduled to follow-up with dermatology in April but never called for the appointment. Patient denies any pruritus at this point. Patient's hemoglobin and hematocrit are stable. Patient has no leukocytosis. He has no fever. He is hemodynamically stable with a systolic pressure of 117. He has no acute complaints other than nausea and vomiting and some bloody stool. Patient admits to vaping. He states he has not vape for a couple of weeks since he has not been feeling well. He also admits to regular marijuana use. Admission Exam Per Admitting Provider GENERAL : No acute distress. Pleasant. Talkative EYES: No icterus, gaze conjugate. Pupils equal round and reactive to light NOSE: No evidence of epistaxis MOUTH: No lesions or candidiasis. Tongue is midline. NECK: Supple LUNGS: CTA B/L, no wheezes, rales or rhonchi. Good inspirational effort HEART: Regular, rate controlled. No appreciation of ectopy ABDOMEN: Soft, NT, ND, BS Present EXTREMITIES: No LE edema, pedal pulses intact and equal bilaterally. Patient has healing rash on both arms and on his back. There is no oozing. Area on the right shoulder appears to be like impetigo. No pruritus. No pain with palpation. NEURO: A&OX3 Principal Diagnosis Crohn's Flare Discharge Exam GENERAL: WD/WN male, sitting up in bed, NAD HEENT: head normocephalic, mmm, trachea midline without deviation Resp: CTAB, no w/c/r, on room air CV: bradycardic, regular rhythm, no m/r/g, no edema/calf tenderness GI: +BS , non-tender, no guarding/rebound : no stone MSK/Neuro: moves all extremities, follows commands, no focal deficit Psych: AOx3, calm, cooperative Skin: bilateral upper extremity rash with scabbing (reported chronic and improved from baseline) but appears improved from days prior, non-tender Discharge Data Allergies Allergy/AdvReac Type Severity Reaction Status Date / Time infliximab [From Remicade] Allergy Severe THROAT Verified 07/25/21 07:50 SWELLS Consultations 07/26/21 10:39 Consult Gastroenterology Routine 07/29/21 20:18 Consult Patient Services Routine Ordered Studies Chest/Abdomen X-ray 07/25/21 06:42 CHEST AND ABDOMEN 2 VIEWS HISTORY: vomiting COMPARISON: Chest and abdominal series 02/11/2020. FINDINGS: The lungs are clear. The cardiomediastinal silhouette is within normal limits. There is no pneumoperitoneum or pneumatosis. The bowel gas pattern is unrema rkable. No evidence for bowel obstruction. No pathologic calcifications. IMPRESSION: No acute cardiopulmonary process. No evidence for bowel obstruction. ACT 112: Negative or not required by law. Electronically signed by: Venu Perez M.D. 07/25/2021 8:53 AM Hospital Course (1) Intractable nausea and vomitin-year-old male with history of Crohn's disease since a child, age 6, involving the colon. Previously on imuran, asacol, remicade, now on stelara [place] Multiple ER visits for similar n/v, given Compazine but reports unable to keep it down and only feeling better in ER/hooked up to IV and then once sent home is unable to keep up with oral intake. No significant abdominal pain. *does have chronic staph infection b/l arm/back which he states is chronic and tx w/ derm at [facility]. not itchy and using a special shampoo with benzyl peroxide -- mupirocin while inpatient and rx sent GI on consult, Dr Cordova -Started on IV solu-medrol 07/27 by for Chrons flare, suspect WBC elevation 2nd to steroids (afebrile) Switched to Prednisone 60mg daily 07/29, per GI monitoring BMs given blood evening 07/28 continued Carafate BID after discussion about issues with prednisone in the past Tolerating low fiber/regular diet but wanting blueberry and low fiber aspect removed for dinner ODT zofran -- stated unable to take regular PO and sent rx at discharge Continued pepcid for GI prophylaxis -- rx at d/c Improvement and having more formed stools- -> blood on TP but none in bowel reported however patient uncomfortable with discharge today initially first thing this morning as just eating/moving bowels regularly over 24hrs -->Eval later in afternoon, +BM without blood. Eating/drinking no issue and wishing for discharge Spoke with Dr Raines on the phone this evening, plan for slow taper 60mg x week (got 2 days inpatient), then 40mg x 7 days, 30mg x 7 days, 20mg x 7 days, then decrease by 5mg weekly to complete taper Will f/u with GI for outpatient Iron transfusions as needed (2) Crohn's colitis: Patient follows with [facility] and most recently was seen by GRACE Acuna. On Sterla injections Q8 wks Patient has CT abdomen pelvis completed on 07/22/2021 which showed possible inflammation but no blockage and no significant edema of the bowel. Stool PCR study negative ESR [address] Cordova of gastroenterology. Started on IV Solu-Medrol. Budesonide stopped. 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 Messaged GI, also regarding his family history of gastric/colon cancer. They will also arrange EGD outpatient with c-scope (3) Hypokalemia: remains stable off IVF (4) Anemia: Hx ITA, outpatient tx per GI reported MCV <80 hemoccult + Checked Iron panel with am labs/consideration for replacement while inpatient if needed, but hgb low normal Iron low28, trans % 8L Ordered Venofer 200mg 6/1, 300mg 6/2 --> can have additional in f/u GI outpatient hgb stable (5) GERD (gastroesophageal reflux disease): Currently not in an H2 anthony or PPI at home -- continued at d/c on prednisone (6) Orthostatic hypotension: Blood pressure currently stable No lightheadedness or dizziness at this time D/c IVF and no isssues (7) Tobacco abuse: Patient reports vaping medical marijuana Discussed need for complete abstention especially Crohn's disease (8) Agitation: days prior with other provider stating being pushed out the door no issues over past 48 hours, service excellence contacted by nursing while inpatient (9) DVT prophylaxis: He;d chemical prophylaxis at this time due to report of melena/hematochezia [facility], ambulation while inpatient discharged home this evening Total Time Total Time Spent Total Time Spent (In Minutes): 60 Discharge Plan Discharge Items Patient Disposition: Home - Self-Care Reason For Visit: [place] Discharge Diagnosis: Chrons Flare Condition on Discharge: Good Goals: You have been hospitalized for an acute medical problem. During your stay at [facility], we have made an effort to correct the problem that brought you to the hospital while keeping you as comfortable as possible. Medications were used to bring your condition under control and your discharge instructions will include directions for any medications you should take after leaving the hospital. Please make sure you see your Primary Care Provider as part of your follow up plan. Activity: Resume your previous activity Non-emergency contact: Primary Care Provider and Die Caster Call non-emergency contact if: you have any medication questions, your symptoms worsen, your pain is worsening and you have a fever Follow-up/Referrals: Kendra Vazquez CRNP [Nurse Practitioner] - (1 week) Jaydon Lim DO [Primary Care Provider] - Diet: Low Fiber Addtl Attending Provider Instructions: You have been hospitalized and treated for a crohn's flare. Dr Cordova was consulted and you were provided with IV fluids, steroids, and antiemetics. We also gave IV iron and I discussed with Kendra Vazquez and they will arrange for repeat infusions as needed as an outpatient. You will have a slow taper of prednisone at discharge * 60mg by mouth (3 tablets) ONCE daily for the next 5 days for a total of 7 at this dose, then * 40mg by mouth (2 tablets) ONCE daily for 7 days, then * 30mg by mouth (1 1/2 tablets) once daily x 7 days, then * 20mg by mouth (1 tablet) once daily x 7 days, * then decrease by 5 mg daily per week to complete taper. * (I have sent separate prescription for 10mg tablets so that you can split these in half) I have also discussed about Carafate with GI and they have agreed to start Carafate (which was started in the hospital) while on Carafate twice a day to prevent gastritis which you have had in the past. We also added Pepcid for reflux. DO NOT TAKE BUDESONIDE WHILE TAKING THE PREDNISONE. They will arrange for an outpatient endoscopy in follow up. I have also sent Zofran to use as needed for nausea and sent the dissolvable under the tongue form for best effect. You have been using mupirocin topically to your skin and a prescription was sent to continue. Please follow up with your primary care provider in the next week as well as follow up with GI. Please return to the ER with any worsening pain, blood in stool, inability to keep up with oral intake, or for any other symptoms concerning for you. Take care! Pending Studies at Discharge: No Stand-Alone Forms: My [facility] [employer], Smoking Cessation Medications and DC Order Prescriptions: New famotidine 40 mg Tablet 40 mg PO QAM Qty: 30 RF: 0 ondansetron 4 mg Tablet,Disintegrating 4 mg PO Q4H PRN (Reason: nausea and vomiting) Qty: 14 RF: 0 sucralfate 100 mg/mL Suspension 1 g PO BID Qty: 414 RF: 0 mupirocin 2 % Ointment 1 applic EXT DAILY Qty: 15 RF: 0 prednisone 10 mg tablet See Rx Instructions .ROUTE .COMPLEX Qty: 21 RF: 0 prednisone 20 mg tablet See Rx Instructions .ROUTE .COMPLEX Qty: 47 RF: 0 Continued Stelara 45 mg/0.5 mL Solution 45 mg SUBCUT Q8WK RF: 0 prochlorperazine maleate [Compazine] 5 mg tablet 5 mg PO Q8H PRN (Reason: nausea and vomiting) Qty: 20 RF: 0 Multivitamin Gummies 200 mcg Tablet,Chewable 2 tab PO QAM RF: 0 Discontinued budesonide 9 mg capsule, extended release 9 mg PO QAM RF: 0 ondansetron HCl [Zofran] 4 mg Tablet 4 mg PO Q6H PRN (Reason: Nausea) RF: 0 Discharge Orders: Discharge Order (Routine); Ordered 07/30/21 Ordered By: Trinity Quezada/Other Patient Handouts: What Is Crohn's Disease Admission Data Admit Date/Time: 07/26/21 10:47 Attending Provider: Conchita Alicea Admit Provider: Sergey Díaz Primary Care Provider: Jaydon Lim Other Providers: Kendra Vazquez ; Miguel Cordova ; Arun Bedolla ; Jatinder Han ; Zack Rodriguez ; José Raines Other Interventions: Discharge Summary Assessment (RN) Last Done: 07/30/21 18:33 Coding Diagnoses Intractable nausea and vomiting R11.2 Crohn's colitis K50.10 Hypokalemia E87.6 Anemia D64.9 GERD (gastroesophageal reflux disease) K21.9 Esophagitis presence: esophagitis presence not specified Orthostatic hypotension I95.1 Tobacco abuse Z72.0 Agitation R45.1 DVT prophylaxis Z29.9
[2021-07-31] MEDS ORDERED: IRON SUCROSE 300 MG in SODIUM CHLORIDE 0.9% 250 ML IV ONE (06:00)
[2021-07-31] MEDS ORDERED: SODIUM CHLORIDE 0.9% 500 ML IV SCH (06:00)
== END 2021-07-30 19:46 | disposition home or self-care (01) | DRG 386 ==
LOC: 3N 06:34 → ED 06:34 → 3N 12:15 → SUATTDRO 07-26 10:47

== ENCOUNTER 2022-08-14 19:45 | Observation (INO) ==
[2022-08-14] MEDS ORDERED: SODIUM CHLORIDE 0.9% 1000ML 1,000 ML IV ONE (20:16)
[2022-08-14] MEDS ORDERED: ONDANSETRON INJ 2 MG/ML 2 ML VIAL IV STA ×2 (20:16→21:50)
--- NOTE | 2022-08-14 20:17 | Emergency Department Note ---
Impression & Plan Nausea & vomiting, Diarrhea ED Provider Note INFORMANT: Patient ED PROVIDER(S): Pilo Crockett DO CHIEF COMPLAINT: Nausea, vomiting, diarrhea PLAN: Disposition: Admission Outpatient prescription management: none Discussion with: I spoke with the hospitalist, who will see the patient for admission/observation and further evaluation and consultation. MEDICAL DECISION MAKING: This is a 27-year-old male who presents to the ED with a chief complaint of concerns about a possible Crohn's flare. The patient states that he started having nausea, vomiting and some diarrhea on . He states that he chronically takes Humira. Last Humira dose was the . He states that he vomited about 13 times today. His doctors prescribed him prednisone but he has not been able to keep it down. He states they will start about possible Crohn's flare. He states that he has been having some blood in his stools occasionally. He has some abdominal discomfort which he feels might be related to vomiting so much. No other complaints. And his vital signs reveal mild hypertension. Physical exam reveals some mild epigastric abdominal tenderness. He is otherwise in no significant distress. Lungs are clear. Heart is regular rate and rhythm. EKG shows a sinus rhythm rate of 62. The patient's CBC did not show concerning leukocytosis or anemia. Chemistry panel showed no concerning electrolyte abnormality. Lipase was negative for pancreatitis. The patient received IV fluids as well as IV Zofran. He required several episodes of nausea medication including 2 episodes of Zofran and 1 of Compazine and still had nausea and vomiting. Because of this as well as his history of Crohn's disease he will be seen by the hospitalist for further evaluation and care. Triage Nursing notes reviewed. Vital Signs: reviewed Prior /Outside records reviewed: [none] Differential diagnosis: Crohn's exacerbation, dehydration, electrolyte abnormality, other Diagnostics, as interpreted by me: 12 lead ECG: Normal sinus rhythm rate of 62. No ST elevation. No PVCs. Normal QTc. Cardiac Monitoring ordered: [none] Medical decision rules: [none] Imaging studies: [none] Procedures: none. Critical care: none. HPI: See MDM above. PAST MEDICAL HISTORY: See Below PAST SURGICAL HISTORY: See Below SOCIAL HISTORY: See Below HOME MEDICATIONS:See Below ALLERGIES: See Below VITALS: See Below PHYSICAL EXAMINATION: See MDM for positive findings otherwise unremarkable. CONSTITUTIONAL/VITAL SIGNS: Reviewed GENERAL:done as appropriate INTEGUMENTARY: done as appropriate HEAD: done as appropriate EYES: done as appropriate RESPIRATORY: done as appropriate CARDIOVASCULAR:done as appropriate GI/ABDOMEN:done as appropriate EXTREMITIES: done as appropriate NEUROLOGICAL: done as appropriate PSYCHIATRIC:done as appropriate MUSCULOSKELETAL:done as appropriate TRIAGE NURSING DOCUMENTATION REVIEWED. Past Med/Surg History Medical History Agitation Anemia Crohn's colitis Encounter for pre-operative examination Encounter for pre-operative examination Family history non-contributory History of COVID-19 diagnosed @ [facility] 01/2020--fatigue--resolved Medical marijuana use Orthostatic hypotension Tobacco abuse Surgical History History of colonoscopy History of esophagogastroduodenoscopy (EGD) History of sigmoidoscopy (~01/2020) History of surgery on wrist bilt wrists History of wisdom tooth extraction Family History Other Family history non-contributory No family history of adverse response to anesthesia Social History Smoking Status: Never smoker Tobacco Type: E-cigarettes / Vaping Second Hand Exposure: No; Do You Dip or Chew Tobacco: No; Hx Alcohol Use: No Hx Substance Use: Yes Last Used Substance: Hours (ago) Last Used Substance Other:: 48 hours ago Substance Use Type Other:: medical marijuana, has card Preferred Language: Greek Communication Ability: Effective Plastic Molder Required: No Beliefs That Will Affect Care: None marital status: Single Current Living Situation: Family Current Living Situation Comment: lives with mother and 1 brother Feels Safe at Home: Yes Assistive Devices: None Allergies Allergies Allergy/AdvReac Type Severity Reaction Status Date / Time infliximab [From Remicade] Allergy Severe THROAT Verified 08/14/22 20:35 SWELLS Home Meds Home Medications Medication Instructions Recorded Confirmed multivitamin with minerals-folic 2 tab PO QAM 05/18/20 08/14/22 acid 200 mcg chewable tablet (Multivitamin Gummies) adalimumab 40 mg/0.4 mL 0 mg subcut .Q2WK 08/14/22 08/14/22 subcutaneous syringe kit (Humira(CF)) Previous Rx's Medication Instructions Recorded famotidine 40 mg tablet 40 mg PO QAM #30 tabs 07/30/21 ondansetron 4 mg disintegrating 4 mg PO Q4H PRN nausea and 07/30/21 tablet vomiting #14 tabs prednisone 10 mg tablet See Rx Instructions .Route 07/30/21 .COMPLEX #21 tabs sucralfate 100 mg/mL oral 1 g (10 mL) PO BID #414 mL 07/30/21 suspension triamcinolone acetonide 0.1 % 1 applic topical BID #80 grams 08/10/21 topical cream Results & Data (ED) Vital Signs Vital Signs - 24 hr 08/14/22 19:53 08/14/22 20:14 08/14/22 20:23 Temperature 36.7 C Temperature Source Temporal Artery Scan Pulse Rate 98 H 56 L Pulse Rate from SpO2 Sensor Pulse Rhythm Regular Pulse Strength Normal Respiratory Rate 19 Respiratory Effort / Characteristics Non-Labored Spontaneous Respiratory Depth Normal Respiratory Pattern Regular Blood Pressure 143/97 H Blood Pressure Mean 112 Pulse Oximetry 96 98 Oxygen Delivery Method Room Air Room Air Sepsis Recent Fever Within 48 Hours No Sepsis New/Unexplained Change in Mental Status N/A Sepsis Action Taken by Nursing No Action Required 08/14/22 20:24 08/14/22 20:25 08/14/22 20:25 Temperature Temperature Source Pulse Rate 57 L 56 L Pulse Rate from SpO2 Sensor Pulse Rhythm Pulse Strength Respiratory Rate 14 18 Respiratory Effort / Characteristics Respiratory Depth Respiratory Pattern Blood Pressure 145/92 H Blood Pressure Mean 108 Pulse Oximetry Oxygen Delivery Method Sepsis Recent Fever Within 48 Hours Sepsis New/Unexplained Change in Mental Status Sepsis Action Taken by Nursing 08/14/22 20:30 08/14/22 20:40 08/14/22 20:50 Temperature Temperature Source Pulse Rate 57 L 87 55 L Pulse Rate from SpO2 Sensor Pulse Rhythm Pulse Strength Respiratory Rate 18 19 21 Respiratory Effort / Characteristics Respiratory Depth Respiratory Pattern Blood Pressure Blood Pressure Mean Pulse Oximetry Oxygen Delivery Method Sepsis Recent Fever Within 48 Hours Sepsis New/Unexplained Change in Mental Status Sepsis Action Taken by Nursing 08/14/22 21:00 08/14/22 21:00 08/14/22 21:10 Temperature Temperature Source Pulse Rate 54 L 53 L Pulse Rate from SpO2 Sensor Pulse Rhythm Pulse Strength Respiratory Rate 21 24 Respiratory Effort / Characteristics Respiratory Depth Respiratory Pattern Blood Pressure 151/88 H Blood Pressure Mean 121 Pulse Oximetry Oxygen Delivery Method Sepsis Recent Fever Within 48 Hours Sepsis New/Unexplained Change in Mental Status Sepsis Action Taken by Nursing 08/14/22 21:20 08/14/22 21:30 08/14/22 21:40 Temperature Temperature Source Pulse Rate 55 L 54 L 51 L Pulse Rate from SpO2 Sensor Pulse Rhythm Pulse Strength Respiratory Rate 20 20 13 Respiratory Effort / Characteristics Respiratory Depth Respiratory Pattern Blood Pressure Blood Pressure Mean Pulse Oximetry Oxygen Delivery Method Sepsis Recent Fever Within 48 Hours Sepsis New/Unexplained Change in Mental Status Sepsis Action Taken by Nursing 08/14/22 21:51 08/14/22 22:00 08/14/22 22:00 Temperature Temperature Source Pulse Rate 57 L 54 L Pulse Rate from SpO2 Sensor Pulse Rhythm Pulse Strength Respiratory Rate 19 15 Respiratory Effort / Characteristics Respiratory Depth Respiratory Pattern Blood Pressure 140/80 Blood Pressure Mean 106 Pulse Oximetry Oxygen Delivery Method Sepsis Recent Fever Within 48 Hours Sepsis New/Unexplained Change in Mental Status Sepsis Action Taken by Nursing 08/14/22 22:10 08/14/22 22:20 08/14/22 22:30 Temperature Temperature Source Pulse Rate 57 L 55 L 51 L Pulse Rate from SpO2 Sensor Pulse Rhythm Pulse Strength Respiratory Rate 19 13 24 Respiratory Effort / Characteristics Respiratory Depth Respiratory Pattern Blood Pressure Blood Pressure Mean Pulse Oximetry Oxygen Delivery Method Sepsis Recent Fever Within 48 Hours Sepsis New/Unexplained Change in Mental Status Sepsis Action Taken by Nursing 08/14/22 23:00 08/14/22 23:30 08/15/22 00:22 Temperature Temperature Source Pulse Rate 56 L 93 H Pulse Rate from SpO2 Sensor 56 L 90 Pulse Rhythm Pulse Strength Respiratory Rate 22 14 16 Respiratory Effort / Characteristics Respiratory Depth Respiratory Pattern Blood Pressure 106/51 L Blood Pressure Mean 69 Pulse Oximetry 96 95 Oxygen Delivery Method Sepsis Recent Fever Within 48 Hours Sepsis New/Unexplained Change in Mental Status Sepsis Action Taken by Nursing 08/15/22 00:30 Temperature Temperature Source Pulse Rate 92 H Pulse Rate from SpO2 Sensor 89 Pulse Rhythm Pulse Strength Respiratory Rate 26 H Respiratory Effort / Characteristics Respiratory Depth Respiratory Pattern Blood Pressure Blood Pressure Mean Pulse Oximetry 95 Oxygen Delivery Method Sepsis Recent Fever Within 48 Hours Sepsis New/Unexplained Change in Mental Status Sepsis Action Taken by Nursing Laboratory Data 08/14/22 20:07 08/14/22 20:07 Lab Results 08/14/22 08/14/22 08/14/22 Range/Units 20:07 20:07 21:58 WBC 9.98 (4.8-10.8) K/ul RBC 5.75 (4.70-6.10) M/uL Hgb 16.4 (14.0-18.0) g/dl Hct 45.9 (42.0-52.0) % MCV 79.8 L (80.0-100.0) fL MCH 28.5 (25.0-34.0) pg MCHC 35.7 (32.0-36.0) g/dL RDW Std Deviation 34.1 L (36.4-46.3) fL RDW Coeff of Miguel 11.9 (11.5-14.5) % Plt Count 343 (130-400) K/uL MPV 8.7 L (9.4-12.4) fL Immature Gran % (Auto) 0.4 % Neut % (Auto) 63.9 % Lymph % (Auto) 21.2 % [place] % (Auto) 12.4 % Eos % (Auto) 1.3 % Baso % (Auto) 0.8 % Neut # (Auto) 6.37 (1.40-6.50) K/uL Lymph # (Auto) 2.12 (1.2-3.4) K/uL [place] # (Auto) 1.24 H (0.11-0.59) K/uL Eos # (Auto) 0.13 (0-0.50) K/uL Baso # (Auto) 0.08 (0-0.2) K/uL Immature Gran # (Auto) 0.04 (0.01-0.20) K/uL Sodium 136 (136-145) mmol/L Potassium 3.6 (3.5-5.1) mmol/L Chloride 103 (98-107) mmol/L Carbon Dioxide 21 (21-32) mmol/L Anion Gap 12 H (3-11) BUN 15 (6-23) mg/dl Creatinine 1.16 (0.6-1.4) mg/dl Est Cr Clr Drug Dosing 96.8 ml/min Est GFR ( Amer) 100.2 ml/min Est GFR (Non-Af Amer) 86.4 ml/min BUN/Creatinine Ratio 12.9 (10-20) Glucose 124 H (70-99(Fasting)) mg/dl Calcium 9.7 (8.6-10.3) mg/dl Total Bilirubin 1.4 H (0.2-1.0) mg/dl AST 18 (13-39) U/L ALT 17 (7-52) U/L Alkaline Phosphatase 67 (34-104) U/L Total Protein 7.9 (6.0-8.3) gm/dl Albumin 4.8 (3.4-5.0) gm/dl Globulin 3.1 (2.5-4.0) gm/dl Albumin/Globulin Ratio 1.5 (0.9-2) Lipase 14 (11-82) U/L Urine Color Dark Yellow Urine Appearance Turbid A (Clear) Urine pH 5.0 (4.5-7.5) Ur Specific [place] 1.035 H (1.000-1.030) Urine Protein 1+ H (Negative) Urine Glucose (UA) Negative (Negative) Urine Ketones 1+ H (Negative) Urine Blood Negative (Negative) Urine Nitrite Positive A (Negative) Urine Bilirubin Negative (Negative) Urine Urobilinogen Negative (Negative) Ur Leukocyte Esterase Negative (Negative) Urine WBC (Auto) 1-5 (0-5) /hpf Urine RBC (Auto) 0-4 (0-4) /hpf U Hyaline Cast (Auto) 10-30 H (0-5) /lpf U Epithel Cells (Auto) 10-20 H (0-5) /lpf Urine Bacteria (Auto) Negative (Negative) Urine Crystals Not Reportable Amorphous Sediment Present A (None Prsent) SARS-CoV-2, RNA, NAAT (NEGATIVE) 08/14/22 Range/Units Unknown WBC (4.8-10.8) K/ul RBC (4.70-6.10) M/uL Hgb (14.0-18.0) g/dl Hct (42.0-52.0) % MCV (80.0-100.0) fL MCH (25.0-34.0) pg MCHC (32.0-36.0) g/dL RDW Std Deviation (36.4-46.3) fL RDW Coeff of Miguel (11.5-14.5) % Plt Count (130-400) K/uL MPV (9.4-12.4) fL Immature Gran % (Auto) % Neut % (Auto) % Lymph % (Auto) % [place] % (Auto) % Eos % (Auto) % Baso % (Auto) % Neut # (Auto) (1.40-6.50) K/uL Lymph # (Auto) (1.2-3.4) K/uL [place] # (Auto) (0.11-0.59) K/uL Eos # (Auto) (0-0.50) K/uL Baso # (Auto) (0-0.2) K/uL Immature Gran # (Auto) (0.01-0.20) K/uL Sodium (136-145) mmol/L Potassium (3.5-5.1) mmol/L Chloride (98-107) mmol/L Carbon Dioxide (21-32) mmol/L Anion Gap (3-11) BUN (6-23) mg/dl Creatinine (0.6-1.4) mg/dl Est Cr Clr Drug Dosing ml/min Est GFR ( Amer) ml/min Est GFR (Non-Af Amer) ml/min BUN/Creatinine Ratio (10-20) Glucose (70-99(Fasting)) mg/dl Calcium (8.6-10.3) mg/dl Total Bilirubin (0.2-1.0) mg/dl AST (13-39) U/L ALT (7-52) U/L Alkaline Phosphatase (34-104) U/L Total Protein (6.0-8.3) gm/dl Albumin (3.4-5.0) gm/dl Globulin (2.5-4.0) gm/dl Albumin/Globulin Ratio (0.9-2) Lipase (11-82) U/L Urine Color Urine Appearance (Clear) Urine pH (4.5-7.5) Ur Specific [place] (1.000-1.030) Urine Protein (Negative) Urine Glucose (UA) (Negative) Urine Ketones (Negative) Urine Blood (Negative) Urine Nitrite (Negative) Urine Bilirubin (Negative) Urine Urobilinogen (Negative) Ur Leukocyte Esterase (Negative) Urine WBC (Auto) (0-5) /hpf Urine RBC (Auto) (0-4) /hpf U Hyaline Cast (Auto) (0-5) /lpf U Epithel Cells (Auto) (0-5) /lpf Urine Bacteria (Auto) (Negative) Urine Crystals Amorphous Sediment (None Prsent) SARS-CoV-2, RNA, NAAT NEGATIVE (NEGATIVE) Administered Medications Discontinued Medications Sodium Chloride (Nss 1000ml) 1,000 mls @ 999 mls/hr IV .Q1H1M ONE Stop: 08/14/22 21:16 Last Infusion: 08/14/22 21:28 Dose: 0 mls/hr Documented By: Admin: 08/14/22 20:24 Dose: 999 mls/hr Documented By: JENIFFER Prochlorperazine (Compazine) 2 mls @ 1 mls/min IV ONE ONE Stop: 08/14/22 23:16 Last Admin: 08/14/22 23:44 Dose: 1 mls/min Documented By: GRACIELA Ondansetron HCl (Ondansetron Inj 2 Mg/Ml 2 Ml Vial) 4 mg IV NOW STA Stop: 08/14/22 20:17 Last Admin: 08/14/22 20:24 Dose: 4 mg Documented By: JENIFFER Ondansetron HCl (Ondansetron Inj 2 Mg/Ml 2 Ml Vial) 4 mg IV NOW STA Stop: 08/14/22 21:51 Last Admin: 08/14/22 21:55 Dose: 4 mg Documented By: JENIFFER Discharge Plan Visit Data Chief Complaint: Vomiting Stated Complaint: VOMITING ED Provider: Pilo Crockett Discharge Problem: Nausea & vomiting, Diarrhea Patient Disposition: Being Evaluated by Hospitalist Forms Stand Alone Forms: On License Of [facility] Prescriptions Prescriptions: No Action triamcinolone acetonide 0.1 % cream 1 applic topical BID Qty: 80 5RF famotidine 40 mg Tablet 40 mg PO QAM Qty: 30 0RF ondansetron 4 mg Tablet,Disintegrating 4 mg PO Q4H PRN (Reason: nausea and vomiting) Qty: 14 0RF sucralfate 100 mg/mL Suspension 1 g PO BID Qty: 414 0RF prednisone 10 mg tablet See Rx Instructions .ROUTE .COMPLEX Qty: 21 0RF Rx Instructions: 10 mg orally: TAKES 20 MG X 4 DAYS, THEN 15 MG X 4 DAYS, THEN 10 MG X 4 DAYS, THEN 5 MG X 4 DAYS THEN STOP. Humira(CF) 40 mg/0.4 mL Syringe Kit 0 mg SUBCUT .Q2WK Rx Instructions: PT UNSURE OF STRENGTH, UNABLE TO VERIFY. Multivitamin Gummies 200 mcg Tablet,Chewable 2 tab PO QAM Referrals Referrals: PCP,NO [Primary Care Provider] -
[2022-08-14 20:23] LABS: Basophils # (auto) 0.08 K/uL (0-0.2); Basophils % (auto) 0.8 %; Eosinophils # (auto) 0.13 K/uL (0-0.50); Eosinophils % (auto) 1.3 %; Hematocrit (blood only) 45.9 % (42.0-52.0); Hemoglobin 16.4 g/dl (14.0-18.0); Immature Granulocytes # (auto) 0.04 K/uL (0.01-0.20); Immature Granulocytes % (auto) 0.4 %; Lymphocytes # (auto) 2.12 K/uL (1.2-3.4); Lymphocytes % (auto) 21.2 %; Mean Corpuscular Hemoglobin 28.5 pg (25.0-34.0); Mean Corpuscular Hgb Conc 35.7 g/dL (32.0-36.0); Mean Corpuscular Volume 79.8 fL (80.0-100.0); Mean Platelet Volume 8.7 fL (9.4-12.4); Monocytes # (auto) 1.24 K/uL (0.11-0.59); Monocytes % (auto) 12.4 %; Neutrophils # (auto) 6.37 K/uL (1.40-6.50); Neutrophils % (auto) 63.9 %; Platelet Count 343 K/uL (130-400); RDW Coefficient of Variation 11.9 % (11.5-14.5); RDW Standard Deviation 34.1 fL (36.4-46.3); Red Blood Count 5.75 M/uL (4.70-6.10); White Blood Count 9.98 K/ul (4.8-10.8)
[2022-08-14 20:37] LABS: Albumin Globulin Ratio 1.5 (0.9-2); Albumin Level 4.8 gm/dl (3.4-5.0); BUN Creatinine Ratio 12.9 (10-20); Bilirubin,Total 1.4 mg/dl (0.2-1.0); Calcium 9.7 mg/dl (8.6-10.3); Creatinine Clr Calc Pharmacy 96.8 ml/min; Est GFR (African American) 100.2 ml/min; Est GFR (Non-African American) 86.4 ml/min; Globulin 3.1 gm/dl (2.5-4.0); Potassium 3.6 mmol/L (3.5-5.1); Total Protein 7.9 gm/dl (6.0-8.3)
[2022-08-14 22:27] LABS: Appearance Urine Turbid (Clear); Bacteria Urine Automated Negative (Negative); Bilirubin Urine Negative (Negative); Blood Urine Negative (Negative); Color Urine Dark Yellow; Glucose Urine UA Negative (Negative); Ketones Urine 1+ (Negative); Leukocyte Esterase Urine Negative (Negative); Nitrite Urine Positive (Negative); Protein Urine 1+ (Negative); RBC Urine Automated 0-4 /hpf (0-4); Specific Gravity Urine 1.035 (1.000-1.030); Urobilinogen Urine Negative (Negative)
[2022-08-14 23:02] LABS: Amorphous Sediment Urine Present (None Prsent)
[2022-08-14] MEDS ORDERED: PROCHLORPERAZINE 2 ML IV ONE (23:15)
--- NOTE | 2022-08-15 00:30 | History & Physical Report ---
Date of Service August 15, 2022 Assessment & Plan (1) Intractable nausea and vomiting: Plan: 27 yo male PMHx Crohn's, tobacco abuse, and medical cannabis user presents with intractable nausea and vomiting. #Intractable Nausea and Vomiting #H/o Crohn's on Humira -suspect symptoms due to mild Crohn's flare. No leukocytosis. Electrolytes wnl. Less likely due to infection or cannabinoid hyperemesis disorder. -1L NSS bolus in ED. Cont. maintenance while NPO. -IV zofran and compazine prn -IV famotidine qam -outpatient steroid regimen: prednisone 20mg x4 days, 15mg x4 days, 10mg x4 days, 5mg x4 days. He was able to take 2 doses of 20mg. Will continue with methylprednisone 15mg x2 days and taper with transition to oral prednisone when able. DVT ppx: Ambulation FEN/GI: NPO Code Status: Full Dispo: obs, med surg (2) Crohn's colitis: (3) Exacerbation of Crohn's disease: History of Present Illness Chief Complaint: intractable vomiting Primary Care Provider: NO PCP 27 yo male PMHx Crohn's, tobacco abuse, and medical cannabis user presents with intractable vomiting. 2 days ago he started having nausea and progressively worsening bilious non bloody vomiting. He has had poor oral intake due to this and unable to keep down home meds. He did speak with his PCP and his current episode was presumed due to a Crohn's flare. Chronically he is on Humira every 2 weeks for his Crohn's, last dose was on August 10. He does state this feels like a Crohn's flare but on a more milder scale. He was started on a prednisone taper and took a 20mg oral dose the last couple of mornings. He does endorse some loose stools with occasional blood which can be normal for him due to his Crohn's. Some associated sob on exertion, fatigue, and mild abd pain. Denies fever, congestion, cough, chest pain, palpitations, constipation, dysuria. Of note he does not have medical insurance and cannot afford many home meds. He has not been able to obtain medical cannabis recently due to financial reasons but typically cannabis does help with his symptoms. Allergies Allergy/AdvReac Type Severity Reaction Status Date / Time infliximab [From Remicade] Allergy Severe THROAT Verified 08/14/22 20:35 SWELLS Home Medications Medication Instructions Recorded Confirmed Type multivitamin with minerals-folic 2 tab PO QAM 05/18/20 08/14/22 History acid 200 mcg chewable tablet (Multivitamin Gummies) famotidine 40 mg tablet 40 mg PO QAM #30 tabs 07/30/21 08/14/22 Rx ondansetron 4 mg disintegrating 4 mg PO Q4H PRN nausea and 07/30/21 08/14/22 Rx tablet vomiting #14 tabs prednisone 10 mg tablet See Rx Instructions .Route 07/30/21 08/14/22 Rx .COMPLEX #21 tabs sucralfate 100 mg/mL oral 1 g (10 mL) PO BID #414 mL 07/30/21 08/14/22 Rx suspension triamcinolone acetonide 0.1 % 1 applic topical BID #80 grams 08/10/21 08/14/22 Rx topical cream adalimumab 40 mg/0.4 mL 0 mg subcut .Q2WK 08/14/22 08/14/22 History subcutaneous syringe kit (Humira(CF)) Past Med/Surg History Medical History Agitation Anemia Crohn's colitis Encounter for pre-operative examination Encounter for pre-operative examination Family history non-contributory History of COVID-19 diagnosed @ [facility] 01/2020--fatigue--resolved Medical marijuana use Orthostatic hypotension Tobacco abuse Surgical History History of colonoscopy History of esophagogastroduodenoscopy (EGD) History of sigmoidoscopy (~01/2020) History of surgery on wrist bilt wrists History of wisdom tooth extraction Family History Other Family history non-contributory No family history of adverse response to anesthesia Social History Smoking Status: Current every day smoker Tobacco Type: E-cigarettes / Vaping Second Hand Exposure: No; Do You Dip or Chew Tobacco: No; Tobacco Cessation Education Requested by Patient: No Hx Alcohol Use: No Hx Substance Use: Yes Last Used Substance: Hours (ago) Last Used Substance Other:: 48 hours ago Substance Use Type Other:: medical marijuana, has card Preferred Language: Grenadian Communication Ability: Effective Commissioned Fire Officer Required: No Beliefs That Will Affect Care: None marital status: Single Current Living Situation: Family Current Living Situation Comment: At home with mom Other Information That Helps Us Care for You: No Feels Safe at Home: Yes Safety Concerns: Feels Safe At This Time Assistive Devices: Glasses Review of Systems Review of Systems: All systems reviewed & are unremarkable except as noted in HPI & below Physical Exam Physical Exam: Constitutional: Well-developed, well-nourished patient, in no acute distress, pleasant. AOx3. Vitals as above. HEENT: No scleral injection or discharge.Moist mucous membranes. Clear oropharynx. Neck: Supple without lymphadenopathy or thyromegaly. Trachea midline. Lungs: Clear to auscultation bilaterally with good effort. Cardiac: Regular rate and rhythm.No murmurs. No extremity edema. 2+ distal peripheral pulses. Abdomen: Bowel sounds present. Soft and nondistended.Mildly tender over left quadrants. No guarding or rebound tenderness. MSK: No cyanosis or clubbing. Extremities motor strength 5/5. Skin: No rashes, warm, dry. Neurologic: no focal deficits Results & Data Results & Data Vital Signs (Past 12 Hours) Vital Signs Temp Pulse Resp BP Pulse Ox O2 Del Method 08/14/22 23:30 56 L 14 96 08/14/22 23:00 22 08/14/22 22:30 51 L 24 08/14/22 22:20 55 L 13 08/14/22 22:10 57 L 19 08/14/22 22:00 54 L 15 08/14/22 22:00 140/80 08/14/22 21:51 57 L 19 08/14/22 21:40 51 L 13 08/14/22 21:30 54 L 20 08/14/22 21:20 55 L 20 08/14/22 21:10 53 L 24 08/14/22 21:00 54 L 21 08/14/22 21:00 151/88 H 08/14/22 20:50 55 L 21 08/14/22 20:40 87 19 08/14/22 20:30 57 L 18 08/14/22 20:25 56 L 18 08/14/22 20:25 145/92 H 08/14/22 20:24 57 L 14 08/14/22 20:23 56 L 08/14/22 20:14 98 Room Air 08/14/22 19:53 36.7 C 98 H 19 143/97 H 96 Room Air Laboratory Results Laboratory Results WBC 9.98 K/ul (4.8-10.8) 08/14/22 20:07 RBC 5.75 M/uL (4.70-6.10) 08/14/22 20:07 Hgb 16.4 g/dl (14.0-18.0) 08/14/22 20:07 Hct 45.9 % (42.0-52.0) 08/14/22 20:07 MCV 79.8 fL (80.0-100.0) L 08/14/22 20:07 MCH 28.5 pg (25.0-34.0) 08/14/22 20:07 MCHC 35.7 g/dL (32.0-36.0) 08/14/22 20:07 RDW Std Deviation 34.1 fL (36.4-46.3) L 08/14/22 20:07 RDW Coeff of Miguel 11.9 % (11.5-14.5) 08/14/22 20:07 Plt Count 343 K/uL (130-400) 08/14/22 20:07 MPV 8.7 fL (9.4-12.4) L 08/14/22 20:07 Immature Gran % (Auto) 0.4 % 08/14/22 20:07 Neut % (Auto) 63.9 % 08/14/22 20:07 Lymph % (Auto) 21.2 % 08/14/22 20:07 [place] % (Auto) 12.4 % 08/14/22 20:07 Eos % (Auto) 1.3 % 08/14/22 20:07 Baso % (Auto) 0.8 % 08/14/22 20:07 Neut # (Auto) 6.37 K/uL (1.40-6.50) 08/14/22 20:07 Lymph # (Auto) 2.12 K/uL (1.2-3.4) 08/14/22 20:07 [place] # (Auto) 1.24 K/uL (0.11-0.59) H 08/14/22 20:07 Eos # (Auto) 0.13 K/uL (0-0.50) 08/14/22 20:07 Baso # (Auto) 0.08 K/uL (0-0.2) 08/14/22 20:07 Immature Gran # (Auto) 0.04 K/uL (0.01-0.20) 08/14/22 20:07 Sodium 136 mmol/L (136-145) 08/14/22 20:07 Potassium 3.6 mmol/L (3.5-5.1) 08/14/22 20:07 Chloride 103 mmol/L (98-107) 08/14/22 20:07 Carbon Dioxide 21 mmol/L (21-32) 08/14/22 20:07 Anion Gap 12 (3-11) H 08/14/22 20:07 BUN 15 mg/dl (6-23) 08/14/22 20:07 Creatinine 1.16 mg/dl (0.6-1.4) 08/14/22 20:07 Est Cr Clr Drug Dosing 96.8 ml/min 08/14/22 20:07 Est GFR ( Amer) 100.2 ml/min 08/14/22 20:07 Est GFR (Non-Af Amer) 86.4 ml/min 08/14/22 20:07 BUN/Creatinine Ratio 12.9 (10-20) 08/14/22 20:07 Glucose 124 mg/dl (70-99(Fasting)) H 08/14/22 20:07 Calcium 9.7 mg/dl (8.6-10.3) 08/14/22 20:07 Total Bilirubin 1.4 mg/dl (0.2-1.0) H 08/14/22 20:07 AST 18 U/L (13-39) 08/14/22 20:07 ALT 17 U/L (7-52) 08/14/22 20:07 Alkaline Phosphatase 67 U/L (34-104) 08/14/22 20:07 Total Protein 7.9 gm/dl (6.0-8.3) 08/14/22 20:07 Albumin 4.8 gm/dl (3.4-5.0) 08/14/22 20:07 Globulin 3.1 gm/dl (2.5-4.0) 08/14/22 20:07 Albumin/Globulin Ratio 1.5 (0.9-2) 08/14/22 20:07 Lipase 14 U/L (11-82) 08/14/22 20:07 Urine Color Dark Yellow 08/14/22 21:58 Urine Appearance Turbid (Clear) A 08/14/22 21:58 Urine pH 5.0 (4.5-7.5) 08/14/22 21:58 Ur Specific [place] 1.035 (1.000-1.030) H 08/14/22 21:58 Urine Protein 1+ (Negative) H 08/14/22 21:58 Urine Glucose (UA) Negative (Negative) 08/14/22 21:58 Urine Ketones 1+ (Negative) H 08/14/22 21:58 Urine Blood Negative (Negative) 08/14/22 21:58 Urine Nitrite Positive (Negative) A 08/14/22 21:58 Urine Bilirubin Negative (Negative) 08/14/22 21:58 Urine Urobilinogen Negative (Negative) 08/14/22 21:58 Ur Leukocyte Esterase Negative (Negative) 08/14/22 21:58 Urine WBC (Auto) 1-5 /hpf (0-5) 08/14/22 21:58 Urine RBC (Auto) 0-4 /hpf (0-4) 08/14/22 21:58 U Hyaline Cast (Auto) 10-30 /lpf (0-5) H 08/14/22 21:58 U Epithel Cells (Auto) 10-20 /lpf (0-5) H 08/14/22 21:58 Urine Bacteria (Auto) Negative (Negative) 08/14/22 21:58 Urine Crystals Not Reportable 08/14/22 21:58 Amorphous Sediment Present (None Prsent) A 08/14/22 21:58 SARS-CoV-2, RNA, NAAT NEGATIVE (NEGATIVE) 08/14/22 Unknown Supervising Physician Co-Signing Physician Notes Patient seen and examined, chart reviewed, case discussed, with Dr. Freedman and I agree with the assessment and plan as above. Resident Activity Tracking Resident Involvement: Resident Care Provided Care Provided: Adult [facility] Medicine
[2022-08-15] MEDS ORDERED: ACETAMINOPHEN 1,000 MG/100 ML VIAL IV PRN (01:27)
[2022-08-15] MEDS ORDERED: PROCHLORPERAZINE 10 MG in SYRINGE 8 ML IV PRN (01:27)
[2022-08-15] MEDS ORDERED: ONDANSETRON INJ 2 MG/ML 2 ML VIAL IV PRN (01:27)
[2022-08-15] MEDS: SODIUM CHLORIDE 0.9% 1000ML 1,000 ML IV SCH ×2 (01:51→10:51)
[2022-08-15] MEDS: FAMOTIDINE 20 MG in SYRINGE 3 ML IV SCH ×2 (09:09→20:09)
[2022-08-15] MEDS: SUCRALFATE 1 GM/10 ML UDC PO SCH ×3 (12:46→20:09)
--- NOTE | 2022-08-15 13:48 | Communication Note ---
Date of Service: August 15, 2022 Acute Crohn's flare -Patient having intractable nausea, vomiting, bloody stools which he states is consistent with his normal Crohn's flares. -Chronically on Humira every 2 weeks -No leukocytosis, CBC benign, CMP benign, though did show a total bilirubin of 1.4. -IV zofran and compazine prn, will advance diet as tolerated. -IV famotidine qam -He was recently discharged on 07/30 on steroid taper. Will restart tonya. 40mg x 3 days, 30mgs x 3 days, 20mgs x 3 days, 10 mg x 3 days. -Patient states that Carafate has worked well for him in the past during his acute Crohn's flares, ordered Carafate 1 g p.o. 4 times daily on 08/15. DVT ppx: Ambulation FEN/GI: Advance as tolerated Code Status: Full Dispo: obs, med surg Supervising Attestation Attending attestation Pt seen and examined in concert with Dr. Holliday. In agreement with the documented findings as noted in the resident documentation with any exceptions or additions as noted here. Improving nausea on current antiemetics. Advance diet as tolerated with premedication with antiemetic prior to trial. Continue IV methylprednisolone and transition to PO once tolerance improves. Resident Activity Tracking Resident Involvement: Resident Care Provided Care Provided: Adult Hospital Medicine
--- NOTE | 2022-08-15 13:50 | Electrocardiogram Report ---
Test Reason : Blood Pressure : / mmHG Vent. Rate : 062 BPM Atrial Rate : 062 BPM P-R Int : 128 ms QRS Dur : 094 ms QT Int : 404 ms P-R-T Axes : 083 083 069 degrees QTc Int : 410 ms Normal sinus rhythm Early repolarization Normal ECG When compared with ECG of 24-JUL-2021 07:31, No significant change was found Confirmed by Torres Arthur ([id number]) on 08/15/2022 1:50:12 PM Referred By: REFERRED SELF Confirmed By:Torres Arthur
[2022-08-15] MEDS ORDERED: methylPREDNISolone 20 MG in SYRINGE 0 ML IV STA (15:30)
[2022-08-15] MEDS ORDERED: ADALIMUMAB 40 MG/0.4 ML SQ SCH (15:30)
--- NOTE | 2022-08-16 02:58 | Billing Data ---
Date of Service August 15, 2022 Coding Level of Care Code 60988 INT INP/OBS CARE
[2022-08-16 06:42] LABS: Basophils # (auto) 0.09 K/uL (0-0.2); Basophils % (auto) 1.3 %; Eosinophils # (auto) 0.25 K/uL (0-0.50); Eosinophils % (auto) 3.5 %; Hematocrit (blood only) 38.1 % (42.0-52.0); Hemoglobin 13.3 g/dl (14.0-18.0); Immature Granulocytes # (auto) 0.03 K/uL (0.01-0.20); Immature Granulocytes % (auto) 0.4 %; Lymphocytes # (auto) 2.43 K/uL (1.2-3.4); Lymphocytes % (auto) 34.2 %; Mean Corpuscular Hemoglobin 28.8 pg (25.0-34.0); Mean Corpuscular Hgb Conc 34.9 g/dL (32.0-36.0); Mean Corpuscular Volume 82.5 fL (80.0-100.0); Mean Platelet Volume 9.4 fL (9.4-12.4); Monocytes # (auto) 1.14 K/uL (0.11-0.59); Neutrophils # (auto) 3.17 K/uL (1.40-6.50); Neutrophils % (auto) 44.6 %; Platelet Count 230 K/uL (130-400); RDW Coefficient of Variation 11.9 % (11.5-14.5); RDW Standard Deviation 35.6 fL (36.4-46.3); Red Blood Count 4.62 M/uL (4.70-6.10); White Blood Count 7.11 K/ul (4.8-10.8)
[2022-08-16 07:02] LABS: Albumin Globulin Ratio 1.7 (0.9-2); Albumin Level 3.6 gm/dl (3.4-5.0); BUN Creatinine Ratio 8.8 (10-20); Bilirubin,Total 1.2 mg/dl (0.2-1.0); Calcium 8.9 mg/dl (8.6-10.3); Creatinine Clr Calc Pharmacy 124.2 ml/min; Est GFR (African American) 134.3 ml/min; Est GFR (Non-African American) 115.9 ml/min; Globulin 2.1 gm/dl (2.5-4.0); Potassium 3.8 mmol/L (3.5-5.1); Total Protein 5.7 gm/dl (6.0-8.3)
--- NOTE | 2022-08-16 07:23 | Hospitalist Progress Note ---
Date of Service August 16, 2022 Assessment & Plan (1) Intractable nausea and vomiting: Plan: 27 y/o male PMHx Crohn's, tobacco abuse, and medical cannabis user presented with intractable nausea and vomiting now improved and tolerating PO. #Intractable Nausea and Vomiting #H/o Crohn's on Humira Suspect symptoms due to mild Crohn's flare. No leukocytosis. Electrolytes WNL. Less likely due to infection or cannabinoid hyperemesis disorder. Fluid resuscitated with 1L NS bolus. IV zofran and compazine for nausea. Tolerating PO. Advancing diet. Outpatient steroid regimen: prednisone 20mg x4 days, 15mg x4 days, 10mg x4 days, 5mg x4 days. He was able to take 2 doses of 20mg. Will continue with methylprednisone 15mg x2 days and taper with transition to oral prednisone when able. GI ppx: famotidine DVT ppx: Ambulation FEN/GI: advancing diet as tolerated Code Status: Full Dispo: obs, med surg (2) Crohn's colitis: (3) Exacerbation of Crohn's disease: Admission and Anticipated Discharge Date Admission Date: August 15, 2022 Supervising Physician Co-Signing Physician Notes I personally examined the patient and verified all franks points of history and exam, discussed case, and agree with decision making with Dr Farris Feeling better, eating wellworried because he does often have fairly refractory episodeswould like to follow p.o. intake into tomorrow to make sure things continue to sit well. Vitals noted, in general he is awake and alert pleasant no distress. HEENT normocephalic atraumatic mucous membranes moist. Breathing unlabored no accessory muscle use good effort. Skin shows no rashes no pallor or icterus. Neuro no focal deficits. Crohn's flareseems to be improving, tolerating advance diet, follow into tomorrow. Hopefully home soon. Outpatient follow-up with primary GI then. DVT proph - ambulation Subjective Patient denies any nausea or vomiting. Tolerating full liquid diet. Interested in advancing. Frustrated by dietary choices. Otherwise no complaints. No f/c/SOB/CP/abdominal pain. Review of Systems Review of Systems: See HPI Physical Exam Physical Exam: Constitutional: Well-developed, well-nourished patient, in no acute distress, pleasant. AOx3. Vitals as above. HEENT: No scleral injection or discharge.Moist mucous membranes. Neck: Supple. Trachea midline. Lungs: Clear to auscultation bilaterally with good effort. Cardiac: Regular rate and rhythm.No murmurs. No extremity edema. 2+ distal peripheral pulses. Abdomen: Bowel sounds present. Soft, non-tender, non-distended. No guarding or rebound tenderness. MSK: No cyanosis or clubbing. Extremities motor strength. Skin: No rashes, warm, dry. Neurologic: no focal deficits Results & Data Results & Data Vital Signs (Past 12 Hours) Vital Signs Temp Pulse Resp BP Pulse Ox O2 Del Method 08/15/22 21:33 36.7 C 57 L 16 103/57 L 97 Room Air Laboratory Results 08/16/22 06:03 08/16/22 06:03 Tbili 1.2 AST 12 ALT 12 Alk P 42 Resident Activity Tracking Resident Involvement: Resident Care Provided Care Provided: Adult Hospital Medicine
[2022-08-16] MEDS: SUCRALFATE 1 GM/10 ML UDC PO SCH ×4 (08:15→20:28)
[2022-08-16] MEDS: FAMOTIDINE 20 MG in SYRINGE 3 ML IV SCH (08:16)
[2022-08-16] MEDS: predniSONE 20 MG TAB PO SCH (08:16)
--- NOTE | 2022-08-16 18:54 | Billing Data ---
Date of Service August 16, 2022 Coding Level of Care Code 18873 SUB INP/OBS CARE
[2022-08-16] MEDS: FAMOTIDINE 20 MG TAB PO SCH (20:28)
[2022-08-17 06:44] LABS: Hemoglobin 14.3 g/dl (14.0-18.0); Mean Corpuscular Hemoglobin 28.4 pg (25.0-34.0); Mean Corpuscular Volume 83.3 fL (80.0-100.0); Mean Platelet Volume 8.9 fL (9.4-12.4); Platelet Count 278 K/uL (130-400); RDW Coefficient of Variation 12.3 % (11.5-14.5); RDW Standard Deviation 36.8 fL (36.4-46.3); Red Blood Count 5.04 M/uL (4.70-6.10); White Blood Count 7.64 K/ul (4.8-10.8)
[2022-08-17 07:01] LABS: Albumin Globulin Ratio 1.6 (0.9-2); Albumin Level 3.9 gm/dl (3.4-5.0); BUN Creatinine Ratio 6.9 (10-20); Bilirubin,Total 0.9 mg/dl (0.2-1.0); Calcium 9.3 mg/dl (8.6-10.3); Creatinine Clr Calc Pharmacy 110.8 ml/min; Globulin 2.4 gm/dl (2.5-4.0); Potassium 3.6 mmol/L (3.5-5.1); Total Protein 6.3 gm/dl (6.0-8.3)
[2022-08-17] MEDS: FAMOTIDINE 20 MG TAB PO SCH (08:22)
[2022-08-17] MEDS: SUCRALFATE 1 GM/10 ML UDC PO SCH ×2 (08:22→12:33)
[2022-08-17] MEDS: predniSONE 20 MG TAB PO SCH (08:22)
--- NOTE | 2022-08-17 10:36 | Discharge Summary ---
Date of Service August 17, 2022 Admission HPI Per Admitting Provider 27 yo male PMHx Crohn's, tobacco abuse, and medical cannabis user presents with intractable vomiting. 2 days ago he started having nausea and progressively worsening bilious non bloody vomiting. He has had poor oral intake due to this and unable to keep down home meds. He did speak with his PCP and his current episode was presumed due to a Crohn's flare. Chronically he is on Humira every 2 weeks for his Crohn's, last dose was on August 10. He does state this feels like a Crohn's flare but on a more milder scale. He was started on a prednisone taper and took a 20mg oral dose the last couple of mornings. He does endorse some loose stools with occasional blood which can be normal for him due to his Crohn's. Some associated sob on exertion, fatigue, and mild abd pain. Denies fever, congestion, cough, chest pain, palpitations, constipation, dysuria. Of note he does not have medical insurance and cannot afford many home meds. He has not been able to obtain medical cannabis recently due to financial reasons but typically cannabis does help with his symptoms. Admission Exam Per Admitting Provider Constitutional: Well-developed, well-nourished patient, in no acute distress, pleasant. AOx3. Vitals as above. HEENT: No scleral injection or discharge.Moist mucous membranes. Clear oropharynx. Neck: Supple without lymphadenopathy or thyromegaly. Trachea midline. Lungs: Clear to auscultation bilaterally with good effort. Cardiac: Regular rate and rhythm.No murmurs. No extremity edema. Abdomen: Bowel sounds present. Soft and nondistended.Mildly tender over left quadrants. No guarding or rebound tenderness. MSK: No cyanosis or clubbing. Extremities motor strength 5/5. Skin: No rashes, warm, dry. Neurologic: no focal deficits Principal Diagnosis crohn's flare Discharge Exam Constitutional: Well-developed, well-nourished patient, in no acute distress, pleasant. AOx3. Vitals as above. HEENT: No scleral injection or discharge.Moist mucous membranes. Neck: Supple. Trachea midline. Lungs: Clear to auscultation bilaterally with good effort. Cardiac: Regular rate and rhythm.No murmurs. No extremity edema. 2+ distal pe ripheral pulses. Abdomen: Bowel sounds present. Soft, non-tender, non-distended. No guarding or rebound tenderness. MSK: No cyanosis or clubbing. Extremities motor strength. Skin: No rashes, warm, dry. Neurologic: no focal deficits Discharge Data Allergies Allergy/AdvReac Type Severity Reaction Status Date / Time infliximab [From Remicade] Allergy Severe THROAT Verified 08/14/22 20:35 SWELLS Ordered Studies 08/17/22 06:21 08/17/22 06:21 Hospital Course (1) Intractable nausea and vomitin27 y/o male PMHx Crohn's, tobacco abuse, and medical cannabis user presented with intractable nausea and vomiting now improved and tolerating PO. #Intractable Nausea and Vomiting #H/o Crohn's on Humira Suspect symptoms due to mild Crohn's flare. No leukocytosis. Electrolytes WNL. Less likely due to infection or cannabinoid hyperemesis disorder. Fluid resuscitated with 1L NS bolus. IV zofran and compazine for nausea. Tolerating PO and regular diet. Did have an episode of hematochezia. With known history of Crohn's and stable hemoglobin/vital signs would continue monitor on an outpatient basis. Will complete steroid taper: prednisone 40mg x7 days, 30mg x7 days, 20mg x7 days, 10mg x7 days. GI ppx: famotidine DVT ppx: Ambulation FEN/GI: tolerating PO Code Status: Full Dispo: obs, med surg (2) Crohn's colitis: (3) Exacerbation of Crohn's disease: Total Time Total Time Spent Total Time Spent (In Minutes): <30 Discharge Plan Discharge Items Patient Disposition: Home - Self-Care Reason For Visit: INTRACTABLE VOMITING Discharge Diagnosis: crohn's flare Activity: Per Instructions section Non-emergency contact: Primary Care Provider and Glass Silverer Call non-emergency contact if: your symptoms worsen and your temperature is above 101 Follow-up/Referrals: PCP,NO [Primary Care Provider] - Diet: Regular Addtl Attending Provider Instructions: You were admitted to the hospital for nausea/vomiting/abdominal pain. You were found to be in a Crohn's exacerbation. You were treated with IV fluids, medications for nausea, bowel rest, and steroids. We slowly advanced your diet and you were able to tolerate a regular diet. We will proceed with a prednisone taper 40 mg (4 pills) x7 days 30mg (3 pills) x7 days 20mg (2 pills) x7 days 10mg (1 pill) x 7 days. A discharge summary will be sent to your primary care physician to ensure continuity of care. Please bring this discharge summary with you to your next office appointment so that your provider can review it at that time. Follow-up appointments: Make a follow-up appointment with your PCP within the next week. It is very important that you follow up with them shortly after discharge from the hospital. Keep all your follow-up appointments as already scheduled. If you cannot make an appointment, notify your provider. Medications: Your medication list has been reviewed and reconciled upon discharge to ensure accuracy and continuity of care. An updated list of all your medications is included with your hospital discharge paperwork. Please review this list closely, and make note of any changes. We will continue with the prednisone taper as above. If you have any issues filling these prescriptions, please call [phone] and ask to leave a message for Dr. Farris. Take your medications as instructed; do not skip a dose of your medicines. Make sure all of your doctors know every medicine you are taking (including [id number] medicines, vitamins, and supplements). Call your primary care provider before taking any new medicines (including over- the- counter medicines, vitamins, and supplements), because some of these may interact with your current medications, or may make your symptoms worse. Tell your primary care provider if you cannot afford your medications. CONTACT YOUR PRIMARY CARE PROVIDER if you experience any of the following: lightheadedness/dizziness worsening nausea/vomiting Difficulty following your treatment plan, or difficulty taking medications CALL 911 OR GO TO THE EMERGENCY DEPARTMENT if you experience any of the following: Sudden, severe abdominal pain or nausea/vomiting Severe chest pain, or chest pain that radiates (moves) to your jaw or arm Sudden, severe shortness of breath or difficulty breathing Thank you for allowing us to participate in your care Pending Studies at Discharge: No Stand-Alone Forms: My [employer], Smoking Cessation Medications and DC Order Prescriptions: New prednisone 10 mg tablet 10 mg PO DIRECTED 30 Days Qty: 30 0RF Rx Instructions: see taper instructions - take 40 mg (4 pills) daily for 7 days, then take 30 mg (3 pills) daily for 7 days, then take 20 mg (2 pills) daily for 7 days, then take 10 mg (1 pill) daily for 7 days. Continued triamcinolone acetonide 0.1 % cream 1 applic topical BID Qty: 80 5RF famotidine 40 mg Tablet 40 mg PO QAM Qty: 30 0RF ondansetron 4 mg Tablet,Disintegrating 4 mg PO Q4H PRN (Reason: nausea and vomiting) Qty: 14 0RF sucralfate 100 mg/mL Suspension 1 g PO BID Qty: 414 0RF Humira(CF) 40 mg/0.4 mL Syringe Kit 0 mg SUBCUT .Q2WK Rx Instructions: PT UNSURE OF STRENGTH, UNABLE TO VERIFY. Multivitamin Gummies 200 mcg Tablet,Chewable 2 tab PO QAM Discontinued prednisone 10 mg tablet See Rx Instructions .ROUTE .COMPLEX Qty: 21 0RF Rx Instructions: 10 mg orally: TAKES 20 MG X 4 DAYS, THEN 15 MG X 4 DAYS, THEN 10 MG X 4 DAYS, THEN 5 MG X 4 DAYS THEN STOP. Discharge Orders: Discharge Order (Routine); Ordered 08/17/22 Ordered By: Mindi Farris Admission Data Admit Date/Time: 08/15/22 00:29 Attending Provider: Eladio Lundy Admit Provider: Rickie Freedman Primary Care Provider: PCP,NO Other Interventions: Discharge Summary Assessment (RN) Last Done: 08/17/22 14:19 Supervising Physician Co-Signing Physician Notes I personally examined the patient and verified all franks points of history and exam, discussed case, and agree with decision making with Dr Farris Feels well overall. Notes a bloody bowel movement last night, but notes this is not unusual for him, otherwise feels better, eating well, feels like he would do well at home. Vitals noted, in general he is awake and alert pleasant no distress. HEENT normocephalic atraumatic mucous membranes moist. Breathing unlabored no accessory muscle use good effort. Skin shows no rashes no pallor or icterus. Neuro no focal deficits. Abdomen soft nondistended nontender no guarding rebound or rigidity Crohn's flareseems to be improving, tolerating diet, safe for home. Outpatient GI follow-up. Discussed setting up with PCP as well, but he declined, preferring to follow only with his GI team right now. DVT proph - ambulation Resident Activity Tracking Resident Involvement: Resident Care Provided Care Provided: Adult Hospital Medicine
--- NOTE | 2022-08-17 18:49 | Billing Data ---
Date of Service August 17, 2022 Coding Level of Care Code 75193 IN/OBS DISCH 30 MIN/LESS
[2022-08-19] MEDS ORDERED: predniSONE 10 MG TABLET PO SCH (09:00)
[2022-08-22] MEDS ORDERED: predniSONE 20 MG TAB PO SCH (09:00)
[2022-08-25] MEDS ORDERED: predniSONE 10 MG TABLET PO SCH (09:00)
== END 2022-08-17 15:00 | disposition home or self-care (01) ==
LOC: ED 19:45 → 3E 19:45 → SUATTDRO 08-15 00:29 → 3E 08-15 01:20

== ENCOUNTER 2023-04-20 08:21 | Inpatient (IN) ==
--- NOTE | 2023-04-20 08:33 | Emergency Department Note ---
Impression & Plan Colon perforation, Vomiting ED Provider Note HISTORY OF PRESENT ILLNESS: Patient is a 27-year-old male presenting with profuse vomiting. Patient reports that for the last 72 hours he has been unable to tolerate anything by mouth secondary to continued vomiting. He reports that he had a colonoscopy 3 days ago and since the procedure has been unable to tolerate oral intake. He reports he has been taking his medical marijuana in the evenings in the last 72 hours in an attempt to help him feel better, but he continues to vomit. Denies any chest pain or shortness of breath. He reports lower abdominal pain after all of the retching. Denies any dysuria or hematuria. Denies any fevers. He has a history of Crohn's disease and his colonoscopy took biopsies. ROS: as above PHYSICAL EXAM: Constitutional: Patient appears in no acute distress. HENT:: Head: Normocephalic and atraumatic. Eyes: EOMI, PERRL Mouth/Throat: Mucous membranes moist. Neck: Trachea midline. Neck supple. Cardiovascular: RRR, No murmurs, rubs or gallops. Intact distal pulses. Pulmonary/Chest: No respiratory distress. Breath sounds clear and equal bilaterally. No wheezes or rales. Abdominal: Abdomen soft, no rebound or guarding. Bilateral lower quadrant TTP Musculoskeletal: No edema, tenderness or deformity noted. Skin: Warm and dry. No rash, erythema, pallor or cyanosis Psychiatric: Appropriate mood and affect for situation. Neurological: Alert and keenly responsive. CN II-XII grossly intact, moving all extremities equally and fully. MDM: - Vitals signs showed hypertension - History obtained via patient. Patient presents with vomiting. Patient reports that he had a colonoscopy done 3 days ago and has been unable to tolerate any oral intake since. States he has been profusely vomiting for the last 72 hours. He also is complaining of some lower abdominal pain. Denies any chest pain or shortness of breath. Denies any fevers. He has a history of Crohn's disease and reports that biopsies were taken in his colonoscopy. - Chronic conditions affecting care: Crohn's disease - Differential diagnoses include, but are not limited to: viral syndrome; colitis; appendicitis; diverticulitis; bowel perforation; bowel obstruction - Order placed for continuous cardiac monitoring. At this time, monitor showed rate of 61 bpm with normal sinus rhythm, per my interpretation. - External medical records reviewed. Discharge summary dated 09/17/2022 was reviewed. Patient was admitted at that time for exacerbation of Crohn's disease. - Laboratory workup interpreted by myself showed normal WBC but left shift present; stable electrolytes; elevated total bilirubin (2.9); normal lipase - CT abdomen/pelvis with IV contrast showed mild to moderate thickening within the distal transverse colon with associated pericolonic fat stranding, pericolonic gas and pneumoperitoneum consistent with a colonic perforation. - Patient given 2L NS, 40 mg IV protonix and 4 mg IV zofran for symptomatic management on arrival. - IV zosyn ordered - Discussed case with general surgeon business analyst consultant, Dr. Mckeon at 10:51. He evaluated the patient and reports that he does not require emergent surgery at this time. Recommended IV fluids and antibiotics. He recommended admission to medicine given patient's chronic medical problems - Discussion was had with customer care associate about patient's case and need for admission - Hospitalist consulted for admission - Patient admitted to [facility] for further evaluation and management. ASSESSMENT AND PLAN: Diagnosis: vomiting; colonic perforation Plan: admit Past Med/Surg History Medical History Agitation Anemia Crohn's colitis Encounter for pre-operative examination Encounter for pre-operative examination Family history non-contributory History of COVID-19 diagnosed @ [facility] 01/2020--fatigue--resolved Medical marijuana use Orthostatic hypotension Tobacco abuse Surgical History History of colonoscopy History of esophagogastroduodenoscopy (EGD) History of sigmoidoscopy (~01/2020) History of surgery on wrist bilt wrists History of wisdom tooth extraction Family History (Updated 09/15/22 @ 14:39 by GRACE Platt) Other Crohn's disease Depression Family history non-contributory Hypertension Kidney disease No family history of adverse response to anesthesia Social History Smoking Status: Current every day smoker Tobacco Type: E-cigarettes / Vaping Second Hand Exposure: No; Do You Dip or Chew Tobacco: No; Hx Alcohol Use: No Hx Substance Use: Yes Last Used Substance: Days (ago) Last Used Substance Other:: yesterday Substance Use Type Other:: medical marijuana, has card Preferred Language: Portuguese Communication Ability: Effective Violin Restorer Required: No Beliefs That Will Affect Care: None marital status: Single Current Living Situation: Parent Current Living Situation Comment: At home with mom Feels Safe at Home: Yes Assistive Devices: None Allergies Allergies Allergy/AdvReac Type Severity Reaction Status Date / Time infliximab [From Remicade] Allergy Severe THROAT Verified 09/15/22 09:09 [facility] Home Meds Home Medications Medication Instructions Recorded Confirmed multivitamin with minerals-folic 2 tab PO QAM 05/18/20 09/15/22 acid 200 mcg chewable tablet (Multivitamin Gummies) Previous Rx's Medication Instructions Recorded sucralfate 100 mg/mL oral 1 g (10 mL) PO BID #414 mL 07/30/21 suspension triamcinolone acetonide 0.1 % 1 applic topical BID #80 grams 08/10/21 topical cream famotidine 40 mg tablet 40 mg PO QAM #30 tabs 08/21/22 Results & Data (ED) Vital Signs Vital Signs - 24 hr 04/20/23 08:28 04/20/23 08:45 04/20/23 09:12 Temperature 37.3 C Temperature Source Temporal Artery Scan Pulse Rate 97 H 70 71 Pulse Rate from SpO2 Sensor 71 Respiratory Rate 17 14 Respiratory Effort / Characteristics Non-Labored Spontaneous Respiratory Depth Normal Blood Pressure 124/89 143/90 H Blood Pressure Mean 100 107 Blood Pressure Position Sitting Pulse Oximetry 95 98 Oxygen Delivery Method Room Air Room Air Sepsis Recent Fever Within 48 Hours No Sepsis New/Unexplained Change in Mental Status No Sepsis Action Taken by Nursing No Action Required 04/20/23 09:30 04/20/23 10:14 04/20/23 10:30 Temperature Temperature Source Pulse Rate 66 55 L 61 Pulse Rate from SpO2 Sensor 67 56 L 60 Respiratory Rate 23 14 16 Respiratory Effort / Characteristics Respiratory Depth Blood Pressure 125/78 148/87 H 128/77 Blood Pressure Mean 93 107 94 Blood Pressure Position Pulse Oximetry 97 99 98 Oxygen Delivery Method Room Air Room Air Room Air Sepsis Recent Fever Within 48 Hours Sepsis New/Unexplained Change in Mental Status Sepsis Action Taken by Nursing Laboratory Data 04/20/23 08:58 04/20/23 08:58 Lab Results 04/20/23 Range/Units 08:58 WBC 8.90 (4.8-10.8) K/ul RBC 5.39 (4.70-6.10) M/uL Hgb 15.9 (14.0-18.0) g/dl Hct 44.6 (42.0-52.0) % MCV 82.7 (80.0-100.0) fL MCH 29.5 (25.0-34.0) pg MCHC 35.7 (32.0-36.0) g/dL RDW Std Deviation 37.2 (36.4-46.3) fL RDW Coeff of Miguel 12.4 (11.5-14.5) % Plt Count 264 (130-400) K/uL MPV 9.1 L (9.4-12.4) fL Immature Gran % (Auto) 0.3 % Neut % (Auto) 80.8 % Lymph % (Auto) 8.8 % [place] % (Auto) 10.0 % Eos % (Auto) 0.0 % Baso % (Auto) 0.1 % Neut # (Auto) 7.19 H (1.40-6.50) K/uL Lymph # (Auto) 0.78 L (1.20-3.40) K/uL [place] # (Auto) 0.89 H (0.11-0.59) K/uL Eos # (Auto) 0.00 (0.00-0.50) K/uL Baso # (Auto) 0.01 (0.00-0.20) K/uL Immature Gran # (Auto) 0.03 (0.01-0.20) K/uL PT 11.6 (9.0-12.0) Seconds INR 1.1 (0.9-1.1) Sodium 135 L (136-145) mmol/L Potassium 3.5 (3.5-5.1) mmol/L Chloride 97 L (98-107) mmol/L Carbon Dioxide 29 (21-32) mmol/L Anion Gap 9 (3-11) BUN 12 (6-23) mg/dl Creatinine 1.26 (0.6-1.4) mg/dl Est Cr Clr Drug Dosing 94.6 ml/min Est GFR ( Amer) 90.6 ml/min Est GFR (Non-Af Amer) 78.2 ml/min BUN/Creatinine Ratio 9.5 L (10-20) Glucose 108 H (70-99(Fasting)) mg/dl Lactate 1.5 (0.4-2.0) mmol/L Calcium 10.0 (8.6-10.3) mg/dl Magnesium 1.7 (1.7-2.4) mg/dl Total Bilirubin 2.9 H (0.2-1.0) mg/dl AST 17 (13-39) U/L ALT 10 (7-52) U/L Alkaline Phosphatase 44 (34-104) U/L Troponin I High Sens 5.2 (0-20) pg/ml Total Protein 7.8 (6.0-8.3) gm/dl Albumin 5.1 H (3.4-5.0) gm/dl Globulin 2.7 (2.5-4.0) gm/dl Albumin/Globulin Ratio 1.9 (0.9-2) Lipase 16 (11-82) U/L Administered Medications Piperacillin Sod/Tazobactam Sod (Zosyn) 4.5 gm in 100 mls @ 200 mls/hr IV NOW ONE Stop: 04/20/23 10:58 Last Admin: 04/20/23 10:53 Dose: 200 mls/hr Documented By: GIOVANNA Discontinued Medications Sodium Chloride (Nss) 2,000 mls @ 999 mls/hr IV .Q2H1M ONE Stop: 04/20/23 10:31 Last Admin: 04/20/23 08:55 Dose: 999 mls/hr Documented By: GIOVANNA Pantoprazole Sodium 40 mg/ (Syringe) 10 mls @ 5 mls/min IV NOW ONE Stop: 04/20/23 08:32 Last Admin: 04/20/23 08:58 Dose: 5 mls/min Documented By: GIOVANNA Ioversol (Optiray 320 500ml) 88 ml IV ONCE ONE Stop: 04/20/23 10:06 Last Admin: 04/20/23 10:06 Dose: 88 ml Documented By: CHANTEL Ondansetron HCl (Ondansetron Inj 2 Mg/Ml 2 Ml Vial) 4 mg IV NOW STA Stop: 04/20/23 08:32 Last Admin: 04/20/23 08:55 Dose: 4 mg Documented By: GIOVANNA Imaging Data Radiologist's Impression: Abdomen/Pelvis CT 04/20/23 09:[address] WITH IV CONTRAST CT DOSE: 950.91 mGy.cm HISTORY: lower abdominal pain; recent colonoscopy; vomiting TECHNIQUE: Multiaxial CT images of the abdomen and pelvis were performed following the use of intravenous contrast. A dose lowering technique was utilized adhering to the principles of ALARA. COMPARISON STUDY: Abdomen and pelvis CT 09/13/2022. FINDINGS: The lung bases are clear. No acute fractures. The liver, gallbladder, pancreas, spleen, adrenal glands, and kidneys are unremarkable. No hydronephrosis. The main portal vein is patent. Normal caliber abdominal aorta. No retroperitoneal or pelvic lymphadenopathy. Moderate bladder wall thickening. No dilated loops of bowel to suggest an obstruction. Normal appendix. Mild to moderate thickening within the distal transverse colon with pericolonic fat stranding. There is also pericolonic gas at this location with associated small to moderate amount of pneumoperitoneum. Therefore, this is consistent with a colonic perforation. IMPRESSION: 1. Mild to moderate thickening within the distal transverse colon with associated pericolonic fat stranding, pericolonic gas, and pneumoperitoneum consistent with a colonic perforation. This could be due to a colitis, diverticulitis, the recent colonoscopy, or underlying colonic lesion. Surgical consultation recommended. 2. No evidence for bowel obstruction. 3. Moderate bladder wall thickening. Recommend correlation with urinalysis. ACT 112: Negative or not required by law. Electronically signed by: Venu Perez M.D. 04/20/2023 10:23 AM Discharge Plan Visit Data Chief Complaint: Vomiting Stated Complaint: COLONOSCOPY 04/18 THROWING UP SINCE ED Provider: Mary Stahl Discharge Problem: Colon perforation, Vomiting Forms Stand Alone Forms: My [facility] [employer] Prescriptions Prescriptions: No Action triamcinolone acetonide 0.1 % cream 1 applic topical BID Qty: 80 5RF Rx Instructions: arms and neck sucralfate 100 mg/mL Suspension 1 g PO BID Qty: 414 0RF famotidine 40 mg Tablet 40 mg PO QAM Qty: 30 0RF Multivitamin Gummies 200 mcg Tablet,Chewable 2 tab PO QAM Referrals Referrals: PCP,NO [Physician] -
[2023-04-20] MEDS: ONDANSETRON INJ 2 MG/ML 2 ML VIAL IV STA (08:55)
[2023-04-20] MEDS: SODIUM CHLORIDE 0.9% 2,000 ML IV ONE (08:55)
[2023-04-20] MEDS: PANTOprazole 40 MG in SYRINGE 0 ML IV ONE (08:58)
[2023-04-20 09:16] LABS: Basophils # (auto) 0.01 K/uL (0.00-0.20); Basophils % (auto) 0.1 %; Hematocrit (blood only) 44.6 % (42.0-52.0); Hemoglobin 15.9 g/dl (14.0-18.0); Immature Granulocytes # (auto) 0.03 K/uL (0.01-0.20); Immature Granulocytes % (auto) 0.3 %; Lymphocytes # (auto) 0.78 K/uL (1.20-3.40); Lymphocytes % (auto) 8.8 %; Mean Corpuscular Hemoglobin 29.5 pg (25.0-34.0); Mean Corpuscular Hgb Conc 35.7 g/dL (32.0-36.0); Mean Corpuscular Volume 82.7 fL (80.0-100.0); Mean Platelet Volume 9.1 fL (9.4-12.4); Monocytes # (auto) 0.89 K/uL (0.11-0.59); Neutrophils # (auto) 7.19 K/uL (1.40-6.50); Neutrophils % (auto) 80.8 %; Platelet Count 264 K/uL (130-400); RDW Coefficient of Variation 12.4 % (11.5-14.5); RDW Standard Deviation 37.2 fL (36.4-46.3); Red Blood Count 5.39 M/uL (4.70-6.10)
[2023-04-20 09:30] LABS: Albumin Globulin Ratio 1.9 (0.9-2); Albumin Level 5.1 gm/dl (3.4-5.0); BUN Creatinine Ratio 9.5 (10-20); Bilirubin,Total 2.9 mg/dl (0.2-1.0); Creatinine Clr Calc Pharmacy 94.6 ml/min; Est GFR (African American) 90.6 ml/min; Est GFR (Non-African American) 78.2 ml/min; Globulin 2.7 gm/dl (2.5-4.0); Magnesium 1.7 mg/dl (1.7-2.4); Potassium 3.5 mmol/L (3.5-5.1); Total Protein 7.8 gm/dl (6.0-8.3)
[2023-04-20 09:36] LABS: Troponin I High Sensitivity 5.2 pg/ml (0-20)
[2023-04-20 09:37] LABS: INR 1.1 (0.9-1.1); Prothrombin Time 11.6 Seconds (9.0-12.0)
[2023-04-20] MEDS: OPTIRAY 320 500ml IV ONE (10:06)
--- NOTE | 2023-04-20 10:24 | CT Scan Report ---
ABDOMEN AND PELVIS CT WITH IV CONTRAST CT DOSE: 950.91 mGy.cm HISTORY: lower abdominal pain; recent colonoscopy; vomiting TECHNIQUE: Multiaxial CT images of the abdomen and pelvis were performed following the use of intrave nous contrast. A dose lowering technique was utilized adhering to the principles of ALARA. COMPARISON STUDY: Abdomen and pelvis CT 09/13/2022. FINDINGS: The lung bases are clear. No acute fractures. The liver, gallbladder, pancreas, spleen, adr enal glands, and kidneys are unremarkable. No hydronephrosis. The main portal vein is patent. Normal caliber abdominal aorta. No retroperitoneal or pelvic lymphadenopathy. Moderate bladder wall thickeni ng. No dilated loops of bowel to suggest an obstruction. Normal appendix. Mild to moderate thickening within the distal transverse colon with pericolonic fat stranding. There is also pericolonic gas at this location with associated small to moderate amount of pneumoperitoneum. Therefore, this is consis tent with a colonic perforation. IMPRESSION: 1. Mild to moderate thickening within the distal transverse colon with associated pericolonic fat str anding, pericolonic gas, and pneumoperitoneum consistent with a colonic perforation. This could be du e to a colitis, diverticulitis, the recent colonoscopy, or underlying colonic lesion. Surgical consul tation recommended. 2. No evidence for bowel obstruction. 3. Moderate bladder wall thickening. Recommend correlation with urinalysis. ACT 112: Negative or not required by law. Electronically signed by: Venu Perez M.D. 04/20/2023 10:23 AM
[2023-04-20] MEDS: PIPERACILLIN/TAZOBACTAM 4.5 GM/100 ML BAG IV ONE (10:53)
--- NOTE | 2023-04-20 11:05 | Surgery Consultation ---
Date of Consultation April 20, 2023 Assessment & Plan (1) Colon perforation: Not septic or toxic appearing On exam no peritoneal signs Afebrile vital signs stable Likely perforation has walled itself off Strict n.p.o. IV fluids IV Zosyn Will follow closely History of Present Illness History of Present Illness This is a 27-year-old patient with Crohn's disease. He underwent a colonoscopy 3 days ago. He has since had minimal oral intake with nausea and vomiting. He has some abdominal pain this is associated with retching. He denies any change in bowel habits. He denies any fevers, chills, or dysuria. CT scan shows a moderate amount of free air with minimal intraperitoneal fluid. The potential defect is at the distal transverse colon. He does not appear septic and is in no distress. Allergies Allergy/AdvReac Type Severity Reaction Status Date / Time infliximab [From Remicade] Allergy Severe THROAT Verified 09/15/22 09:09 [facility] Home Medications Medication Instructions Recorded Confirmed Type multivitamin with minerals-folic 2 tab PO QAM 05/18/20 09/15/22 History acid 200 mcg chewable tablet (Multivitamin Gummies) sucralfate 100 mg/mL oral 1 g (10 mL) PO BID #414 mL 07/30/21 09/15/22 Rx suspension triamcinolone acetonide 0.1 % 1 applic topical BID #80 grams 08/10/21 09/15/22 Rx topical cream famotidine 40 mg tablet 40 mg PO QAM #30 tabs 08/21/22 09/15/22 Rx Patient History Medical History Agitation Anemia Crohn's colitis Encounter for pre-operative examination Encounter for pre-operative examination Family history non-contributory History of COVID-19 diagnosed @ [facility] 01/2020--fatigue--resolved Medical marijuana use Orthostatic hypotension Tobacco abuse Surgical History History of colonoscopy History of esophagogastroduodenoscopy (EGD) History of sigmoidoscopy (~01/2020) History of surgery on wrist bilt wrists History of wisdom tooth extraction Family History (Updated 09/15/22 @ 14:39 by GRACE Platt) Other Crohn's disease Depression Family history non-contributory Hypertension Kidney disease No family history of adverse response to anesthesia Social History Smoking Status: Current every day smoker Tobacco Type: E-cigarettes / Vaping Second Hand Exposure: No; Do You Dip or Chew Tobacco: No; Hx Alcohol Use: No Hx Substance Use: Yes Last Used Substance: Days (ago) Last Used Substance Other:: yesterday Substance Use Type Other:: medical marijuana, has card Preferred Language: Macedonian Communication Ability: Effective Radio Operator Required: No Beliefs That Will Affect Care: None marital status: Single Current Living Situation: Parent Current Living Situation Comment: At home with mom Feels Safe at Home: Yes Assistive Devices: None Review of Systems Constitutional: + anorexia; no fever and no chills Eyes: no problem reported Ear, Nose, Mouth, Throat: no problem reported Respiratory: no cough and no dyspnea Cardiovascular: no chest pain Gastrointestinal: + abdominal pain, + nausea and + vomitin g; no change in bowel habits Genitourinary: no dysuria Musculoskeletal: no back pain Integumentary: no problem reported Neurologic: no localized weakness and no generalized weakness Psychiatric: no behavioral changes Endocrine: no fatigue Hematologic / Lymphatic: + easy bleeding and + easy bruising Physical Exam Constitutional: WD/WN, vitals as above not ill appearing Eyes: PERRL, conjunctivae normal, anicteric sclerae ENMT: external ear and nose normal, oropharynx normal Neck: trachea midline Respiratory: normal respiratory effort, lungs clear to auscultation Cardiovascular: RRR, no murmur, no edema Gastrointestinal (Abdomen): Inspection/Auscultation: abdomen normal to inspection, + abdomen distended and normal bowel sounds; no visible herniation Percussion/Palpation: + abdomen tender (diffuse but mild) and abdomen soft; no guarding and abdomen not rigid Musculoskeletal: Head/Neck/Chest: normocephalic and head atraumatic Skin: no rashes, warm and dry Psychiatric: Orientation: alert, oriented x 3 and cooperative Results & Data Vital Signs (Past 12 Hours) Vital Signs Temp Pulse Resp BP Pulse Ox O2 Del Method 04/20/23 10:30 61 16 128/77 98 Room Air 04/20/23 10:14 55 L 14 148/87 H 99 Room Air 04/20/23 09:30 66 23 125/78 97 Room Air 04/20/23 09:12 71 04/20/23 08:45 70 14 143/90 H 98 Room Air 04/20/23 08:28 37.3 C 97 H 17 124/89 95 Room Air Diagnostic Findings ABDOMEN AND PELVIS CT WITH IV CONTRAST CT DOSE: 950.91 mGy.cm HISTORY: lower abdominal pain; recent colonoscopy; vomiting TECHNIQUE: Multiaxial CT images of the abdomen and pelvis were performed following the use of intravenous contrast. A dose lowering technique was utilized adhering to the principles of ALARA. COMPARISON STUDY: Abdomen and pelvis CT 09/13/2022. FINDINGS: The lung bases are clear. No acute fractures. The liver, gallbladder, pancreas, spleen, adrenal glands, and kidneys are unremarkable. No hydronephrosis. The main portal vein is patent. Normal caliber abdominal aorta. No retroperitoneal or pelvic lymphadenopathy. Moderate bladder wall thickening. No dilated loops of bowel to suggest an obstruction. Normal appendix. Mild to moderate thickening within the distal transverse colon with pericolonic fat stranding. There is also pericolonic gas at this location with associated small to moderate amount of pneumoperitoneum. Therefore, this is consistent with a colonic perforation. IMPRESSION: 1. Mild to moderate thickening within the distal transverse colon with associated pericolonic fat stranding, pericolonic gas, and pneumoperitoneum consistent with a colonic perforation. This could be due to a colitis, diverticulitis, the recent colonoscopy, or underlying colonic lesion. Surgical consultation recommended. 2. No evidence for bowel obstruction. 3. Moderate bladder wall thickening. Recommend correlation with urinalysis.
--- NOTE | 2023-04-20 11:06 | History & Physical Report ---
Date of Service April 20, 2023 Assessment & Plan (1) Colon perforation: Plan: -Admit to med/tele -Currently with stable vitals and non-toxic appearing -Presented to the ED this am for ongoing nausea, vomiting, and abdominal pain since undergoing routine colonoscopy with multiple biopsies taken on 04/18/23 -He has been afebrile, without leukocytosis, and with a normal lactate on arrival -CT of the abd/pelvis w/con shows Mild to moderate thickening within the distal transverse colon with associated pericolonic fat stranding, pericolonic gas, and pneumoperitoneum consistent with a colonic perforation. -General surgery was consulted and evaluated the patient; recommendations as follow: >No urgent/emergent need for OR at this time >Strict NPO >IV fluids, Zosyn >They will continue to follow -Called [facility] on [address], they will be faxing over the procedure report from 04/18, if the patient has signs of active Chron's flare on the report will consult GI for assistance with steroid dosing -S/P one dose of zosyn in the ED, continue with Zosyn for now -S/P 2L NSS in the ED, continue maintenance LR for now while strict NPO -PRN Zofran for nausea, tylenol/morphine for pain -Strict NPO -BL SCD's for DVT PPX -AM, CBC, CMP, mag, PT/INR (2) Nausea & vomiting: Plan: -Likely due to known colonic perforation -Will obtain CXR to monitor for aspiration -Management per colonic perforation plan (3) Abdominal pain: Plan: -Likely due to known colonic perforation -Will monitor UA when obtained to rule out other sources of infection -Management per colonic perforation plan (4) Tobacco abuse: Plan: -Continue to stress the importance of smoking cessation -Patient declined need for nicotine patch/gum at this time Plan The patient was discussed with Dr. Deleon at the time of the admission History of Present Illness Chief Complaint: Nausea, vomiting, abdominal pain S/P colonoscopy Primary Care Provider: DO Amrik Yeager is a 27 year old male with a PMH significant for Tobacco/vape use, medical marijuana use (daily), Chron's disease, and Autism who presented to the [facility] ED on 04/20/23 with complaints of abdominal pain, nausea, and vomiting for the past 48-72 hoours hours. The patient underwent colonoscopy with biopsies performed for his Chron's disease. Since the procedure he has been reporting ongoing abdominal pain, nausea, and vomiting. He remained stable in the ED. Labs were significant for a total bili of 2.[address] of the abd/pelvis w/IV con was read as "1. Mild to moderate thickening within the distal transverse colon with associated pericolonic fat stranding, pericolonic gas, and pneumoperitoneum consistent with a colonic perforation. This could be due to a colitis, diverticulitis, the recent colonoscopy, or underlying colonic lesion. Surgical consultation recommended. 2. No evidence for bowel obstruction. 3. Moderate bladder wall thickening. Recommend correlation with urinalysis.". General surgery was consulted and evaluated the patient. At this time they recommend conservative management with strict NPO status, IV fluids, and IV antibiotics. Prior to admission the patient was given 2L NSS, a dose of Zosyn, 40 mg IV pantoprazole, 4 mg IV zofran, and was start on 1L of LR. At the time of the exam the patient was sitting in bed in no acute distress. He states that he was diagnosed with chron's at the age of 6. He underwent routine colonoscopy on 04/18/23 to monitor for adequate response to his recent treatments. When asked, he states that they did not believe he was in an active chron's flare and took biopsies of what they thought was either scar tissue or polyps. His symptoms began shortly after returning home on the . His abdominal pain has always been located just superior to the umbilicus, is described as "tight", has been a 5/10, and has not radiated anywhere else. He has been unable to keep for or water down over this time. When asked about hematemesis or bloody vomit he states that he made have had some blood clots when he initially started to vomit but has not seen any since. Since arrival to the ED his symptoms have improved but have not resolved. He denies recent fever, chills, chest pain, SOB, dysuria, hematuria, diarrhea, LE swelling, and recent trauma. Please refer to Dr. Deleon's attestation for any changes to the treatment plan Allergies Allergy/AdvReac Type Severity Reaction Status Date / Time infliximab [From Remicade] Allergy Severe THROAT Verified 04/20/23 15:29 SWELLS Home Medications Medication Instructions Recorded Confirmed Type multivitamin with minerals-folic 2 tab PO QAM 05/18/20 04/20/23 History acid 200 mcg chewable tablet (Multivitamin Gummies) triamcinolone acetonide 0.1 % 1 applic topical BID #80 grams 08/10/21 04/20/23 Rx topical cream doxycycline hyclate 100 mg tablet 100 mg PO BID 04/20/23 04/20/23 History upadacitinib 30 mg tablet,extended 30 mg PO DAILY 04/20/23 04/20/23 History release 24 hr (Rinvoq) Past Med/Surg History Medical History Agitation Anemia Crohn's colitis Encounter for pre-operative examination Encounter for pre-operative examination Family history non-contributory History of COVID-19 diagnosed @ [facility] 01/2020--fatigue--resolved Medical marijuana use Orthostatic hypotension Tobacco abuse Surgical History History of colonoscopy History of esophagogastroduodenoscopy (EGD) History of sigmoidoscopy (~01/2020) History of surgery on wrist bilt wrists History of wisdom tooth extraction Family History (Updated 09/15/22 @ 14:39 by GRACE Platt) Other Crohn's disease Depression Family history non-contributory Hypertension Kidney disease No family history of adverse response to anesthesia Social History Smoking Status: Current every day smoker Tobacco Type: E-cigarettes / Vaping Second Hand Exposure: No; Do You Dip or Chew Tobacco: No; Hx Alcohol Use: No Hx Substance Use: Yes Last Used Substance: Days (ago) Last Used Substance Other:: yesterday Substance Use Type Other:: medical marijuana, has card Preferred Language: [place] Communication Ability: Effective Road Train Driver Required: No Beliefs That Will Affect Care: None marital status: Single Current Living Situation: Family Current Living Situation Comment: At home with mom Feels Safe at Home: Yes Assistive Devices: None Physical Exam Physical Exam: Physical Exam: General: In no acute distress, stated age, ill appearing but non-toxic HEENT: Normocephalic, atraumatic, no scleral icterus, pupils around round, symmetrical, and reactive to light, dry mucus membranes, trachea midline, no thyromegaly Chest/Pulm: No respiratory distress, symmetrical chest expansion, clear breath sounds throughout Cardiac: RRR, no murmurs noted Abdomen: Negative for ascites and bruising, normoactive bowel sounds, soft, negtive to tenderness with percussion throughout, significantly tender to palpation in the upper abdomen but otherwise non-tender Musculoskeletal: Symmetrical and without signs of acute trauma, upper and lower extremities with full ROM, no atrophy, spasticity, or flaccidity Extremities: Radial, dorsalis pedis, and posterior tibial pulses are intact and symmetrical, no edema noted in the BL LE's Skin: Warm, dry, no rashes , lesions, or scars noted Neuro: Alert and oriented to person, place, month, year, and president, no focal defects, no tremors noted Psych: No acute distress, calm and cooperative during the exam Results & Data Results & Data Vital Signs (Past 12 Hours) Vital Signs Temp Pulse Resp BP Pulse Ox O2 Del Method 04/20/23 10:30 61 16 128/77 98 Room Air 04/20/23 10:14 55 L 14 148/87 H 99 Room Air 04/20/23 09:30 66 23 125/78 97 Room Air 04/20/23 09:12 71 04/20/23 08:45 70 14 143/90 H 98 Room Air 04/20/23 08:28 37.3 C 97 H 17 124/89 95 Room Air Laboratory Results Abnormal lab results 04/20/23 Range/Units 08:58 MPV 9.1 L (9.4-12.4) fL Neut # (Auto) 7.19 H (1.40-6.50) K/uL Lymph # (Auto) 0.78 L (1.20-3.40) K/uL Payne # (Auto) 0.89 H (0.11-0.59) K/uL Sodium 135 L (136-145) mmol/L Chloride 97 L (98-107) mmol/L BUN/Creatinine Ratio 9.5 L (10-20) Glucose 108 H (70-99(Fasting)) mg/dl Total Bilirubin 2.9 H (0.2-1.0) mg/dl Albumin 5.1 H (3.4-5.0) gm/dl Diagnostic Findings Abdomen/Pelvis CT 04/20/23 09:[address] WITH IV CONTRAST CT DOSE: 950.91 mGy.cm HISTORY: lower abdominal pain; recent colonoscopy; vomiting TECHNIQUE: Multiaxial CT images of the abdomen and pelvis were performed following the use of intravenous contrast. A dose lowering technique was utilized adhering to the principles of ALARA. COMPARISON STUDY: Abdomen and pelvis CT 09/13/2022. FINDINGS: The lung bases are clear. No acute fractures. The liver, gallbladder, pancreas, spleen, adrenal glands, and kidneys are unremarkable. No hydronephrosis. The main portal vein is patent. Normal caliber abdominal aorta. No retroperitoneal or pelvic lymphadenopathy. Moderate bladder wall thickening. No dilated loops of bowel to suggest an obstruction. Normal appendix. Mild to moderate thickening within the distal transverse colon with pericolonic fat stranding. There is also pericolonic gas at this location with associated small to moderate amount of pneumoperitoneum. Therefore, this is consistent with a colonic perforation. IMPRESSION: 1. Mild to moderate thickening within the distal transverse colon with associated pericolonic fat stranding, pericolonic gas, and pneumoperitoneum consistent with a colonic perforation. This could be due to a colitis, diverticulitis, the recent colonoscopy, or underlying colonic lesion. Surgical consultation recommended. 2. No evidence for bowel obstruction. 3. Moderate bladder wall thickening. Recommend correlation with urinalysis. ACT 112: Negative or not required by law. Electronically signed by: Venu Perez M.D. 04/20/2023 10:23 AM ECG Additional Comments: Normal sinus rhythm Normal ECG When compared with ECG of 14-AUG-2022 20:11, T wave amplitude has decreased in Inferior leads Code Status & VTE Plan Code Status Full code VTE Prophylaxis Plan VTE Prophylaxis will be ordered: Yes Supervising Physician Co-Signing Physician Notes I personally saw and examined the patient. I verified all franks points and agree with Pilo Yanez PA-C with the following exceptions and/or additions: 27-year-old male presents to the ER with abdominal pain status post colonoscopy on Tuesday. Associated nausea and vomiting but no diarrhea, melena or hematochezia. Routine colonoscopy. No suspected to have active Crohn's flare and recently well controlled without diarrhea. O/E HS RRR, no murmurs, Chest CTAB, Abdo epigastric, LUQ tenderness on palpation with guarding but no rebound tenderness A/P Colon perforation - NPO, IV fluids, IV Zosyn. Consult surgery. Gastritis - IV pantoprazole and IV famotidine PG Care Time/CCT Total # of Minutes Spent Total Time Spent with Patient: Total time spent is greater than 50% in coordination of care (as documented) at patient's floor/unit and/or counseling patient: Coding [place] [address] INT INP/OBS CARE 3/75MIN Patient Type Established Medical Decision Making High Complexity Diagnoses Colon perforation K63.1 Nausea & vomiting R11.2 Abdominal pain R10.9 Abdominal location: unspecified location Tobacco abuse Z72.0 (3) Abdominal pain Abdominal location: unspecified location Qualified Code(s): R10.9 - Unspecified abdominal pain
[2023-04-20] MEDS ORDERED: ACETAMINOPHEN 1,000 MG/100 ML VIAL IV PRN (11:33)
[2023-04-20] MEDS: LACTATED RINGER'S 1,000 ML IV SCH (12:03)
--- NOTE | 2023-04-20 12:46 | XRay Report ---
XR chest 1V portable HISTORY: Vomiting, monitor for aspiration COMPARISON: Chest 09/15/2022. Abdomen and pelvis CT 04/20/2023. FINDINGS: The pneumoperitoneum is again noted. No pneumothorax. No pleural effusions. The heart is no rmal in size. The lungs are clear. No acute fractures. IMPRESSION: 1. Pneumoperitoneum again noted. 2. No focal lung consolidations to suggest a pneumonia. ACT 112: Negative or not required by law. Electronically signed by: Venu Perez M.D. 04/20/2023 12:45 PM
--- NOTE | 2023-04-20 14:21 | Electrocardiogram Report ---
Test Reason : Blood Pressure : / mmHG Vent. Rate : 063 BPM Atrial Rate : 063 BPM P-R Int : 112 ms QRS Dur : 092 ms QT Int : 412 ms P-R-T Axes : 075 058 046 degrees QTc Int : 421 ms Normal sinus rhythm Normal ECG When compared with ECG of 14-AUG-2022 20:11, T wave amplitude has decreased in Inferior leads Confirmed by Jamie García ([id number]) on 04/20/2023 2:20:44 PM Referred By: REFERRED SELF Confirmed By:Raul García
[2023-04-20] MEDS: PIPERACILLIN/TAZOBACTAM 4.5 GM in DEXTROSE 5% MINI-B 100 ML IV SCH (15:46)
[2023-04-20] MEDS: ONDANSETRON INJ 2 MG/ML 2 ML VIAL IV PRN (17:59)
[2023-04-20] MEDS ORDERED: FAMOTIDINE 200 MG/20 ML VIAL IV STA (19:01)
[2023-04-20] MEDS: FAMOTIDINE 20 MG in SYRINGE 3 ML IV STA (19:34)
--- OUTSIDE RECORDS SUMMARY | 2023-04-20 20:52 | External Medical Summary | Continuity of Care Document ---
Author Name Unknown Organization [place] [address] [facility] [address] [phone] Care Team Providers Care Veneer Layer Name Role Phone Jaydon Lim Primary Care Physician [id number] Encounter [facility] [id number] Date(s): 12/01/22 - 12/01/[address] [address] [phone] Encounter Diagnosis Crohn's disease(Discharge Diagnosis) - 12/01/22 Body mass index [BMI] 24.0-24.9, adult(Discharge Diagnosis) - 12/01/22 Discharge Disposition: Home or Self Care Attending Physician: GRACE Vazquez Janet Griffith Referring Physician: GRACE Vazquez Janet Griffith Allergies, Adverse Reactions, Alerts Substance Reaction Severity Status Remicade Pharyngeal swelling Active Assessment and Plan Extracted from: Title:Office Visit Note Author:GRACE Vazquez Janet Griffith Date:12/01/22 1.Crohn's disease The patient is a pleasant 27-year-old male presents in the office today for follow-up of Crohn's disease. 1. Crohn's disease: Started Rinvoq 45 mg p.o. dailyx 8 weeks (08/2022) - Continue Rinvoq 30 mg po daily IBD Health Maintenance: High risk colon cancerscreening: Flexible sigmoidoscopy ordered and completed 03/16/2022 - demonstrated active colitis, negative for CMV (Repeat in 1 year) Drug toxicity monitoring/counselin10/25/2022 CBC, CMP WNL; lipid panel ordered today Drug monitoring: drug levels as needed Age-appropriate cancer screening: Established patient of Dermatology, most recent OV 10/20/2022 Bone disease: 03/2022 vitamin D 47. DEXA 06/2022 Vaccination: Annualinfluenza vaccine recommended - administered in the office today Follow CDC guidelines for COVID vaccines. [id number] 02/2021 PCV20 administered today Shingrix administered 09/06/2022 Live vaccine precautions: Patient should not receivelive vaccines while on immunosuppression. Depression: screen prn. Smoking cessation: if applicable. Medication compliance: Patient has had compliance issues related to medication use in the pastmost recently with Humira. There are no current medication compliance issues identified at this time. 2. Osteopenia: - Continue calcium 1200 mg daily with vitamin D 800IU daily 3. GI office visit follow-up in4 months, sooner if needed Immunizations Given and Recorded Vaccine Date Status Refusal Reason influenza virus vaccine, inactivated 12/01/22 Give n influenza virus vaccine, inactivated 12/22/20 Give n influenza virus vaccine, inactivated 11/28/12 Tim rded pneumococcal 20-valent conjugate vaccine 12/01/22 Given zoster vaccine, inactivated 09/06/22 Given pneumococcal 13-valent vaccine 03/03/21 Given poliovirus vaccine, inactivated 1 12/31/97 Recorde d diphtheria/tetanus/pertuss, acel (DTaP) 2 12/31/97 Recorded diphtheria/tetanus/pertuss, acel (DTaP) 96 R ecorded diphtheria/tetanus/pertuss, acel (DTaP) 96 R ecorded diphtheria/tetanus/pertuss, acel (DTaP) 96 R ecorded varicella virus vaccine 3 08/12/97 Recorded measles/mumps/rubella virus vaccine 4 08/12/97 Rec orded haemophilus b conjugate (HbOC) vaccine 5 08/12/97 Recorded haemophilus b conjugate (HbOC) vaccine 96 Re corded haemophilus b conjugate (HbOC) vaccine 96 Re corded haemophilus b conjugate (HbOC) vaccine 96 Re corded hepatitis B vaccine 96 Recorded hepatitis B vaccine 96 Recorded hepatitis B vaccine 96 Recorded poliovirus vaccine, live, trivalent 96 Recor ded poliovirus vaccine, live, trivalent 96 Recor ded 1Result Comment: Change Release Manager: Kyle 2Result Comment: Change Release Manager: Antonio 3Result Comment: Change Release Manager: [employer] 4Result Comment: Change Release Manager: [employer] 5Result Comment: Change Release Manager: Lederle Medications Calcium Plus Vitamin D3 600 mg-10 mcg (400 intl units) oral tablet Start: 07/23/22 12:04:00 EDT, 2 tab, PO, Daily, Disp# 180 tab, Refills: 3, Pharmacy: [facility]/pharmacy #[id number] Start Date: 07/23/22 Stop Date: 07/18/23 Status: Ordered Medical marijuana Start: 11/21/17 10:05:00 EDT, Medical marijuana, Using a vapor form. Uses 3-5 times per day prn. Start Date: 11/21/17 Status: Ordered ondansetron 4 mg oral tablet, disintegrating Start: 05/22/20 7:40:00 EDT, See Instructions, Disp# 90 tab, Refills: 1, 1 tab PO q8h prn for N/V, Pharmacy: [facility] Start Date: 05/22/20 Status: Ordered Rinvoq 30 mg oral tablet, extended release Start: 10/21/22 15:43:00 EDT, 1 tab, PO, Daily, Disp# 90 tab, Refills: 3, [facility] Start Date: 10/21/22 Stop Date: 10/16/23 Status: Ordered Rinvoq 45 mg oral tablet, extended release Start: 09/06/22 13:30:00 EDT, See Instructions, Disp# 28 tab, Refills: 1, For induction dosing for ulcerative colitis, take one tablet by mouth daily for 8 weeks Start Date: 09/06/22 Status: Ordered triamcinolone 0.1% topical cream Start: 10/20/22 10:05:00 EDT, 1 appl, topical, bid, Disp# 454 g, Refills: 3, apply to arms and neck, Pharmacy: [facility]/pharmacy #[id number] Start Date: 10/20/22 Status: Ordered Mental Status 12/01/22 Barriers to Learning one year None evide nt Mandatory Health Literacy Documentation Yes Communication Barrier Present No Health Literacy Communication Barriers N ever Primary Language [place] Problem List Condition Confirmation Course Effective Dates Status H ealth Status Informant Diarrhea Confirmed Active Autism spectrum disorder Confirmed Active Crohn's disease Confirmed Active Neurodermatitis Confirmed Active Current chronic use of systemic steroids Confirmed Active Osteopenia of hip Confirmed Active 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 Confirmed Active Tobacco user Confirmed Active Diagnosis Diagnosis Type Effective Dates Health Status Cl inical Service Informant Body mass index [BMI] 24.0-24.9, adult Discharge Diagnosis 12/01/22 Non-Specified Crohn's disease Discharge Diagnosis 12/01/22 Procedures Procedure Date Related Diagnosis Body Site Status DXA of hip and spine 1 07/20/22 Co mpleted Colonoscopy 2 03/16/22 Completed Colonoscopy 3 08/24/21 Completed Colonoscopy 4, 5 02/03/[address] enterography 6 02/23/20 Complet ed Flexible sigmoidoscopy 7 02/18/20 Completed Upper GI endoscopy 8 02/12/20 Comp leted Colonoscopy 9 01/07/20 Completed Colonoscopy - several Com pleted Endoscopy Completed 1Fracture risk is low for all measurements. Z-score of -1.1, this patients BMD is low for someoine of this age. 2Ordered as Flex sig but was able to get to TI. pseudopolyps throughout, active disease sigmoid to splenic flexure and portion of TC---biopsies taken TC sigmoid and DC. 3COLO to TI, prep limiiting exam, psuedopolyps sigmoid to AC, no evidence of colitis, surveillance bx taken of colon, TI nl, repeat colo 1 year 4The examined portion of the ileum was normal. Pseudoplyps from sigmoid to cecum No inflammation noted in the entire colon. Regional surveillance biopsies taken with cold biopy forceps. Estimated blood loss minimal. The examination was otherwise normal on direct and retroflexion views. 5No significant abnormalities. F/U in 2 years. 6Imaging findins suggestive of ulcerative colitis. Small bowel is normal. 7Pathology results: Colon, sigmoid, biopsies: -Severe acute and chronic colitis -Cytomegalovirus inclusions identified on immuoperoxidase stain -Negative for dysplasia and carcinoma 8Pathology results: A) Duodneum, biopsy: -Acute duodenitis with focal ulceration and mild architectural disarray -No increase in intra-epithelial lymphocytes -Negative for dysplasia and malignancy. B) Stomach, antrum, biopsy: -Chronic inactive gastritis. -Negative for intestinal metaplasia, dysplasia and malignancy -Negative for H. pylori organisms 9Preparation of the colon was fair. The examined portion of the ileum was normal. Colitis. Inflammation was found from the anus to the transverse colone. This was severe, new compared to previous examinations. Blood in the sigmoid colon. No specimens collected Vital Signs Most recent to oldest [Reference Range]: 1 Height 182.5 cm (12/01/22 3:57 PM) Patient Weight 81.0 kg (12/01/22 3:57 PM) Body Mass Index 24.32 kg/m2 (12/01/22 3:57 PM) Heart Rate 84 bpm (12/01/22 3:57 PM) Respiratory Rate 16 br/min (12/01/22 3:57 PM) Blood Pressure 100/82mmHg (12/01/22 3:57 PM) Cuff Pulse Pressure 18 mmHg (12/01/22 3:57 PM) BP Location # 1 Left Arm (12/01/22 3:57 PM) Social History Social History Type Response Tobacco Current every day sm diana, Smokeless tobacco use: Smokeless tobacco user within last 30 days. vaping Smoking Status Former Smoker, quit > 1 yr Sex Male Gastroenterology Outpatient Note * GRACE Vazquez Janet Griffith: PERFORM Event Display: Gastroenterology Outpt Note Authored Date: [id number] Chief Complaint Pt here for 1 month f/u for CD. Pt is on Rinvoq. Pt noted 2 days of bleeding lately but took Rinvoq dose late History of Present Illness The patient is a pleasant [id number] presents today forfollow-up evaluation ofCrohn's disease.The patient was last evaluated in the office bymyself on 10/21/2022. [facility] past medical historyof Crohn'sdisease and autism spectrum disorder PMH: Crohn's disease sincechildhood, GERD, hypokalemia, tobacco abuse, marijuana abuse, history of suicidal ideation, history of homicidal ideation, autism spectrum disorder, acne, chronic staphinfection of arms and back since 2019, anemia, hematochezia, orthostasis, orthostatic hypotension. Prior records: 2001: Patient was diagnosed with Crohn's disease at the age of 6. Per his mother, his Crohn's disease was found throughout his digestive tract. 07/14/2015: Colonoscopy notes reviewed performed by Dr. Acharya demonstrated inflammation in the rectumand in the recto-sigmoid colon secondary to Crohn's disease with colonic involvement. 01/2016: Hospitalization at [facility] and subsequent transfer to [facility] due to persistent Crohn's flare complicated by CMV colitis.Treated with Valganciclovir 900 mg po bid for at least 2-3 weeks and repeat CMV PCR weekly. Then decrease to Valganciclovir to once a week for another 1-3 months with improved symptoms negative titers for two consecutive weeks. 11/21/2017: GI OV notes reviewed from Dr. Bedolla, treatment included: prednisone, Imuran, Asacol, and Remicade. Lost to follow-up, reports that he was off all medications including Remicade for 1.5 years 01/01/2020 - 01/10/2020: Admission to [facility] due to bloody stools and abdominal pain. 01/07/2020 colonoscopy demonstrated normal TI with inflammation characterized by erythema, friability, granularity,and loss of vascularity in a continuous and circumferential pattern from the anus to the transversecolon. Severe when compared to previous, red blood found in the sigmoid colon. Negative Hep B surface antigen, negative Quantiferon gold 02/12/2020 - 02/20/2020: [facility]. 02/12/2020 EGD demonstrated Z-line regular, 43 cm from the incisors; Normal esophagus; Normal antrum. Biopsied; Erythematous duodenopathy. Biopsied; The examination was otherwise normal. 02/13/2020 Patient with positive C. diff gene, negative toxin treated with Vancomycin 125 mg po QID x 10 days. 02/18/2020 Flex sigmoidoscopy demonstrated left-sided colitis. Inflammation was found from the anus to the sigmoidcolon. This was severe. Biopsied and + CMV. Recommend transfer with GI and ID consults. 02/03/2021: Colonoscopy notes are reviewed performed due to history of Crohn's disease which demonstrated normal-appearing terminal ileum. Diffuse pseudopolyps found from the sigmoid to cecum. No inflammation noted in the entire colon. Regional surveillance biopsies were obtained. Exam was ot herwise without abnormality. Repeat colonoscopy for 2 years and surveillance is recommended. Pathology results demonstrated cecum, ascending, transverse, splenic flexure, descending, sigmoid, rectum biopsies with benign colonic mucosa without pathologic change, no active colitis, and fragments of hyperplastic polyp with polypectomy. 07/24/2021: Fecalcalprotectin elevated at 5570 07/26/2021 to 07/30/2021: Inpatient admission at [facility] with concerning symptomsfor Crohn's flare. He had multiple ER visits prior to admission for similar symptoms. Was treated with IV fluids, nausea medications, corticosteroids, low fiber diet once diet began advanced. Plan for slow taper 60mg x week (got 2 days inpatient), then 40mg x 7 days, 30mg x 7 days, 20mg x 7 days, then decrease by 5mg weekly to complete taper. 08/24/2021: Colonoscopy notes reviewed performed due to history of Crohn's disease which demonstrated normal-appearing terminal ileum. Diffuse pseudopolyps found from the sigmoid to the ascending colon. There was no evidence of colitis. There were surveillance biopsies taken throughout the colon with cold biopsy forceps. Prep limiting exam throughout the entire colon. Exam was otherwise without abnormality on direct and retroflexion views. Pathology results demonstrated no significant abnormalities on colon biopsies. Repeat colonoscopy in 1 year (07/2022) 01/11/2022 phone call: Patient contacted the officecomplaining of flare with his Crohn's disease. Reports he has had increased nausea, queasiness,loose stoolswith blood in his stool. Requested prednisone. 01/12/2022 GI acute OV: Patient reports thathe has not had any fever or chills. Reports he has been having some struggleswith bilateral feet feeling cold. Continues to follow with Dr. Ortiz in dermatologyfor a rash to her bilateral upper extremities and chest and back. Weight isdecreased from last office visit, today's weight 73.2 kg. Reports continued nausea which responds to Zofran. Reports has had 2 episodes of vomiting with his flare symptoms. Reports increased lower abdominal pain and cramping withepisodes. Having a bowel movement 3-4 times daily ranging from Columbia type IV stools to Columbia type VII stools. He began noting blood in his stools about a weekago which started as lightblood and has increased to large amount. His last Stelara dose was 12/16/2021. Is due for his next dose around 01/27/2022. 02/23/2022 GI OV: Patient presents today for follow-up of recentCrohn's disease flare. Padmini have upcomingendoscopy scheduled for 03/16/2021. He notes that he has continued rectal bleeding that is on and off again. Bleeding does resolve with use of Canasa suppository. He is only using Canasa suppository when noting bleeding. He has completed prednisone taper. Reports fatigue and decreased energy. This is worsened since he lost his job. 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 Denies any abdominal pain but does have some intermittent queasiness that has been persistent. Last Stelara dose at the end of December. 03/16/2022: Flexible sigmoidoscopy obtained due to history of Crohn's disease demonstrated normal terminal ileum. Significant pseudo polyposis from the sigmoid colon to the cecum. Active disease notedfrom the sigmoid colon to splenic flexure consisting of congestion, friability, aphthous ulcerations. Biopsies taken of the sigmoid and descending colon with cold forceps biopsies for evaluation of CMV. Active disease noted in a small section of the transverse colon consisting of congestion, friability, aphthous ulcerations with biopsies obtained for CMV. Moderate internal hemorrhoids. Exam otherwise without abnormality. Pathology results demonstrated active colitis but negative for CMV and dysplasia. 04/02/2022 GI OV: Patient presents in the office today for follow-up of colonic Crohn's disease. He has been struggling with increasing frequency of Crohn's disease flares. He is status post recent flexible sigmoidoscopy and results of endoscopy and pathology results were reviewed with him today. He remains on 60 mg of prednisoneafter experiencing increased abdominal pain, 10-12liquid bowel movements dailyand blood in the stool. He reports that after starting the prednisone he has had adecrease in theamount of abdominal pain. Bowel movementsare loose to formed and he is experiencing for a day. He has noted decrease in the amount of blood in his stool. He continues to havesome nausea. Denies vomiting. Weight is 75.8 kg today which is up from his last office visit. He does note significant fatigue. 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 05/28/2022:[facility]. Who recommendscontinuing with GI for Crohn's management, discussing conservative measures for lateral hip pain, and to return to clinic in 1 year 05/31/2022 GI OV:The patient presents today with his brother in the office for 2-month follow-up ofCrohn's disease. He reports that he did start his Humirawith his first induction dose 05/02/2022nd second dose 05/24/2022. He will be duefor his last induction dose 06/07/2022. He doeshavedifficulty remembering to takehis medications. We tried to discussmultiple options forreminders which hedid not feel would be helpful from him due to his very close schedule. Hehas beentaking prednisone that he has at home rather haphazardly (he will take 4-5 pills fora few days and then stop). His weight has been stable since his last office visit, weight today 75.2 kg. Denies fever, chills, night sweats. He does have a decreased appetite. Continues to have someleft-sided hip pain and bilateral knee pain. He was evaluated by rheumatology with notes as noted above. Denies any specificjoint pain ormuscular pain today. Denies nausea or vomiting. Denies abdominal pain. Having a bowel movement every 1 to 2 dayswhich is formed and easy to pass. Denies melena or hematochezia. Denies mucus in the stool. He is struggling with home and finances and became emotional and angry at times today during the OV. 07/20/2022:Bone density imagingresults are reviewed demonstrating a Z score of -1.1with bone mineral densitybeing low for someone of this age. Recommend repeat examination 06/2024. Bone mineral density measured at femur neck right isnoted to have moderate fracture lowest with T scoreof -1.0. 07/23/2022 GI OV:The patientpresents today forfollow-up ofCrohn's disease. He has had bonedensity imaging in the interim since his last office visit. The results of his bone density testing was reviewed with him. He hasHumiranext injection due Tuesday07/27/2022. We have been working with his specialty pharmacy to ensure that medication arrives on time. There has been some concern that he has not been able to his stick to his medication regimen. Today hereports he is continue to struggle as he is out of work. 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 Reports overall abdominal pain is well controlled. Having a bowel movementtypically 1-2 timesdaily. He is using mesalamine suppositories which she feels has been helpful. He has having no melena or hematochezia. He is taking prednisoneonaverage1-2 times per week. 09/06/2022 GI OV:Patient presents today for follow-up of Crohn's disease. Unfortunately have loss of insurance in the interim since last office visit causinghim to beoff of Humira for over a month. Was having difficulty withinsuranceand compliance withHumira dosing. Today we are dis cussingalternate options tothe Humira. Previously insurance has denied Entyvio. Patient hasfailedRemicade and Stelara. He reports that he has had a few vomiting episodes. Continues to use prednisone use prednisone 10 mg daily. Mesalamine suppository as needed. No current rectal bleeding. No increased frequency of stool at this time. Abdominal pain intermittently. Had meeting with disability office today. 09/15/2022 - 09/17/2022: Inpatient admission notes at [facility] reviewed for Crohn's flare (nausea, vomiting, abdominal pain). Discharged to home on prednisone 40 mg daily and recommended close follow-up with GI 09/15/2022: Fecal calprotectin 5070 09/21/2022 GI OV: Patient presents today for follow-up of Crohn's disease. He was inpatient in theinterim since her last office visit. He reports that symptoms includedabdominal discomfort, nausea, vomiting, rectal bleeding promptingER evaluation. He has not received Rinvoqfrom the specialty pharmacy. He reports that he is currently on prednisone 40 mg daily. He reports abdominal discomfort, nausea, vomiting, rectal discomfort/bleeding have improved with use of prednisone. He is eager to get started ontreatment. 10/21/2022 GI OV:The patient presents in the office today for follow-up of Crohn's disease. He startedRinvoq approximately 30 days ago. He has been doing extremely well since starting this medication. He has had resolution of abdominal pain, nausea, vomiting. Bowel movements are now 1-2 times daily and formed. He has had no further melena or hematochezia. He is currently on prednisone 20 mg daily. His skinon his bilateral arms are starting to clear. He is followed regularlyby dermatology and currently on doxycycline. He feels much better than he has in some time per his report. 12/01/2022 GI OV:The patientpresents in the office today for follow-up of Crohn's disease. He has been doing quite well on regimen of [id number] mg daily. He has no medication compliance issues identified at this time. Reports daily use of medication. He is experiencing formedstools dave roximately 1-2 daily without melena. He has hada few days of bright red bloodin his stool afterbeing late with one of his doses but this is completely resolved. He has completely discontinued prednisone. He continues to follow closely with dermatologydue to recurrent staph infection. IBD History - Diagnosis:Colonic Crohn's disease diagnosed at the age of 6 (2001); h/o CMV colitis and was transferred to [facility] in [place] where he received valganciclovir 01/2016; + CMV 01/2020 s/p treatment - Previous treatments: Remicade; [id number] mg subcutaneously every6 weeks (initial infusion 02/07/2020, changed to q6 weeks 10/21/2021). Humira 40 mg q 2 weeks (started 04/2022 - discontinued 08/2022) - Current treatment: [id number] mg daily - IBD surgeries: none - Extraintestinal manifestations (joint, eye, mouth ulcers, skin lesions): none - Upper GI or Perianal involvement: none - FHx of IBD or CRC:Mother has history of ulcerative colitis and a carcinoid tumor of the ileum. - Smoking history:He does not smoke cigarettes, he does vape regularly - Social history: He vapes medical marijuana. He denies use of other recreational drugs. He lives at home with his mother. 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 No further complaints or concerns today. Physical Exam Vitals & Measurements HR:84(Monitored) RR:16 BP:100/82 HT:182.5cm WT:81.0kg WT:81.000kg(Dosing) BMI:24.32 General:Alert and oriented, No acute distress, appears stated age,wears corrective lenses,thin HENT:Normocephalic, normal hearing Respiratory: Respiration are non-labored and no evidence of respiratory distress is noted Integumentary:Exposed skin viewable is dry with diffuse excoriation on both arms (healing well), chest and back without any active infection Psychiatric:Cooperative, appropriate mood & affect, Normal judgement Assessment/Plan 1.Crohn's disease The patient is a pleasant 27-year-old male presents in the office today for follow-up of Crohn's disease. 1. Crohn's disease: Started Rinvoq 45 mg p.o. dailyx 8 weeks (08/2022) - Continue Rinvoq 30 mg po daily IBD Health Maintenance: High risk colon cancerscreening: Flexible sigmoidoscopy ordered and completed 03/16/2022 - demonstrated active colitis, negative for CMV (Repeat in 1 year) Drug toxicity monitoring/counselin10/25/2022 CBC, CMP WNL; lipid panel ordered today Drug monitoring: drug levels as needed Age-appropriate cancer screening: Established patient of Dermatology, most recent OV 10/20/2022 Bone disease: 03/2022 vitamin D 47. DEXA 06/2022 Vaccination: Annualinfluenza vaccine recommended - administered in the office today Follow CDC guidelines for COVID vaccines. [id number] 02/2021 PCV20 administered today Shingrix administered 09/06/2022 Live vaccine precautions: Patient should not receivelive vaccines while on immunosuppression. Depression: screen prn. Smoking cessation: if applicable. Medication compliance: Patient has had compliance issues related to medication use in the pastmost recently with Humira. There are no current medication compliance issues identified at this time. 2. Osteopenia: - Continue calcium 1200 mg daily with vitamin D 800IU daily 3. 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 Tobacco user Historical ANEMIA ARTHRITIS Procedure/Surgical History DXA of hip and spine (07/20/2022)Colonoscopy (03/16/2022)Colonoscopy (08/24/2021)Colonoscopy (02/03/2021)CT enterography (02/23/2020)Flexible sigmoidoscopy (02/18/2020)Upper GI endoscopy (02/12/2020)Colonoscopy (01/07/2020)EndoscopyColonoscopy - several Medications calcium-vitamin D(Calcium Plus Vitamin D3 600 mg-10 mcg (400 intl units) oral tablet), 2 tab, PO, Daily, 3 refills doxycycline(doxycycline hyclate 100 mg oral capsule), 100 mg= 1 cap, PO, bid, 1 refills influenza virus vaccine, inactivated(influenza virus vaccine, inactivated preservative-free QUADrivalent IM susp), 0.5 mL, IM, ONCE ondansetron(ondansetron 4 mg oral tablet, disintegrating), See Instructions, 1 refills pneumococcal 20-valent conjugate vaccine(Prevnar 20), 0.5 mL, IM, ONCE triamcinolone topical(triamcinolone 0.1% topical cream), 1 appl, topical, bid, 3 refills unknown medication(Medical marijuana) upadacitinib(Rinvoq 45 mg oral tablet, extended release), See Instructions, 1 refills upadacitinib(Rinvoq 30 mg oral tablet, extended release), 30 mg= 1 tab, PO, Daily, 3 refills Allergies RemicadePharyngeal swelling Social History Smoking Status Former Smoker, quit > 1 yr Alcohol - Denies Alcohol Use 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 lifting and walking all day long Home/Environment Lives with:Mother, Siblings Nutrition/Health Type of diet:Regular Sexual Sexually active:No Substance Abuse - Denies Substance Abuse Tobacco Use:Current every day smoker Smokeless tobacco use:Smokeless tobacco user within last 30 days Type:vaping Family History Family history is unknown Immunizations Vaccine Date Status zoster vaccine, inactivated 09/06/2022 Given pneumococcal 13-valent vaccine 03/03/2021 Given influenza virus vaccine, inactivated 12/22/2020 Given influenza virus vaccine, inactivated 11/2012 Recorded poliovirus vaccine, inactivated 12/31/1997 Recorded Comments : Change Release Manager: Kyle diphtheria/tetanus/pertuss, acel (DTaP) 12/31/1997 Recorded Comments : Change Release Manager: Lederle varicella virus vaccine 08/12/1997 Recorded Comments : Change Release Manager: [employer] measles/mumps/rubella virus vaccine 08/12/1997 Recorded Comments : Change Release Manager: [employer] haemophilus b conjugate (HbOC) vaccine 08/12/1997 Recorded Comments : Change Release Manager: Lederle hepatitis B vaccine 1996 Recorded haemophilus b conjugate (HbOC) vaccine 1996 Recorded diphtheria/tetanus/pertuss, acel (DTaP) 1996 Recorded poliovirus vaccine, live, trivalent 1996 Recorded haemophilus b conjugate (HbOC) vaccine 1996 Recorded diphtheria/tetanus/pertuss, acel (DTaP) 1996 Recorded poliovirus vaccine, live, trivalent 1996 Recorded hepatitis B vaccine 1996 Recorded haemophilus b conjugate (HbOC) vaccine 1996 Recorded diphtheria/tetanus/pertuss, acel (DTaP) 1996 Recorded hepatitis B vaccine 1996 Recorded Recommendations Health Maintenance Pending(in the next year) OverDue Adult Influenza Vaccine due08/28/22and every 1year Due Adult COVID-19 Vaccination due12/01/22Unknown Frequency Adult Tdap/Td Vaccine due12/01/22Unknown Frequency Pneumococcal Vaccine Adults and Adolescents with Chronic Illness due12/01/22One-time only Shingles Vaccine due12/01/22One-time only Due In Future Body Mass Index not due until12/01/23and every 1year Satisfied(in the past 1 year) Satisfied Body Mass Index on12/01/22.Satisfied by MIKA Maki Erin Shingles Vaccine on09/06/22.Satisfied by INEZ Cervantes Jenna Lab Results 30 Day Labs No 30 Day Lab Data Electronic Signature on File Electronically Reviewed/Signed by: GRACE Oconnell Author Signature Dt/Tm:12/01/2022 04:19 PM Division of Gastroenterology [facility] Patient Care team information Care Team Personnel Name: GRACE Vazquez Janet Griffith Position: Nurse Pract - Gastro Member Role: Lifetime Relationship Address: Address: [address] [place] [address], [place] [address] [place] Name: Soha Mann Catherine Position: Pharmacist Member Role: Pharmacy - Lifetime Address: Address: [facility] [address] [facility] [place] [address] [place] Name: DO Lim Jason M Position: Referring Member Role: Primary Care Provider Address: Address: [address] [place] [id number] [place] Name: Soha Moyer Alexander S Position: Pharmacist Member Role: Pharmacy - Lifetime Address: Address: [address] [place] [address] [place] Care Team Related Persons Name: TOMAS PINTO Address: home No Address Provided Name: GENTRY RYAN
--- OUTSIDE RECORDS SUMMARY | 2023-04-20 20:52 | External Medical Summary | Continuity of Care Document ---
Author Name Unknown Organization [facility] [address] [phone] Care Team Providers Care Edge Blacker Name Role Phone Jaydon Lim Primary Care Physician [id number] Encounter [facility] [id number] Date(s): 12/29/22 - 12/29/22 [facility] [address] [phone] Encounter Diagnosis Dermatitis, unspecified(Discharge Diagnosis) - 12/29/22 Discharge Disposition: Home or Self Care Attending Physician: MD Ortiz David L Allergies, Adverse Reactions, Alerts Substance Reaction Severity Status Remicade Pharyngeal swelling Active Assessment and Plan Extracted from: Title:Clinical Document Author:MD Ortiz David L Date:12/29/22 OUTPATIENT NOTE Name: SAI RYAN Patient Number:[id number] : 1995 Date of Service: 12/29/2022 _ Mr Ryan in for recheck of his skin. He thinks is doing better. He has been on Rinvoq since July for his Crohn's disease. His Crohn's is doing better. He thinks his skin is also improved since starting on the Rinvoq. he does use some triamcinolone cream. He does itch at times but he is sleeping okay. 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 Physical examination: Is a well-developed well-nourished white male type II skin. Alert and orient x3. Examination of face and scalp are unremarkable. He does have some erythema with some excoriation of the neck upper back lower back right shoulder but the chest abdomen legs and arms otherwise unremarkable. Impression: Chronic dermatitis mildly improved now on Rinvoq and topical triamcinolone cream. Plan: Continue dry skin care and triamcinolone cream daily as needed. He will continue on the Rinvoq. He will return for recheck in 3 months. 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 4Result Comment: Bias Machine Operator Helper: [employer] 5Result Comment: Bias Machine Operator Helper: Lederle Medications Calcium Plus Vitamin D3 600 mg-10 mcg (400 intl units) oral tablet Start: 07/23/22 12:04:00 EDT, 2 tab, PO, Daily, Disp# 180 tab, Refills: 3, Pharmacy: [facility]/pharmacy #[id number] Start Date: 07/23/22 Stop Date: 07/18/23 Status: Ordered Medical marijuana Start: 11/21/17 10:05:00 EDT, Medical marijuana, Using a vapor form. Uses 3-5 times per day prn. Start Date: 11/21/17 Status: Ordered ondansetron 4 mg oral tablet, disintegrating Start: 05/22/20 7:40:00 EDT, See Instructions, Disp# 90 tab, Refills: 1, 1 tab PO q8h prn for N/V, Pharmacy: [facility] Start Date: 05/22/20 Status: Ordered Rinvoq 30 mg oral tablet, extended release Start: 10/21/22 15:43:00 EDT, 1 tab, PO, Daily, Disp# 90 tab, Refills: 3, [facility] Start Date: 10/21/22 Stop Date: [...] 3, apply to arms and neck, Pharmacy: [facility]/pharmacy #[id number] Start Date: 10/20/22 Status: Ordered Mental Status 12/29/22 Barriers to Learning one year None evide nt Mandatory Health Literacy Documentation Yes Health Literacy Communication Barriers N ever Primary Language Palauan Problem List Condition Confirmation Course Effective Dates Status H ealth Status Informant Diarrhea Confirmed Active Autism spectrum disorder Confirmed Active Crohn's disease Confirmed Active Neurodermatitis Confirmed Active Current chronic use of systemic steroids Confirmed Active Osteopenia of hip Confirmed Active 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 No specimens collected Social History Social History Type Response Tobacco Current every day sm oker, Smokeless tobacco use: Smokeless tobacco user within last 30 days. vaping Smoking Status Former Smoker, quit > 1 yr Sex Male Outpatient Note * MD Diana, Pacheco Oliveira: PERFORM Event Display: .Outpt Note Authored Date: OUTPATIENT NOTE Name: SAI RYAN Patient Number:[id number] : 1995 Date of Service: 12/29/2022 _ Mr Ryan in for recheck of his skin. He thinks is doing better. He has been on Rinvoq since July for his Crohn's disease. His Crohn's is doing better. He thinks his skin is also improved since starting on the Rinvoq. he does use some triamcinolone cream. He does itch at times but he is sleeping okay. 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 Physical examination: Is a well-developed well-nourished white male type II skin. Alert and orient x3. Examination of face and scalp are unremarkable. He does have some erythema with some excoriationof the neck upper back lower back right shoulder but the chest abdomen legs and arms otherwise unremarkable. Impression: Chronic dermatitis mildly improved now on Rinvoq and topical triamcinolone cream. Plan: Continue dry skin care and triamcinolone cream daily as needed. He will continue on the Rinvoq. He will return for recheck in 3 months. Electronic Signature on File Electronically Reviewed/Signed by: Pacheco Ortiz MD Author Signature Dt/Tm:12/29/2022 10:21 AM Department of Dermatology [facility] Patient Care team information Care Team Personnel Name: GRACE Vazquez Janet Griffith Position: Nurse Pract - Pulmonary Med Member Role: Lifetime Relationship Address: Address: [address] [place] [address] [place] Name: Soha Mann Catherine Position: Pharmacist Member Role: Pharmacy - Lifetime Address: Address: [place] [address] [place] Name: DO Lim Jason M Position: Referring Member Role: Primary Care Provider Address: Address: [address] [place] [address] [place] Name: Soha Moyer Alexander S Position: Pharmacist Member Role: Pharmacy - Lifetime Address: Address: [place] [address] [place] Care Team Related Persons Name: TOMAS PINTO Address: home No Address Provided Name: GENTRY RYAN
--- OUTSIDE RECORDS SUMMARY | 2023-04-20 20:52 | External Medical Summary | Continuity of Care Document ---
Author Name Unknown Organization [address] Address [address] [place], [place] [id number] Care Team Providers Care Voice Network Engineer Name Role Phone Jaydon Lim Primary Care Physician [phone] Encounter [facility] [id number] Date(s): 10/21/22 - 10/21/[address] [address] [phone] Encounter Diagnosis Body mass index [BMI] 24.0-24.9, adult(Discharge Diagnosis) - 10/21/22 Current chronic use of systemic steroids(Discharge Diagnosis) - 10/21/22 Crohn's disease(Discharge Diagnosis) - 10/21/22 Discharge Disposition: Home or Self Care Attending Physician: GRACE Vazquez Janet Griffith Referring Physician: GRACE Vazquez Janet Griffith Allergies, Adverse Reactions, Alerts Substance Reaction Severity Status Remicade Pharyngeal swelling Active Assessment and Plan Extracted from: Title:Office Visit Note Author:GRACE Vazquez Janet Griffith Date:10/21/22 1.Current chronic use of s ystemic steroids The patient is a pleasant 27-year-old male presents in the office today for follow-up of Crohn's disease. 1. Crohn's disease: - Patient was previously maintained on Stelara 90 mg subcutaneously every 6 weeks(discontinued03/2022) - Flexible sigmoidoscopy ordered and completed 03/16/2021 - demonstrated active colitis, negative for CMV (Repeat in 1 year) - Obtained Humira activity and antibody testing - low 07/2022 related to delays in administration andcompounded bylapse of insurance Discussed alternate options to the Humira as he has struggled with compliance and theinsurance difficulties. We discussed alternate biologics as well as oral medication. Started Rinvoq 45 mg p.o. dailyx 8 weeks (08/2022)and thendecrease to30 mg. Administered Shingrix 09/06/2022 Obtain lipid profile 12 weeks afterbeginning Rinvoq - Obtain CBC and CMP now - Continue prednisone taper prednisone taperprednisone taperby decreasing prednisone to 50 to 50 mg daily x1 week, then 1 week, then10 mg daily x110 mg daily x1 week, then 5 mg 10 mg daily x1 week, then 5 mg daily x1 week, then stop 2. Osteopenia: - Continue calcium 1200 mg daily with vitamin D 800IU daily 3. GI office visit follow-up in6-8 weeks, sooner if needed 2.Crohn's disease Immunizations Given and Recorded Vaccine Date Status Refusal Reason zoster vaccine, inactivated 09/06/22 Given pneumococcal 13-valent vaccine 03/03/21 Given influenza virus vaccine, inactivated 12/22/20 Give n influenza virus vaccine, inactivated 11/28/12 Tim rded poliovirus vaccine, inactivated 1 12/31/97 Recorde d [...] live, trivalent 96 Recor ded 1Result Comment: Denture Packer: Connmarylou 2Result Comment: Denture Packer: Lederle 3Result Comment: Denture Packer: [employer]ck [employer] 4Result Comment: Denture Packer: [employer] 5Result Comment: Denture Packer: Lederle Medications Calcium Plus Vitamin D3 600 mg-10 mcg (400 intl units) oral tablet Start: 07/23/22 12:04:00 EDT, 2 tab, PO, Daily, Disp# 180 tab, Refills: 3, [id number] Start Date: 07/23/22 Stop Date: 07/18/23 Status: Ordered Canasa 1000 mg rectal suppository Start: 07/09/22 13:36:00 EDT, 1 supp, AZ, qhs, Disp# 30 supp, Refills: 1, [id number] Start Date: 07/09/22 Stop Date: 09/07/22 Status: Ordered doxycycline hyclate 100 mg oral capsule Start: 09/22/22 11:10:00 EDT, 1 cap, PO, bid, Disp# 60 cap, Refills: 1, may take with food to minimize abdominal discomfort, [id number] Start Date: 09/22/22 Status: Ordered Medical marijuana Start: 11/21/17 10:05:00 EDT, Medical marijuana, Using a vapor form. Uses 3-5 times per day prn. Start Date: 11/21/17 Status: Ordered ondansetron 4 mg oral tablet, disintegrating Start: 05/22/20 7:40:00 EDT, See Instructions, Disp# 90 tab, Refills: 1, 1 tab PO q8h prn for N/V, Pharmacy: [facility] Start Date: 05/22/20 Status: Ordered predniSONE 5 mg oral tablet Start: 10/21/22 15:44:00 EDT, See Instructions, Disp# 42 tab, Refills: 0, 3 tablets po daily x 7 days, then 2 tablets po daily x 7 days, then 1 tablet po daily x 7 days, then stop, Pharmacy: [facility] #[id number] Start Date: 10/21/22 Status: Ordered Rinvoq 30 mg oral tablet, extended release Start: 10/21/22 15:43:00 EDT, 1 tab, PO, Daily, Disp# 90 tab, Refills: 3, [facility] Start Date: 10/21/22 Stop Date: [...] 3, apply to arms and neck, Pharmacy: [facility]/pharmacy #[id number] Start Date: 10/20/22 Status: Ordered Mental Status 10/21/22 Barriers to Learning one year None evide nt Mandatory Health Literacy Documentation Yes Communication Barrier Present No Health Literacy Communication Barriers N ever Primary Language Hungarian Problem List Condition Confirmation Course Effective Dates [...] Dates Health Status Cl inical Service Informant Crohn's disease Discharge Diagnosis 10/21/22 Body mass index [BMI] 24.0-24.9, adult Discharge Diagnosis 10/21/22 Non-Specified Current chronic use of systemic steroids Discharge Diagnosis 10/21/22 Procedures Procedure Date Related Diagnosis Body Site [...] oldest [Reference Range]: 1 Height 182.5 cm (10/21/22 3:26 PM) Patient Weight 80.5 kg (10/21/22 3:26 PM) Body Mass Index 24.17 kg/m2 (10/21/22 3:26 PM) Heart Rate 84 bpm (10/21/22 3:26 PM) Respiratory Rate 16 br/min (10/21/22 3:26 PM) Blood Pressure 104/70mmHg (10/21/22 3:26 PM) Cuff Pulse Pressure 34 mmHg (10/21/22 3:26 PM) BP Location # 1 Left Arm (10/21/22 3:26 PM) Social History Social History Type Response Tobacco Current every day sm oker, Smokeless tobacco use: Smokeless tobacco user within last 30 days. vaping Smoking Status Never smoked cigaret dragan Sex Male Gastroenterology Outpatient Note * GRACE Vazquez, Kendra Pitt: PERFORM Event Display: Gastroenterology Outpt Note Authored Date: [id number] Chief Complaint Pt here for 1 month f/u for CD. Pt is on Rinvoq and is feeling good. History of Present Illness The patient is a pleasant 23-iggg-njqvxfmagq presents today forfollow-up evaluation ofCrohn's disease.The patient was last evaluated in the office bydongldamon on 09/21/2022. [facility] past medical historyof Crohn'sdisease [...] disease with colonic involvement. 01/2016: Hospitalization at [facility] and subsequent transfer to [facility] due to persistent Crohn's flare complicated by [...] 1.5 years 01/01/2020 - 01/10/2020: Admission to [facility] due to bloody stools and abdominal pain. 01/07/2020 colonoscopy demonstrated normal TI with inflammation characterized by erythema, friability, granularity,and loss of vascularity in a continuous and circumferential pattern from the anus to the transversecolon. Severe when compared to previous, red blood found in the sigmoid colon. Negative Hep B surface antigen, negative Quantiferon gold 02/12/2020 - 02/20/2020: [facility]. [facility]/12/2020 [...] [id number] 07/26/2021 to 07/30/2021: Inpatient admission at [facility] with concerning symptomsfor Crohn's flare. He had [...] bowel movement 3-4 times daily ranging from Washburn type IV stools to Washburn type VII stools. He began noting blood [...] does note significant fatigue. 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 05/28/2022:[facility]. Who [...] 09/15/2022 - 09/17/2022: Inpatient admission notes at [facility] reviewed for Crohn's flare (nausea, vomiting, abdominal [...] today for follow-up of Crohn's disease. He started revoke approximately 30 days ago. He has been doing extremely well since starting this medication. He has had resolution of abdominal pain, nausea, vomiting. Bowel movements are now 1-2 times daily and formed. He has had no further melena or hematochezia. He is currently on prednisone 20 mg daily. His skinon his bilateral arms are starting to clear. He is followed regularly by dermatology and currently on doxycycline. He feels much better than he has in some time per hisreport. IBD History - Diagnosis:Colonic Crohn's disease diagnosed at the age of 6 (2001); h/o CMV colitis and was transferred to [facility] in [place] where he received valganciclovir 01/2016; + CMV 01/2020 s/p treatment - Previous treatments: Remicade; Bfkmusf31 mg subcutaneously every6 weeks (initial infusion 02/07/2020, changed to q6 weeks 10/21/2021). 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 No further complaints or concerns today. Physical Exam Vitals & Measurements HR:84(Monitored) RR:16 BP:104/70 HT:182.5cm WT:80.5kg WT:80.500kg(Dosing) BMI:24.17 General:Alert and oriented, No acute distress, appears stated age,wears corrective lenses,thin HENT:Normocephalic, normal hearing Respiratory: Respiration are non-labored and no evidence of respiratory distress is noted Integumentary:Exposed skin viewable is dry with diffuse excoriation on both arms (healing well), chest and back without any active infection Psychiatric:Cooperative, appropriate mood & affect, Normal judgement Assessment/Plan 1.Current chronic use of systemic steroids The patient is a pleasant 27-year-old male presents in the office today for follow-up of Crohn's disease. 1. Crohn's disease: - Patient was previously maintained on Stelara 90 mg subcutaneously every 6 weeks(discontinued03/2022) - Flexible sigmoidoscopy ordered and completed 03/16/2021 - demonstrated active colitis, negative for CMV (Repeat in 1 year) - Obtained Humira activity and antibody testing - low 07/2022 related to delays in administration andcompounded bylapse of insurance Discussed alternate options to the Humira as he has struggled with compliance and theinsurance difficulties. We discussed alternate biologics as well as oral medication. Started Rinvoq 45 mg p.o. dailyx 8 weeks (08/2022)and thendecrease to30 mg. Administered Shingrix 09/06/2022 Obtain lipid profile 12 weeks afterbeginning Rinvoq - Obtain CBC and CMP now -Continue prednisone taper prednisone taperprednisone taperby decreasing prednisone to 50 to 50mg daily x1 week, then 1 week, then10 mg daily x110 mg daily x1 week, then 5 mg 10 mg daily x1 week, then 5 mg daily x1 week, then stop 2. Osteopenia: - Continue calcium 1200 mg daily with vitamin D 800IU daily 3. GI office visit follow-up in6-8 weeks, sooner if needed 2.Crohn's disease Problem List/Past Medical History Ongoing Autism spectrum [...] mg= 1 cap, PO, bid, 1 refills mesalamine(Canasa 1000 mg rectal suppository), 1000 mg= 1 supp, AZ, qhs, 1 refills ondansetron(ondansetron 4 mg oral tablet, disintegrating), See Instructions, 1 refills predniSONE(predniSONE 5 mg oral tablet), See Instructions triamcinolone topical(triamcinolone 0.1% topical cream), 1 appl, topical, bid, 3 refills unknown medication(Medical marijuana) upadacitinib(Rinvoq 45 mg oral tablet, extended release), See Instructions, 1 refills upadacitinib(Rinvoq 30 mg oral tablet, extended release), 30 mg= 1 tab, PO, Daily, 3 refills Allergies RemicadePharyngeal swelling Social History Smoking Status Never smoked cigarettes Alcohol - Denies Alcohol Use 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 measles/mumps/rubella virus vaccine 08/12/1997 Recorded Comments : Denture Packer: [employer]ck [employer] haemophilus b conjugate (HbOC) vaccine 08/12/1997 Recorded Comments : Denture Packer: Danaerkaylan hepatitis B vaccine 1996 Recorded haemophilus b [...] due08/28/22and every 1year Due Adult COVID-19 Vaccination due10/21/22Unknown Frequency Adult Tdap/Td Vaccine due10/21/22Unknown Frequency Pneumococcal Vaccine Adults and Adolescents with Chronic Illness due10/21/22One-time only Shingles Vaccine due10/21/22One-time only Due In Future Body Mass Index not due until10/21/23and every 1year Satisfied(in the past 1 year) Satisfied Body Mass Index on10/21/22.Satisfied by MIKA Maki Erin Shingles Vaccine on09/06/22.Satisfied by INEZ Cervantes, Lindsay Lab Results 30 Day Labs Last Updated 10/11/22 21:08 10/11/22 1608 Estimated VlTi091.93 10/11/22 1535 Hct41.9 Hgb13.2 MCH26.0L MCHC31.5L MCV82.5 Ngpj715 RBC5.08 WBC9.83 MPV8.8L RDW13.2 Anion Gap6 BUN13 Ca9.1 Cl-105 JGW655 Cret0.97 Rsc717 K4.3 Na139 eGFR CKD-EPI>90 Alk Phos41 ALT26 AST24 HBsAbNONREACTIVE T Bili1.2 HBsAb ConcentrationNONREACTIVE Alb4.3 Prot6.9 07/26/23 1111 Wound.CxFinal: Pos. Electronic Signature on File Electronically Reviewed/Signed by: GRACE Oconnell Author Signature Dt/Tm:10/21/2022 04:08 PM Division of Gastroenterology [facility] Patient Care team information Care Team Personnel Name: GRACE Vazquez Janet Griffith Position: Nurse Pract - Gastro Member Role: Lifetime Relationship Address: Address: [address] [place] [address] [place] Name: Soha Mann Catherine Position: Pharmacist Member Role: Pharmacy - Lifetime Address: Address: [address] [address] [place] Name: DO Lim Jason M Position: Referring Member Role: Primary Care Provider Address: Address: [address] [place] [id number] [place] Name: Soha Moyer Alexander S Position: Pharmacist Member Role: Pharmacy - Lifetime Address: Address: [place] [address] [place] Care Team Related Persons Name: TOMAS PINTO Address: home No Address Provided Name: GENTRY RYAN
--- OUTSIDE RECORDS SUMMARY | 2023-04-20 20:52 | External Medical Summary | Continuity of Care Document ---
Author Name Unknown Organization [facility] [address] [facility] [address] [phone] Care Team Providers Care Dog Boarder Name Role Phone Jaydon Lim Primary Care Physician [phone] Encounter PSYCHIATRIC [facility] [id number] Date(s): 03/31/23 - 03/31/23 [facility] [address] [facility] [address] [phone] Encounter Diagnosis Neurodermatitis(Discharge Diagnosis) - 03/31/23 Discharge Disposition: Home or Self Care Attending Physician: MD Stone Thomas A Allergies, Adverse Reactions, Alerts Substance Reaction Severity Status Remicade Pharyngeal swelling Active Assessment and Plan Extracted from: Title:Clinical Document Author:MD Chase, Tano Maurice Date:03/31/23 OUTPATIENT NOTE Name: SAI RYAN Patient Number:1 [id number] : 1995 Date of Service: 03/31/2023 Raven Ryan returns for reevaluation. He has a prior history of an acneiform eruption, neurodermatitis, and secondary infection. He has underlying diagnosis of Crohn's disease and has noted improvement overall in the skin after switching from Humira to Rinvoq. He did run out of his triamcinolone although has a prescription waiting for him at the pharmacy and he notes some deterioration in the condition of the skin. He does admit to excoriating these areas. He washes daily with an antibacterial soap such as Sinhala Spring. Patient noted improvement after several courses of doxycycline for presumed secondary infection of the dermatitic and excoriated areas. He notes that his Crohn's has been under relatively good control. He is due for a repeat colonoscopy this month. Review of systems medications allergies as noted on the chart. The patient is in stable health. Notes no other new skin problems today. Examination reveals pleasant well-nourished white male type I skin who is alert and oriented x 3 with no mood and affect. Examination of the head, neck, back, chest, arms, hands, fingers reveals numerous erosions and excoriations present particularly on the back and to a lesser extent on the arms. There are several small pustules present as well. Clinical impression is that of an acneiform eruption with neurodermatitis and secondary infection. 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 He was also given an additional prescription for doxycycline 100 mg to be taken twice daily with food as he has done in the past as he may have secondary infection occurring once again. Patient will return in 3 months for reevaluation. Immunizations Given and Recorded Vaccine Date Status [...] live, trivalent 96 Recor ded 1Result Comment: Mgmt Specialist: Kyle 2Result Comment: Mgmt Specialist: Lederle 3Result Comment: Mgmt Specialist: Merck and [employer] 4Result Comment: Mgmt Specialist: [employer] 5Result Comment: Mgmt Specialist: Lederle Medications Calcium Plus Vitamin D3 600 mg-10 mcg (400 intl units) oral tablet Start: 07/23/22 12:04:00 EDT, 2 tab, PO, Daily, Disp# 180 tab, Refills: 3, Pharmacy: [facility][id number] Start Date: 07/23/22 Stop Date: 07/18/23 Status: Ordered doxycycline hyclate 100 mg oral tablet Start: 03/31/23 10:43:00 EST, 1 tab, PO, bid, Disp# 60 tab, Refills: 2, take with food, Pharmacy: [facility] #[id number] Start Date: 03/31/23 Stop Date: 06/29/23 Status: Ordered Medical marijuana Start: 11/21/17 10:05:00 EDT, Medical marijuana, Using a vapor form. Uses 3-5 times per day prn. Start Date: 11/21/17 Status: Ordered ondansetron 4 mg oral tablet, disintegrating Start: 05/22/20 7:40:00 EDT, See Instructions, Disp# 90 tab, Refills: 1, 1 tab PO q8h prn for N/V, Pharmacy: [facility] Start Date: 05/22/20 Status: Ordered Rinvoq 30 mg oral tablet, extended release Start: 10/21/22 15:43:00 EDT, 1 tab, PO, Daily, Disp# 90 tab, Refills: 3, [facility] Start Date: 10/21/22 Stop [...] 3, apply to arms and neck, Pharmacy: [facility] #[id number] Start Date: 10/20/22 Status: Ordered Mental Status 03/31/23 Barriers to Learning one year None evide nt Mandatory Health Literacy Documentation Yes Health Literacy Communication Barriers N ever Primary Language Tuvaluan Problem List Condition Confirmation Course Effective Dates [...] Dates Health Status Cl inical Service Informant Neurodermatitis Discharge Diagnosis 03/31/23 Non-Specified Procedures Procedure Date Related Diagnosis Body Site [...] Status Never smoked cigaret dragan Sex Male Outpatient Note * MD Chase, Aaron Maurice: MODIFY, PERFORM Event Display: .Outpt Note Authored Date: [id number] OUTPATIENT NOTE Name: SAI RYAN Patient Number:1 [id number] : 1995 Date of Service: 03/31/2023 _ Sai Ryan returns for reevaluation. He has a prior history of an acneiform eruption, neurodermatitis, and secondary infection. He has underlying diagnosis of Crohn's disease and has noted improvement overall in the skin after switching from Humira to Rinvoq. He did run out of his triamcinolone although has a prescription waiting for him at the pharmacy and he notes some deterioration in the condition of the skin. He does admit to excoriating these areas. He washes daily with an antibacterial soap such as Sinhala Spring. Patient noted improvement after several courses of doxycycline for presumed secondary infection of the dermatitic and excoriated areas. He notes that his Crohn's has been under relatively good control. He is due for a repeat colonoscopy this month. Review of systems medications allergies as noted on the chart. The patient is in stable health. Notes no other new skin problems today. Examination reveals pleasant well-nourished white male type I skin who is alert and oriented x 3 with no mood and affect. Examination of the head, neck, back, chest, arms, hands, fingers reveals numerous erosions and excoriations present particularly on the back and to a lesser extent on the arms. There are several small pustules present as well. Clinical impression is that of an acneiform eruption with neurodermatitis and secondary infection. 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 He was also given an additional prescription for doxycycline 100 mg to be taken twice daily with food as he has done in the past as he may have secondary infection occurring onceagain. Patient will return in 3 months for reevaluation. Electronic Signature on File Electronically Reviewed/Signed by: Aaron Stone MD Author Signature Dt/Tm:03/31/2023 10:52 AM Department of Dermatology [facility] Patient Care team information Care Team Personnel Name: GRACE Vazquez Janet Griffith Position: Nurse Pract - Pulmonary Med Member Role: Lifetime Relationship Address: Address: [address] [place] [address] [place] Name: Soha Mann Catherine Position: Pharmacist Member Role: Pharmacy - Lifetime Address: Address: [place] [address] [place] Name: DO Lim Jason M Position: Referring Member Role: Primary Care Provider Address: Address: [address] [place] [address] [place] Name: Soha Moyer Alexander S Position: Pharmacist Member Role: Pharmacy - Lifetime Address: Address: [place] [address] [place] Care Team Related Persons Name: TOMAS PINTO Address: home No Address Provided Name: GENTRY RYAN
--- OUTSIDE RECORDS SUMMARY | 2023-04-20 20:52 | External Medical Summary | Continuity of Care Document ---
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) use of systemic steroids(Final) - Crohn's disease, unspecified, without complications(Final) - Discharge Disposition: Home or Self Care Attending Physician: GRACE Vazquez Janet Griffith Referring Physician: GRACE Vazquez Janet Griffith Allergies, Adverse Reactions, Alerts Substance Reaction Severity Status Remicade Pharyngeal swelling Active Immunizations Given and Recorded Vaccine Date Status [...] Re corded haemophilus b conjugate (HbOC) vaccine 8/11/97 Re corded haemophilus b conjugate (HbOC) vaccine 96 Re corded hepatitis B vaccine 96 Recorded hepatitis B vaccine 96 Recorded hepatitis B vaccine 96 Recorded poliovirus vaccine, live, trivalent 96 Recor ded poliovirus vaccine, live, trivalent 96 Recor ded 1Result Comment: Inspector Plumbing: Connaught 2Result Comment: Inspector Plumbing: Lederle 3Result Comment: Inspector Plumbing: [employer] 4Result Comment: Inspector Plumbing: [employer] 5Result Comment: Inspector Plumbing: Lederle Medications Calcium Plus Vitamin D3 600 mg-10 mcg (400 intl units) oral tablet Start: 07/23/22 12:04:00 EDT, 2 tab, PO, Daily, Disp# 180 tab, Refills: 3, Pharmacy: [facility] #[id number] Start Date: 07/23/22 Stop Date: 07/18/23 Status: Ordered Canasa 1000 mg rectal suppository Start: 07/09/22 13:36:00 EDT, 1 supp, ME, qhs, Disp# 30 supp, Refills: 1, [id number] Start Date: 07/09/22 Stop Date: 09/07/22 Status: Ordered doxycycline hyclate 100 mg oral capsule Start: 09/22/22 11:10:00 EDT, 1 cap, PO, bid, Disp# 60 cap, Refills: 1, may take with food to minimize abdominal discomfort, [id number] Start Date: 09/22/22 Status: Ordered Medical marijuana Start: 11/21/17 10:05:00 EDT, Medical marijuana, Using a vapor form. Uses 3-5 times per day prn. Start Date: 11/21/17 Status: Ordered ondansetron 4 mg oral tablet, disintegrating Start: 05/22/20 7:40:00 EDT, See Instructions, Disp# 90 tab, Refills: 1, 1 tab PO q8h prn for N/V, Pharmacy: [facility] Start Date: 05/22/20 Status: Ordered predniSONE 5 mg oral tablet Start: 10/21/22 15:44:00 EDT, See Instructions, Disp# 42 tab, Refills: 0, 3 tablets po daily x 7 days, then 2 tablets po daily x 7 days, then 1 tablet po daily x 7 days, then stop, Pharmacy: [facility]/pharm[facility] #[id number] Start Date: 10/21/22 Status: Ordered Rinvoq 30 mg oral tablet, extended release Start: 10/21/22 15:43:00 EDT, 1 tab, PO, Daily, Disp# 90 tab, Refills: 3, Pharmacy: [facility] Start Date: 10/21/22 Stop Date: [...] 3, apply to arms and neck, Pharmacy: 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 No specimens collected Results Laboratory List Name Date Complete Blood Count (CBC) 10/25/22 Comprehensive Metabolic Panel (COMP META B PANEL) 10/25/22 Most recent to oldest [Reference Range]: 1 eGFR CKD-EPI [>60 mL/min/1.73 m2] >90 mL /min/1.73 m2 1 (10/25/22 11:05 AM) MPV [9.0-12.2 fL] 8.9 fL 2 *LOW* (10/25/22 11:05 AM) RDW [11.5-14.2 %] 13.4 % (10/25/22 11:05 AM) Anion Gap [5-14 mmol/L] 9 mmol/L (10/25/22 11:05 AM) Alb [3.5-5.0 g/dL] 4.5 g/dL (10/25/22 11:05 AM) Alk Phos [38-126 unit/L] 43 unit/L (10/25/22 11:05 AM) ALT [<50 unit/L] 24 unit/L (10/25/22 11:05 AM) AST [15-46 unit/L] 27 unit/L (10/25/22 1105 AM) BUN [7-20 mg/dL] 12 mg/dL (10/25/22 1105 AM) Ca [8.4-10.2 mg/dL] 9.3 mg/dL (10/25/22 11:05 AM) Cl- [96-107 mmol/L] 105 mmol/L (10/25/2205 AM) HCO3 [22-30 mmol/L] 28 mmol/L (10/25/2205 AM) Cret [0.70-1.30 mg/dL] 1.11 mg/dL (10/25/2205 AM) Glu [74-106 mg/dL] 85 mg/dL (10/25/2205 AM) Hct [39-48 %] 43.7 % (10/25/2205 AM) Hgb [13.0-17.0 g/dL] 13.8 g/dL (10/25/2205 AM) K [3.5-5.1 mmol/L] 4.1 mmol/L (10/25/22 1105 AM) MCH [28-33 pg] 25.8 pg *LOW* (10/25/2205 AM) MCHC [32-36 g/dL] 31.6 g/dL *LOW* (10/25/22:05 AM) MCV [81-96 fL] 81.8 fL (10/25/2205 AM) Na [137-145 mmol/L] 142 mmol/L (10/25/2205 AM) Plts [150-350 K/uL] 270 K/uL (10/25/22 1105 AM) RBC [4.40-5.60 M/uL] 5.34 M/uL (10/25/22 1105 AM) T Bili [0.2-1.3 mg/dL] 1.1 mg/dL (10/25/22 1105 AM) Prot [6.3-8.2 g/dL] 7.1 g/dL (10/25/22 11:05 AM) WBC [4.0-10.4 K/uL] 7.35 K/uL (10/25/22 11:05 AM) 1Result Comment: Testing Performed By: Dept of Pathology [facility] [address], [address] [facility] [place] [address] 2Result Comment: Testing Performed By: Dept of Pathology [facility] [address], [address] [place] [address] Social History Social History Type Response Tobacco Current every day sm oker, Smokeless tobacco use: Smokeless tobacco user within last 30 days. vaping Smoking Status Never smoked cigaret dragan Sex Male Patient Care team information Care Team Personnel Name: GRACE Vazquez Janet Griffith Position: Nurse Pract - Gastro Member Role: Lifetime Relationship Address: Address: [address] [place] [address] [place] Name: Soha Mann Catherine Position: Pharmacist Member Role: Pharmacy - Lifetime Address: Address: [address] [address] [place] Name: DO Lim Jason M Position: Referring Member Role: Primary Care Provider Address: Address: [address] [place] [address] [place] Name: Soha Moyer Alexander S Position: Pharmacist Member Role: Pharmacy - Lifetime Address: Address: [place] [address] [place] Care Team Related Persons Name: TOMAS PINTO Address: home No Address Provided Name: GENTRY RYAN
--- OUTSIDE RECORDS SUMMARY | 2023-04-20 20:52 | External Medical Summary | Continuity of Care Document ---
Author Name Unknown Organization [facility] [address] [facility] [address] [phone] Care Team Providers Care Lay Health Advocate Name Role Phone aJydon Lim Primary Care Physician [phone] [id number] Date(s): 10/20/22 - 10/20/22 [facility] [address] [facility] [address] [phone] Encounter Diagnosis Atopic neurodermatitis(Discharge Diagnosis) - 10/20/22 Acne vulgaris(Discharge Diagnosis) - 10/20/22 Discharge Disposition: Home or Self Care Attending Physician: MD Ortiz David L Referring Physician: MD Ortiz David L Allergies, Adverse Reactions, Alerts Substance Reaction Severity Status Remicade Pharyngeal swelling Active Assessment and Plan Extracted from: Title:Clinical Document Author:MD Ortiz David L Date:10/20/22 OUTPATIENT NOTE Name: SAI RYAN Patient Number:[id number] : 1995 Date of Service: 10/20/2022 _ Mr Ryan is for recheck. Skin is doing somewhat better. He is about to finish up his doxycycline. [place]. He has been on Rinvoq for 2 months at 45 mg extended release per day. His Crohn's disease is doing better. He has had his prednisone reduced to 20 mg/day. He is currently not using any cream. He is a well-developed well-nourished white male type II skin. Alert and oriented x3. Some erythematous scaling patches and excoriations on the upper arms shoulders neck and about the ears. Face and trunk legs are not infected. Impression: Chronic dermatitis and possibly some neurodermatitis, with some improvement.. Plan: Restart triamcinolone cream 0.1% twice daily. He will continue the prednisone and Rinvoq. Complete his doxycycline and next 3 days. He will return for recheck in 2 months. Immunizations Given and Recorded Vaccine Date [...] live, trivalent 96 Recor ded 1Result Comment: Social Service Technician: Kyle 2Result Comment: Social Service Technician: Danaerle 3Result Comment: Social Service Technician: [employer] 4Result Comment: Social Service Technician: [employer] 5Result Comment: Social Service Technician: Lederle Medications Calcium Plus Vitamin D3 600 mg-10 mcg (400 intl units) oral tablet Start: 07/23/22 12:04:00 EDT, 2 tab, PO, Daily, Disp# 180 tab, Refills: 3, Pharmacy: [facility]/pharmacy #[id number] Start Date: 07/23/22 Stop Date: 07/18/23 Status: Ordered Canasa 1000 mg rectal suppository Start: 07/09/22 13:36:00 EDT, 1 supp, DE, qhs, Disp# 30 supp, Refills: 1, [id number] Start Date: 07/09/22 Stop Date: 09/07/22 Status: Ordered doxycycline hyclate 100 mg oral capsule Start: 09/22/22 11:10:00 EDT, 1 cap, PO, bid, Disp# 60 cap, Refills: 1, may take with food to minimize abdominal discomfort, [id number] Start Date: 09/22/22 Status: Ordered Medical marijuana Start: 11/21/17 10:05:00 EDT, Medical marijuana, Using a vapor form. Uses 3-5 times per day prn. Start Date: 11/21/17 Status: Ordered ondansetron 4 mg oral tablet, disintegrating Start: 05/22/20 7:40:00 EDT, See Instructions, Disp# 90 tab, Refills: 1, 1 tab PO q8h prn for N/V, Pharmacy: [facility] Start Date: 05/22/20 Status: Ordered predniSONE 5 mg oral tablet Start: 10/21/22 15:44:00 EDT, See Instructions, Disp# 42 tab, Refills: 0, 3 tablets po daily x 7 days, then 2 tablets po daily x 7 days, then 1 tablet po daily x 7 days, then stop, [id number] Start Date: 10/21/22 Status: Ordered Rinvoq 30 mg oral tablet, extended release Start: 10/21/22 15:43:00 EDT, 1 tab, PO, Daily, Disp# 90 tab, Refills: 3, [facility] Start Date: 10/21/22 Stop Date: [...] 3, apply to arms and neck, [id number] Start Date: 10/20/22 Status: Ordered Mental Status 10/20/22 Barriers to Learning one year None evide nt Mandatory Health Literacy Documentation Yes Health Literacy Communication Barriers N ever Primary Language Vietnamese Problem List Condition Confirmation Course Effective Dates [...] Effective Dates Health Status Clinical Service Informant Atopic neurodermatitis Discharge Diagnosis 10/20/22 Acne vulgaris Discharge Diagnosis 10/20/22 Non-Specified Procedures Procedure Date Related Diagnosis Body [...] dragan Sex Male Outpatient Note * MD Diana, Pacheco Oliveira: PERFORM Event Display: .Outpt Note Authored Date: [id number] OUTPATIENT NOTE Name: SAI RYAN Patient Number:[id number] : 1995 Date of Service: 10/20/2022 _ Mr Ryan is for recheck. Skin is doing somewhat better. He is about to finish up his doxycycline. [place]. He has been on Rinvoq for 2 months at 45 mg extendedrelease per day. His Crohn's disease is doing better. He has had his prednisone reduced to 20 mg/day. He is currently not using any cream. He is a well-developed well-nourished white male type II skin. Alert and oriented x3. Some erythematous scaling patches and excoriations on the upper arms shoulders neck and about the ears. Face and trunk legs are not infected. Impression: Chronic dermatitis and possibly some neurodermatitis, with some improvement.. Plan: Restart triamcinolone cream 0.1% twice daily. He will continue the prednisone and Rinvoq. Complete his doxycycline and next 3 days. He will return for recheck in 2 months. Electronic Signature on File Electronically Reviewed/Signed by: Pacheco Ortiz MD Author Signature Dt/Tm:10/20/2022 10:08 AM Department of Dermatology [facility] Patient Care team information Care Team Personnel Name: GRACE Vazquez Janet Griffith Position: Nurse Pract - Gastro Member Role: Lifetime Relationship Address: Address: [address] [place] [address] [place] Name: Soha Mann Catherine Position: Pharmacist Member Role: Pharmacy - Lifetime Address: Address: [address] [address] Name: DO Lim Jason M Position: Referring Member Role: Primary Care Provider Address: Address: [address] [place] [address] [place] Name: Soha Moyer Alexander S Position: Pharmacist Member Role: Pharmacy - Lifetime Address: Address: [address] [address] [place] Care Team Related Persons Name: TOMAS PINTO Address: home No Address Provided Name: GENTRY RYAN
--- OUTSIDE RECORDS SUMMARY | 2023-04-20 20:52 | External Medical Summary | Continuity of Care Document ---
Author Name Unknown Organization [facility] [address] Address [address] [place], [place] [id number] Care Team Providers Care Clutch Inspector Name Role Phone Jaydon Lim Primary Care Physician [phone] [id number] Date(s): 12/13/22 - 12/13/22 [facility] [place], [place] [phone] Encounter Diagnosis Crohn's disease, unspecified, without complications(Final) - Discharge [...] live, trivalent 96 Recor ded 1Result Comment: Horticultural Specialty Grower: Connaught 2Result Comment: Horticultural Specialty Grower: Lederle 3Result Comment: Horticultural Specialty Grower: [employer] 4Result Comment: Horticultural Specialty Grower: [employer] 5Result Comment: Horticultural Specialty Grower: Lederle Medications Calcium Plus Vitamin D3 600 mg-10 mcg (400 intl units) oral tablet Start: 07/23/22 12:04:00 EDT, 2 tab, PO, Daily, Disp# 180 tab, Refills: 3, Pharmacy: [facility] #[id number] Start Date: 07/23/22 Stop Date: 07/18/23 Status: Ordered Medical marijuana Start: 11/21/17 10:05:00 EDT, Medical marijuana, Using a vapor form. Uses 3-5 times per day prn. Start Date: 11/21/17 Status: Ordered ondansetron 4 mg oral tablet, disintegrating Start: 05/22/20 7:40:00 EDT, See Instructions, Disp# 90 tab, Refills: 1, 1 tab PO q8h prn for N/V, Pharmacy: [facility] Start Date: 05/22/20 Status: Ordered Rinvoq 30 mg oral tablet, extended release Start: 10/21/22 15:43:00 EDT, 1 tab, PO, Daily, Disp# 90 tab, Refills: 3, [facility] Start Date: 10/21/22 Stop [...] 3, apply to arms and neck, Pharmacy: [facility]acy #[id number] Start Date: 10/20/22 Status: Ordered Problem List [...] specimens collected Results Laboratory List Name Date Lipid Profile (LIPOPROTEINS) 12/13/22 Most recent to oldest [Reference Range]: 1 Non-HDL 97 mg/dL 1 (12/13/22 1:09 PM) Chol/HDL 2 (12/13/22 1:09 PM) Chol [125-200 mg/dL] 166 mg/dL (12/13/22 1:09 PM) HDL [>35 mg/dL] 69 mg/dL (12/13/22 1:09 PM) LDL Chol, Calculated [50-130 mg/dL] 88 m g/dL (12/13/22 1:09 PM) TG [<200 mg/dL] 45 mg/dL (12/13/22 1:09 PM) 1Result Comment: Testing Performed By: [facility] [address], [facility] [place] [address] Social History Social History Type Response Tobacco Current every day sm oker, Smokeless tobacco use: Smokeless tobacco user within last 30 days. vaping Smoking Status Former Smoker, quit > 1 yr Sex Male Patient Care team information Care Team Personnel Name: GRACE Vazquez Janet Griffith Position: Nurse Pract - Pulmonary Med Member Role: Lifetime Relationship Address: Address: [address] [place] [address] [place] Name: Soha Mann Catherine Position: Pharmacist Member Role: Pharmacy - Lifetime Address: Address: [place] [address] [place] Name: DO Lim Jason M Position: Referring Member Role: Primary Care Provider Address: Address: [address] [place] [address] [place] Name: Soha Moyer Alexander S Position: Pharmacist Member Role: Pharmacy - Lifetime Address: Address: [place] [address] [place] Care Team Related Persons Name: TOMAS PINTO Address: home No Address Provided Name: GENTRY RYAN
[2023-04-21 00:38] LABS: Appearance Urine Clear (Clear); Bacteria Urine Automated Negative (Negative); Blood Urine Negative (Negative); Color Urine Orange; Glucose Urine UA Negative (Negative); Ketones Urine 2+ (Negative); Leukocyte Esterase Urine Trace (Negative); Nitrite Urine Positive (Negative); Protein Urine 1+ (Negative); RBC Urine Automated 0-4 /hpf (0-4); Specific Gravity Urine 1.044 (1.000-1.030); Urobilinogen Urine Positive (Negative)
[2023-04-21 00:41] LABS: Bilirubin Urine 2+ (Negative)
[2023-04-21] MEDS: MoRPHine SULFATE 2 MG/ML CARP IV PRN (03:17)
[2023-04-21 07:57] LABS: Basophils # (auto) 0.02 K/uL (0.00-0.20); Basophils % (auto) 0.3 %; Eosinophils # (auto) 0.04 K/uL (0.00-0.50); Eosinophils % (auto) 0.6 %; Hematocrit (blood only) 35.9 % (42.0-52.0); Hemoglobin 12.4 g/dl (14.0-18.0); Immature Granulocytes # (auto) 0.02 K/uL (0.01-0.20); Immature Granulocytes % (auto) 0.3 %; Lymphocytes # (auto) 1.37 K/uL (1.20-3.40); Lymphocytes % (auto) 20.4 %; Mean Corpuscular Hemoglobin 28.9 pg (25.0-34.0); Mean Corpuscular Hgb Conc 34.5 g/dL (32.0-36.0); Mean Corpuscular Volume 83.7 fL (80.0-100.0); Mean Platelet Volume 9.5 fL (9.4-12.4); Monocytes # (auto) 0.87 K/uL (0.11-0.59); Monocytes % (auto) 12.9 %; Neutrophils % (auto) 65.5 %; Platelet Count 170 K/uL (130-400); RDW Coefficient of Variation 12.2 % (11.5-14.5); RDW Standard Deviation 37.2 fL (36.4-46.3); Red Blood Count 4.29 M/uL (4.70-6.10); White Blood Count 6.72 K/ul (4.8-10.8)
[2023-04-21 08:06] LABS: Albumin Globulin Ratio 1.8 (0.9-2); Albumin Level 3.7 gm/dl (3.4-5.0); BUN Creatinine Ratio 7.5 (10-20); Bilirubin,Total 3.4 mg/dl (0.2-1.0); Calcium 8.5 mg/dl (8.6-10.3); Creatinine Clr Calc Pharmacy 111.4 ml/min; Est GFR (African American) 110.5 ml/min; Est GFR (Non-African American) 95.3 ml/min; Globulin 2.1 gm/dl (2.5-4.0); Magnesium 1.7 mg/dl (1.7-2.4); Potassium 3.4 mmol/L (3.5-5.1); Total Protein 5.8 gm/dl (6.0-8.3)
[2023-04-21] MEDS: FAMOTIDINE 20 MG in SYRINGE 3 ML IV SCH (08:36)
[2023-04-21] MEDS ORDERED: FAMOTIDINE 200 MG/20 ML VIAL IV SCH (09:00)
[2023-04-21] MEDS: PANTOprazole 40 MG in SYRINGE 0 ML IV SCH (10:23)
--- NOTE | 2023-04-21 12:07 | Surgery Progress Note ---
Date of Service April 21, 2023 Assessment & Plan (1) Colon perforation: Plan: responding well to IVF/IV abx begin clears slowly for dinner Admission and Anticipated Discharge Date Admission Date: April 20, 2023 Subjective pain resolved no N/V AF VSS Review of Systems Constitutional: no fever and no chills Respiratory: no cough and no dyspnea Cardiovascular: no chest pain Gastrointestinal: no abdominal pain, no nausea, no vomiting and no change in bowel habits Genitourinary: no dysuria Musculoskeletal: no back pain Neurologic: no localized weakness and no generalized weakness Psychiatric: no behavioral changes Physical Exam Constitutional: WD/WN, vitals as above Respiratory: normal respiratory effort, lungs clear to auscultation Cardiovascular: RRR, no murmur, no edema Gastrointestinal (Abdomen): Inspection/Auscultation: abdomen normal to inspection and normal bowel sounds; abdomen not distended Percussion/Palpation: abdomen soft; abdomen nontender, no guarding and abdomen not rigid Musculoskeletal: Head/Neck/Chest: normocephalic and head atraumatic Skin: no rashes, warm and dry Results & Data Vital Signs (Past 12 Hours) Vital Signs Temp Pulse Resp BP Pulse Ox O2 Del Method 04/21/23 07:52 36.8 C 51 L 18 118/68 97 Room Air
--- NOTE | 2023-04-21 18:48 | Hospitalist Progress Note ---
Date of Service April 21, 2023 Assessment & Plan (1) Colon perforation: Plan: NPO until seen by general surgery - will defer advancement of diet per surgery recommendations but suspect he can be advanced to clear today given lack of abdominal pain IV fluids IV Zosyn (2) Nausea & vomiting: Plan: Improved with famotidine and pantoprazole - continue Ondansetron as needed (3) Abdominal pain: (4) Tobacco abuse: Plan: Declined need for nicotine patch/gum at this time Plan VTE prophylaxis - low risk, encourage mobility Diet - NPO, advance diet per surgery recommendation Disposition - continued admission to [facility] Admission and Anticipated Discharge Date Admission Date: April 20, 2023 Subjective Abdominal pain resolved. No nausea or vomiting - improved once famotidine and pantoprazole given yesterday. Passing gas but no bowel movement as he has not had anything substantial to eat post colonoscopy. Review of Systems Review of Systems: All systems reviewed & are unremarkable except as noted in HPI & below Physical Exam Constitutional: WD/WN, vitals as above ENMT: external ear and nose normal, oropharynx normal Respiratory: normal respiratory effort, lungs clear to auscultation Cardiovascular: RRR, no murmur, no edema Gastrointestinal (Abdomen): normal bowel sounds, soft, nontender, no hepatosplenomegaly Results & Data Results & Data Vital Signs (Past 12 Hours) Vital Signs Temp Pulse Resp BP Pulse Ox O2 Del Method 04/21/23 14:33 36.8 C 53 L 18 124/69 100 Room Air 04/21/23 07:52 36.8 C 51 L 18 118/68 97 Room Air PG Care Time/CCT Total # of Minutes Spent Total Time Spent with Patient: Total time spent is greater than 50% in coordination of care (as documented) at patient's floor/unit and/or counseling patient: Coding Level of Care Code 70190 SUB INP/OBS CARE 2/35MIN Diagnoses Colon perforation K63.1 Nausea & vomiting R11.2 Abdominal pain R10.9 Abdominal location: unspecified location Tobacco abuse Z72.0 (3) Abdominal pain Abdominal location: unspecified location Qualified Code(s): R10.9 - Unspec ified abdominal pain
[2023-04-21] MEDS: SUCRALFATE 1 GM/10 ML UDC PO PRN (23:08)
[2023-04-22] MEDS: PROMETHAZINE HCL 12.5 MG in SODIUM CHLORIDE 0.9% 50 ML IV STA (04:28)
[2023-04-22 08:06] LABS: Basophils # (auto) 0.02 K/uL (0.00-0.20); Basophils % (auto) 0.4 %; Eosinophils # (auto) 0.05 K/uL (0.00-0.50); Eosinophils % (auto) 0.9 %; Hematocrit (blood only) 36.7 % (42.0-52.0); Hemoglobin 12.8 g/dl (14.0-18.0); Immature Granulocytes # (auto) 0.01 K/uL (0.01-0.20); Immature Granulocytes % (auto) 0.2 %; Lymphocytes # (auto) 0.57 K/uL (1.20-3.40); Lymphocytes % (auto) 10.7 %; Mean Corpuscular Hemoglobin 29.1 pg (25.0-34.0); Mean Corpuscular Hgb Conc 34.9 g/dL (32.0-36.0); Mean Corpuscular Volume 83.4 fL (80.0-100.0); Mean Platelet Volume 9.5 fL (9.4-12.4); Monocytes # (auto) 0.72 K/uL (0.11-0.59); Monocytes % (auto) 13.6 %; Neutrophils # (auto) 3.94 K/uL (1.40-6.50); Neutrophils % (auto) 74.2 %; Platelet Count 186 K/uL (130-400); RDW Coefficient of Variation 12.2 % (11.5-14.5); RDW Standard Deviation 37.2 fL (36.4-46.3); White Blood Count 5.31 K/ul (4.8-10.8)
[2023-04-22 08:32] LABS: Albumin Globulin Ratio 1.6 (0.9-2); Albumin Level 3.9 gm/dl (3.4-5.0); BUN Creatinine Ratio 3.7 (10-20); Bilirubin,Total 2.3 mg/dl (0.2-1.0); Est GFR (Non-African American) 93.2 ml/min; Globulin 2.5 gm/dl (2.5-4.0); Magnesium 1.9 mg/dl (1.7-2.4); Potassium 3.5 mmol/L (3.5-5.1); Total Protein 6.4 gm/dl (6.0-8.3)
[2023-04-22] MEDS: OPTIRAY 320 125ml IV ONE (09:28)
--- NOTE | 2023-04-22 10:45 | Hospitalist Progress Note ---
Date of Service April 22, 2023 Assessment & Plan (1) Colon perforation: Plan: Discussed with Dr. Cordova yesterday - concern for ischemic colitis and ascending colon. CT angiogram ordered for this morning. Continue liquid diet IV Zosyn Appreciate ongoing surgical management (2) Nausea & vomiting: Plan: Improved with famotidine and pantoprazole - continue Carafate as needed Ondansetron as needed (3) Abdominal pain: (4) Tobacco abuse: Plan: Declined need for nicotine patch/gum Plan VTE prophylaxis - low risk, encourage mobility Diet - clear liquid Disposition - continued admission to [facility] Admission and Anticipated Discharge Date Admission Date: April 20, 2023 Subjective Ongoing nausea and intermittent vomiting. No pain. Small bowel movement. Review of Systems Review of Systems: All systems reviewed & are unremarkable except as noted in HPI & below Physical Exam Constitutional: WD/WN, vitals as above ENMT: external ear and nose normal, oropharynx normal Respiratory: normal respiratory effort, lungs clear to auscultation Cardiovascular: RRR, no murmur, no edema Gastrointestinal (Abdomen): Inspection/Auscultation: abdomen normal to inspection; abdomen not distended Percussion/Palpation: + abdomen tender (Ri ght-upper quadrant) and abdomen soft; no guarding and abdomen not rigid Results & Data Results & Data Vital Signs (Past 12 Hours) Vital Signs Temp Pulse Resp BP Pulse Ox O2 Del Method 04/22/23 07:23 36.8 C 45 L 16 113/67 98 Room Air PG Care Time/CCT Total # of Minutes Spent Total Time Spent with Patient: Total time spent is greater than 50% in coordination of care (as documented) at patient's floor/unit and/or counseling patient: Coding Level of Care Code 03287 SUB INP/OBS CARE 2/35MIN Diagnoses Colon perforation K63.1 Nausea & vomiting R11.2 Abdominal pain R10.9 Abdominal location: unspecified location Tobacco abuse Z72.0 (3) Abdominal pain Abdominal location: unspecified location Qualified Code(s): R10.9 - Unspecified abdominal pain
--- NOTE | 2023-04-22 11:40 | CT Scan Report ---
CT ANGIOGRAPHY OF THE ABDOMEN AND PELVIS CLINICAL HISTORY: ?ischemic colitis (colonoscopy ascending colon isc COMPARISON STUDY: CT of the abdomen and pelvis April 20, 2023. TECHNIQUE: Helical axial images of the abdomen and pelvis were obtained during arterial phase followi ng intravenous injection of 112 cc of Optiray 320 IV. Sagittal and coronal reconstructions were viewe d as well as maximal intensity projections on an independent 3-D workstation. Automated exposure cont rol was utilized for the study. A dose lowering technique was utilized adhering to the principles of ALARA. FINDINGS: Lung bases are unremarkable. A small amount of pneumoperitoneum has mildly decreased in kaylan unt since CT of April 20, 2023. Wall thickening of the distal transverse colon is again noted. Per icolonic extraluminal gas has slightly decreased since prior CT. Pericolonic inflammation has increas ed. No rim-enhancing fluid collection is present. No additional sites of bowel wall thickening are pr esent. The appendix is normal. Gallbladder wall thickening is a nonspecific finding. Liver, spleen, a drenal glands and kidneys are unremarkable. The caliber of the abdominal aorta is normal. The celiac axis, superior mesenteric artery, inferior mesenteric artery and renal arteries are patent. No plaque is identified. No dissection or aneurysm is identified. No vessel occlusion is identified by CT. Sma ll amount of fluid within the pelvis is noted. There is no lymphadenopathy. IMPRESSION: 1. Normal caliber abdominal aorta and branch vessels. Patent branch vessels. No vessel occlusion with in the abdomen or pelvis. Unremarkable CTA of the abdominal vessels. 2. Redemonstration of a distal transverse colonic perforation. Interval decrease in pneumoperitoneum. Increase in pericolonic inflammation which suggests phlegmon. No rim-enhancing fluid collection to s uggest abscess. ACT 112: Negative or not required by law. Electronically signed by: Pavan Reyez M.D. 04/22/2023 11:37 AM
--- NOTE | 2023-04-22 12:42 | Surgery Progress Note ---
Date of Service April 22, 2023 Assessment & Plan (1) Colon perforation: Plan: perforation sealed advance diet discharge on po abx 14 days Admission and Anticipated Discharge Date Admission Date: April 20, 2023 Subjective no pain taking po Review of Systems Constitutional: no fever and no chills Respiratory: no cough and no dyspnea Cardiovascular: no chest pain Gastrointestinal: no abdominal pain, no nausea and no vomiting Genitourinary: no dysuria Musculoskeletal: no back pain Neurologic: no localized weakness and no generalized weakness Psychiatric: no behavioral changes Physical Exam 2 Constitutional: WD/WN, vitals as above Respiratory: normal respiratory effort, lungs clear to auscultation Cardiovascular: RRR, no murmur, no edema Gastrointestinal (Abdomen): Inspection/Auscultation: abdomen normal to inspection and normal bowel sounds; abdomen not distended Percussion/Palpation: abdomen soft; abdomen nontender, no guarding and abdomen not rigid Musculoskeletal: Head/Neck/Chest: normocephalic and head atraumatic Skin: no rashes, warm and dry Results & Data Vital Signs (Past 12 Hours) Vital Signs Temp Pulse Resp BP Pulse Ox O2 Del Method 04/22/23 07:23 36.8 C 45 L 16 113/67 98 Room Air
[2023-04-23 07:20] LABS: Basophils # (auto) 0.03 K/uL (0.00-0.20); Basophils % (auto) 0.5 %; Eosinophils # (auto) 0.09 K/uL (0.00-0.50); Eosinophils % (auto) 1.6 %; Hematocrit (blood only) 38.2 % (42.0-52.0); Hemoglobin 13.4 g/dl (14.0-18.0); Immature Granulocytes # (auto) 0.02 K/uL (0.01-0.20); Immature Granulocytes % (auto) 0.4 %; Lymphocytes # (auto) 0.64 K/uL (1.20-3.40); Lymphocytes % (auto) 11.7 %; Mean Corpuscular Hgb Conc 35.1 g/dL (32.0-36.0); Mean Corpuscular Volume 82.7 fL (80.0-100.0); Mean Platelet Volume 8.9 fL (9.4-12.4); Monocytes # (auto) 0.84 K/uL (0.11-0.59); Monocytes % (auto) 15.4 %; Neutrophils # (auto) 3.85 K/uL (1.40-6.50); Neutrophils % (auto) 70.4 %; Platelet Count 192 K/uL (130-400); RDW Coefficient of Variation 12.1 % (11.5-14.5); RDW Standard Deviation 36.7 fL (36.4-46.3); Red Blood Count 4.62 M/uL (4.70-6.10); White Blood Count 5.47 K/ul (4.8-10.8)
[2023-04-23 07:38] LABS: Albumin Globulin Ratio 1.4 (0.9-2); Albumin Level 3.8 gm/dl (3.4-5.0); BUN Creatinine Ratio 2.5 (10-20); Bilirubin,Total 1.6 mg/dl (0.2-1.0); Calcium 9.2 mg/dl (8.6-10.3); Est GFR (African American) 98.1 ml/min; Est GFR (Non-African American) 84.7 ml/min; Globulin 2.7 gm/dl (2.5-4.0); Magnesium 1.9 mg/dl (1.7-2.4); Potassium 3.3 mmol/L (3.5-5.1); Total Protein 6.5 gm/dl (6.0-8.3)
--- NOTE | 2023-04-23 09:27 | Surgery Progress Note ---
Date of Service April 23, 2023 Assessment & Plan (1) Colon perforation: Plan: 04/23/23 H/O Crohn's disease- colonoscopy performed at [facility]. He is improved today. Passing flatus, loose BMs. He is tolerating full liquids and would like to try low fiber. Low fiber diet added. Will continue to follow. 04/22/23 perforation sealed advance diet discharge on po abx 14 days Admission and Anticipated Discharge Date Admission Date: April 20, 2023 Subjective Amrik reports that he is feeling better today. Abdominal pain improved. He is passing flatus and had episodes of loose stool. He is tolerating full liquid diet and would like to try low fiber. Review of Systems Constitutional: as per Subjective / HPI; no fever and no chills Gastrointestinal: + abdominal pain (improved ); no nausea and no vomiting Physical Exam Constitutional: WD/WN, vitals as above Respiratory: normal respiratory effort, lungs clear to auscultation Cardiovascular: RRR, no murmur, no edema Gastrointestinal (Abdomen): Inspection/Auscultation: abdomen normal to inspection and normal bowel sounds; abdomen not distended Percussion/Palpation: abdomen soft; abdomen nontender, no guarding and abdomen not rigid abd tenderness improved. Musculoskeletal: Head/Neck/Chest: normocephalic and head atraumatic Skin: no rashes, warm and dry PG Care Time/CCT Total # of Minutes Spent Total Time Spent with Patient: Total time spent is greater than 50% in coordination of care (as documented) at patient's floor/unit and/or counseling patient: Coding Level of Care Code 47265 SUB INP/OBS CARE 03/24MIN Diagnoses Colon perforation K63.1
[2023-04-23] MEDS: METOCLOPRAMIDE HCL INJ 5 MG/ML 2 ML VIAL IV ONE (11:09)
--- NOTE | 2023-04-23 12:55 | Hospitalist Progress Note ---
Date of Service April 23, 2023 Assessment & Plan (1) Colon perforation: Plan: CT abdomen and pelvis shows: Perforation may have sealed However patient continues to have nausea and vomiting Initially tolerated liquid diet, will make him n.p.o. Continue IV Zosyn Appreciate ongoing surgical management (2) Nausea & vomiting: Plan: Initially improved with famotidine and pantoprazole , but has gotten worse Carafate as needed Ondansetron as needed (3) Abdominal pain: (4) Tobacco abuse: Plan: Declined need for nicotine patch/gum Plan VTE prophylaxis - low risk, encourage mobility Diet - clear liquid Disposition -continue hospitalization Admission and Anticipated Discharge Date Admission Date: April 20, 2023 Subjective Patient seen and examined, initially felt better however his nausea and vomiting got worse Review of Systems Review of Systems: All systems reviewed are negative, apart from the ones contained in the history. Physical Exam Physical Exam: The patient is awake, alert and oriented 3, well developed and well nourished, normocephalic and atraumatic, lying in bed and in no acute distress. HEENT--PERRL, EOMI, mucous membranes and oropharynx mildly dry Neck--supple. No JVD. No bruits. Thyroid normal, trachea midline, no adenopathy. Heart--normal S1 and S2. No murmurs, rubs or gallops. Lungs--clear bilaterally, no respiratory distress, no accessory muscle use. Abdomen--normal bowel sounds and soft. Mild epigastric and left sided abdominal pain Extremities--no cyanosis or clubbing. No edema. Dermatologic--normal skin turgor, normal color, no abnormal lymph nodes, no rash. Neurologic--cranial nerves II through XII grossly intact. Rheumatologic--normal range of motion. Psychiatric--normal affect. Results & Data Results & Data Vital Signs (Past 12 Hours) Vital Signs Temp Pulse Resp BP Pulse Ox O2 Del Method 04/23/23 09:37 98.2 F 51 L 18 116/76 99 Room Air PG Care Time/CCT Total # of Minutes Spent Total Time Spent with Patient: Total time spent is greater than 50% in coordination of care (as documented) at patient's floor/unit and/or counseling patient: Coding Level of Care Code 19855 SUB INP/OBS CARE 2/35MIN Diagnoses Colon perforation K63.1 Nausea & vomiting R11.2 Abdominal pain R10.9 Abdominal location: unspecified location Tobacco abuse Z72.0 Time Spent (min) 35 (3) Abdominal pain Abdominal location: unspecified location Qualified Code(s): R10.9 - Unspecified abdominal pain
[2023-04-23] MEDS: SODIUM CHLORIDE 0.9% 1,000 ML IV SCH (14:12)
--- NOTE | 2023-04-23 19:18 | XRay Report ---
KUB CLINICAL HISTORY: Vomiting. FINDINGS: 2 AP, portable, supine abdominal radiographs are compared to study dated 09/15/2022 and daniel elated with abdominal CT dated 04/22/2023. There is a nonobstructed abdominal bowel gas pattern. Foci of gas in the left upper quadrant likely represent intraperitoneal free air when correlated with yest erday's CT scan. There are no abnormal abdominal calcifications. Excreted IV contrast is seen in the bladder. The bony structures appear intact. IMPRESSION: 1. Nonobstructed bowel gas pattern. 2. Foci of gas in the left upper quadrant likely represent intraperitoneal free air when correlated w ith yesterday's CT scan. Electronically signed by: Derek Gleason M.D. 04/23/2023 7:17 PM
--- NOTE | 2023-04-24 02:26 | Communication Note ---
Pt complaining of bright red blood mixed in with loose stool x 1 BM. I evaluated pt at bedside and he noted some blood on toilet tissue as well. Denies lightheadedness, dizziness, abdominal pain. Hemodynamically stable with last hemoglobin from 04/23 =13.4. Hemoccult future stools. Plan to move up morning labs and add CBC. Date of Service: April 24, 2023
[2023-04-24] MEDS: METOCLOPRAMIDE HCL INJ 5 MG/ML 2 ML VIAL IV PRN (02:51)
[2023-04-24 02:56] LABS: Basophils # (auto) 0.04 K/uL (0.00-0.20); Basophils % (auto) 0.7 %; Eosinophils % (auto) 1.6 %; Hematocrit (blood only) 37.4 % (42.0-52.0); Hemoglobin 13.5 g/dl (14.0-18.0); Immature Granulocytes # (auto) 0.03 K/uL (0.01-0.20); Immature Granulocytes % (auto) 0.5 %; Lymphocytes # (auto) 0.84 K/uL (1.20-3.40); Lymphocytes % (auto) 13.7 %; Mean Corpuscular Hgb Conc 36.1 g/dL (32.0-36.0); Mean Corpuscular Volume 80.4 fL (80.0-100.0); Monocytes # (auto) 0.91 K/uL (0.11-0.59); Monocytes % (auto) 14.9 %; Neutrophils # (auto) 4.19 K/uL (1.40-6.50); Neutrophils % (auto) 68.6 %; Platelet Count 197 K/uL (130-400); RDW Coefficient of Variation 11.9 % (11.5-14.5); RDW Standard Deviation 34.6 fL (36.4-46.3); Red Blood Count 4.65 M/uL (4.70-6.10); White Blood Count 6.11 K/ul (4.8-10.8)
[2023-04-24 03:14] LABS: BUN Creatinine Ratio 2.7 (10-20); Creatinine Clr Calc Pharmacy 104.1 ml/min; Est GFR (African American) 105.7 ml/min; Est GFR (Non-African American) 91.2 ml/min
--- NOTE | 2023-04-24 06:33 | Surgery Progress Note ---
Date of Service April 24, 2023 Assessment & Plan (1) Colon perforation: Plan: Patient has been admitted on the hospital service. From surgical perspective we recommend the following: CT scan abdomen pelvis on 221 showed pneumoperitoneum consistent with a colon perforation at the transverse colon Repeat CT scan was performed on 04/22/2023. (This was CT angiogram). There is no vessel occlusion of the abdominal vessels. Patient had redemonstration of distal transverse colon perforation, however pneumoperitoneum noted on initial CT scan had decreased. There is some pericolonic inflammation suggestive of phlegmon. No drainable abscess was noted. Labs this morning did not demonstrate any leukocytosis. His platelet count is normal. Hemoglobin and hematocrit are stable and do not demonstrate any drop. Renal function is stable. Magnesium is within the normal range. Patient is noted to have hypokalemiapotassium manage IV fluid along with additional potassium supplementation ordered. Provide analgesics Provide antiemetics Due to difficulties patient had with diabetes management he has been made NPO. Will continue this until evaluated by surgical attending Continue IV fluids which have been reinstituted for hydration. Continue antibiotics in the form of Zosyn Admission and Anticipated Discharge Date Admission Date: April 20, 2023 Supervising Physician Co-Signing Physician Notes As per Melecio Day physician certified surgical assistant Yesterday we instituted a low fiber diet for the patient but apparently does not not go well with him and started have more abdominal discomfort This point the abdomen is completely benign there is no tenderness the patient is resting comfortably without any nausea This point we will cut back his oral intake to full liquids Subjective Patient is currently resting comfortably in bed. He notes that he had his diet advanced yesterday and after consuming some solid food, specifically toast he noted he had some nausea and vomiting. At the present time he denies any fevers, shakes, or chills. He notes that at the present time he does not have much in the way of abdominal pain. He says he has been passing some liquid stools over the past shift but has noted some blood in it. Presently, he does not have any nausea or vomiting Physical Exam Gastrointestinal (Abdomen): Abdomen is soft and nondistended. Bowel sounds are present. There is no rebound tenderness or guarding. There is minimal pain with palpation at the time of my exam. Results & Data Vital Signs (Past 12 Hours) Vital Signs Temp Pulse Resp BP Pulse Ox O2 Del Method 04/24/23 01:58 36.9 C 53 L 16 137/73 99 Room Air 04/23/23 21:32 Room Air 04/23/23 21:15 36.8 C 56 L 16 122/66 98 Room Air PG Care Time/CCT Total # of Minutes Spent Total Time Spent with Patient: Total time spent is greater than 50% in coordination of care (as documented) at patient's floor/unit and/or counseling patient: Coding Level of Care Code 81508 SUB INP/OBS CARE 03/24MIN Diagnoses Colon perforation K63.1
[2023-04-24] MEDS: NSS + 20MEQ KCL 20 MEQ/1,000 ML BAG IV SCH (08:13)
[2023-04-24] MEDS: POTASSIUM CHLORIDE / WTR 10 MEQ/100 ML PLCT IV SCH (10:24)
[2023-04-24] MEDS: POTASSIUM CHLORIDE CRTAB 20 MEQ TABCR PO STA (10:38)
--- NOTE | 2023-04-24 11:38 | Hospitalist Progress Note ---
Date of Service April 24, 2023 Assessment & Plan (1) Colon perforation: Plan: CT abdomen and pelvis shows: Perforation may have sealed However patient continues to have nausea and vomiting especially after eating toast He has agreed to go back to full liquid diet Continue IV Zosyn Appreciate ongoing surgical management (2) Nausea & vomiting: Plan: Initially improved with famotidine and pantoprazole , but has gotten worse Carafate as needed Ondansetron as needed (3) Abdominal pain: (4) Tobacco abuse: Plan: Declined need for nicotine patch/gum Plan VTE prophylaxis - low risk, encourage mobility Diet - clear liquid Disposition -continue hospitalization Admission and Anticipated Discharge Date Admission Date: April 20, 2023 Subjective Patient seen and examined, he said he had nausea and vomiting when he ate toast, will now want to go back to full liquid diet Review of Systems Review of Systems: All systems reviewed are negative, apart from the ones contained in the history. Physical Exam Physical Exam: The patient is awake, alert and oriented 3, well developed and well nourished, normocephalic and atraumatic, lying in bed and in no acute distress. HEENT--PERRL, EOMI, mucous membranes and oropharynx mildly dry Neck--supple. No JVD. No bruits. Thyroid normal, trachea midline, no adenopathy. Heart--normal S1 and S2. No murmurs, rubs or gallops. Lungs--clear bilaterally, no respiratory distress, no accessory muscle use. Abdomen--normal bowel sounds and soft. Mild epigastric and left sided abdominal pain Extremities--no cyanosis or clubbing. No edema. Dermatologic--normal skin turgor, normal color, no abnormal lymph nodes, no rash. Neurologic--cranial nerves II through XII grossly intact. Rheumatologic--normal range of motion. Psychiatric--normal affect. Results & Data Results & Data Vital Signs (Past 12 Hours) Vital Signs Temp Pulse Resp BP Pulse Ox O2 Del Method 04/24/23 08:05 98.6 F 52 L 18 124/72 98 Room Air 04/24/23 01:58 98.4 F 53 L 16 137/73 99 Room Air PG Care Time/CCT Total # of Minutes Spent Total Time Spent with Patient: Total time spent is greater than 50% in coordination of care (as documented) at patient's floor/unit and/or counseling patient: Coding Level of Care Code 30455 SUB INP/OBS CARE 2/35MIN Diagnoses Colon perforation K63.1 Nausea & vomiting R11.2 Abdominal pain R10.9 Abdominal location: unspecified location Tobacco abuse Z72.0 Time Spent (min) 35 (3) Abdominal pain Abdominal location: unspecified location Qualified Code(s): R10.9 - Unspecified abdominal pain
[2023-04-24] MEDS: SUCRALFATE 1 GM/10 ML UDC PO SCH (20:57)
[2023-04-25] MEDS: ONDANSETRON INJ 2 MG/ML 2 ML VIAL IV ONE (03:58)
[2023-04-25 06:13] LABS: BUN Creatinine Ratio 2.1 (10-20); Calcium 8.8 mg/dl (8.6-10.3); Creatinine Clr Calc Pharmacy 120.4 ml/min; Est GFR (African American) 125.9 ml/min; Est GFR (Non-African American) 108.7 ml/min; Potassium 3.4 mmol/L (3.5-5.1)
--- NOTE | 2023-04-25 09:01 | Surgery Progress Note ---
Date of Service April 25, 2023 Assessment & Plan (1) Colon perforation: Plan: sealed perforation many food intolerances advance as tolerated, may want to work with GI medicine no surgical issues, will sign off Admission and Anticipated Discharge Date Admission Date: April 20, 2023 Subjective no abdominal pain various food intolerances repeat CT shows sealed perforation Review of Systems Constitutional: no fever and no chills Respiratory: no cough and no dyspnea Cardiovascular: no chest pain Gastrointestinal: + nausea and + vomiting; no abdominal pa in Genitourinary: no dysuria Neurologic: no localized weakness and no generalized weakness Psychiatric: no behavioral changes Physical Exam Constitutional: WD/WN, vitals as above ENMT: external ear and nose normal, oropharynx normal Respiratory: normal respiratory effort, lungs clear to auscultation Cardiovascular: RRR, no murmur, no edema Gastrointestinal (Abdomen): Inspection/Auscultation: abdomen normal to inspection and normal bowel sounds; abdomen not distended Percussio n/Palpation: abdomen soft; abdomen nontender Musculoskeletal: Head/Neck/Chest: normocephalic and head atraumatic Results & Data Vital Signs (Past 12 Hours) Vital Signs Temp Pulse Resp BP Pulse Ox O2 Del Method 04/25/23 07:50 36.6 C 55 L 16 122/77 97 Room Air
--- NOTE | 2023-04-25 12:38 | Hospitalist Progress Note ---
Date of Service April 25, 2023 Assessment & Plan (1) Colon perforation: Plan: CT abdomen and pelvis shows: Colon perforation has sealed up However patient continues to have nausea and vomiting especially after eating a variety of food He has agreed to go back to full liquid diet Continue IV Zosyn Appreciate ongoing surgical management (2) Nausea & vomiting: Plan: Initially improved with famotidine and pantoprazole , but has gotten worse Patient now unable to tolerate a lot of food, he develops nausea and vomiting soon after I wanted gastric emptying study however it may not be done until Tuesday Consult gastroenterology Carafate as needed Ondansetron as needed (3) Abdominal pain: (4) Tobacco abuse: Plan: Declined need for nicotine patch/gum Plan VTE prophylaxis - low risk, encourage mobility Diet - clear liquid Disposition -continue hospitalization Admission and Anticipated Discharge Date Admission Date: April 20, 2023 Subjective Patient seen and examined, persistent nausea and vomiting, unable to tolerate a lot of food Review of Systems Review of Systems: All systems reviewed are negative, apart from the ones contained in the history. Physical Exam Physical Exam: The patient is awake, alert and oriented 3, well developed and well nourished, normocephalic and atraumatic, lying in bed and in no acute distress. HEENT--PERRL, EOMI, mucous membranes and oropharynx mildly dry Neck--supple. No JVD. No bruits. Thyroid normal, trachea midline, no adenopathy. Heart--normal S1 and S2. No murmurs, rubs or gallops. Lungs--clear bilaterally, no respiratory distress, no accessory muscle use. Abdomen--normal bowel sounds and soft. Mild epigastric and left sided abdominal pain Extremities--no cyanosis or clubbing. No edema. Dermatologic--normal skin turgor, normal color, no abnormal lymph nodes, no rash. Neurologic--cranial nerves II through XII grossly intact. Rheumatologic--normal range of motion. Psychiatric--normal affect. Results & Data Results & Data Vital Signs (Past 12 Hours) Vital Signs Temp Pulse Resp BP Pulse Ox O2 Del Method 04/25/23 07:50 97.9 F 55 L 16 122/77 97 Room Air PG Care Time/CCT Total # of Minutes Spent Total Time Spent with Patient: Total time spent is greater than 50% in coordination of care (as documented) at patient's floor/unit and/or counseling patient: Coding Level of Care Code 57539 SUB INP/OBS CARE 2/35MIN Diagnoses Colon perforation K63.1 Nausea & vomiting R11.2 Abdominal pain R10.9 Abdominal location: unspecified location Tobacco abuse Z72.0 Time Spent (min) 35 (3) Abdominal pain Abdominal location: unspecified location Qualified Code(s): R10.9 - Unspecified abdominal pain
--- NOTE | 2023-04-26 10:23 | Gastrointestinal Consultation ---
Date of Consultation April 26, 2023 Assessment & Plan (1) Crohn's colitis: (2) Colon perforation: (3) Nausea & vomiting: Plan Patient is a 27 y.o. male with a history of Crohn's colitis being managed by [facility] admitted after diagnostic colonoscopy resulting in colon perforation which spontaneously walled off, now with nausea and vomiting. Given the symptom pattern and number of medications to treat any potential acid-peptic disorder, suspect the nausea is a side effect of Zosyn rather than any underlying GI pathology. -Continue supportive care with antiemetics. -Consider transitioning to oral antibiotics as no abdominal pain, leukocytosis or fever to see if GI symptoms improve. -Continue Pantoprazole, Famotidine, and Carafate as prescribed. -Rest per primary team. Thank you for allowing us to participate in the care of this patient. If you have any questions or concerns, please do not hesitate to contact us. Supervising Physician Co-Signing Physician Notes Agree with GRACE Magana as above Abd: Soft, NT, ND, +BS Continue current therapy and supportive care History of Present Illness Reason for Consultation: N/V Requesting Physician: Dr. Hsu Attending Physician: Jessica Hsu MD History of Present Illness Patient is a 27 y.o. male with a history of Crohn's colitis on Rinvoq orally for maintenance being evaluated today in coverage for [facility]. He is status post diagnostic colonoscopy by Dr. Cordova on 04/18/23 which resulted in a colonic perforation. He was subsequently admitted to the hospital and evaluated by general surgery. Fortunately, his perforation has subsequently walled off with IV antibiotics and bowel rest and did not require any acute surgical intervention. GI is being consulted in regard to persistent nausea with v omiting. The patient states the symptoms seem to appear soon after being "hooked up" to his IV Zosyn. States he was able to complete his regular breakfast this morning without difficulty but within 30 minutes of receiving his am dose of IV Zosyn, developed nausea and had undigested food emesis of the breakfast he has consumed. Patient has been prescribed Pantoprazole, Famotidine, Zofran, Carafate and Reglan without benefit although he does endorse the Zofran does improve the nausea. Allergies Allergy/AdvReac Type Severity Reaction Status Date / Time infliximab [From Remicade] Allergy Severe THROAT Verified 04/20/23 15:29 SWELLS Home Medications Medication Instructions Recorded Confirmed Type multivitamin with minerals-folic 2 tab PO QAM 05/18/20 04/20/23 History acid 200 mcg chewable tablet (Multivitamin Gummies) triamcinolone acetonide 0.1 % 1 applic topical BID #80 grams 08/10/21 04/20/23 Rx topical cream doxycycline hyclate 100 mg tablet 100 mg PO BID 04/20/23 04/20/23 History upadacitinib 30 mg tablet,extended 30 mg PO DAILY 04/20/23 04/20/23 History release 24 hr (Rinvoq) Patient History Medical History Agitation Tobacco abuse Medical marijuana use History of COVID-19 diagnosed @ [facility] 01/2020--fatigue--resolved Encounter for pre-operative examination Encounter for pre-operative examination Family history non-contributory Orthostatic hypotension Crohn's colitis Anemia Surgical History History of surgery on wrist bilt wrists History of wisdom tooth extraction History of esophagogastroduodenoscopy (EGD) History of sigmoidoscopy (~01/2020) History of colonoscopy Family History Other Crohn's disease Depression Family history non-contributory Hypertension Kidney disease No family history of adverse response to anesthesia Social History Smoking Status: Current every day smoker Tobacco Type: E-cigarettes / Vaping Second Hand Exposure: No; Do You Dip or Chew Tobacco: No; Hx Alcohol Use: No Hx Substance Use: Yes Last Used Substance: Days (ago) Last Used Substance Other:: yesterday Substance Use Type Other:: medical marijuana, has card Preferred Language: Divehi Communication Ability: Effective Post Acute Care Registered Nurse Required: No Beliefs That Will Affect Care: None marital status: Single Current Living Situation: Family Current Living Situation Comment: At home with mom Feels Safe at Home: Yes Assistive Devices: None Review of Systems Review of Systems: All systems reviewed & are unremarkable except as noted in HPI & below Physical Exam Constitutional: WD/WN, vitals as above Respiratory: normal respiratory effort, lungs clear to auscultation Cardiovascular: Rate/Rhythm: regular rate and regular rhythm Gastrointestinal (Abdomen): normal bowel sounds, soft, nontender, no hepatosplenomegaly Musculoskeletal: Extremities: extremities normal to inspection Skin: no rashes, warm and dry Psychiatric: A+Ox3, euthymic affect Results & Data Vital Signs (Past 12 Hours) Vital Signs Temp Pulse Resp BP Pulse Ox O2 Del Method 04/26/23 10:01 60 16 150/97 H 99 Room Air 04/26/23 09:13 36.5 C 86 26 H 175/98 H 100 Room Air 04/26/23 07:57 36.3 C L 54 L 16 139/85 100 Room Air Diagnostic Findings Laboratory Results WBC 6.11 K/ul (4.8-10.8) 04/24/23 02:43 RBC 4.65 M/uL (4.70-6.10) L 04/24/23 02:43 Hgb 13.5 g/dl (14.0-18.0) L 04/24/23 02:43 Hct 37.4 % (42.0-52.0) L 04/24/23 02:43 MCV 80.4 fL (80.0-100.0) 04/24/23 02:43 MCH 29.0 pg (25.0-34.0) 04/24/23 02:43 MCHC 36.1 g/dL (32.0-36.0) H 04/24/23 02:43 RDW Std Deviation 34.6 fL (36.4-46.3) L 04/24/23 02:43 RDW Coeff of Miguel 11.9 % (11.5-14.5) 04/24/23 02:43 Plt Count 197 K/uL (130-400) 04/24/23 02:43 MPV 9.0 fL (9.4-12.4) L 04/24/23 02:43 Immature Gran % (Auto) 0.5 % 04/24/23 02:43 Neut % (Auto) 68.6 % 04/24/23 02:43 Lymph % (Auto) 13.7 % 04/24/23 02:43 Hawkins % (Auto) 14.9 % 04/24/23 02:43 Eos % (Auto) 1.6 % 04/24/23 02:43 Baso % (Auto) 0.7 % 04/24/23 02:43 Neut # (Auto) 4.19 K/uL (1.40-6.50) 04/24/23 02:43 Lymph # (Auto) 0.84 K/uL (1.20-3.40) L 04/24/23 02:43 Hawkins # (Auto) 0.91 K/uL (0.11-0.59) H 04/24/23 02:43 Eos # (Auto) 0.10 K/uL (0.00-0.50) 04/24/23 02:43 Baso # (Auto) 0.04 K/uL (0.00-0.20) 04/24/23 02:43 Immature Gran # (Auto) 0.03 K/uL (0.01-0.20) 04/24/23 02:43 PT 11.6 Seconds (9.0-12.0) 04/20/23 08:58 INR 1.1 (0.9-1.1) 04/20/23 08:58 Sodium 139 mmol/L (136-145) 04/25/23 05:31 Potassium 3.4 mmol/L (3.5-5.1) L 04/25/23 05:31 Chloride 104 mmol/L (98-107) 04/25/23 05:31 Carbon Dioxide 25 mmol/L (21-32) 04/25/23 05:31 Anion Gap 10 (3-11) 04/25/23 05:31 BUN 2 mg/dl (6-23) L 04/25/23 05:31 Creatinine 0.96 mg/dl (0.6-1.4) 04/25/23 05:31 Est Cr Clr Drug Dosing 120.4 ml/min 04/25/23 05:31 Est GFR ( Amer) 125.9 ml/min 04/25/23 05:31 Est GFR (Non-Af Amer) 108.7 ml/min 04/25/23 05:31 BUN/Creatinine Ratio 2.1 (10-20) L 04/25/23 05:31 Glucose 79 mg/dl (70-99(Fasting)) 04/25/23 05:31 Lactate 1.5 mmol/L (0.4-2.0) 04/20/23 08:58 Calcium 8.8 mg/dl (8.6-10.3) 04/25/23 05:31 Magnesium 1.9 mg/dl (1.7-2.4) 04/23/23 07:00 Total Bilirubin 1.6 mg/dl (0.2-1.0) H 04/23/23 07:00 AST 17 U/L (13-39) 04/23/23 07:00 ALT 15 U/L (7-52) 04/23/23 07:00 Alkaline Phosphatase 45 U/L (34-104) 04/23/23 07:00 Troponin I High Sens 5.2 pg/ml (0-20) 04/20/23 08:58 Total Protein 6.5 gm/dl (6.0-8.3) 04/23/23 07:00 Albumin 3.8 gm/dl (3.4-5.0) 04/23/23 07:00 Globulin 2.7 gm/dl (2.5-4.0) 04/23/23 07:00 Albumin/Globulin Ratio 1.4 (0.9-2) 04/23/23 07:00 Lipase 16 U/L (11-82) 04/20/23 08:58 Urine Color [place] 04/21/23 00:25 Urine Appearance Clear (Clear) 04/21/23 00:25 Urine pH 6.0 (4.5-7.5) 04/21/23 00:25 Ur Specific [place] 1.044 (1.000-1.030) H 04/21/23 00:25 Urine Protein 1+ (Negative) H 04/21/23 00:25 Urine Glucose (UA) Negative (Negative) 04/21/23 00:25 Urine Ketones 2+ (Negative) H 04/21/23 00:25 Urine Blood Negative (Negative) 04/21/23 00:25 Urine Nitrite Positive (Negative) A 04/21/23 00:25 Urine Bilirubin 2+ (Negative) H 04/21/23 00:25 Urine Urobilinogen Positive (Negative) H 04/21/23 00:25 Ur Leukocyte Esterase Trace (Negative) H 04/21/23 00:25 Urine WBC (Auto) 1-5 /hpf (0-5) 04/21/23 00:25 Urine RBC (Auto) 0-4 /hpf (0-4) 04/21/23 00:25 U Hyaline Cast (Auto) 1-5 /lpf (0-5) 04/21/23 00:25 U Epithel Cells (Auto) 5-10 /lpf (0-5) H 04/21/23 00:25 Urine Bacteria (Auto) Negative (Negative) 04/21/23 00:25 Stool Occult Bld Scrn Positive (Negative) A 04/24/23 Unknown Impressions Abdomen/Pelvis CT 04/20/23 09:[address] WITH IV CONTRAST CT DOSE: 950.91 mGy.cm HISTORY: lower abdominal pain; recent colonoscopy; vomiting TECHNIQUE: Multiaxial CT images of the abdomen and pelvis were performed following the use of intravenous contrast. A dose lowering technique was utilized adhering to the principles of ALARA. COMPARISON STUDY: Abdomen and pelvis CT 09/13/2022. FINDINGS: The lung bases are clear. No acute fractures. The liver, gallbladder, pancreas, spleen, adrenal glands, and kidneys are unremarkable. No hydronephrosis. The main portal vein is patent. Normal caliber abdominal aorta. No retroperitoneal or pelvic lymphadenopathy. Moderate bladder wall thickening. No dilated loops of bowel to suggest an obstruction. Normal appendix. Mild to moderate thickening within the distal transverse colon with pericolonic fat stranding. There is also pericolonic gas at this location with associated small to moderate amount of pneumoperitoneum. Therefore, this is consistent with a colonic perforation. IMPRESSION: 1. Mild to moderate thickening within the distal transverse colon with as sociated pericolonic fat stranding, pericolonic gas, and pneumoperitoneum consistent with a colonic perforation. This could be due to a colitis, diverticulitis, the recent colonoscopy, or underlying colonic lesion. Surgical consultation recommended. 2. No evidence for bowel obstruction. 3. Moderate bladder wall thickening. Recommend correlation with urinalysis. ACT 112: Negative or not required by law. Electronically signed by: Venu Perez M.D. 04/20/2023 10:23 AM Chest X-Ray 04/20/23 11:49 XR chest 1V portable HISTORY: Vomiting, monitor for aspiration COMPARISON: Chest 09/15/2022. Abdomen and pelvis CT 04/20/2023. FINDINGS: The pneumoperitoneum is again noted. No pneumothorax. No pleural effusions. The heart is normal in size. The lungs are clear. No acute fractures. IMPRESSION: 1. Pneumoperitoneum again noted. 2. No focal lung consolidations to suggest a pneumonia. ACT 112: Negative or not required by law. Electronically signed by: Venu Perez M.D. 04/20/2023 12:45 PM Abdomen/Pelvis CTA 04/22/23 07:27 CT ANGIOGRAPHY OF THE ABDOMEN AND PELVIS CLINICAL HISTORY: ?ischemic colitis (colonoscopy ascending colon isc COMPARISON STUDY: CT of the abdomen and pelvis April 20, 2023. TECHNIQUE: Helical axial images of the abdomen and pelvis were obtained during arterial phase following intravenous injection of 112 cc of Optiray 320 IV. Sagittal and coronal reconstructions were viewed as well as maximal intensity projections on an independent 3-D workstation. Automated exposure control was utilized for the study. A dose lowering technique was utilized adhering to the principles of ALARA. FINDINGS: Lung bases are unremarkable. A small amount of pneumoperitoneum has mildly decreased in amount since CT of April 20, 2023. Wall thickening of the distal transverse colon is again noted. Pericolonic extraluminal gas has slightly decreased since prior CT. Pericolonic inflammation has increased. No rim-enhancing fluid collection is present. No additional sites of bowel wall thickening are present. The appendix is normal. Gallbladder wall thickening is a nonspecific finding. Liver, spleen, adrenal glands and kidneys are unremarkable. The caliber of the abdominal aorta is normal. The celiac axis, superior mesenteric artery, inferior mesenteric artery and renal arteries are patent. No plaque is identified. No dissection or aneurysm is identified. No vessel occlusion is identified by CT. Small amount of fluid within the pelvis is noted. There is no lymphadenopathy. IMPRESSION: 1. Normal caliber abdominal aorta and branch vessels. Patent branch vessels. No vessel occlusion within the abdomen or pelvis. Unremarkable CTA of the abdominal vessels. 2. Redemonstration of a distal transverse colonic perforation. Interval decrease in pneumoperitoneum. Increase in pericolonic inflammation which suggests phlegmon. No rim-enhancing fluid collection to suggest abscess. ACT 112: Negative or not required by law. Electronically signed by: Pavan Reyez M.D. 04/22/2023 11:37 AM KUB X-Ray 04/23/23 15:33 KUB CLINICAL HISTORY: Vomiting. FINDINGS: 2 AP, portable, supine abdominal radiographs are compared to study dated 09/15/2022 and correlated with abdominal CT dated 04/22/2023. There is a nonobstructed abdominal bowel gas pattern. Foci of gas in the left upper quadrant likely represent intraperitoneal free air when correlated with yesterday's CT scan. There are no abnormal abdominal calcifications. Excreted IV contrast is seen in the bladder. The bony structures appear intact. IMPRESSION: 1. Nonobstructed bowel gas pattern. 2. Foci of gas in the left upper quadrant likely represent intraperitoneal free air when correlated with yesterday's CT scan. Electronically signed by: Derek Gleason M.D. 04/23/2023 7:17 PM PG Care Time/CCT Total # of Minutes Spent Total Time Spent with Patient: Total time spent is greater than 50% in coordination of care (as documented) at patient's floor/unit and/or counseling patient: Coding Level of Care Code 17877 INT INP/OBS CARE 3/75MIN Diagnoses Crohn's colitis K50.10 Colon perforation K63.1 Nausea & vomiting R11.2
--- NOTE | 2023-04-26 11:29 | Hospitalist Progress Note ---
Date of Service April 26, 2023 Assessment & Plan (1) Colon perforation: Plan: CT abdomen and pelvis shows: Colon perforation has sealed up However patient continues to have nausea and vomiting especially after eating a variety of food He has agreed to go back to full liquid diet Due to ongoing nausea, will change antibiotics to p.o. prophylaxis and p.o. Flagyl Appreciate ongoing surgical management (2) Nausea & vomiting: Plan: Initially improved with famotidine and pantoprazole , but has gotten worse Patient now unable to tolerate a lot of food, he develops nausea and vomiting soon after I wanted gastric emptying study however it may not be done until Tuesday GI on consult, appreciate commendations Carafate as needed Ondansetron as needed (3) Abdominal pain: (4) Tobacco abuse: Plan: Declined need for nicotine patch/gum Plan VTE prophylaxis - low risk, encourage mobility Diet - clear liquid Disposition -continue hospitalization Admission and Anticipated Discharge Date Admission Date: April 20, 2023 Subjective Patient seen and examined, persistent nausea and vomiting, unable to tolerate a lot of food Review of Systems Review of Systems: All systems reviewed are negative, apart from the ones contained in the history. Physical Exam Physical Exam: The patient is awake, alert and oriented 3, well developed and well nourished, normocephalic and atraumatic, lying in bed and in no acute distress. HEENT--PERRL, EOMI, mucous membranes and oropharynx mildly dry Neck--supple. No JVD. No bruits. Thyroid normal, trachea midline, no adenopat hy. Heart--normal S1 and S2. No murmurs, rubs or gallops. Lungs--clear bilaterally, no respiratory distress, no accessory muscle use. Abdomen--normal bowel sounds and soft. Mild epigastric and left sided abdominal pain Extremities--no cyanosis or clubbing. No edema. Dermatologic--normal skin turgor, normal color, no abnormal lymph nodes, no rash. Neurologic--cranial nerves II through XII grossly intact. Rheumatologic--normal range of motion. Psychiatric--normal affect. Results & Data Results & Data Vital Signs (Past 12 Hours) Vital Signs Temp Pulse Resp BP Pulse Ox O2 Del Method 04/26/23 10:01 60 16 150/97 H 99 Room Air 04/26/23 09:13 97.7 F 86 26 H 175/98 H 100 Room Air 04/26/23 07:57 97.3 F L 54 L 16 139/85 100 Room Air PG Care Time/CCT Total # of Minutes Spent Total Time Spent with Patient: Total time spent is greater than 50% in coordination of care (as documented) at patient's floor/unit and/or counseling patient: Coding Level of Care Code 82768 SUB INP/OBS CARE 2/35MIN Diagnoses Colon perforation K63.1 Nausea & vomiting R11.2 Abdominal pain R10.9 Abdominal location: unspecified location Tobacco abuse Z72.0 Time Spent (min) 35 (3) Abdominal pain Abdominal location: unspecified location Qualified Code(s): R10.9 - Unspecified abdominal pain
[2023-04-26] MEDS: CIPROFLOXACIN 500 MG TAB PO SCH (14:34)
[2023-04-26] MEDS: metroNIDAZOLE 500 MG TAB PO SCH (14:39)
[2023-04-26] MEDS: SODIUM CHLORIDE 0.9% 1,000 ML IV SCH (22:26)
--- NOTE | 2023-04-27 00:54 | Communication Note ---
Alerted by nursing of gastric emptying study ordered for tomorrow morning and need to be NPO. Continue IVF tonight while NPO. Held Reglan/morphine prior to study. Date of Service: April 27, 2023
[2023-04-27] MEDS: ACETAMINOPHEN 500 MG TAB PO PRN (01:32)
[2023-04-27 07:42] LABS: BUN Creatinine Ratio 2.8 (10-20); Calcium 9.2 mg/dl (8.6-10.3); Est GFR (African American) 110.5 ml/min; Est GFR (Non-African American) 95.3 ml/min; Potassium 3.3 mmol/L (3.5-5.1)
[2023-04-27] MEDS ORDERED: POTASSIUM CHLORIDE CRTAB 20 MEQ TABCR PO STA (07:55)
--- NOTE | 2023-04-27 12:05 | Hospitalist Progress Note ---
Date of Service April 27, 2023 Assessment & Plan (1) Nausea & vomiting: Plan: No nausea overnight after stopping IV Zosyn Patient scheduled for gastric emptying study today Carafate as needed Ondansetron as needed Hopefully discharge soon to follow-up with GI outpatient (2) Colon perforation: Plan: CT abdomen and pelvis shows: Colon perforation has sealed up Nausea has improved Diet as tolerated Hopefully discharge to home to follow-up with surgery outpatient (3) Abdominal pain: (4) Tobacco abuse: Plan: Declined need for nicotine patch/gum Plan VTE prophylaxis - low risk, encourage mobility Diet - clear liquid Disposition -hopefully discharge in next 1 4 hours Admission and Anticipated Discharge Date Admission Date: April 20, 2023 Subjective Patient seen and examined, no nausea overnight, patient scheduled for gastric emptying study today. Review of Systems Review of Systems: All systems reviewed are negative, apart from the ones contained in the history. Physical Exam Physical Exam: The patient is awake, alert and oriented 3, well developed and well nourished, normocephalic and atraumatic, lying in bed and in no acute distress. HEENT--PERRL, EOMI, mucous membranes and oropharynx mildly dry Neck--supple. No JVD. No bruits. Thyroid normal, trachea midline, no adenopathy. Heart--normal S1 and S2. No murmurs, rubs or gallops. Lungs--clear bilaterally, no respiratory distress, no accessory muscle use. Abdomen--normal bowel sounds and soft. Mild epigastric and left sided abdominal pain Extremities--no cyanosis or clubbing. No edema. Dermatologic--normal skin turgor, normal color, no abnormal lymph nodes, no rash. Neurologic--cranial nerves II through XII grossly intact. Rheumatologic--normal range of motion. Psychiatric--normal affect. Results & Data Results & Data Vital Signs (Past 12 Hours) Vital Signs Temp Pulse Resp BP Pulse Ox O2 Del Method 04/27/23 09:17 98.1 F 84 16 134/81 96 Room Air PG Care Time/CCT Total # of Minutes Spent Total Time Spent with Patient: Total time spent is greater than 50% in coordination of care (as documented) at patient's floor/unit and/or counseling patient: Coding Level of Care Code 75701 SUB INP/OBS CARE 2/35MIN Diagnoses Nausea & vomiting R11.2 Colon perforation K63.1 Abdominal pain R10.9 Abdominal location: unspecified location Tobacco abuse Z72.0 Time Spent (min) 35 (3) Abdominal pain Abdominal location: unspecified location Qualified Code(s): R10.9 - Unspecified abdominal pain
--- NOTE | 2023-04-27 12:27 | Nuclear Medicine Report ---
NUCLEAR GASTRIC EMPTYING STUDY HISTORY: Nausea. COMPARISON: Abdomen and pelvis CT 04/22/2023. TECHNIQUE: Following the oral administration of 1 mCi of technetium 99m sulfur colloid in egg sandwic h and 8 ounces of water, static abdominal images are obtained anteriorly and posteriorly at 0 minutes , 1 hour, 2 hour, and 4 hour time intervals. Gastric emptying was calculated utilizing the geometric mean method. FINDINGS: There is approximately 76% activity remaining at the 1 hour time interval (normal is less t trujillo 90%), 61% remaining at the 2 hour time interval (normal is less than 60%), and 19% activity remai keyana at the 4 hour time interval (normal is less than 10%). IMPRESSION: Delayed gastric emptying as described above. ACT 112: Negative or not required by law. Electronically signed by: Venu Perez M.D. 04/27/2023 12:26 PM
[2023-04-27] MEDS: POTASSIUM CHLORIDE CRTAB 20 MEQ TABCR PO SCH (13:47)
[2023-04-27] MEDS: ACETAMINOPHEN 325 MG TAB PO PRN (18:00)
[2023-04-27] MEDS: ONDANSETRON 4 MG OD TAB PO PRN (18:01)
[2023-04-28 08:44] LABS: BUN Creatinine Ratio 3.1 (10-20); Calcium 9.7 mg/dl (8.6-10.3); Creatinine Clr Calc Pharmacy 117.9 ml/min; Est GFR (African American) 122.8 ml/min; Potassium 3.3 mmol/L (3.5-5.1)
[2023-04-28 08:58] LABS: Hematocrit (blood only) 42.4 % (42.0-52.0); Mean Corpuscular Hemoglobin 28.7 pg (25.0-34.0); Mean Corpuscular Hgb Conc 35.4 g/dL (32.0-36.0); Mean Corpuscular Volume 81.1 fL (80.0-100.0); Mean Platelet Volume 8.8 fL (9.4-12.4); Platelet Count 274 K/uL (130-400); RDW Standard Deviation 35.4 fL (36.4-46.3); Red Blood Count 5.23 M/uL (4.70-6.10); White Blood Count 5.71 K/ul (4.8-10.8)
[2023-04-28] MEDS: PANTOprazole 40 MG TAB PO SCH (10:35)
--- NOTE | 2023-04-28 10:41 | Gastroenterology Progress Note ---
Date of Service April 28, 2023 Assessment & Plan (1) Crohn's colitis: (2) Colon perforation: (3) Nausea & vomiting: Plan Patient is a 27 y.o. male with a history of Crohn's colitis being managed by [facility] admitted after diagnostic colonoscopy resulting in colon perforation which spontaneously walled off,with improved nausea and vomiting. Concern for new onset of rectal bleeding. He is hemodynamically stable and blood most likely anal. -Continue supportive care with antiemetics as needed. -Continue abx per surgery reccs. -Continue Pantoprazole, Famotidine, and Carafate as prescribed. -[facility] will resume GI care tomorrow. Admission and Anticipated Discharge Date Admission Date: April 20, 2023 Subjective Patient is improved in regard to nausea being transitioned to oral antibiotics. Tolerating diet. Reported some loose stool with blood. H&H is normal. No abdominal pain or other complaints. Review of Systems Constitutional: no problem reported Gastrointestinal: as per Subjective / HPI Physical Exam Constitutional: WD/WN, vitals as above Respiratory: normal respiratory effort, lungs clear to auscultation Cardiovascular: Rate/Rhythm: regular rate and regular rhythm Gastrointestinal (Abdomen): normal bowel sounds, soft, nontender, no hepatosplenomegaly Musculoskeletal: Extremities: extremities normal to inspection Skin: no rashes, warm and dry Psychiatric: A+Ox3, euthymic affect Results & Data Results & Data Vital Signs (Past 12 Hours) Vital Signs Temp Pulse Resp BP Pulse Ox O2 Del Method 04/28/23 07:35 36.5 C 66 18 130/88 98 Room Air PG Care Time/CCT Total # of Minutes Spent Total Time Spent with Patient: Total time spent is greater than 50% in coordination of care (as documented) at patient's floor/unit and/or counseling patient: Coding Level of Care Code 73469 SUB INP/OBS CARE 2/35MIN Diagnoses Crohn's colitis K50.10 Colon perforation K63.1 Nausea & vomiting R11.2
--- NOTE | 2023-04-28 13:27 | Discharge Summary ---
Date of Service April 28, 2023 Admission HPI Per Admitting Provider Amrik is a 27 year old male with a PMH significant for Tobacco/vape use, medical marijuana use (daily), Chron's disease, and Autism who presented to the [facility] ED on 04/20/23 with complaints of abdominal pain, nausea, and vomiting for the past 48-72 hoours hours. The patient underwent colonoscopy with biopsies performed for his Chron's disease. Since the procedure he has been reporting ongoing abdominal pain, nausea, and vomiting. He remained stable in the ED. Labs were significant for a total bili of 2.[address] of the abd/pelvis w/IV con was read as "1. Mild to moderate thickening within the distal transverse colon with associated pericolonic fat stranding, pericolonic gas, and pneumoperitoneum consistent with a colonic perforation. This could be due to a colitis, diverticulitis, the recent colonoscopy, or underlying colonic lesion. Surgical consultation recommended. 2. No evidence for bowel obstruction. 3. Moderate bladder wall thickening. Recommend correlation with urinalysis.". General surgery was consulted and evaluated the patient. At this time they recommend conservative management with strict NPO status, IV fluids, and IV antibiotics. Prior to admission the patient was given 2L NSS, a dose of Zosyn, 40 mg IV pantoprazole, 4 mg IV zofran, and was start on 1L of LR. At the time of the exam the patient was sitting in bed in no acute distress. He states that he was diagnosed with chron's at the age of 6. He underwent routine colonoscopy on 04/18/23 to monitor for adequate response to his recent treatments. When asked, he states that they did not believe he was in an active chron's flare and took biopsies of what they thought was either scar tissue or polyps. His symptoms began shortly after returning home on the . His abdominal pain has always been located just superior to the umbilicus, is described as "tight", has been a 5/10, and has not radiated anywhere else. He has been unable to keep for or water down over this time. When asked about hematemesis or bloody vomit he states that he made have had some blood clots when he initially started to vomit but has not seen any since. Since arrival to the ED his symptoms have improved but have not resolved. He denies recent fever, chills, chest pain, SOB, dysuria, hematuria, diarrhea, LE swelling, and recent trauma. Principal Diagnosis Colonic perforation Discharge Exam The patient is awake, alert and oriented 3, well developed and well nourished, normocephalic and atraumatic, lying in bed and in no acute distress. HEENT--PERRL, EOMI, mucous membranes and oropharynx mildly dry Neck--supple. No JVD. No bruits. Thyroid normal, trachea midline, no adenopathy. Heart--normal S1 and S2. No murmurs, rubs or gallops. Lungs--clear bilaterally, no respiratory distress, no accessory muscle use. Abdomen--normal bowel sounds and soft. Mild epigastric and left sided abdominal pain Extremities--no cyanosis or clubbing. No edema. Dermatologic--normal skin turgor, normal color, no abnormal lymph nodes, no rash. Neurologic--cranial nerves II through XII grossly intact. Rheumatologic--normal range of motion. Psychiatric--normal affect. Discharge Data Allergies Allergy/AdvReac Type Severity Reaction Status Date / Time infliximab [From Remicade] Allergy Severe THROAT Verified 04/20/23 15:29 SWELLS Consultations 04/20/23 10:55 Consult General Surgery Stat 04/20/23 10:56 ED Decision to Admit Stat 04/25/23 12:36 Consult Gastroenterology Routine Ordered Studies 04/20/23 09:33 CT Abd and Pelvis [CT abd pelvis IV con only] Stat 04/22/23 07:27 CT angio abdomen pelvis w con Routine Hospital Course (1) Nausea & vomiting: Now resolved Gastric emptying study showed some delayed gastric emptying (2) Colon perforation: CT abdomen and pelvis shows: Colon perforation has sealed up Nausea has improved Diet as tolerated Hopefully discharge to home to follow-up with surgery outpatient (3) Abdominal pain: (4) Tobacco abuse: Declined need for nicotine patch/gum Plan VTE prophylaxis - low risk, encourage mobility Diet - clear liquid Disposition -discharge home Total Time Total Time Spent Total Time Spent (In Minutes): 35 Discharge Plan Discharge Items Patient Disposition: Home - Self-Care Reason For Visit: COLONIC PERFORATION Discharge Diagnosis: Colonic perforation, Activity: Resume your previous activity Non-emergency contact: Primary Care Provider and Assistant Teacher Call non-emergency contact if: you have any medication questions Follow-up/Referrals: Jaydon Lim, [Primary Care Provider] - Diet: Regular Addtl Attending Provider Instructions: Please make appointment to follow-up with a insurance representative in 1 week Pending Studies at Discharge: No Stand-Alone Forms: My [facility], Smoking Cessation Medications and DC Order Prescriptions: New sucralfate 100 mg/mL Suspension 1 g PO QID 10 Days Qty: 400 0RF metronidazole 500 mg Tablet 500 mg PO Q8 5 Days Qty: 15 0RF ciprofloxacin HCl 500 mg Tablet 500 mg PO BID 5 Days Qty: 10 0RF pantoprazole 40 mg Tablet,Delayed Release (Dr/Ec) 40 mg PO QAM 30 Days Qty: 30 0RF Continued triamcinolone acetonide 0.1 % cream 1 applic topical BID Qty: 80 5RF Rx Instructions: arms and neck multivit with min-folic acid [Multivitamin Gummies] 200 mcg Tablet,Chewable 2 tab PO QAM Rinvoq 30 mg tablet extended release 24 hr 30 mg PO DAILY Discontinued doxycycline hyclate 100 mg tablet 100 mg PO BID Rx Instructions: STARTED 03/31/23 FOR 30 DAYS FOR STAPH INFECTION PER PT. Discharge Orders: Discharge Order (Routine); Ordered 04/28/23 Ordered By: Jessica Hsu Admission Data Admit Date/Time: 04/20/23 11:31 Attending Provider: Jessica Hsu Admit Provider: Sergey Deleon Primary Care Provider: Jaydon Lim Other Providers: Kostas Mckeon; Sergey Deleon; Haroon Acharya Coding Level of Care Code 98319 INP/OBS DISCH >30 MIN Diagnoses Nausea & vomiting R11.2 Colon perforation K63.1 Abdominal pain R10.9 Abdominal location: unspecified location Tobacco abuse Z72.0 Time Spent (min) 35
[2023-04-29] MEDS ORDERED: FAMOTIDINE 20 MG TAB PO SCH (09:00)
--- NOTE | 2023-05-05 09:25 | Coding Query ---
CODING QUERY To promote full compliance with coding requirements relating to patient care, provider participation is requested in all cases of process tank tender uncertainty. Please assist us with the question(s) below: Clinical Indicators: H&P: * Colon perforation * CT of the abd/pelvis w/con shows mild to moderate thickening within the distal transverse colon with associated pericolonic fat stranding, pericolonic gas, and pneumoperitoneum consistent with a colonic perforation. * Crohns Disease * He underwent routine colonoscopy on 04/18/2023. * His symptoms began shortly after returning home on the . * Treated with IV fluids, Zosyn, and liquid diet GI Consultation: * He is status post diagnostic colonoscopy by Dr. Cordova on 04/18/23 which resulted in a colonic perforation. Coding Question(s): Based on your best medical judgement, can you specify the etiology of the perforation as: * Crohn's disease of the large intestine with other complication * Accidental puncture/laceration of a digestive system organ during digestive system procedure * Other: * Unable to determine. Physician's Response(s): Accidental perforation of colon following colonoscopy Thank you Little CHIU
== END 2023-04-28 14:30 | disposition home or self-care (01) | DRG 919 ==
LOC: ED 08:21 → EDINP 11:31 → SUATTDRO 11:31 → 3N 14:31